=== PATIENT | male | born 1970 | race Hispanic/Latino ===

== ENCOUNTER 2017-05-09 20:32 | Inpatient (IN) | payer MEDICAID, SELFPAY ==
--- NOTE | 2017-05-09 21:47 | ULT ---
RIGHT LOWER EXTREMITY VENOUS ULTRASOUND: 05/09/17 HISTORY: Patient had right knee surgery one month ago in [place]. Right knee pain for eight days. Swelling an d pain in the right knee. TECHNIQUE: Multiplanar bautista scale and color doppler images were obtained in a right lower extremity venous ultr asound. Spectral analysis of the doppler waveforms were performed. The right common femoral vein, profunda femoral vein, superficial femoral vein, and popliteal vein a re normal in appearance without visible thrombus. These vessels demonstrate normal compression, flow , and augmentation. The posterior tibial vein and greater saphenous vein are also patent on the righ t. There are incidentally seen normal appearing lymph nodes with fatty mary jane in the right inguinal re gion. IMPRESSION: No evidence of right lower extremity DVT. POS: [facility]
[2017-05-09 21:57] LABS: #Basophils 0.1 thou/uL (0.0-0.2); #Eosinphils 0.2 thou/uL (0.0-0.7); #Lymphocytes 1.8 thou/uL (1.20-3.40); #Monocytes 0.7 thou/uL (0.11-0.59); #Neutrophils 4.9 thou/uL (1.40-6.50); %Basophils 0.8 % (0.0-1.0); %Eosinophils 2.6 % (0.0-10.0); %Lymphocytes 23.4 % (21.0-51.0); %Monocytes 9.5 % (0.0-10.0); Hematocrit 21.4 % (42.0-52.0); Mean Platelet Volume 5.9 fL (7.4-10.4); Red Blood Cell (RBC) Count 2.46 mill/uL (4.70-6.10); White Blood Cell (WBC) Count 7.7 thou/uL (4.8-10.8)
[2017-05-09 22:14] LABS: ALT (SGPT) 28 U/L (8-55); AST (SGOT) 15 U/L (5-34); Alkaline Phosphatase 113 U/L (40-150); Anion Gap 15 mmol/L (10-20); BUN (Urea Nitrogen) 44 mg/dL (8.9-20.6); Bilirubin, Total 0.4 mg/dL (0.2-1.2); Calc. Creatinine Clearance 0 mL/min (70-130); Calcium 8.8 mg/dL (7.8-10.44); Carbon Dioxide 11 mmol/L (22-29); Chloride 116 mmol/L (98-107); Estimated GFR-MDRD 14; Globulin 4.3 g/dL (2.4-3.5); Protein, Total 7.8 g/dL (6.0-8.3)
[2017-05-09] MEDS ORDERED: Lidocaine 1% w/Epinephrine 1:200K 30 ML VIAL ONE (23:37)
[2017-05-10 00:27] LABS: BF Reference Range Comment Note:
[2017-05-10 02:43] LABS: BF Color Pink
[2017-05-10 02:44] LABS: RBC Count-Automated 1480000 /cumm
[2017-05-10 02:46] LABS: Number Cells Counted-Fluids 100
[2017-05-10] MEDS ORDERED: Sodium Chloride 0.9% 1,000 ML IV SCH (03:47)
[2017-05-10] MEDS ORDERED: HumaLOG 300 UNITS/3 ML VIAL SC PRN (03:47)
[2017-05-10] MEDS ORDERED: Ondansetron ODT 4 MG TAB PO PRN (03:47)
[2017-05-10] MEDS ORDERED: Bisacodyl 5 MG TAB PO PRN (03:47)
[2017-05-10] MEDS ORDERED: Dextrose 50% Abboject 50 ML SYRINGE SLOW IVP PRN (03:47)
[2017-05-10] MEDS ORDERED: Ondansetron HCl/PF 4 MG/2 ML Vial IVP PRN (03:47)
[2017-05-10] MEDS ORDERED: Acetaminophen 650 MG Suppository PR PRN (03:47)
[2017-05-10] MEDS ORDERED: Dextrose 5% in Water 1,000 ML IV PRN (03:47)
[2017-05-10 03:53] LABS: Hemoglobin A1c 7.7 % (4.0-6.0)
--- NOTE | 2017-05-10 05:58 | HP-2 ---
ADMITTING RESIDENT: Dequan Ann D.O. ATTENDING PHYSICIAN: Matt Parker M.D. CONSULTS: Dr. Layton Jansen, Orthopedics. HISTORIAN: Patient and daughter. CHIEF COMPLAINT: Right knee pain and swelling. HISTORY OF PRESENT ILLNESS: This is a 47-year-old male who presents with right knee pain a nd swelling x7-8 days. He had knee surgery at the end of February and has been on prophylactic Keflex s vero. He denies fever, headache, chest pain, shortness breath, abdominal pain, nausea, vomiting, di arrhea. He has been taking the Keflex as prescribed and has had no injury to the knee since surgery . He states he has no hardware in his knee such as a knee replacement. The knee surgery was perfor med at [facility]. He has no history of tuberculosis or recent travel. He is from [place], but has no t been back in over 27 years. He has had a similar problem 4 times and states that is why he keeps having knee surgery. He states the pain is worse with extension and ambulation. [facility] he was seen by Dr. Vaz who performed a joint aspiration that had turbid fluid and conta cted Dr. Jansen who stated he would see the patient in the morning. PAST MEDICAL HISTORY: Patient is a poor historian, but reports diabetes mellitus type 1, and chroni c kidney disease. PAST SURGICAL HISTORY: 1. Right knee x4, most recently 02/2017. 2. Appendectomy. 3. Kidney stone removal. ALLERGIES: No known drug allergies. HOME MEDICATIONS: 1. Insulin, the patient is sure of type or dose. 2. Keflex for knee infection prophylaxis. FAMILY HISTORY: Mother had diabetes mellitus. SOCIAL HISTORY: The patient denies tobacco, alcohol, or drug use. He is disabled, and has 5 children. REVIEW OF SYSTEMS: GENERAL: Positive for chills. Negative for fevers or weight change, appetite change, sleep change, night sweats, fatigue. EYES: Negative for vision change or eye pain. ENT: Negative for nasal congestion, rhinorrhea, sore throat. RESPIRATORY: Negative for cough, congestion, shortness of breath, exercise intolerance. CARDIOVASCULAR: Negative for chest pain, palpitations, PND, orthopnea, and edema. GI: Negative for nausea, vomiting, diarrhea, constipation, abdominal pain, GI bleeding. : Negative for dysuria, polyuria. SKIN: Negative for rashes, lesions, jaundice. MUSCULOSKELETAL: Positive for right knee pain. Positive for right knee tenderness. Positive for r ight knee swelling. Negative for arthritis and arthralgias. NEUROLOGIC: Positive for headache. Negative for weakness, numbness, syncope, seizure. PSYCHIATRIC: Negative for anxiety, depression and suicidal ideation. PHYSICAL EXAMINATION: VITAL SIGNS: Blood pressure 120/77, pulse 84, respiration rate 16, pulse ox 97% on room air, weigh t 63 kilograms. GENERAL: The patient is alert and oriented x4, in no apparent distress. Well-developed and appropr iately interactive. EYES: PERRLA, EOMI. Conjunctivae within normal limits. ENT: Tympanic membranes pearly bautista without bulging or erythema. Nasal mucosa within normal limits . Oropharynx within normal limits. NECK: Supple, with no lymphadenopathy, thyromegaly or bruit. CARDIOVASCULAR: Regular rate and rhythm, no murmurs, rubs, gallops. Radial and pedal pulses are pa lpable and equal bilaterally. RESPIRATORY: Normal effort, no retractions. Clear to auscultation bilaterally. SKIN: Warm, dry with no cyanosis, no lesions. Skin is erythematous on knee. ABDOMEN: Soft, nontender to palpation. Bowel sounds positive x4, no mass or distention. EXTREMITIES: No clubbing, cyanosis. Right knee with significant swelling, tenderness, rubor and pa llor, right knee flexion and extension limited by pain. MUSCULOSKELETAL: Structure within normal limits. Tone within normal limits. Muscle strength 5/5 NEURO: No focal deficits. Cranial nerves II-XII intact. GCS is 15. PSYCHIATRIC: Mood and affect are appropriate. LABORATORY DATA: 1. CBC: White blood cells 7.7, hemoglobin 6.9, hematocrit 21.5, platelet count 530, MCV 87 63% matthieu trophils. 2. CMP: Sodium 137, potassium 4.8, chloride 116, bicarbonate 11, BUN 44, creatinine 4.56, glucose 154, calcium 8.8, total protein 7.8, albumin 3.5, AST 15, ALT is 28, alkaline phosphatase 113. CRP 8.09. IMAGING: Right lower extremity Doppler was negative for DVT. ASSESSMENT AND PLAN: This is a 47-year-old male with a past medical history of diabetes me llitus type 1 and chronic kidney disease who presents with: 1. Septic arthritis. Admit to Medical, start IV vancomycin. We will give 15 mg/kg dose and adjust dosing based on kidney function if it improves. Blood cultures ordered. Joint aspiration studies pending. Dr. Jansen was consulted by the emergency department and will see the patient in the mo rning. 2. Acute kidney injury on chronic kidney disease. We will check urine creatinine and sodium. We w ill give IV bolus and then maintenance fluids. Baseline creatinine appears to be about 1.8 to 1.9. We will evaluate for prerenal injury, consider Nephrology consult in the morning. Strict I's and O 's will be taken. 3. Diabetes mellitus type 1. Check hemoglobin A1c. We will get Accu-Cheks and sliding scale insul in. 4. Normocytic anemia, hemoglobin 6.9 compared to 8.7 on visit in February and 11.5 in August. It may be related to kidney disease. No known source of bleeding at this time. Patient denies GI bleeding . We will transfuse if symptomatic. Consult Nephrology to see if he is appropriate for Epogen if k idney function is worsened. The patient may need endoscopy, could be an option for outpatient. 5. CODE STATUS: Full. 6. Activity: Bed rest. 7. Diet n.p.o. 8. Deep venous thrombosis prophylaxis; heparin. DISPOSITION/LENGTH OF STAY: Anticipate discharge home. Length of stay will be at least 2 nights. Symptomatic medications will be provided. History and physical exam as well as management was discussed with Dr. Parker.
[2017-05-10 06:01] VITALS: BMI 21.9
[2017-05-10 07:10] LABS: Anion Gap 16 mmol/L (10-20); BUN (Urea Nitrogen) 46 mg/dL (8.9-20.6); Calc. Creatinine Clearance 19 mL/min (70-130); Calcium 9.2 mg/dL (7.8-10.44); Carbon Dioxide 10 mmol/L (22-29); Chloride 115 mmol/L (98-107); Estimated GFR-MDRD 14; Magnesium 1.6 mg/dL (1.6-2.6); Phosphorus 4.3 mg/dL (2.3-4.7)
[2017-05-10 07:31] LABS: #Basophils 0.1 thou/uL (0.0-0.2); #Eosinphils 0.3 thou/uL (0.0-0.7); #Lymphocytes 2.1 thou/uL (1.20-3.40); #Monocytes 0.6 thou/uL (0.11-0.59); #Neutrophils 4.2 thou/uL (1.40-6.50); %Basophils 0.8 % (0.0-1.0); %Eosinophils 3.6 % (0.0-10.0); %Lymphocytes 28.8 % (21.0-51.0); %Monocytes 8.5 % (0.0-10.0); Hematocrit 20.6 % (42.0-52.0); Mean Platelet Volume 6.6 fL (7.4-10.4); Red Blood Cell (RBC) Count 2.33 mill/uL (4.70-6.10); White Blood Cell (WBC) Count 7.1 thou/uL (4.8-10.8)
[2017-05-10 07:37] LABS: Anion Gap 17 mmol/L (10-20); BUN (Urea Nitrogen) 45 mg/dL (8.9-20.6); Calc. Creatinine Clearance 19 mL/min (70-130); Calcium 9.3 mg/dL (7.8-10.44); Carbon Dioxide 10 mmol/L (22-29); Chloride 115 mmol/L (98-107); Estimated GFR-MDRD 14; Magnesium 1.7 mg/dL (1.6-2.6); Phosphorus 4.4 mg/dL (2.3-4.7)
--- NOTE | 2017-05-10 08:27 | RAD ---
RIGHT KNEE TWO VIEWS: History: 47-year-old male with septic knee arthritis and swelling. Comparison: 03-18-17 FINDINGS: There is very marked distention of the suprapatellar recess and very extensive joint fluid density. There are some destructive changes and some fragmentation of the medial tibial plateau. There is courtney e developing calcification, probably ossification, along the pre-femoral region of the distal femur adjacent to the distended suprapatellar recess. There are some small bony fragments noted medially a nd posteriorly. IMPRESSION: Marked distention of the joint space, particularly suprapatellar recess which certainly could be com patible with septic knee arthritis. In addition there is extensive irregular bony erosive and destru ctive changes of the medial tibial plateau and medial proximal tibia raising concern for associated osteomyelitis. Developing ossification along the pre-femoral region posterior to the distended supra patellar recess. No acute fracture. POS: [facility]
--- NOTE | 2017-05-10 08:36 | ULT ---
COMPLETE BILATERAL RENAL ULTRASOUND: HISTORY: A 47-year-old male with renal failure. FINDINGS: The right kidney measures 12.6 x 5 x 4.4 cm. The left kidney measures 12.8 x 5.1 x 5.6 cm. There a re noted to be fairly marked hyperechoic changes throughout both kidneys, evidence for nonspecific c hronic renal disease. No evidence for renal hydronephrosis. The bladder appears unremarkable. IMPRESSION: 1. Hyperechoic kidneys bilaterally, consistent with nonspecific chronic renal disease. 2. No hydronephrosis. POS: [facility]
[2017-05-10] MEDS ORDERED: VANCOMYCIN IVPB PRN (09:26)
[2017-05-10] MEDS ORDERED: Vancomycin HCl 1 GM in Premix Bag 1 BAG IVPB SCH (10:00)
[2017-05-10 11:08] LABS: Amphetamine Not Detected (NotDetected); Methadone Not Detected (NotDetected); Methamphetamine Not Detected (NotDetected)
[2017-05-10 11:18] LABS: Bilirubin Negative (Negative); Blood, Urine Trace (Negative); Glucose, Urine (Dipstick) Negative (Negative); Ketone, Urine Negative (Negative); Nitrite Negative (Negative); Protein, Urine (Dipstick) 30 mg/dL (Neg-Trace); Urobilinogen 0.2 mg/dL (0.2-1.0)
[2017-05-10 11:22] LABS: Bacteria/HPF None Seen HPF (None Seen); Hyaline Casts/LPF 0-3 HYALINE CAST LPF (0-3 Hyaline); Squamous Epithelial None Seen HPF (0-3); WBC/HPF 0-3 HPF (0-3)
[2017-05-10] MEDS: Heparin 5,000 UNITS/ML VIAL SC SCH ×3 (11:35→21:31)
[2017-05-10] MEDS: Vancomycin HCl 1 GM in Premix Bag 1 BAG IVPB SCH (14:04)
[2017-05-10] MEDS: Sodium Chloride 0.9% 1,000 ML IV SCH ×3 (14:05→22:19)
[2017-05-10 16:16] LABS: Hematocrit 24.2 % (42.0-52.0)
--- NOTE | 2017-05-10 18:59 | CON ---
DATE OF CONSULTATION: 05/10/2017 REQUESTING PHYSICIAN: Matt Parker M.D. HISTORY OF PRESENT ILLNESS: Patient is a pleasant 47-year-old gentleman, who today was int erviewed while in his hospital bed via interpretation from one of our nurses on tower 4. He reports a history of increased knee pain and swelling over the last 7-8 days. Patient has been on prophyla ctic Keflex since his surgery in 02/2017 at [facility] in [place]. He reports that his knee problems started in 06/2017 when he developed the insidious onset of a painful swollen knee. He was seen and evaluated at [facility] in [place], where an arthrotomy was performe d for infection. The patient reports that he had 2 subsequent arthrotomies for the same problem at [facility]. In February, he was having increasing knee pain and did not feel as though he was seen any results with his care from [facility] and as such, he presented to [facility] in [place], ere again he underwent a surgical procedure on the knee. Unfortunately, we do not have any records from [facility] or [facility] to reflect a pathogen from within the knee or surgical findings. T he patient states that all foreign surgeries were for infection. The patient now admitted to the [facility] due to this knee pain and swelling as well as his multiple medical comorbiditi es. The patient reports the pain level is 6/10 when attempting to ambulate. He did have x-rays per formed in 02/2017, which showed some erosions of the medial tibial plateau; and today I had repeat x -rays performed that showed extensive erosive changes over the medial plateau as well as some \\\\"mot h eaten\\\\" changes of the distal femur as well as some periosteal new bone formation at the anterior cortex of the distal femur. I do not appreciate an obvious pathologic pattern from these radiograp hic findings, but clearly the erosions seen in February has accelerated significantly in the last 3 venessa hs. PAST MEDICAL HISTORY: Remarkable for diabetes and chronic renal disease. PAST SURGICAL HISTORY: 1. Right knee surgery x4 as outlined in the history of present illness. 2. Appendectomy. 3. Renal stone removal. MEDICATIONS AT HOME: Include insulin as well as Keflex since his last surgery in February. ALLERGIES: None known. REVIEW OF SYSTEMS: He does not report significant fevers or sweats. He does have a history of chil ls last week. He denies shortness of breath or chest pain. He denies numbness or tingling in the l ower extremity. FAMILY HISTORY: Noncontributory. SOCIAL HISTORY: Denies tobacco, alcohol, or drug use. PHYSICAL EXAMINATION: VITAL SIGNS: The patient has a temperature of 97.8 degrees Fahrenheit, heart rate is 71, respirator y rate 16 and blood pressure 113/75. HEENT: Atraumatic, normocephalic. HEART: Shows a regular rate and rhythm without murmur. LUNGS: Clear to auscultation bilaterally. ABDOMEN: Soft. Pelvis is stable. EXTREMITIES: Remarkable for right lower extremity with a well-healed midline anterior knee incision that measures in axis of 8 inches. He is found to have a 2+ effusion within the knee and some incr eased warmth. He has some mild pitting edema distal to this knee. He is moving his toes. His comp artments in the lower extremity are soft. He has no pain with passive stretch and has intact subjec tive sensation in the foot. His knee range of motion is from full extension to about 50 degrees of flexion and this is met with pain. LABORATORY AND X-RAY FINDINGS: He has a white count of 7, hematocrit 21.5, and 530,000 platelets. He is found to have a BUN of 44, creatinine 4.56. An aspirate was performed [facility] and this aspirate showed turbid cloudy fluid with 102,000 white cells and 1,480,00 0 red cells. The white cells were predominantly neutrophils and there was no evidence of crystal an d no organisms were seen on Gram stain. He was also found to have a sed rate of 117 and a C-reactiv e protein of 8.09. X-RAYS: As previously described, x-ray of his knee was obtained today and shows severe erosive encarnacion ges of the medial tibial plateau as well as periosteal bone formation at the anterior femur. ASSESSMENT: A 47-year-old gentleman with effusion within the knee and elevated white blood cell cou nt suggestive of infection, although Gram-stain negative at this time. The patient also with bony c hanges on x-ray including severe erosive changes of the medial tibial plateau. At this time, differ ential would include infection with osteomyelitis, although one would need to rule out inflammatory arthropathies or even neoplastic processes. PLAN: At this time, I do believe patient will need an irrigation and debridement procedure of the luis enrique roche. However, I would first like to obtain an MRI of this knee to more fully quantified and categor ized the bone changes present. I think this would be important to do prior to surgery just with any changes visualized are not confounded with some post-surgical changes. I also have concerns regard ing the fragmentation of this gentleman's care. He has had 3 prior procedures done at [facility] and [facility]. We do not have any of these medical records for our review. I do believe that his historical c are is of vast importance. I do not believe that we are going to be able to culture anything from t he knee. He has been on chronic suppressive antibiotics and a question at this time has any bacteri a grown from prior aspirates; and if so, we would want to target these with any current antibiotic r egimen. I do think that a consultation with Dr. Sahu is indicated. Pending the findings of the MR I. We will discuss preoperative planning for irrigation and debridement of this knee joint. I have requested that we try and obtain records from [facility] from his prior hospitalizations. I t fiordaliza one could also consider perhaps transfer patient back to his operating surgeon at [facility] and [facility] in consideration of continuity of care, but I will defer to the medicine service for this.
[2017-05-10 20:29] LABS: Hematocrit 23.9 % (42.0-52.0)
[2017-05-11 00:24] LABS: Hematocrit 21.1 % (42.0-52.0)
--- NOTE | 2017-05-11 00:30 | CON ---
DATE OF CONSULTATION: 05/10/2017 CONSULTING PHYSICIAN: Dr. Parker. REASON FOR CONSULTATION: Acute kidney injury on chronic kidney disease. REASON FOR ADMISSION: Right knee pain and swelling. HISTORY OF PRESENT ILLNESS: A 47-year-old male with history of type 1 diabetes, chronic ki dney disease, came to the hospital with above symptoms and Nephrology is consulted. The patient is from [place] and has not been back in over 25 years and has several kidney stones removal and is curr ently admitted for the above symptoms. No nausea, vomiting, no chest pain, palpitation. No fevers, chills are reported. PAST MEDICAL HISTORY: Positive for type 1 diabetes, chronic kidney disease. PAST SURGICAL HISTORY: Right knee surgery, appendectomy, kidney stone removal. HOME MEDICATIONS: Insulin and Keflex. ALLERGIES: No known drug allergies. FAMILY HISTORY: Positive for diabetes. SOCIAL HISTORY: No smoking, alcohol or illicit drug abuse. REVIEW OF SYSTEMS: The following complete review of systems was negative, unless otherwise mentione d in the HPI or below: Constitutional: Weight loss or gain, ability to conduct usual activities. Skin: Rash, itching. Eyes: Double vision, pain. ENT/Mouth: Nose bleeding, neck stiffness, pain, tenderness. Cardiovascular: Palpitations, dyspnea on exertion, orthopnea. Respiratory: Shortness of breath, wheezing, cough, hemoptysis, fever or night sweats. Gastrointestinal: Poor appetite, abdominal pain, heartburn, nausea, vomiting, constipation, or diar delfina. Genitourinary: Urgency, frequency, dysuria, nocturia. Musculoskeletal: Pain, swelling. Neurologic/Psychiatric: Anxiety, depression. Allergy/Immunologic: Skin rash, bleeding tendency. PHYSICAL EXAMINATION: GENERAL: This is a well-built male in no apparent distress. VITAL SIGNS: Temperature 97.8, pulse 71, respiratory rate 16, blood pressure 113/75. HEENT: Atraumatic, normocephalic. Oral mucosa is moist. NECK: Supple, no masses. CARDIOVASCULAR: S1, S2 heard. Rate and rhythm regular. RESPIRATORY: Clear. MUSCULOSKELETAL: No tenderness. No edema. DERMATOLOGIC: No skin rash. NEUROLOGIC: Alert, awake. PSYCHIATRIC: Mood and affect normal. LABORATORY DATA: Potassium is 4.5, BUN is 45, creatinine is 4.4. Hemoglobin is 7.7. ASSESSMENT AND PLAN: 1. Acute kidney injury on chronic kidney disease versus chronic kidney disease stage 4 to 5. The p atient had a GFR of 37 two months back less likely chronic kidney disease, most likely have acute co mponent on chronic kidney disease. We will follow. Renal ultrasound with hyperechoic kidneys bilat erally suggesting chronic kidney disease given the kidney size remains fairly unremarkable. 2. Anemia. We will check iron studies. 3. Proteinuria. We will check urine protein to creatinine ratio. 4. Chronic kidney disease. We will check chronic kidney disease labs. Plan is to monitor renal function closely, avoid nephrotoxins. Continue hydration as tolerated. Mo nitor vancomycin level and renally dose all the medicines. We will follow. Thank you for the consult.
[2017-05-11 05:24] LABS: Iron 24 ug/dL (65-175)
[2017-05-11 06:51] LABS: #Basophils 0.1 thou/uL (0.0-0.2); #Eosinphils 0.3 thou/uL (0.0-0.7); #Lymphocytes 1.4 thou/uL (1.20-3.40); #Monocytes 0.5 thou/uL (0.11-0.59); #Neutrophils 3.4 thou/uL (1.40-6.50); %Basophils 0.9 % (0.0-1.0); %Eosinophils 5.7 % (0.0-10.0); %Lymphocytes 24.8 % (21.0-51.0); %Monocytes 8.9 % (0.0-10.0); Hematocrit 25.8 % (42.0-52.0); Mean Platelet Volume 5.9 fL (7.4-10.4); White Blood Cell (WBC) Count 5.7 thou/uL (4.8-10.8)
[2017-05-11] MEDS: Sodium Chloride 0.9% 1,000 ML IV SCH ×3 (08:01→18:32)
[2017-05-11] MEDS: Ascorbic Acid 500 mg Chewable Tablet PO SCH ×2 (08:01→21:17)
[2017-05-11] MEDS: Ferrous Sulfate 325 MG TAB PO SCH ×2 (08:01→15:32)
[2017-05-11] MEDS: Docusate 100 MG CAP PO SCH ×2 (08:01→21:17)
[2017-05-11] MEDS: Heparin 5,000 UNITS/ML VIAL SC SCH ×3 (08:01→21:18)
--- NOTE | 2017-05-11 08:46 | PDOC.FM ---
- Subjective Subjective: Pt reports persistent pain in the rt knee, unchanged from yesterday. Seen by Ortho and will be going for MRI of Rt knee today and possible washout. He denies CP, SOB, NVDC. No acute events overnight and no other complaints at this time. - Objective Vital Signs & Weight: Vital Signs (12 hours) Temp Pulse Pulse Resp BP BP Pulse Ox 05/11/17 07:15 98.1 F 75 14 146/87 H 98 05/11/17 04:40 98.1 F 73 18 137/86 97 05/11/17 03:30 97.5 F L 76 16 133/81 05/11/17 01:03 98.2 F 76 16 128/83 98 Weight Weight 63.503 kg I&O: 05/10/17 05/11/17 05/12/17 06:59 06:59 06:59 Intake Total 1206 Output Total 750 Balance 456 Result Diagrams: 05/11/17 06:30 05/10/17 07:17 <Javi Lopez - Last Filed: 05/11/17 08:57> - Objective Vital Signs & Weight: Vital Signs (12 hours) Temp Pulse Pulse Resp BP BP Pulse Ox 05/11/17 07:15 98.1 F 75 14 146/87 H 98 05/11/17 04:40 98.1 F 73 18 137/86 97 05/11/17 03:30 97.5 F L 76 16 133/81 05/11/17 01:03 98.2 F 76 16 128/83 98 Weight Weight 63.503 kg I&O: 05/10/17 05/11/17 05/12/17 06:59 06:59 06:59 Intake Total 1206 Output Total 750 Balance 456 Result Diagrams: 05/11/17 06:30 05/10/17 07:17 <Matt Parker - Last Filed: 05/11/17 10:05> Phys Exam - Physical Examination Constitutional: NAD HEENT: PERRLA, sclera anicteric Respiratory: no wheezing, no rales, no rhonchi, clear to auscultation bilateral Cardiovascular: RRR, no rub 1-2/6 murmur Gastrointestinal: soft, non-tender, no distention, positive bowel sounds Musculoskeletal: pulses present no pitting edema rt knee Neurological: non-focal, moves all 4 limbs <Javi Lopez - Last Filed: 05/11/17 08:57> Dx/Plan (1) Septic arthritis Status: Acute (2) Murmur Code(s): R01.1 - CARDIAC MURMUR, UNSPECIFIED Status: Acute (3) Osteomyelitis Code(s): M86.9 - OSTEOMYELITIS, UNSPECIFIED Status: Acute (4) Diabetes Code(s): E11.9 - TYPE 2 DIABETES MELLITUS WITHOUT COMPLICATIONS Status: Acute - Plan Plan: -ortho consulted, appreciate recommendations -pt to have MRI rt knee today and possible irrigation -consider transfer to pts previous surgeon -102,000 WBCs and 95% Neut per joint aspirate; however, no organisms grown to date -Pt remains afebrile, no leukocytosis -will continue vancomycin per pharmacy dosing -consult ID, appreciate recs -Pt has history of staph UTI in 2014 and recurrent infection/effusions of rt knee. Was previously on maintenence keflex prior to arrival -CKD stage 4-5 -nephro consulted appreciate recommendations -continue IVF -transfuse if hgb <7 w/ symptoms -iron deficiency anemia, start on iron, vit c and colace -trend H&[facility] <Javi Lopez - Last Filed: 05/11/17 08:57> Attending Addendum - Attending Addendum I personally evaluated the patient and discussed the management with Dr. Lopez. I agree with the History, Examination, Assessment and Plan documented above with any addition or exceptions noted below. Awaiting MRI. Patient has had care at an outside facility. We will await records vs consider transfer. Will need to discuss with outlying facility. Has Infectious disease physician at [facility]. 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 <Matt Parker - Last Filed: 05/11/17 10:05>
[2017-05-11 10:14] LABS: Anion Gap 11 mmol/L (10-20); BUN (Urea Nitrogen) 36 mg/dL (8.9-20.6); Calc. Creatinine Clearance 20 mL/min (70-130); Calcium 8.6 mg/dL (7.8-10.44); Carbon Dioxide 13 mmol/L (22-29); Chloride 119 mmol/L (98-107); Estimated GFR-MDRD 15
--- NOTE | 2017-05-11 11:49 | MRI ---
MRI RIGHT KNEE WITHOUT CONTRAST: Date: 05/11/17 HISTORY: Concern for septic arthritis. COMPARISON: Radiograph of 03/18/17. FINDINGS: Bones: There is loss of normal T1 signal to the medial tibial plateau and medial femoral condyle, as well a s edema throughout the lateral femoral condyle and lateral tibial plateau. There are erosive changes at the location of the anterior cruciate ligament at the femur. There is marrow edema within the patella. There is a large joint effusion with severe synovitis. Abn ormal thickening of the joint capsule. Abnormal soft tissue edema throughout the knee within the mitch p fascia. Muscles: Abnormal edema within the anterior compartment of the tibia and fibula with concern for pyomyositis of the popliteus. There is abnormal edema within the medial and lateral head of the gastrocnemius as well as soleus muscle, as well as the knee extensors. There is also abnormal edema within the short head biceps muscle. Abnormal undersurface remodeling of the lateral margin of the distal patellar tendon. IMPRESSION: 1. Findings suggestive of septic arthritis of the knee with osteomyelitis. Large joint effusion wit h severe synovitis suggests a relatively longstanding process, greater than 1 week. 2. Likely chronic injury of the ACL which is insufficient. 3. Abnormal edema of the medial tibial plateau with loss of anterior surface height, a sequelae of healing fracture. 4. Erosion of the cartilage of the medial compartment. 5. Concern for pyomyositis of the popliteus, although limited without intravascular contrast. 6. Abnormal edema within the anterior compartment of the tibia and fibula, the medial and lateral h ead of gastrocnemius and soleus muscle, as well as of the medial extensors, all likely myositis. 7. Loss of normal T1 signal within the medial femoral condyle and medial tibial plateau, as well as extensive edema throughout the proximal tibia. POS: [facility]
[2017-05-11] MEDS: Vancomycin HCl 1 GM in Premix Bag 1 BAG IVPB SCH (12:24)
[2017-05-11] MEDS ORDERED: Neomycin-Polymyxin 1 ML AMP ONE (15:27)
[2017-05-11] MEDS ORDERED: Fentanyl 100 MCG/2 ML VIAL ONE (15:36)
[2017-05-11] MEDS ORDERED: Midazolam HCl 2 mg/2 ml Vial ONE (15:36)
[2017-05-11] MEDS ORDERED: Ondansetron HCl/PF 4 MG/2 ML Vial ONE (16:01)
[2017-05-11] MEDS ORDERED: Lidocaine 1% PF 5 ML VIAL ONE (16:01)
[2017-05-11] MEDS ORDERED: PHENYLEPHRINE-NS 100 MCG/ML 10 ML SYRINGE ONE (16:01)
[2017-05-11] MEDS ORDERED: Propofol 200 MG/20 ML VIAL ONE (16:01)
[2017-05-11] MEDS ORDERED: Meperidine HCl/PF 25 MG/ML VIAL SLOW IVP PRN (16:52)
[2017-05-11] MEDS ORDERED: Promethazine HCl 25 MG/ML VIAL SLOW IVP PRN (16:52)
[2017-05-11] MEDS ORDERED: Promethazine HCl 25 MG/ML VIAL IM PRN (16:52)
[2017-05-11] MEDS ORDERED: Ondansetron HCl/PF 4 MG/2 ML Vial IVP PRN (16:52)
[2017-05-11 18:21] LABS: Hematocrit 27.5 % (42.0-52.0)
--- NOTE | 2017-05-11 22:28 | PRG ---
DATE OF SERVICE: 05/11/2017 NEPHROLOGY PROGRESS NOTE SUBJECTIVE: Patient was seen and examined at bedside and overnight events noted. Patient denies a ny shortness of breath or chest pain or palpitation. No history of nausea or vomiting or diarrhea o r fever or chills or cramps. OBJECTIVE: GENERAL: This is a well built male, in no apparent distress. VITAL SIGNS: Temperature 97.4, pulse 75, respiratory rate 16, blood pressure 139/87. HEENT: Atraumatic, normocephalic, Oral mucosa is moist Neck: Supple CARDIOVASCULAR: S1, S2 heard, Rate and rhythm regular RESPIRATORY: Clear to auscultation GASTROINTESTINAL: Abdomen is soft MUSCULOSKELETAL : No tenderness, No edema DERMATOLOGIC : No skin rash NEUROLOGIC: Alert and awake and oriented x3, No focal neurologic deficits. Moving all the extremitie s. PSYCHIATRIC: Mood and affect normal LABORATORY DATA: Potassium is 4.2, BUN is 36, creatinine 4.1, GFR is 15. PTH is 86.6, vitamin D 14.7, carbon dioxide is 13. ASSESSMENT AND PLAN: 1. Acute kidney injury on chronic kidney disease. PTH level is low, chronic kidney disease. We will continue supportive care and avoid nephrotoxins. 2. Acidosis, stable. 3. Vitamin D deficiency. Start on vitamin D. 4. Anemia with iron deficiency, start on iron pills rule out any bleed. 5. Proteinuria not much significant. 6. Plan is to monitor renal function with close followup. Avoid nephrotoxins and will follow.
[2017-05-12] MEDS: Sodium Chloride 0.9% 1,000 ML IV SCH ×3 (02:00→20:30)
[2017-05-12 05:04] LABS: Hematocrit 23.7 % (42.0-52.0); Mean Platelet Volume 6.1 fL (7.4-10.4); Red Blood Cell (RBC) Count 2.69 mill/uL (4.70-6.10); White Blood Cell (WBC) Count 5.2 thou/uL (4.8-10.8)
[2017-05-12 05:22] LABS: ALT (SGPT) 33 U/L (8-55); AST (SGOT) 35 U/L (5-34); Alkaline Phosphatase 100 U/L (40-150); Anion Gap 14 mmol/L (10-20); BUN (Urea Nitrogen) 34 mg/dL (8.9-20.6); Bilirubin, Total 0.4 mg/dL (0.2-1.2); Calc. Creatinine Clearance 20 mL/min (70-130); Calcium 8.3 mg/dL (7.8-10.44); Carbon Dioxide 12 mmol/L (22-29); Chloride 114 mmol/L (98-107); Estimated GFR-MDRD 16; Globulin 3.7 g/dL (2.4-3.5); Protein, Total 6.6 g/dL (6.0-8.3)
--- NOTE | 2017-05-12 06:18 | OP ---
DATE OF SURGERY: 05/11/2017 PREOPERATIVE DIAGNOSIS: Right septic knee with probable proximal tibial osteomyelitis. POSTOPERATIVE DIAGNOSIS: Right septic knee with probable proximal tibial osteomyelitis. SURGICAL PROCEDURE: Right knee arthrotomy with irrigation and debridement. ANESTHESIA: General. SURGEON: Sam Ríos M.D. RAILROAD WORKER: Ry Ponce PA-C TOURNIQUET TIME: Zero. BLOOD LOSS: 50 mL. SPECIMEN: Tissue and swabs sent for Gram stain culture and sensitivity. DRAINS: Hemovac x1. COMPLICATIONS: None. OUTCOME: Satisfactory. INDICATIONS: The patient is a 47-year-old gentleman with a nearly 1 year history of recurrent right knee effusions. The patient has now had 4 separate irrigation and debridement procedures for this septic knee. His first episode occurred in 06/2016 with irrigation and debridement performed at [facility] in [place], 2 subsequent surgeries were also performed at [facility]. Mos t recently the patient was an inpatient at [facility] in [place] in February for irrigation and debridemen t of the joint as well as decompression of a calf abscess. Unfortunately, I do not have the details of these hospitalizations and I do not know what organism was found. The patient now has recurrent pain and swelling within the knee with a large effusion. The patient also found to have erosive ch anges of the medial tibial plateau that appeared to be present on prior x-ray in February, although cert ainly worse on the most recent films. After discussion with patient including risks and benefits, kevin raymond decided to proceed with arthrotomy and irrigation of the knee. PROCEDURE IN DETAIL: The patient was brought to the operating room and timeout performed and then g eneral anesthesia induced. A sterile prep and drape was then performed of the right lower extremity . Using the main midline anterior scar from previous arthrotomies skin was incised, dissection was carried down bluntly to the underlying patellar tendon. Next a full thickness flap was developed he ading medially to the edge of the patellar tendon and the joint was entered. At this point, some se ropurulent material did come from the knee. This was swabbed and sent for Gram stain culture and se nsitivity. Some of the tissue also came from the knee, there was a whitish tissue and not normal ap pearing synovial lining or intra-articular finding, as such, this was also sent for Gram stain cultu re and sensitivity. Next, 5 liters of normal saline with antibiotic irrigant was irrigated throu gh this knee. Following this, the joint was closed with 0 Vicryl for the capsule, this was done ove r a Hemovac drain and then 2-0 Vicryl and nylon for the skin. A Xeroform gauze, Webril, and Tho wra p dressing was applied to the knee and then patient was transferred to recovery room in stable condi tion. There were no complications. The patient tolerated the procedure well.
--- NOTE | 2017-05-12 08:42 | PDOC.FM ---
- Subjective Subjective: Pt had no acute events overnight but Hgb did drop 1 pt and pt was transfused 1 UPRBCs. This is likely 2/2 irrigation procedure. Pt reports persistnet pain in right knee. States he was no longer being treated at [facility] because they said his infection had cleared. - Objective Vital Signs & Weight: Vital Signs (12 hours) Temp Pulse Pulse Resp BP BP BP 05/12/17 07:27 97.9 F 81 16 151/89 H 05/12/17 06:10 98.1 F 77 18 150/86 H 05/12/17 04:00 98.1 F 77 18 150/86 H 05/12/17 00:00 98.2 F 80 18 142/92 H Pulse Ox 05/12/17 07:27 98 05/12/17 06:10 05/12/17 04:00 97 05/12/17 00:00 98 Weight Weight 63.503 kg I&O: 05/11/17 05/12/17 05/13/17 06:59 06:59 06:59 Intake Total 1206 0 400 Output Total 750 100 900 Balance 456 -100 -500 Result Diagrams: 05/12/17 04:14 05/12/17 04:14 <Javi Lopez - Last Filed: 05/12/17 08:39> - Objective Vital Signs & Weight: Vital Signs (12 hours) Temp Pulse Pulse Resp BP BP BP 05/12/17 08:00 97.9 F 81 16 05/12/17 07:27 97.9 F 81 16 151/89 H 05/12/17 06:10 98.1 F 77 18 150/86 H 05/12/17 04:00 98.1 F 77 18 150/86 H 05/12/17 00:00 98.2 F 80 18 142/92 H Pulse Ox 05/12/17 08:00 98 05/12/17 07:27 98 05/12/17 06:10 05/12/17 04:00 97 05/12/17 00:00 98 Weight Weight 63.503 kg I&O: 05/11/17 05/12/17 05/13/17 06:59 06:59 06:59 Intake Total 1206 0 640 Output Total 750 100 900 Balance 456 -100 -260 Result Diagrams: 05/12/17 04:14 05/12/17 04:14 <Matt Parker - Last Filed: 05/12/17 10:53> Phys Exam - Physical Examination Constitutional: NAD HEENT: sclera anicteric Respiratory: no wheezing, no rales, no rhonchi, clear to auscultation bilateral Cardiovascular: RRR, no significant murmur, no rub Gastrointestinal: soft, non-tender, no distention, positive bowel sounds Musculoskeletal: pulses present, edema present non-pitting edema, RLE. Drain in place draining sanguinous material. Neurological: non-focal, moves all 4 limbs <Javi Lopez - Last Filed: 05/12/17 08:39> Dx/Plan (1) Septic arthritis Status: Acute (2) Murmur Code(s): R01.1 - CARDIAC MURMUR, UNSPECIFIED Status: Acute (3) Osteomyelitis Code(s): M86.9 - OSTEOMYELITIS, UNSPECIFIED Status: Acute (4) Diabetes Code(s): E11.9 - TYPE 2 DIABETES MELLITUS WITHOUT COMPLICATIONS Status: Acute (5) Acute on chronic kidney failure Code(s): N17.9 - ACUTE KIDNEY FAILURE, UNSPECIFIED; N18.9 - CHRONIC KIDNEY DISEASE, UNSPECIFIED Status: Acute - Plan Plan: -pt had irrigation performed yesterday in [place] -ortho following, appreciate recs -will contact pts ID doctor at [facility] regarding records and treatment history, consult ID pending -acute on chronic kidney injury, nephro consulted appreciate recs -iron, vit C and colace for VERA -pt transfused 2 UPRBC total -trend H&H -FOBT pending -murmur on PE, TTE ordered <Javi Lopez - Last Filed: 05/12/17 08:39> Attending Addendum - Attending Addendum I personally evaluated the patient and discussed the management with Dr. Lopez. I agree with the History, Examination, Assessment and Plan documented above with any addition or exceptions noted below. Patient s/p R knee arthrotomy with irrigation and debridement yesterday. Will await surgery's recommendations. New systolic murmur heard on exam, so ECHO was ordered. Will f/u with results. Nephrology continues to follow for his MIKE vs CKD and will await their recommendations. H&H still decrease so will transfused another 1U PRBC as he may need more surgery. Reviewed records from [facility]. <Matt Parker - Last Filed: 05/12/17 10:53>
[2017-05-12] MEDS: Ferrous Sulfate 325 MG TAB PO SCH ×4 (09:39→15:45)
[2017-05-12] MEDS: Ascorbic Acid 500 mg Chewable Tablet PO SCH ×2 (09:43→21:20)
[2017-05-12] MEDS: Docusate 100 MG CAP PO SCH ×2 (09:44→21:20)
[2017-05-12] MEDS: Heparin 5,000 UNITS/ML VIAL SC SCH ×3 (09:45→21:20)
[2017-05-12 12:09] LABS: Hematocrit 29.3 % (42.0-52.0)
--- NOTE | 2017-05-12 12:13 | PRG ---
Patient Name: AKBAR PARRISH Date of service: 05/12/2017 Subjective: Patient was seen and examined at bedside and overnight events noted. Patient denies any shortness of breath or chest pain or palpitation. No history of nausea or vomiting or diarrhea or fever or chills or cramps. Objective: General: This is a well-built male in no apparent distress Vital signs: Temperature 98.0, pulse 77, respirations 16, blood pressure 156/96. HEENT: Atraumatic, normocephalic. Oral mucosa is moist. Neck: Supple. Cardiovascular: S1 S2 heard. Rate and rhythm regular. Respiratory: Clear to auscultation. Gastrointestinal: Abdomen is soft/ Musculoskeletal: No tenderness. No edema. Dermatologic: No skin rash. Neurologic: Alert and awake and oriented X3. No focal neurologic deficits. Moving all the extremi ties. Psychiatric: Mood and affect normal. LABORATORY DATA: Potassium 4.2, BUN 34, creatinine is 4.08. ASSESSMENT AND PLAN: 1. Acute kidney injury on chronic kidney disease stage 3. Baseline creatinine was 1.95 two months back, would take as baseline. Continue hydration as tolerated. 2. Acidosis, seems to be chronic. Continue hydration. 3. Vitamin D deficiency. Start on vitamin D. 4. Anemia, on iron pills. 5. Proteinuria, not significant. We will continue to monitor. The patient is getting blood today and will follow.
[2017-05-12] MEDS: Vancomycin HCl 1 GM in Premix Bag 1 BAG IVPB SCH ×2 (12:44→13:42)
[2017-05-12] MEDS: HumaLOG 300 UNITS/3 ML VIAL SC PRN ×2 (12:57→17:34)
[2017-05-12] MEDS: Vancomycin HCl 750 MG in Sodium Chloride 0.9% 250 ML 250 ML IVPB SCH (15:43)
--- NOTE | 2017-05-12 16:11 | CON ---
DATE OF CONSULTATION: 05/12/2017 REASON FOR CONSULTATION: Right knee infection. HISTORY OF PRESENT ILLNESS: A 47-year-old patient who has a history of type 2 diabetes mellitus and prior episodes of pancreatitis, who has been admitted twice to this hospital for complications rela mason to diabetes mellitus. Then in 2016, he noticed inflammatory changes in the right knee. At that time, he was evaluated at [facility] and reportedly had 2 surgical procedures there and receiv ed protracted IV and oral antimicrobial therapy. He does not recall the details of those admissions , but nonetheless at the end of all of those procedures, he was told that he had chronic arthritis, but that the infection had resolved. He felt that he must have still persistence of infection or in flammatory process and went to [facility] and there, he had another surgical procedu re and was given antimicrobials again and could not follow up after this initial intervention leonidas raymond of the [place] and therefore, he ended up in the emergency room and was admitted. Dr. Ezekiel aiken completed a surgical procedure. The operative note has been reviewed and he had a right knee arthrotomy with irrigation. There was evidence of seropurulent material from the knee and sent for cultures. It is not clear if AFB cultures and fungal cultures are submitted. Currently, he appear s to be in no distress. He has mild pain in the right knee. No headaches, visual symptoms, sore th roat, odynophagia or dysphagia. No cough or sputum production or chest pain. No abdominal pain or diarrhea. No genitourinary symptoms. No other joint symptoms. No other skin disorder. PAST MEDICAL AND SURGICAL HISTORY: Type 2 diabetes, nephrolithiasis with bladder surgery and pancre atitis. ALLERGIES: None. Never smoker. 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 He is mar ried. CURRENT MEDICATIONS: Include Tylenol, vitamin C, Dulcolax, Feosol, glucagon, insulin and vancomycin . FAMILY HISTORY: Noncontributory. PHYSICAL EXAMINATION: VITAL SIGNS: Essentially normal except for slight elevation in systolic blood pressure. SKIN: Shows the post-surgical findings. He has a drain in the right knee. Peripheral IV access. No Nazario catheter. No lymphadenopathy. HEENT: Noncontributory. BACK: No back tenderness. LUNGS: Clear to auscultation and percussion. HEART: S1 and S2, regular rate. ABDOMEN: Soft and not distended. EXTREMITIES: Pulses are 2+ in dorsalis pedis. He moves extremities equally except for the limitati ons imposed by the right knee inflammatory process. NEUROLOGIC: Cognitive function appears to be intact. LABORATORY DATA: White cell count 5.2, hemoglobin 7.9. He has been transfused now. Platelets 503 with a normal differential. Chemistry with a creatinine of 4.56 and AST 35, ALT 33 and albumin 2.9. Urinalysis was not remarkable except for 30 protein, synovial fluid with 102,000 wbc's with 95% ne utrophils, serology with positive, hepatitis B antibody sharp positive for hepatitis A antibody the negative for the remainder serologies including negative HIV serology. ASSESSMENT: Chronic knee infection with evidence of osteomyelitis of the tibial plateau, lateral as pect. DISCUSSION: Patient has had numerous surgical procedures. We will have to review all the microbiol ogy from the other hospitals including [facility] and [facility] and the current [facility]. We will call the lab and see if AFB and fungal cultures have been submitted because in a deshawn e like this, there will be suspicious for an atypical infection. Malignancy or vasculitis appears t o be unlikely.
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
[2017-05-12 21:48] LABS: Amphetamine Not Detected (NotDetected); Methadone Not Detected (NotDetected); Methamphetamine Not Detected (NotDetected)
[2017-05-13 04:21] LABS: #Basophils 0.1 thou/uL (0.0-0.2); #Eosinphils 0.3 thou/uL (0.0-0.7); #Lymphocytes 1.7 thou/uL (1.20-3.40); #Monocytes 0.4 thou/uL (0.11-0.59); #Neutrophils 3.2 thou/uL (1.40-6.50); %Basophils 1.1 % (0.0-1.0); %Eosinophils 5.3 % (0.0-10.0); %Lymphocytes 30.8 % (21.0-51.0); Hematocrit 27.1 % (42.0-52.0); Mean Platelet Volume 5.8 fL (7.4-10.4); Red Blood Cell (RBC) Count 3.03 mill/uL (4.70-6.10); White Blood Cell (WBC) Count 5.6 thou/uL (4.8-10.8)
[2017-05-13 04:41] LABS: Anion Gap 14 mmol/L (10-20); BUN (Urea Nitrogen) 30 mg/dL (8.9-20.6); Calc. Creatinine Clearance 21 mL/min (70-130); Calcium 8.5 mg/dL (7.8-10.44); Carbon Dioxide 15 mmol/L (22-29); Chloride 115 mmol/L (98-107); Estimated GFR-MDRD 17
--- NOTE | 2017-05-13 06:52 | PDOC.FM ---
- Subjective Subjective: Patient reports that his knee pain is well controlled. He has not required any morphine since yesterday morning. He has no other complaints. - Objective MAR Reviewed: Yes Vital Signs & Weight: Vital Signs (12 hours) Temp Pulse Resp BP Pulse Ox 05/13/17 04:00 98.1 F 75 16 129/82 97 05/13/17 00:00 97.9 F 80 16 154/93 H 97 05/12/17 20:00 98.5 F 81 16 142/85 H 100 Weight Weight 63.503 kg I&O: 05/11/17 05/12/17 05/13/17 06:59 06:59 06:59 Intake Total 1206 0 3630 Output Total 750 100 979 Balance 456 -100 2651 Result Diagrams: 05/13/17 04:04 05/13/17 04:04 Phys Exam - Physical Examination Constitutional: NAD HEENT: moist MMs Respiratory: no wheezing, no rales, no rhonchi, clear to auscultation bilateral Cardiovascular: RRR, no rub, gallop systolic murmur Musculoskeletal: no edema, pulses present drain in R knee with serosanguinous fluid, knee dressing in place R knee tender to palpation Dx/Plan (1) Septic arthritis Status: Acute Qualifiers: Septic arthritis location: knee Septic arthritis organism: due to unspecified organism Laterality: right Qualified Code(s): M00.9 - Pyogenic arthritis, unspecified Plan: 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 MRI showed septic arthritis with osteomyelitis, severe synovitis suggestive of process lasting greater than one week, tibial fracture, chronic ACL injury, myositis of calf muscle POD#2 s/p R knee arthrotomy with irrigation and debridement Knee aspirate NG @ 48 hrs, knee wound cx NG @ 12 hrs, blood culture NG @ 48 hrs -Ortho on board, appreciate recs -ID on board, appreciate recs -Vanc day 4 -f/u on wound culture -AFB and fungal cultures (2) Osteomyelitis Code(s): M86.9 - OSTEOMYELITIS, UNSPECIFIED Status: Acute Qualifiers: Osteomyelitis type: other chronic Osteomyelitis location: tibia Laterality: right Qualified Code(s): M86.661 - Other chronic osteomyelitis, right tibia and fibula Plan: Patient has had chronic septic arthritis and osteomyelitis of the R knee s/p several surgeries to drain as well as a synovectomy at outside hospitals. MRI showed septic arthritis with osteomyelitis, severe synovitis suggestive of process lasting greater than one week, tibial fracture, chronic ACL injury, myositis of calf muscle POD#2 s/p R knee arthrotomy with irrigation and debridement Knee aspirate NG @ 48 hrs, knee wound cx NG @ 12 hrs, blood culture NG @ 48 hrs -Ortho on board, appreciate recs -ID on board, appreciate recs -Vanc day 4 -f/u on wound culture -AFB and fungal cultures (3) Acute on chronic kidney failure Code(s): N17.9 - ACUTE KIDNEY FAILURE, UNSPECIFIED; N18.9 - CHRONIC KIDNEY DISEASE, UNSPECIFIED Status: Acute Qualifiers: Acute renal failure type: unspecified Chronic kidney disease stage: stage 3 (moderate) Qualified Code(s): N17.9 - Acute kidney failure, unspecified; N18.3 - Chronic kidney disease, stage 3 (moderate) Plan: Patient has MIKE on CKD. His GFR 3 months ago represented CKD stage 3. His GFR is currently 17. Has been trending up since admission. -Nephrology on board, appreciate recs -Continue NS @ 100mL/hr -Continue to monitor (4) Diabetes Code(s): E11.9 - TYPE 2 DIABETES MELLITUS WITHOUT COMPLICATIONS Status: Acute Qualifiers: Diabetes mellitus type: type 2 Diabetes mellitus complication status: without complication Diabetes mellitus lobsterman insulin use: with lobsterman use Qualified Code(s): E11.9 - Type 2 diabetes mellitus without complications ; Z79.4 - detention (current) use of insulin Plan: Patient on insulin at home A1c - 7.7% Glucose 116-214 -Continue SSI -Accuchecks ACHS -CC diet (5) Murmur Code(s): R01.1 - CARDIAC MURMUR, UNSPECIFIED Status: Acute Plan: Systolic murmur heard on exam -TTE -Will monitor (6) Normocytic anemia Code(s): D64.9 - ANEMIA, UNSPECIFIED Status: Acute Plan: Patient has normocytic anemia, likely anemia of chronic disease s/p 3 U PRBC's, Hb was 8.9 this AM -continue to monitor -FOBT pending
[2017-05-13] MEDS: Ascorbic Acid 500 mg Chewable Tablet PO SCH ×2 (07:35→20:21)
[2017-05-13] MEDS: Ferrous Sulfate 325 MG TAB PO SCH ×4 (07:36→15:57)
[2017-05-13] MEDS: Sodium Chloride 0.9% 1,000 ML IV SCH ×2 (07:37→20:21)
[2017-05-13] MEDS: Docusate 100 MG CAP PO SCH ×2 (07:37→20:21)
[2017-05-13] MEDS: Heparin 5,000 UNITS/ML VIAL SC SCH ×3 (07:37→20:22)
[2017-05-13] MEDS ORDERED: Sodium Chloride 0.9% 10 ML ONE (08:45)
[2017-05-13] MEDS: traMADol HCl 50 MG TAB PO PRN ×2 (12:09→17:26)
[2017-05-13] MEDS: Vancomycin HCl 750 MG in Sodium Chloride 0.9% 250 ML 250 ML IVPB SCH (13:32)
--- NOTE | 2017-05-13 15:29 | PRG ---
DATE OF SERVICE: 05/13/2017 SUBJECTIVE: Mr. Rojas is having an echocardiogram done at this time. No headaches, visual sympto ms, sore throat, odynophagia, dysphagia, no cough or sputum production or chest pain, some diarrhea. Moderate pain in the right knee. OBJECTIVE: VITAL SIGNS: Show normal temperature, blood pressure is 160/102, respirations 18, pulse 78. GENERAL: Awake, alert, oriented. LUNGS: Clear. HEART: S1, S2, regular rate. ABDOMEN: Soft, not distended. EXTREMITIES: Right knee site dressed. LABORATORY DATA: White cell count 5.6, hemoglobin 8.9, creatinine 3.93. GFR at 17. Cultures from the samples yet pending, preliminary with no organisms seen. ASSESSMENT: Chronic knee infection with evidence of osteomyelitis of the tibial plateau. I have be en able to review the data from [facility] here in town and he was admitted in 2014 fo r a foot ulcer and at that time had surgical debridement and then in 2016, he was admitted for manag ement of the knee synovial process, no obvious osteomyelitis was noted in the MRI, but cultures yiel ded Staphylococcus aureus which was methicillin-sensitive. The patient was initially started on cef azolin and for some reason, he was transitioned to daptomycin which he received for 4 weeks and then was given oral cephalosporin. At this point, we will put him on cefazolin again and PICC line plac ement, treat for 8 weeks at least, and then chronic suppression with Keflex. Evidently, we will hav e to monitor results of cultures again, although it is likely that those will turntable man negative.
[2017-05-13] MEDS: cefTRIAXone\\ROCEPHIN 2 GM in Sodium Chloride 0.9% 100 ML IVPB SCH (15:39)
--- NOTE | 2017-05-13 20:02 | PRG ---
DATE OF SERVICE: 05/13/2017 SUBJECTIVE: Patient was seen and examined at bedside and overnight events noted. Patient denies any shortness of breath or chest pain or palpitation. No history of nausea or vomiting or diarrhea or fever or chills or cramps. OBJECTIVE: GENERAL: This is a well-built male in no apparent distress. VITAL SIGNS: Temperature 97.7, pulse 72, respirations 18, and blood pressure 160/82. HEENT: Atraumatic, normocephalic. Oral mucosa is moist. NECK: Supple. CARDIOVASCULAR: S1, S2 heard. Rate and rhythm regular. RESPIRATORY: Clear to auscultation. GASTROINTESTINAL: Abdomen is soft. MUSCULOSKELETAL: No tenderness, no edema. DERMATOLOGIC: No skin rash. NEUROLOGIC: Alert and awake and oriented x3. No focal neurologic deficits. Moving all the extremities. PSYCHIATRIC: Mood and affect normal. LABORATORY DATA: Potassium 4.5, BUN 30, creatinine 3.9. ASSESSMENT AND PLAN: 1. Acute kidney injury on chronic kidney disease stage 3. Renal function with slow improvement. We will follow. 2. Acidosis, seems to be chronic but getting better. 3. Vitamin D deficiency. Continue on vitamin D. 4. Anemia, start on iron pills. 5. Proteinuria, not significant. Renal function, slowly and gradual improvement. We will follow. MTDD
--- NOTE | 2017-05-13 20:56 | ADD-PRG ---
ADDENDUM DATE OF SERVICE: 05/13/2017 Please see the note from Dr. Ladan Valdes for which I concur. The patient is here for right septic knee. He also has chronic renal issues and is being treated with vancomycin and it sounds like he h as had numerous procedures on the knee and did have a drainage of the knee and washout here. We are continuing vancomycin coverage and getting Infectious Disease involved as well.
[2017-05-14] MEDS: traMADol HCl 50 MG TAB PO PRN ×3 (00:40→15:09)
[2017-05-14 04:37] LABS: Anion Gap 13 mmol/L (10-20); BUN (Urea Nitrogen) 27 mg/dL (8.9-20.6); Calc. Creatinine Clearance 23 mL/min (70-130); Calcium 8.7 mg/dL (7.8-10.44); Carbon Dioxide 15 mmol/L (22-29); Chloride 116 mmol/L (98-107); Estimated GFR-MDRD 18
[2017-05-14 04:44] LABS: #Eosinphils 0.3 thou/uL (0.0-0.7); #Lymphocytes 1.5 thou/uL (1.20-3.40); #Monocytes 0.4 thou/uL (0.11-0.59); #Neutrophils 3.3 thou/uL (1.40-6.50); %Basophils 0.8 % (0.0-1.0); %Eosinophils 4.9 % (0.0-10.0); %Monocytes 6.5 % (0.0-10.0); Hematocrit 27.8 % (42.0-52.0); Mean Platelet Volume 6.1 fL (7.4-10.4); Red Blood Cell (RBC) Count 3.16 mill/uL (4.70-6.10); White Blood Cell (WBC) Count 5.4 thou/uL (4.8-10.8)
[2017-05-14] MEDS: Sodium Chloride 0.9% 1,000 ML IV SCH (05:48)
--- NOTE | 2017-05-14 07:10 | PDOC.FM ---
- Subjective Subjective: Reports that he has minimal right knee pain. He has not ambulated at all 2/2 his knee. He is now complaining of a headache with neck pain on the right side of his neck that started yesterday. He denies any chest pain, nausea, vomiting. - Objective MAR Reviewed: Yes Vital Signs & Weight: Vital Signs (12 hours) Temp Pulse Resp BP BP Pulse Ox 05/14/17 04:29 79 20 144/89 H 96 05/14/17 00:31 97.7 F 87 20 92/59 L 97 05/13/17 22:00 161/90 H 05/13/17 21:04 79 181/110 H 05/13/17 20:00 97.6 F 79 20 97 05/13/17 19:40 97.6 F 79 20 181/91 H 97 Weight Weight 63.503 kg I&O: 05/13/17 05/14/17 05/15/17 06:59 06:59 06:59 Intake Total 3630 3700 Output Total 979 90 Balance 2651 3610 Result Diagrams: 05/14/17 03:52 05/14/17 03:52 Phys Exam - Physical Examination Constitutional: NAD HEENT: PERRLA, moist MMs Respiratory: no wheezing, no rales, no rhonchi, clear to auscultation bilateral Cardiovascular: RRR, no rub systolic murmur Gastrointestinal: soft, non-tender, no distention, positive bowel sounds Musculoskeletal: no edema, pulses present Neurological: non-focal, moves all 4 limbs Psychiatric: normal affect, A&O x 3 Deviation from normal: drain in place on R knee with serosanguinous fluid Dx/Plan (1) Septic arthritis Status: Acute Qualifiers: Septic arthritis location: knee Septic arthritis organism: due to unspecified organism Laterality: right Qualified Code(s): M00.9 - Pyogenic arthritis, unspecified Plan: 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 MRI showed septic arthritis with osteomyelitis, severe synovitis suggestive of process lasting greater than one week, tibial fracture, chronic ACL injury, myositis of calf muscle POD#3 s/p R knee arthrotomy with irrigation and debridement Knee aspirate NG @ 48 hrs, knee wound cx NG @ 12 hrs, blood culture NG @ 48 hrs -Ortho on board, appreciate recs -ID on board, appreciate recs -Vanc discontinued -Rocephin day 2. Patient will require 8 weeks total, Needs PICC line placement. -f/u on wound culture -AFB and fungal cultures (2) Osteomyelitis Code(s): M86.9 - OSTEOMYELITIS, UNSPECIFIED Status: Acute Qualifiers: Osteomyelitis type: other chronic Osteomyelitis location: tibia Laterality: right Qualified Code(s): M86.661 - Other chronic osteomyelitis, right tibia and fibula Plan: Patient has had chronic septic arthritis and osteomyelitis of the R knee s/p several surgeries to drain as well as a synovectomy at outside hospitals. MRI showed septic arthritis with osteomyelitis, severe synovitis suggestive of process lasting greater than one week, tibial fracture, chronic ACL injury, myositis of calf muscle POD#2 s/p R knee arthrotomy with irrigation and debridement Knee aspirate NG @ 48 hrs, knee wound cx NG @ 12 hrs, blood culture NG @ 48 hrs -Ortho on board, appreciate recs -ID on board, appreciate recs -Rocephin day 2 (will continue for 8 weeks) -f/u on wound culture -AFB and fungal cultures (3) Acute on chronic kidney failure Code(s): N17.9 - ACUTE KIDNEY FAILURE, UNSPECIFIED; N18.9 - CHRONIC KIDNEY DISEASE, UNSPECIFIED Status: Acute Qualifiers: Acute renal failure type: unspecified Chronic kidney disease stage: stage 3 (moderate) Qualified Code(s): N17.9 - Acute kidney failure, unspecified; N18.3 - Chronic kidney disease, stage 3 (moderate) Plan: Patient has MIKE on CKD. His GFR 3 months ago represented CKD stage 3. His GFR is currently 18. Has been slowly trending up since admission. -Nephrology on board, appreciate recs -Continue NS @ 100mL/hr -Continue to monitor (4) Diabetes Code(s): E11.9 - TYPE 2 DIABETES MELLITUS WITHOUT COMPLICATIONS Status: Acute Qualifiers: Diabetes mellitus type: type 2 Diabetes mellitus complication status: without complication Diabetes mellitus intermediate teacher insulin use: with intermediate teacher use Qualified Code(s): E11.9 - Type 2 diabetes mellitus without complications ; Z79.4 - intermediate teacher (current) use of insulin Plan: Patient on insulin at home A1c - 7.7% Glucose 116-214 -Continue SSI -Accuchecks ACHS -CC diet (5) Murmur Code(s): R01.1 - CARDIAC MURMUR, UNSPECIFIED Status: Acute Plan: Systolic murmur heard on exam Echo showed LVEF 55-60%, mild mitral and aortic regurgitation, moderate tricuspid regurgitation -Will monitor (6) Normocytic anemia Code(s): D64.9 - ANEMIA, UNSPECIFIED Status: Acute Plan: Patient has normocytic anemia, likely anemia of chronic disease s/p 3 U PRBC's, Hb was 9.4 this AM -continue to monitor -FOBT pending (7) Hypertension Code(s): I10 - ESSENTIAL (PRIMARY) HYPERTENSION Status: Acute Qualifiers: Hypertension type: essential hypertension Qualified Code(s): I10 - Essential (primary) hypertension Plan: Patient has hypertension and has been in the 150s/90s during his hospitalization , but overnight it got up to the 180s/110s. He received one dose of hydralazine and he dropped to the 90s/50s. -Will start him on 10mg of lisinopril and monitor his BP and kidney function
[2017-05-14] MEDS ORDERED: Cyclobenzaprine 10 MG TAB PO PRN (07:30)
[2017-05-14] MEDS: Ferrous Sulfate 325 MG TAB PO SCH ×2 (08:03→15:10)
[2017-05-14] MEDS: Ascorbic Acid 500 mg Chewable Tablet PO SCH ×2 (08:04→19:55)
[2017-05-14] MEDS: Docusate 100 MG CAP PO SCH ×2 (08:04→19:55)
[2017-05-14] MEDS: Heparin 5,000 UNITS/ML VIAL SC SCH ×3 (08:05→19:55)
[2017-05-14] MEDS ORDERED: Lisinopril 10 MG TAB PO SCH (09:00)
[2017-05-14] MEDS ORDERED: Sodium Bicarbonate 150 MEQ in Dextrose 5% in Water 1,000 ML IV SCH ×2 (11:30)
[2017-05-14 13:22] LABS: Vancomycin, Trough 25.4 ug/mL
[2017-05-14] MEDS: cefTRIAXone\\ROCEPHIN 2 GM in Sodium Chloride 0.9% 100 ML IVPB SCH (15:08)
--- NOTE | 2017-05-14 15:33 | PRG ---
DATE OF SERVICE: 05/14/2017 SUBJECTIVE: Patient was seen and examined at bedside and overnight events noted. Patient denies an y shortness of breath or chest pain or palpitation. No history of nausea or vomiting or diarrhea or fever or chills or cramps. OBJECTIVE: GENERAL: This is a well-built male in no apparent distress. VITAL SIGNS: Temperature 97.9, pulse 70, respiratory rate 18, blood pressure 147/94. HEENT: Atraumatic, normocephalic. Oral mucosa is moist. NECK: Supple. CARDIOVASCULAR: S1 and S2 heard, rate and rhythm regular. RESPIRATORY: Clear to auscultation. GASTROINTESTINAL: Abdomen is soft. MUSCULOSKELETAL: No tenderness, no edema. DERMATOLOGIC: No skin rash. NEUROLOGIC: Alert and awake and oriented X3. No focal neurologic deficits. Moving all the extremi ties. PSYCHIATRIC: Mood and affect normal. LABORATORY DATA: Potassium is 4.2, BUN 27, creatinine 3.6. ASSESSMENT AND PLAN: 1. Acute kidney injury on chronic kidney disease. Renal function continues to get better. 2. Hypertension, stable. 3. Anemia. 4. Vitamin D deficiency. Continue on vitamin D. 5. Renal function is slowly getting better. We will change IV fluids to bicarbonate drip given the acidosis and will follow. Stop bicarbonate drip in the morning if bicarbonate level more than 20.
--- NOTE | 2017-05-14 17:04 | ADD-PRG ---
ADDENDUM: DATE OF SERVICE: 05/14/2017 Please see the note from Dr. Valdes for which I concur. Patient was seen and evaluated, examined and discussed with the residents by bedside. Really no change on him. We just start him on vancomycin that was actually I think switched by Dr. Sahu, Infectious Disease doctor to Rocephin for which th ey are expecting 8 weeks of therapy. We need to put a PICC line in and figure out how this can be s et up as an outpatient for his septic arthritis of the knee, which has been a chronic recurring issu e. Really no change in the exam, no edema, not having much pain, and so plan is to see how we can m bunny all this happen without payer status for IV antibiotics.
[2017-05-14] MEDS: HumaLOG 300 UNITS/3 ML VIAL SC PRN (18:30)
--- NOTE | 2017-05-14 19:54 | PDOC.FM ---
- Subjective Subjective: Patient doing well this AM. No significant overnight events. Minimal pain in right knee. Patient stable. Seen by ortho this morning. Drain removed. Dressing changes as needed. Continue to promote ambulation with the help of PT. Patient to be continued on IV abx for total of [address] Sahu. PICC line needed, however, working with CM in regards to financial status/insurance. After 8 weeks of abx, pt. will continue indefinitely on keflex. - Objective MAR Reviewed: Yes Vital Signs & Weight: Vital Signs (12 hours) Temp Pulse Resp BP BP Pulse Ox 05/14/17 18:00 134/82 05/14/17 16:43 82 163/104 H 05/14/17 16:00 98 F 82 18 163/104 H 97 05/14/17 10:37 147/94 H 05/14/17 08:03 147/94 H 05/14/17 08:00 97.8 F 78 18 147/94 H 94 L Weight Weight 63.503 kg I&O: 05/13/17 05/14/17 05/15/17 06:59 06:59 06:59 Intake Total 3630 3700 1999 Output Total 979 90 30 Balance 2651 3610 1969 Result Diagrams: 05/15/17 03:57 05/15/17 03:57 <Alessia Rubio - Last Filed: 05/15/17 08:03> - Objective Vital Signs & Weight: Vital Signs (12 hours) Temp Pulse Resp BP BP Pulse Ox 05/15/17 08:37 82 151/86 H 05/15/17 08:00 98.1 F 82 16 05/15/17 07:55 98.1 F 82 16 151/86 H 95 05/15/17 04:00 97.6 F 88 20 139/86 96 05/15/17 00:00 98.1 F 99 20 171/90 H 96 Weight Weight 63.503 kg I&O: 05/14/17 05/15/17 05/16/17 06:59 06:59 06:59 Intake Total 3700 1999 Output Total 90 55 Balance 3610 1945 Result Diagrams: 05/15/17 03:57 05/15/17 03:57 <Gorge Fierro - Last Filed: 05/15/17 11:53> Phys Exam - Physical Examination Constitutional: NAD HEENT: moist MMs, sclera anicteric Neck: supple, full ROM Respiratory: no wheezing, no rales, no rhonchi, clear to auscultation bilateral Cardiovascular: no rub Systolic murmur most prominent at mitral valve Gastrointestinal: soft, non-tender, no distention, positive bowel sounds Musculoskeletal: no edema, pulses present Neurological: non-focal, moves all 4 limbs (Moves right knee with difficulty 2/ 2 recent surgery/pain from septic knee joint) Psychiatric: normal affect, A&O x 3 Skin: no rash, cap refill <2 seconds Deviation from normal: CHEO bandage on right knee. No drain in place. <Alessia Rubio - Last Filed: 05/15/17 08:03> Dx/Plan (1) Septic arthritis Status: Acute Qualifiers: Septic arthritis location: knee Septic arthritis organism: due to unspecified organism Laterality: right Qualified Code(s): M00.9 - Pyogenic arthritis, unspecified Plan: -MRI: septic arthritis with osteomyelitis; severe synovitis suggestive of process lasting > 1 week -POD #4 s/p R. knee arthrotomy with irrigation and debridement -Knee aspirate negative, knee wound culture negative, blood cultures negative -Ortho recommendations appreciated -ID recommendations appreciated; recommend rocephin x8 weeks outpatient with PICC line, followed by keflex indefinitely -Currently on rocephin day #3 -AFB and fungal cultures pending -Speak with case management regarding options for PICC line and abx without insurance -Knee drain has been removed by ortho -Mobilize with help of PT -Dressing changes as needed (2) Osteomyelitis Code(s): M86.9 - OSTEOMYELITIS, UNSPECIFIED Status: Acute Qualifiers: Osteomyelitis type: other chronic Osteomyelitis location: tibia Laterality: right Qualified Code(s): M86.661 - Other chronic osteomyelitis, right tibia and fibula Plan: -See plan as above for septic arthritis -8 weeks total of rocephin via PICC line as outpatient, followed by keflex indefinitely (3) Acute on chronic kidney failure Code(s): N17.9 - ACUTE KIDNEY FAILURE, UNSPECIFIED; N18.9 - CHRONIC KIDNEY DISEASE, UNSPECIFIED Status: Acute Qualifiers: Acute renal failure type: unspecified Chronic kidney disease stage: stage 3 (moderate) Qualified Code(s): N17.9 - Acute kidney failure, unspecified; N18.3 - Chronic kidney disease, stage 3 (moderate) Plan: -GFR 18 currently; trending up since admission -NS @ 100 ml/hr -Appreciate nephrology recommendations -Monitor with BMPs -Cr 3.58 this AM; improved from admission (4) Hypertension Code(s): I10 - ESSENTIAL (PRIMARY) HYPERTENSION Status: Acute Qualifiers: Hypertension type: essential hypertension Qualified Code(s): I10 - Essential (primary) hypertension Plan: -Started on amlodipine -Not previously on BP medication -Has remained elevated since admission -Continue to monitor BP and adjust medications accordingly; note: amlodipine will take time to be effective -BP this AM 139/86; BP's labile (5) Murmur Code(s): R01.1 - CARDIAC MURMUR, UNSPECIFIED Status: Acute Plan: -Systolic murmur heard best at 5th MCL -Echo: LVEF 55-60%, mild MR and AR -No indication of edocarditis (6) Normocytic anemia Code(s): D64.9 - ANEMIA, UNSPECIFIED Status: Chronic Plan: -s/p 3U pRBCs -H&H stable -FOBT pending -Likely anemia of chronic disease 2/2 chronic inflammation and CKD (7) Diabetes Code(s): E11.9 - TYPE 2 DIABETES MELLITUS WITHOUT COMPLICATIONS Status: Chronic Qualifiers: Diabetes mellitus complication status: without complication Diabetes mellitus long term care social worker insulin use: with long term care social worker use Plan: -Type I DM -Glucose 152 this AM -HgA1c 7.7% -Continue SSI -Accuchecks ACHS -CC diet (8) Vitamin D deficiency Code(s): E55.9 - VITAMIN D DEFICIENCY, UNSPECIFIED Status: Acute Plan: -Provide supplementation <Alessia Rubio - Last Filed: 05/15/17 08:03> Attending Addendum - Attending Addendum I personally evaluated the patient and discussed the management with Dr. Rubio. I agree with the History, Examination, Assessment and Plan documented above with any addition or exceptions noted below. Patient doing well s/p I&D knee joint. Continues on abx per ID recommendations, and will continue those as outpatient for 8 weeks. Afebrile and WBC stable, drain has been discontinued. If nephrology clears patient to be d/c'd from a renal standpoint, will send home today with close outpatient follow up. Bicarb improved with bicarb drip and assume that will become steady as renal function continues to improve to his baseline. <Gorge Fierro R - Last Filed: 05/15/17 11:53>
[2017-05-15 04:40] LABS: #Basophils 0.1 thou/uL (0.0-0.2); #Eosinphils 0.3 thou/uL (0.0-0.7); #Lymphocytes 1.3 thou/uL (1.20-3.40); #Monocytes 0.4 thou/uL (0.11-0.59); #Neutrophils 3.7 thou/uL (1.40-6.50); %Eosinophils 5.3 % (0.0-10.0); %Lymphocytes 22.3 % (21.0-51.0); %Monocytes 6.1 % (0.0-10.0); Mean Platelet Volume 5.8 fL (7.4-10.4); White Blood Cell (WBC) Count 5.7 thou/uL (4.8-10.8)
[2017-05-15 05:16] LABS: Anion Gap 16 mmol/L (10-20); BUN (Urea Nitrogen) 23 mg/dL (8.9-20.6); Calc. Creatinine Clearance 23 mL/min (70-130); Calcium 8.6 mg/dL (7.8-10.44); Carbon Dioxide 19 mmol/L (22-29); Chloride 108 mmol/L (98-107); Estimated GFR-MDRD 18
[2017-05-15] MEDS: traMADol HCl 50 MG TAB PO PRN (07:18)
[2017-05-15] MEDS: Ascorbic Acid 500 mg Chewable Tablet PO SCH ×2 (08:37→23:00)
[2017-05-15] MEDS: Docusate 100 MG CAP PO SCH ×2 (08:37→23:00)
[2017-05-15] MEDS: Ferrous Sulfate 325 MG TAB PO SCH ×2 (08:37→18:30)
[2017-05-15] MEDS: Heparin 5,000 UNITS/ML VIAL SC SCH ×3 (08:38→23:01)
[2017-05-15] MEDS: HumaLOG 300 UNITS/3 ML VIAL SC PRN (11:46)
--- NOTE | 2017-05-15 12:00 | PRG ---
DATE OF SERVICE: 05/15/2017 SUBJECTIVE: This 47-year-old gentleman being seen for acute kidney injury. The patient denies any nausea, vomiting or chest pain. PHYSICAL EXAMINATION: GENERAL: Patient is awake, alert. VITAL SIGNS: Afebrile, pulse 82, breathing at 16, blood pressure 139/86. OBJECTIVE: See above. Awake, alert, in no acute distress. GENERAL APPEARANCE AND MENTAL STATUS: Fair. HEAD/NECK: Normocephalic. Atraumatic. EYES: EOMI. No deformity. EARS: Clear. No ulcers. NOSE: Intact. No lesions. MOUTH: Clear. No discharge. THROAT: Clear. No exudate. LUNGS: Clear. No crackles. CARDIAC: S1, S2. No rub. ABDOMEN: Benign. BS+. GENITALIA/RECTUM: Nazario absent. BACK/EXTREMITIES: Edema 0+ Ulcer- NEUROLOGICAL: Alert and motor intact. SKIN: Rash- Bruise- LYMPHATICS: Edema- Ulcer- LABORATORY: Creatinine 3.5. ASSESSMENT AND RECOMMENDATIONS: 1. Chronic kidney disease stage 4, stable. 2. Hypertension, stable. 3. Metabolic acidosis, stable. 4. Anemia, stable. No urgent indication for dialysis at this time.
[2017-05-15] MEDS: cefTRIAXone\\ROCEPHIN 2 GM in Sodium Chloride 0.9% 100 ML IVPB SCH (15:03)
--- NOTE | 2017-05-15 15:20 | SPC ---
SONOGRAPHIC GUIDED LEFT UPPER EXTREMITY PICC PLACEMENT: History: Infection. Need for long-term antibiotics. FINDINGS: After explaining the procedure and answering all questions, the left upper extremity was prepped and draped in the usual sterile fashion. Sterile technique, buffered local anesthesia, sonographic guid ance, and a 22 gauge needle were used to carefully access the left brachial vein. Standard technique was then used to place the tip of 5 Spanish single lumen PICC so that the tip lies at the level of t he right atrium. The catheter was flushed and secured externally. Patient tolerated the procedure we ll and is returned in unchanged condition. Fluoro time equals 0 seconds. IMPRESSION: 1. Technically successful left upper extremity PICC placement. Catheter is now ready for use. POS: MURRAY
[2017-05-16 05:12] LABS: #Eosinphils 0.3 thou/uL (0.0-0.7); #Lymphocytes 1.5 thou/uL (1.20-3.40); #Monocytes 0.4 thou/uL (0.11-0.59); %Basophils 0.7 % (0.0-1.0); %Eosinophils 4.2 % (0.0-10.0); %Lymphocytes 24.3 % (21.0-51.0); %Monocytes 6.7 % (0.0-10.0); Hematocrit 30.1 % (42.0-52.0); Mean Platelet Volume 6.3 fL (7.4-10.4); Red Blood Cell (RBC) Count 3.43 mill/uL (4.70-6.10); White Blood Cell (WBC) Count 6.3 thou/uL (4.8-10.8)
[2017-05-16 05:27] LABS: Anion Gap 16 mmol/L (10-20); BUN (Urea Nitrogen) 22 mg/dL (8.9-20.6); Calc. Creatinine Clearance 22 mL/min (70-130); Calcium 9.1 mg/dL (7.8-10.44); Carbon Dioxide 20 mmol/L (22-29); Chloride 106 mmol/L (98-107); Estimated GFR-MDRD 18
--- NOTE | 2017-05-16 05:31 | PDOC.FM ---
- Subjective Subjective: Patient doing well this AM. No significant overnight events. Outpatient antibiotics via PICC line have been ordered. Waiting on financial approval. CM on case. Will call pager when patient has been approved. - Objective MAR Reviewed: Yes Vital Signs & Weight: Vital Signs (12 hours) Temp Pulse Resp BP Pulse Ox 05/15/17 20:00 98.0 F 84 18 147/85 H 96 Weight Weight 63.503 kg I&O: 05/14/17 05/15/17 05/16/17 06:59 06:59 06:59 Intake Total 3700 1999 Output Total 90 55 Balance 3610 1944 Result Diagrams: 05/16/17 03:40 05/16/17 03:40 <Alessia Rubio - Last Filed: 05/16/17 07:59> - Objective Vital Signs & Weight: Vital Signs (12 hours) Temp Pulse Resp BP BP Pulse Ox 05/16/17 08:33 84 127/78 05/16/17 08:00 98.1 F 84 16 127/78 96 Weight Weight 63.503 kg I&O: 05/15/17 05/16/17 05/17/17 06:59 06:59 06:59 Intake Total 1999 Output Total 55 Balance 1944 Result Diagrams: 05/16/17 03:40 05/16/17 03:40 <Gorge Fierro - Last Filed: 05/16/17 11:17> Phys Exam - Physical Examination Constitutional: NAD HEENT: moist MMs, sclera anicteric Neck: supple, full ROM Respiratory: no wheezing, no rales, no rhonchi, clear to auscultation bilateral Cardiovascular: RRR Gastrointestinal: soft, non-tender, no distention, positive bowel sounds Musculoskeletal: no edema, pulses present Neurological: moves all 4 limbs Psychiatric: normal affect, A&O x 3 Skin: cap refill <2 seconds Deviation from normal: Right knee wrapped in CHEO bandage. Mildy tender to palpation. <Alessia Rubio - Last Filed: 05/16/17 07:59> Dx/Plan (1) Septic arthritis Status: Acute Qualifiers: Septic arthritis location: knee Septic arthritis organism: due to unspecified organism Laterality: right Qualified Code(s): M00.9 - Pyogenic arthritis, unspecified Plan: -MRI: septic arthritis with osteomyelitis; severe synovitis suggestive of process lasting > 1 week -POD #5 s/p R. knee arthrotomy with irrigation and debridement -Knee aspirate negative, knee wound culture negative, blood cultures negative -Ortho recommendations appreciated -ID recommendations appreciated; recommend rocephin x8 weeks outpatient with PICC line, followed by keflex indefinitely -Currently on rocephin day #4 -AFB and fungal cultures pending -Knee drain has been removed by ortho -Mobilize with help of PT -Dressing changes as needed -PICC line has been placed; patient will receive 8 weeks of outpatient antibiotics with daily rocephin per ID -Plans to discharge today once financial assistance approved per CM (2) Osteomyelitis Code(s): M86.9 - OSTEOMYELITIS, UNSPECIFIED Status: Chronic Qualifiers: Osteomyelitis type: other chronic Osteomyelitis location: tibia Laterality: right Qualified Code(s): M86.661 - Other chronic osteomyelitis, right tibia and fibula Plan: -See plan as above for septic arthritis -8 weeks total of rocephin via PICC line as outpatient, followed by keflex indefinitely (3) Acute on chronic kidney failure Code(s): N17.9 - ACUTE KIDNEY FAILURE, UNSPECIFIED; N18.9 - CHRONIC KIDNEY DISEASE, UNSPECIFIED Status: Acute Qualifiers: Acute renal failure type: unspecified Chronic kidney disease stage: stage 3 (moderate) Qualified Code(s): N17.9 - Acute kidney failure, unspecified; N18.3 - Chronic kidney disease, stage 3 (moderate) Plan: -GFR 18 currently; trending up since admission -NS @ 100 ml/hr -Appreciate nephrology recommendations -Cr 3.70 this AM; improved from admission -HCO3 stable -Nephro recommends follow up within 1-2 weeks as outpatient; otherwise no further treatment -Patient off bicarb drip yesterday; HCO3 has improved (4) Hypertension Code(s): I10 - ESSENTIAL (PRIMARY) HYPERTENSION Status: Acute Qualifiers: Hypertension type: essential hypertension Qualified Code(s): I10 - Essential (primary) hypertension Plan: -Started on amlodipine 2 days ago -Not previously on BP medication -Has remained elevated since admission -BP this AM 147/85; Better controlled -Will likely need management as outpatient (5) Murmur Code(s): R01.1 - CARDIAC MURMUR, UNSPECIFIED Status: Acute Plan: -Echo: LVEF 55-60%, mild MR and AR (6) Normocytic anemia Code(s): D64.9 - ANEMIA, UNSPECIFIED Status: Chronic Plan: -s/p 3U pRBCs -H&H stable -FOBT pending; has yet to be collected. May need to do as outpatient -Likely anemia of chronic disease 2/2 chronic inflammation and CKD (7) Diabetes Code(s): E11.9 - TYPE 2 DIABETES MELLITUS WITHOUT COMPLICATIONS Status: Chronic Qualifiers: Diabetes mellitus complication status: without complication Diabetes mellitus jail insulin use: with tank terminal gauger use Plan: -Type I DM -Glucose 126 this AM -HgA1c 7.7% -Continue SSI -Accuchecks ACHS -CC diet (8) Vitamin D deficiency Code(s): E55.9 - VITAMIN D DEFICIENCY, UNSPECIFIED Status: Acute Plan: -Provide supplementation -Continue supplementation upon discharge <Alessia Rubio - Last Filed: 05/16/17 07:59> Attending Addendum - Attending Addendum I personally evaluated the patient and discussed the management with Dr. Rubio. I agree with the History, Examination, Assessment and Plan documented above with any addition or exceptions noted below. Patient stable. Plans for outpatient abx and infusion are in the works and patient should be stable for discharge at that time, hopefully later today. WBC stable, afebrile. His renal function is poor but stable and neprology will be following in outpatient setting. <Gorge Fierro - Last Filed: 05/16/17 11:17>
[2017-05-16] MEDS: Ferrous Sulfate 325 MG TAB PO SCH ×2 (08:32→16:58)
[2017-05-16] MEDS: Docusate 100 MG CAP PO SCH ×2 (08:33→22:18)
[2017-05-16] MEDS: Ascorbic Acid 500 mg Chewable Tablet PO SCH ×2 (08:34→22:18)
[2017-05-16] MEDS: Heparin 5,000 UNITS/ML VIAL SC SCH ×3 (08:34→22:18)
[2017-05-16] MEDS ORDERED: Potassium Chloride 20 MEQ TAB PO SCH (11:00)
--- NOTE | 2017-05-16 11:30 | PRG ---
DATE OF SERVICE: 05/16/2017 SUBJECTIVE: This is a 47-year-old male being seen for acute kidney injury. The patient denies any nausea, vomiting or chest pain. PHYSICAL EXAMINATION: GENERAL: Patient is awake, alert. VITAL SIGNS: Afebrile, pulse 85, breathing at 16, blood pressure was 127/70. HEAD/NECK: Normocephalic, atraumatic. EYES: EOMI. No deformity. EARS: Clear. No ulcers. NOSE: Intact. No lesions. MOUTH: Clear. No discharge. THROAT: Clear. No exudate. LUNGS: Clear. No crackles. CARDIAC: S1, S2. No rub. ABDOMEN: Benign. BS+. GENITALIA/RECTUM: Nazario absent. BACK/EXTREMITIES: Edema 0+ Ulcer-. NEUROLOGICAL: Alert and motor intact. SKIN: Rash- Bruise- LYMPHATICS: Edema- Ulcer-. LABORATORY DATA: Show hemoglobin 10.3, potassium 3.3. ASSESSMENT AND RECOMMENDATIONS: 1. Stage 4 chronic kidney disease. No indication for dialysis. 2. Hypertension, stable. 3. Anemia, stable. 4. Medications based on glomerular filtration rate are appropriate. 5. Hypokalemia. Recommend high potassium diet.
[2017-05-16] MEDS: HumaLOG 300 UNITS/3 ML VIAL SC PRN ×2 (12:49→16:56)
[2017-05-16] MEDS: cefTRIAXone\\ROCEPHIN 2 GM in Sodium Chloride 0.9% 100 ML IVPB SCH (15:25)
[2017-05-17 05:56] LABS: #Basophils 0.1 thou/uL (0.0-0.2); #Eosinphils 0.3 thou/uL (0.0-0.7); #Lymphocytes 1.7 thou/uL (1.20-3.40); #Monocytes 0.6 thou/uL (0.11-0.59); #Neutrophils 4.3 thou/uL (1.40-6.50); %Basophils 1.1 % (0.0-1.0); %Eosinophils 3.8 % (0.0-10.0); %Lymphocytes 24.4 % (21.0-51.0); %Monocytes 8.8 % (0.0-10.0); Hematocrit 29.6 % (42.0-52.0); Red Blood Cell (RBC) Count 3.39 mill/uL (4.70-6.10)
[2017-05-17 06:19] LABS: Anion Gap 15 mmol/L (10-20); BUN (Urea Nitrogen) 24 mg/dL (8.9-20.6); Calc. Creatinine Clearance 22 mL/min (70-130); Calcium 9.2 mg/dL (7.8-10.44); Carbon Dioxide 21 mmol/L (22-29); Chloride 108 mmol/L (98-107); Estimated GFR-MDRD 17
[2017-05-17] MEDS: Ascorbic Acid 500 mg Chewable Tablet PO SCH ×2 (07:54→22:37)
[2017-05-17] MEDS: Heparin 5,000 UNITS/ML VIAL SC SCH ×3 (07:55→22:37)
[2017-05-17] MEDS: traMADol HCl 50 MG TAB PO PRN ×2 (07:55→14:09)
[2017-05-17] MEDS: Ferrous Sulfate 325 MG TAB PO SCH ×2 (07:56→18:10)
[2017-05-17] MEDS: Docusate 100 MG CAP PO SCH ×2 (07:56→22:37)
--- NOTE | 2017-05-17 08:07 | PDOC.FM ---
- Subjective Subjective: No significant overnight events. Patient doing well this AM, however, he is complaining of suprapubic pain and pain with urination. The symptoms started yesterday evening. He was up sitting by the side of his bed eating breakfast this morning when I went in to evaluate him. CM working on getting financial situation worked out in order to get outpatient antibiotics. - Objective MAR Reviewed: Yes Vital Signs & Weight: Vital Signs (12 hours) Temp Pulse Resp BP Pulse Ox 05/16/17 20:00 98.0 F 85 16 131/85 97 Weight Weight 63.503 kg Result Diagrams: 05/17/17 05:10 05/17/17 05:10 <Alessia Rubio - Last Filed: 05/17/17 08:19> - Objective Vital Signs & Weight: Vital Signs (12 hours) Temp Pulse Resp BP BP Pulse Ox 05/17/17 08:21 98.2 F 84 18 99/61 93 L 05/17/17 08:00 98.2 F 84 18 05/17/17 07:55 85 99/61 Weight Weight 63.503 kg Result Diagrams: 05/17/17 05:10 05/17/17 05:10 <Gorge Fierro - Last Filed: 05/17/17 12:07> Phys Exam - Physical Examination Constitutional: NAD HEENT: moist MMs, sclera anicteric Neck: full ROM Respiratory: no wheezing, no rales, no rhonchi, clear to auscultation bilateral Cardiovascular: RRR Gastrointestinal: soft, no distention, positive bowel sounds Suprapubic pain Musculoskeletal: no edema, pulses present Neurological: moves all 4 limbs Psychiatric: A&O x 3 Skin: no rash, cap refill <2 seconds <Alessia Rubio - Last Filed: 05/17/17 08:19> Dx/Plan (1) Septic arthritis Status: Acute Qualifiers: Septic arthritis location: knee Septic arthritis organism: due to unspecified organism Laterality: right Qualified Code(s): M00.9 - Pyogenic arthritis, unspecified Plan: -MRI: septic arthritis with osteomyelitis; severe synovitis suggestive of process lasting > 1 week -POD #6 s/p R. knee arthrotomy with irrigation and debridement -Knee aspirate negative, knee wound culture negative, blood cultures negative -Ortho recommendations appreciated -ID recommendations appreciated; recommend rocephin x8 weeks outpatient with PICC line, followed by keflex indefinitely -Currently on rocephin day #5 -AFB and fungal cultures pending -Mobilize with help of PT -Dressing changes as needed -PICC line has been placed (05/15); patient will receive 8 weeks of outpatient antibiotics with daily rocephin per ID -Awaiting financial approval per ; will check back with family preservation caseworker today regarding status of paperwork (2) Osteomyelitis Code(s): M86.9 - OSTEOMYELITIS, UNSPECIFIED Status: Chronic Qualifiers: Osteomyelitis type: other chronic Osteomyelitis location: tibia Laterality: right Qualified Code(s): M86.661 - Other chronic osteomyelitis, right tibia and fibula Plan: -See plan as above for septic arthritis -8 weeks total of rocephin via PICC line as outpatient, followed by keflex indefinitely (3) Acute on chronic kidney failure Code(s): N17.9 - ACUTE KIDNEY FAILURE, UNSPECIFIED; N18.9 - CHRONIC KIDNEY DISEASE, UNSPECIFIED Status: Acute Qualifiers: Acute renal failure type: unspecified Chronic kidney disease stage: stage 3 (moderate) Qualified Code(s): N17.9 - Acute kidney failure, unspecified; N18.3 - Chronic kidney disease, stage 3 (moderate) Plan: -GFR 18 currently; trending up since admission -NS @ 100 ml/hr -Appreciate nephrology recommendations -Cr 3.79 this AM; improved from admission, but slowly increasing again -HCO3 stable; steadily increasing -Nephro recommends follow up within 1-2 weeks as outpatient; otherwise no further treatment (4) Hypertension Code(s): I10 - ESSENTIAL (PRIMARY) HYPERTENSION Status: Acute Qualifiers: Hypertension type: essential hypertension Qualified Code(s): I10 - Essential (primary) hypertension Plan: -Started on amlodipine 3 days ago -Not previously on BP medication -BP this AM 99/61 -Recommend follow up as outpatient for further management (5) Murmur Code(s): R01.1 - CARDIAC MURMUR, UNSPECIFIED Status: Acute Plan: -Echo: LVEF 55-60%, mild MR and AR (6) Normocytic anemia Code(s): D64.9 - ANEMIA, UNSPECIFIED Status: Chronic Plan: -s/p 3U pRBCs -H&H stable -FOBT pending; has yet to be collected. 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 Plan: -Type I DM -Glucose 125 this AM -HgA1c 7.7% -Continue SSI -Accuchecks ACHS -CC diet (8) Vitamin D deficiency Code(s): E55.9 - VITAMIN D DEFICIENCY, UNSPECIFIED Status: Acute Plan: -Provide supplementation -Continue supplementation upon discharge (9) Suprapubic pain, acute Code(s): R10.2 - PELVIC AND PERINEAL PAIN Status: Acute Plan: -Associated with dysuria -Currently on ceftriaxone for septic arthritis -Consider checking UA/Urine cx to obtain sensitivities for possible UTI <Alessia Rubio - Last Filed: 05/17/17 08:19> Attending Addendum - Attending Addendum I personally evaluated the patient and discussed the management with Dr. Rubio. I agree with the History, Examination, Assessment and Plan documented above with any addition or exceptions noted below. Patient doing well from infection standpoint and we are awaiting financial approval for outpatient antibiotics. However, this morning, patient became exquisitely tender to palpation suprapubic and reports sensation of needing to urinate. Bladder scan does not show much urine, but patient unable to void and reports it has been several hours since being able to go. Rectal exam attempted and patient extremely uncomfortable. Urology has been consulted urgently for catheter insertion as nursing staff not able to pass one. If patient pain does not improve with urologic intervention, will need CT to determine the cause of his pain. He is afebrile and denies other complaints. <Gorge Fierro - Last Filed: 05/17/17 12:07>
[2017-05-17 11:51] LABS: Bilirubin Negative (Negative); Blood, Urine Moderate (Negative); Glucose, Urine (Dipstick) Negative (Negative); Ketone, Urine Negative (Negative); Nitrite Negative (Negative); Protein, Urine (Dipstick) 300 mg/dL (Neg-Trace); Urobilinogen 0.2 mg/dL (0.2-1.0)
[2017-05-17 11:54] LABS: Bacteria/HPF None Seen HPF (None Seen); Hyaline Casts/LPF 4-6 HYALINE CAST LPF (0-3 Hyaline); RBC/HPF GREATER THAN 50-TNTC HPF (0-3); Squamous Epithelial 0-3 HPF (0-3)
--- NOTE | 2017-05-17 12:19 | PRG ---
DATE OF SERVICE: 05/17/2017 SUBJECTIVE: This 47-year-old gentleman being seen for acute kidney injury. The patient denies any nausea, vomiting or chest pain. PHYSICAL EXAMINATION: GENERAL: Patient is awake, alert. VITAL SIGNS: Afebrile, pulse 84, breathing at 16, blood pressure 99/61. GENERAL APPEARANCE AND MENTAL STATUS: Fair. HEAD/NECK: Normocephalic. Atraumatic. EYES: EOMI. No deformity. EARS: Clear. No ulcers. NOSE: Intact. No lesions. MOUTH: Clear. No discharge. THROAT: Clear. No exudate. LUNGS: Clear. No crackles. CARDIAC: S1, S2. No rub. ABDOMEN: Benign. BS+. GENITALIA/RECTUM: Nazario absent. BACK/EXTREMITIES: Edema 0+ Ulcer- NEUROLOGICAL: Alert and motor intact. SKIN: Rash- Bruise- LYMPHATICS: Edema- Ulcer- LABORATORY DATA: Show hemoglobin 10, creatinine 3.7. ASSESSMENT AND PLAN: 1. Chronic kidney disease stage 4, stable. 2. Hypertension, stable. 3. Anemia, stable. 4. Medications based on glomerular filtration rate are appropriate. No indication for dialysis.
[2017-05-17] MEDS: HumaLOG 300 UNITS/3 ML VIAL SC PRN (12:20)
--- NOTE | 2017-05-17 13:06 | PRG ---
DATE OF SERVICE: 05/17/2017 Having problems with suprapubic pain and dysuria. His right knee is improving in terms of pain and range of motion. No respiratory symptoms or diarrhea. His vital signs have been normal. He is afebrile. Lungs clear. A little bit of tenderness in supr apubic area. No bladder distension. No abdominal distention. Right knee range of motion improving . LABORATORY: White cell count 7.0, hemoglobin 10, platelets 578, creatinine 3.79. Urinalysis with g reater than 50 RBCs, 4-6 WBCs. HIV nonreactive. Renal ultrasound from 05/10/2017 with no hydronephrosis. Nonspecific chronic kidney disease. ASSESSMENT AND DISCUSSION: Chronic knee infection with evidence of osteomyelitis tibial plateau sec ondary to methicillin-susceptible Staphylococcus aureus as documented by culture from [place], synovial fluid sample. The patient to continue Rocephin for a total of 8 weeks. The end date of therapy will be sometime at the end of June, probably 07/15/2017. These suprapubic symptoms ar e not yet clarified what is the nature of it. No urine sample was submitted for culture. [facility] and arrangements for outpatient treatment proceeding.
[2017-05-17] MEDS: cefTRIAXone\\ROCEPHIN 2 GM in Sodium Chloride 0.9% 100 ML IVPB SCH (14:10)
--- NOTE | 2017-05-17 17:20 | CON ---
DATE OF CONSULTATION: 05/17/2017 CONSULTING PHYSICIAN: Family medicine. CONSULTED PHYSICIAN: Jose Scott M.D. with Urology. REASON FOR CONSULTATION: Difficulty placing Nazario catheter. HISTORY OF PRESENT ILLNESS: Mr. Lake is a 47-year-old male who has been admitted for septic arthritis. He has a history of diabetes as well as prior bladder surgery. He was complaining of significant amounts of pain in his bladder, as well as burning with urination and pain in the groin area. He was ordered to have a Nazario catheter, which the nurse attempted to pass. Unfortunately, the catheter was coiling in the proximal urethra. Therefore, Urology was consulted for further assistance in placement of a catheter. On my discussion with the patient, he states that he does not have any difficulty with urination. Currently he states he is still able to urinate easily, although there is significant pain and burning with urination. He has no history of prior urinary difficulties or problems. He has no history of urinary retention, gross hematuria, or recurrent urinary tract infections. He has had a history of nephrolithiasis but does not state he has had any recent stone disease. He does state that he has had some type of bladder surgery in the past, but the nature of this could not be made clear through my discussion with him. He has undergone a bladder scan which demonstrated that he had 36 mL as postvoid residual. Pre-void, he had approximately 147 mL per bladder scanner as well. When asked if the patient would like the catheter, he states that he would rather not have a catheter unless it was absolutely necessary. ALLERGIES: None. CURRENT MEDICATIONS: 1. Tylenol. 2. Vitamin C. 3. Dulcolax. 4. Feosol. 5. Glucagon. 6. Insulin 7. Rocephin. PAST MEDICAL HISTORY: 1. Type 2 diabetes. 2. Nephrolithiasis. 3. Bladder surgery of unspecified type. 4. Pancreatitis. PAST SURGICAL HISTORY: 1. Knee operation x2. 2. Bladder surgery, unspecified. FAMILY HISTORY: Noncontributory. 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 He denies smoking, illicit drug use or alcohol abuse. REVIEW OF SYSTEMS: A 12 point review of systems is significant for right knee pain with complaints of fevers, chills, malaise and above specified urinary symptoms. He denies chest pain or shortness of breath. Remainder of his 12- point review of systems was reviewed and otherwise unremarkable. PHYSICAL EXAMINATION: VITAL SIGNS: Temperature 98.2, pulse 84, respirations 18, blood pressure 99/61 , and saturation 93% on room air. GENERAL: No apparent distress, communicative, alert, appropriate. HEENT: Normocephalic, atraumatic. Pupils are symmetric and round. Sclerae are nonicteric. Trachea midline. Moist mucous membranes. CARDIOVASCULAR: Regular rate and rhythm. Normal S1 and S2. Symmetric pulses. CHEST: Symmetric expansion of the lungs. Nonlabored breathing, clear anteriorly. ABDOMEN: Soft, nontender, nondistended, positive bowel sounds. Positive suprapubic tenderness. No CVA tenderness. No hepatosplenomegaly or hernias noted. EXTREMITIES: No clubbing or cyanosis. There is significant inflammation in the right knee with swelling and erythema. Again, noted right knee swelling with erythema and tenderness. There is significant restriction in range of motion. Patient does not wish to move that knee at that time. The left leg appears normal and upper extremities otherwise are unremarkable. There are no joint deformities or swelling noted in the hands. NEUROLOGIC: Cranial nerves II-XII appear to be grossly intact. No focal or sensory motor deficits identified. SKIN: Warm, dry, good turgor, other than the overlying erythema noted on the right knee. GENITOURINARY: Patient's penis has no blood at the meatus, otherwise appears normal. Scrotum is symmetric and nonedematous. Testicles are bilaterally descended. Rectal exam was deferred as the patient had an attempted rectal exam by Family Medicine with reported significant amounts of pain. LYMPHATICS: No obvious lymphadenopathy in the inguinal or supraclavicular or axillary regions. LABORATORY DATA AND X-RAY FINDINGS: On laboratory evaluation, a full set of labs are in the [facility] system, which I have reviewed. Of note, the patient's current white count is 7 with hemoglobin of 10, platelet count of 578, creatinine is elevated at 3.79. Urinalysis from today demonstrates 300 protein , moderate blood, greater than 50 red blood cells, 4-6 white cells, 2+ calcium oxalate, no bacteria seen, 4-6 hyaline casts. Blood cultures are negative currently. Right knee aspirate demonstrates many white blood cells, but no organisms seen. ASSESSMENT AND PLAN: A 47-year-old male with possible urinary tract infection. The patient is already on Rocephin, which I think is appropriate. He does not have any evidence of urinary retention and as such, a Nazario catheter is not appropriate in this individual. I would recommend that the patient monitor his ins and outs through a bedside urinal which I have explained for the patient how to use. He will notify the nurse every time he voids and keep the urine for the nurse for in's and out measurements. I did ask the nurse to check one additional postvoid residual to ensure that he is emptying completely the next time that he urinates. From my standpoint, I do not see any urgent need for intervention at this time. I can give the patient some Pyridium to help with burning with urination; however, his renal function would actually make the medication less desirable. As such, if the patient is having urgency and frequency which he denies at the moment, he could also have oxybutynin. For now, I would not recommend any further intervention on this individual from a urologic standpoint. I will wait to see his urine culture results to ensure that he is being appropriately treated. Otherwise, from my standpoint, no other urologic intervention is necessary at this time. YOANA
[2017-05-17] MEDS: Phenazopyridine HCl 97.5 MG TABLET PO SCH (18:11)
[2017-05-18 05:33] LABS: #Basophils 0.1 thou/uL (0.0-0.2); #Eosinphils 0.3 thou/uL (0.0-0.7); #Lymphocytes 2.1 thou/uL (1.20-3.40); #Monocytes 0.6 thou/uL (0.11-0.59); #Neutrophils 5.7 thou/uL (1.40-6.50); %Basophils 1.1 % (0.0-1.0); %Eosinophils 3.9 % (0.0-10.0); %Lymphocytes 23.3 % (21.0-51.0); Hematocrit 31.4 % (42.0-52.0); Mean Platelet Volume 5.6 fL (7.4-10.4); Red Blood Cell (RBC) Count 3.58 mill/uL (4.70-6.10); White Blood Cell (WBC) Count 8.9 thou/uL (4.8-10.8)
[2017-05-18 05:52] LABS: Anion Gap 15 mmol/L (10-20); BUN (Urea Nitrogen) 25 mg/dL (8.9-20.6); Calc. Creatinine Clearance 22 mL/min (70-130); Calcium 9.3 mg/dL (7.8-10.44); Carbon Dioxide 22 mmol/L (22-29); Chloride 106 mmol/L (98-107); Estimated GFR-MDRD 17
--- NOTE | 2017-05-18 06:23 | PDOC.FM ---
- Subjective Subjective: Patient doing well this AM. No significant overnight events. Upon reevaluation yesterday, patient's suprapubic pain had improved and he was no longer retaining urine. Patient in good spirits this morning. He endorses mild suprapubic pain with no associated dysuria this morning. - Objective MAR Reviewed: Yes Vital Signs & Weight: Vital Signs (12 hours) Temp Pulse Resp BP Pulse Ox 05/17/17 20:00 98.1 F 77 16 158/96 H 96 Weight Weight 63.503 kg Result Diagrams: 05/18/17 05:04 05/18/17 05:04 <Alessia Rubio - Last Filed: 05/18/17 08:35> - Objective Vital Signs & Weight: Vital Signs (12 hours) Temp Pulse Resp BP BP Pulse Ox 05/18/17 08:13 77 158/96 H 05/18/17 08:00 97.5 F L 79 18 106/66 97 Weight Weight 63.503 kg Result Diagrams: 05/18/17 05:04 05/18/17 05:04 <Gorge Fierro - Last Filed: 05/18/17 11:04> Phys Exam - Physical Examination Constitutional: NAD HEENT: moist MMs, sclera anicteric Neck: full ROM Respiratory: no wheezing, no rales, no rhonchi, clear to auscultation bilateral Cardiovascular: RRR Gastrointestinal: soft, no distention, positive bowel sounds mildly tender in suprapubic region Musculoskeletal: no edema, pulses present Neurological: moves all 4 limbs Psychiatric: normal affect, A&O x 3 Skin: cap refill <2 seconds Deviation from normal: Right knee with CHEO bandage; clean, dry and intact <Alessia Rubio - Last Filed: 05/18/17 08:35> Dx/Plan (1) Suprapubic pain, acute Code(s): R10.2 - PELVIC AND PERINEAL PAIN Status: Acute Plan: -Associated with dysuria -Currently on ceftriaxone for septic arthritis -UA resulted; shows calcium oxalate 2+; may have had stone in urethra preventing flow of urine which has since passed -Urine culture pending; patient on ceftriaxone which should cover for common UTI bugs; but will verify once culture results -Urology consulted; appreciate recommendations - no interventions at this time. Recommend strict I&O's to monitor urine output -Consider checking GC/C to rule out urethritis -Rectal exam performed to evaluate size of prostate; patient unable to tolerate exam 2/2 extreme pain -Prostatitis vs. Urethral stone vs. Urethritis vs. UTI (2) Septic arthritis Status: Acute Qualifiers: Septic arthritis location: knee Septic arthritis organism: due to unspecified organism Laterality: right Qualified Code(s): M00.9 - Pyogenic arthritis, unspecified Plan: -MRI: septic arthritis with osteomyelitis; severe synovitis suggestive of process lasting > 1 week -POD #7 s/p R. knee arthrotomy with irrigation and debridement -Knee aspirate negative, knee wound culture negative, blood cultures negative -Ortho recommendations appreciated -ID recommendations appreciated; recommend rocephin x8 weeks outpatient with PICC line, followed by keflex indefinitely -Currently on rocephin day #6 -AFB and fungal cultures pending -Mobilize with help of PT -PICC line has been placed (05/15); patient will receive 8 weeks of outpatient antibiotics with daily rocephin per ID -Patient has been approved for outpatient antibiotic therapy per CM. He is ready to be discharged from that standpoint. (3) Osteomyelitis Code(s): M86.9 - OSTEOMYELITIS, UNSPECIFIED Status: Chronic Qualifiers: Osteomyelitis type: other chronic Osteomyelitis location: tibia Laterality: right Qualified Code(s): M86.661 - Other chronic osteomyelitis, right tibia and fibula Plan: -See plan as above for septic arthritis -8 weeks total of rocephin via PICC line as outpatient, followed by keflex indefinitely (4) Acute on chronic kidney failure Code(s): N17.9 - ACUTE KIDNEY FAILURE, UNSPECIFIED; N18.9 - CHRONIC KIDNEY DISEASE, UNSPECIFIED Status: Acute Qualifiers: Acute renal failure type: unspecified Chronic kidney disease stage: stage 3 (moderate) Qualified Code(s): N17.9 - Acute kidney failure, unspecified; N18.3 - Chronic kidney disease, stage 3 (moderate) Plan: -GFR 18 currently; trending up since admission -Appreciate nephrology recommendations -Cr 3.79 this AM; improved from admission; stable -HCO3 stable; wnl -Nephro recommends follow up within 1-2 weeks as outpatient; otherwise no further treatment (5) Hypertension Code(s): I10 - ESSENTIAL (PRIMARY) HYPERTENSION Status: Acute Qualifiers: Hypertension type: essential hypertension Qualified Code(s): I10 - Essential (primary) hypertension Plan: -Not previously on BP medication -BP this AM 158/68 -Recommend follow up as outpatient for further management (6) Murmur Code(s): R01.1 - CARDIAC MURMUR, UNSPECIFIED Status: Acute Plan: -Echo: LVEF 55-60%, mild MR and AR -Do not hear this AM (7) Normocytic anemia Code(s): D64.9 - ANEMIA, UNSPECIFIED Status: Chronic Plan: -s/p 3U pRBCs -H&H stable -FOBT pending; has yet to be collected. 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 Rubio. I agree with the History, Examination, Assessment and Plan documented above with any addition or exceptions noted below. Patient feeling improved today. Continues on abx and that has been arranged for outpatient. Afebrile and WBC normal. Patient continues to have bladder pain, though it is improved from yesterday. Due to UA results and transient pain complaint, it is possible patient had a urolith that may have caused a temporary obstruction and passed yesterday with resolution in symptoms. Will await further recs from Urology. Once stable from their point of view, should be able to discharge home. Renal function stable. <Gorge Fierro - Last Filed: 05/18/17 11:04>
[2017-05-18] MEDS: Ascorbic Acid 500 mg Chewable Tablet PO SCH ×2 (08:13→22:29)
[2017-05-18] MEDS: Ferrous Sulfate 325 MG TAB PO SCH ×2 (08:13→17:07)
[2017-05-18] MEDS: traMADol HCl 50 MG TAB PO PRN ×2 (08:13→12:33)
[2017-05-18] MEDS: Docusate 100 MG CAP PO SCH ×2 (08:14→22:29)
[2017-05-18] MEDS: Heparin 5,000 UNITS/ML VIAL SC SCH ×3 (08:14→22:29)
[2017-05-18] MEDS: Phenazopyridine HCl 97.5 MG TABLET PO SCH (08:14)
--- NOTE | 2017-05-18 10:22 | PRG ---
DATE OF SERVICE: 05/18/2017 SUBJECTIVE: This is a very pleasant 47-year-old gentleman being seen for acute kidney injury. The patient denies any nausea, vomiting or chest pain. PHYSICAL EXAMINATION: GENERAL: Patient is awake, alert. VITAL SIGNS: Afebrile, pulse 79, breathing at 16, blood pressure was 106/66. OBJECTIVE: See above. Awake, alert, in no acute distress. GENERAL APPEARANCE AND MENTAL STATUS: Fair. HEAD/NECK: Normocephalic. Atraumatic. EYES: EOMI. No deformity. EARS: Clear. No ulcers. NOSE: Intact. No lesions. MOUTH: Clear. No discharge. THROAT: Clear. No exudate. LUNGS: Clear. No crackles. CARDIAC: S1, S2. No rub. ABDOMEN: Benign. BS+. GENITALIA/RECTUM: Nazario absent. BACK/EXTREMITIES: Edema 0+ Ulcer- NEUROLOGICAL: Alert and motor intact. SKIN: Rash- Bruise- LYMPHATICS: Edema- Ulcer- LABORATORY: Hemoglobin 10.4, creatinine 3.7. ASSESSMENT AND RECOMMENDATIONS: 1. Stage 4 chronic kidney disease, stable. 2. Hypertension, stable. 3. Anemia, stable. No indication for dialysis. The patient will follow up with Dr. Singh.
[2017-05-18] MEDS: HumaLOG 300 UNITS/3 ML VIAL SC PRN (12:33)
--- NOTE | 2017-05-18 13:01 | ULT ---
BILATERAL RENAL ULTRASOUND: Date: 05/18/17 HISTORY: Possible stone. FINDINGS: Comparison made with exam of 05/10/17. The right kidney measures 12.4 cm in length and the left kidney measures 12.0 cm in length. There is increased cortical echogenicity on either side. No focal mass or hydronephrosis is noted. No shadow ing calculi are seen. The urinary bladder has a pre-void volume of 86 mL and a post-void residual of 42 mL. IMPRESSION: Medical renal disease. POS: [facility]
[2017-05-18] MEDS: cefTRIAXone\\ROCEPHIN 2 GM in Sodium Chloride 0.9% 100 ML IVPB SCH (14:50)
[2017-05-19 04:35] LABS: #Eosinphils 0.2 thou/uL (0.0-0.7); #Lymphocytes 1.8 thou/uL (1.20-3.40); #Monocytes 0.8 thou/uL (0.11-0.59); #Neutrophils 9.2 thou/uL (1.40-6.50); %Basophils 0.2 % (0.0-1.0); %Eosinophils 1.9 % (0.0-10.0); %Monocytes 6.3 % (0.0-10.0); Hematocrit 31.4 % (42.0-52.0); Mean Platelet Volume 5.7 fL (7.4-10.4); Red Blood Cell (RBC) Count 3.59 mill/uL (4.70-6.10)
[2017-05-19 04:58] LABS: Anion Gap 16 mmol/L (10-20); BUN (Urea Nitrogen) 34 mg/dL (8.9-20.6); Calc. Creatinine Clearance 19 mL/min (70-130); Calcium 9.1 mg/dL (7.8-10.44); Carbon Dioxide 21 mmol/L (22-29); Chloride 105 mmol/L (98-107); Estimated GFR-MDRD 15
--- NOTE | 2017-05-19 06:31 | PDOC.FM ---
- Subjective Subjective: No significant overnight events. Patient still complaining of suprapubic and left lower quadrant pain. It is improved from a few days ago, but still lingering. Patient is urinating with no difficulty. Pain seems to extend into growing. Renal ultrasound performed yesterday showed medical kidney disease without kidney stones. There were no mention of bladder stones, but a CT was recommended for further evaluation after discussion with technical support representative. - Objective MAR Reviewed: Yes Vital Signs & Weight: Vital Signs (12 hours) Temp Pulse Resp BP Pulse Ox 05/18/17 20:00 98.2 F 91 18 107/70 94 L Weight Weight 63.503 kg Result Diagrams: 05/19/17 04:18 05/19/17 04:18 <Alessia Rubio - Last Filed: 05/19/17 08:36> - Objective Vital Signs & Weight: Vital Signs (12 hours) Temp Pulse Resp BP Pulse Ox 05/19/17 12:00 97.7 F 78 16 120/77 97 05/19/17 08:03 81 05/19/17 08:00 98.2 F 81 16 96 05/19/17 07:38 98.2 F 81 16 110/66 96 Weight Weight 63.503 kg I&O: 05/18/17 05/19/17 05/20/17 06:59 06:59 06:59 Intake Total 420 Balance 420 Result Diagrams: 05/19/17 04:18 05/19/17 04:18 <Gorge Fierro - Last Filed: 05/19/17 14:23> Phys Exam - Physical Examination Constitutional: NAD HEENT: moist MMs, sclera anicteric Neck: full ROM Respiratory: no wheezing, no rales, no rhonchi, clear to auscultation bilateral Cardiovascular: RRR, no significant murmur Gastrointestinal: soft, no distention, positive bowel sounds Tender in suprapubic region and left lower quadrant Musculoskeletal: no edema, pulses present Neurological: moves all 4 limbs Psychiatric: normal affect, A&O x 3 Skin: no rash, cap refill <2 seconds <Alessia Rubio - Last Filed: 05/19/17 08:36> Dx/Plan (1) Suprapubic pain, acute Code(s): R10.2 - PELVIC AND PERINEAL PAIN Status: Acute Plan: -Currently on ceftriaxone for septic arthritis -UA resulted; shows calcium oxalate 2+; may have had stone in urethra preventing flow of urine which has since passed -Urine culture pending; patient on ceftriaxone which should cover for common UTI bugs; but will verify once culture results -Urine culture may come back negative as patient has been on antibiotics -Urology consulted; appreciate recommendations -Rectal exam performed to evaluate size of prostate; patient unable to tolerate exam 2/2 extreme pain -Prostatitis vs. Urethral stone vs. Urethritis vs. UTI -Renal ultrasound performed: shows medical renal disease. No stones in kidneys. No mention of stone in bladder; bladder ultrasound was also ordered, but cancelled twice by the tech as it is presumed to be a duplicate when ordering renal ultrasound. Spoke to [employer] who told me they evaluated the bladder and could not see a stone, although there was no mention of this in report. Recommended CT for further evaluation. Patient still complaining of pain this AM. (2) Septic arthritis Status: Acute Qualifiers: Septic arthritis location: knee Septic arthritis organism: due to unspecified organism Laterality: right Qualified Code(s): M00.9 - Pyogenic arthritis, unspecified Plan: -MRI: septic arthritis with osteomyelitis; severe synovitis suggestive of process lasting > 1 week -POD #8 s/p R. knee arthrotomy with irrigation and debridement -Knee aspirate negative, knee wound culture negative, blood cultures negative -Ortho recommendations appreciated -ID recommendations appreciated; recommend rocephin x8 weeks outpatient with PICC line, followed by keflex indefinitely -Currently on rocephin day #7 -AFB and fungal cultures pending -Mobilize with help of PT -PICC line has been placed (05/15); patient will receive 8 weeks of outpatient antibiotics with daily rocephin per ID -Patient has been approved for outpatient antibiotic therapy per CM. He is ready to be discharged from that standpoint. Will touch base with when ready for discharge. (3) Osteomyelitis Code(s): M86.9 - OSTEOMYELITIS, UNSPECIFIED Status: Chronic Qualifiers: Osteomyelitis type: other chronic Osteomyelitis location: tibia Laterality: right Qualified Code(s): M86.661 - Other chronic osteomyelitis, right tibia and fibula Plan: -See plan as above for septic arthritis -8 weeks total of rocephin via PICC line as outpatient, followed by keflex indefinitely (4) Acute on chronic kidney failure Code(s): N17.9 - ACUTE KIDNEY FAILURE, UNSPECIFIED; N18.9 - CHRONIC KIDNEY DISEASE, UNSPECIFIED Status: Acute Qualifiers: Acute renal failure type: unspecified Chronic kidney disease stage: stage 3 (moderate) Qualified Code(s): N17.9 - Acute kidney failure, unspecified; N18.3 - Chronic kidney disease, stage 3 (moderate) Plan: -GFR 18 currently; trending up since admission -Appreciate nephrology recommendations -Cr rising; 4.28 this AM -Renal ultrasound shows medical renal disease -HCO3 stable -Nephro recommends follow up within 1-2 weeks as outpatient; otherwise no further treatment (5) Hypertension Code(s): I10 - ESSENTIAL (PRIMARY) HYPERTENSION Status: Acute Qualifiers: Hypertension type: essential hypertension Qualified Code(s): I10 - Essential (primary) hypertension Plan: -BP this AM 107/70 -Recommend follow up as outpatient for further management (6) Murmur Code(s): R01.1 - CARDIAC MURMUR, UNSPECIFIED Status: Acute Plan: -Echo: LVEF 55-60%, mild MR and AR (7) Normocytic anemia Code(s): D64.9 - ANEMIA, UNSPECIFIED Status: Chronic Plan: -s/p 3U pRBCs -H&H stable -FOBT pending; has yet to be collected. May need to do as outpatient -Likely anemia of chronic disease 2/2 chronic inflammation and CKD (8) Diabetes Code(s): E11.9 - TYPE 2 DIABETES MELLITUS WITHOUT COMPLICATIONS Status: Chronic Qualifiers: Diabetes mellitus complication status: without complication Diabetes mellitus superintendent terminal insulin use: with fpc use Plan: -Type I DM -Glucose 154 this AM -HgA1c 7.7% -Continue SSI -Accuchecks ACHS -CC diet (9) Vitamin D deficiency Code(s): E55.9 - VITAMIN D DEFICIENCY, UNSPECIFIED Status: Acute Plan: -Provide supplementation -Continue supplementation upon discharge <Alessia Rubio - Last Filed: 05/19/17 08:36> Attending Addendum - Attending Addendum I personally evaluated the patient and discussed the management with Dr. Rubio. I agree with the History, Examination, Assessment and Plan documented above with any addition or exceptions noted below. Patient stable from infection standpoint. Outpatient therapy has been arranged. Renal function mildly worse but other labs wnl and renal has no further recommendations at this time. He continues to have suprapubic pain, though worse just to the left of midline with point tenderness. DDx includes cystitis, prostatitis, proctitis, diverticular inflammation, appendicitis, nephrolithiasis , hernia. Will obtain CT today to further characterize. Once this pain complaint is elucidated, patient should be stable for discharge unless it requires more intensive therapeutics. <Gorge Fierro - Last Filed: 05/19/17 14:23>
--- NOTE | 2017-05-19 07:46 | PRG ---
DATE OF SERVICE: 05/19/2017 SUBJECTIVE: This is a 47-year-old gentleman being seen for acute kidney injury. The patient denies any nausea, vomiting or chest pain. PHYSICAL EXAMINATION: GENERAL: Patient is awake, alert. VITAL SIGNS: Afebrile, pulse 91, breathing at 16, blood pressure 107/70. OBJECTIVE: See above. HEAD/NECK: Normocephalic. Atraumatic. EYES: EOMI. No deformity. EARS: Clear. No ulcers. NOSE: Intact. No lesions. MOUTH: Clear. No discharge. THROAT: Clear. No exudate. LUNGS: Clear. No crackles. CARDIAC: S1, S2. No rub. ABDOMEN: Benign. BS+. GENITALIA/RECTUM: Nazario absent. BACK/EXTREMITIES: Edema 0+ Ulcer- NEUROLOGICAL: Alert and motor intact. SKIN: Rash- Bruise- LYMPHATICS: Edema- Ulcer- LABORATORY DATA: Show hemoglobin 10.2, creatinine 4.28. ASSESSMENT AND RECOMMENDATIONS: 1. Chronic kidney disease stage 4 with progressive acute kidney injury, multifactorial. Renal func tion has worsened. No urgent indication for dialysis. 2. Hypertension, stable. 3. Anemia, stable. 4. Medications based on glomerular filtration rate are appropriate.
[2017-05-19] MEDS: Heparin 5,000 UNITS/ML VIAL SC SCH ×3 (08:01→20:30)
[2017-05-19] MEDS: Ferrous Sulfate 325 MG TAB PO SCH ×2 (08:01→16:28)
[2017-05-19] MEDS: Ascorbic Acid 500 mg Chewable Tablet PO SCH ×2 (08:01→20:29)
[2017-05-19] MEDS: traMADol HCl 50 MG TAB PO PRN ×2 (08:01→14:06)
[2017-05-19] MEDS: Docusate 100 MG CAP PO SCH ×2 (08:01→20:29)
[2017-05-19] MEDS ORDERED: Phenazopyridine HCl 97.5 MG TABLET PO SCH (11:00)
[2017-05-19] MEDS: HumaLOG 300 UNITS/3 ML VIAL SC PRN ×2 (12:33→16:29)
[2017-05-19] MEDS: cefTRIAXone\\ROCEPHIN 2 GM in Sodium Chloride 0.9% 100 ML IVPB SCH (14:46)
--- NOTE | 2017-05-19 14:49 | CT ---
CT ABDOMEN NONCONTRAST CT PELVIS NONCONTRAST: (urolithiasis protocol) DATE: 05/19/17 TIME: 1245 hours HISTORY: 47-year-old male with right-sided abdominal pain. COMPARISON: Contrast enhanced CT of 09/05/16. TECHNIQUE: IV injection of iodinated contrast media: none Oral contrast media: none FINDINGS: Other than for urolithiasis, the lack of IV and oral contrast limits the evaluation. Again demonstrated is the mural thickening of the distal colon, from the lower descending colon thro ugh the proximal to mid sigmoid colon, but now with a new finding of surrounding fat stranding repre senting pericolonic edema. The urinary bladder taylor have become diffusely more thickened than befor e, currently 4 - 5 mm in thickness, despite well- distended bladder. Within the limitations of a non contrast scan, no gross abnormality is identified involving the appendix, abdominal aorta, adrenals, liver, spleen, or pancreas. Again noted are the cholecystectomy clips. There is a new finding of sm all calculi at the lower poles of each kidney, one on each side. Each one is approximately 2 x 3 x 4 mm. There is no hydronephrosis. No calculus is identified within the ureters or urinary bladder. No small bowel dilation. There is diffuse fat stranding consistent with edema throughout the pelvic ca vity, but most prominently around the sigmoid colon. There are multiple diverticula at the proximal sigmoid colon. No small bowel dilation. Lung bases are grossly clear. No pneumoperitoneum. IMPRESSION: 1. Evidence for acute sigmoid colonic diverticulitis. 2. No evidence of obstructive uropathy. 3. Mild bilateral nephrolithiasis consisting of a single small calculus in each kidney. 4. Diffuse mural thickening of the urinary bladder, raising the possibility of cystitis. 5. Status post cholecystectomy. GRACE Garza POS: MURRAY
[2017-05-19] MEDS: metroNIDAZOLE 500 MG in Premix Bag 1 BAG IVPB SCH (16:28)
[2017-05-19] MEDS: Sodium Chloride 0.9% 1,000 ML IV SCH (17:28)
[2017-05-20] MEDS: metroNIDAZOLE 500 MG in Premix Bag 1 BAG IVPB SCH (00:11)
[2017-05-20] MEDS: Sodium Chloride 0.9% 1,000 ML IV SCH (04:21)
[2017-05-20] MEDS: HumaLOG 300 UNITS/3 ML VIAL SC PRN (04:23)
[2017-05-20 05:07] LABS: #Basophils 0.1 thou/uL (0.0-0.2); #Eosinphils 0.3 thou/uL (0.0-0.7); #Lymphocytes 1.7 thou/uL (1.20-3.40); #Monocytes 0.7 thou/uL (0.11-0.59); #Neutrophils 6.7 thou/uL (1.40-6.50); %Basophils 0.9 % (0.0-1.0); %Eosinophils 2.7 % (0.0-10.0); %Lymphocytes 17.8 % (21.0-51.0); %Monocytes 7.1 % (0.0-10.0); Hematocrit 29.3 % (42.0-52.0); Mean Platelet Volume 5.8 fL (7.4-10.4); Red Blood Cell (RBC) Count 3.28 mill/uL (4.70-6.10); White Blood Cell (WBC) Count 9.4 thou/uL (4.8-10.8)
[2017-05-20 05:38] LABS: Anion Gap 14 mmol/L (10-20); BUN (Urea Nitrogen) 34 mg/dL (8.9-20.6); Calc. Creatinine Clearance 21 mL/min (70-130); Calcium 8.8 mg/dL (7.8-10.44); Carbon Dioxide 18 mmol/L (22-29); Chloride 110 mmol/L (98-107); Estimated GFR-MDRD 17
--- NOTE | 2017-05-20 06:23 | PDOC.FM ---
- Subjective Subjective: Patient is doing well today. Reports pain in lower abdomen is much less as well as pain in his L knee. Reports diarrhea that has been going on for years and recent chills. Denies hematochezia/melena, and N/v. Denies SOB and hematuria. - Objective MAR Reviewed: Yes Vital Signs & Weight: Vital Signs (12 hours) Temp Pulse Resp BP BP Pulse Ox 05/20/17 04:00 98.2 F 77 20 100/67 93 L 05/19/17 20:00 98.2 F 82 20 116/72 95 05/19/17 19:46 97.5 F L 78 18 127/75 97 Weight Weight 63.503 kg I&O: 05/18/17 05/19/17 05/20/17 06:59 06:59 06:59 Intake Total 2981 Output Total 1 Balance 2980 Result Diagrams: 05/20/17 04:48 05/20/17 04:48 <Yeimi Roa - Last Filed: 05/20/17 07:18> - Objective Vital Signs & Weight: Vital Signs (12 hours) Temp Pulse Resp BP BP Pulse Ox 05/20/17 07:57 97.7 F 76 18 97 05/20/17 07:53 98.2 F 76 18 123/77 97 05/20/17 07:52 77 125/78 05/20/17 04:00 98.2 F 77 20 100/67 93 L Weight Weight 63.503 kg I&O: 05/19/17 05/20/17 05/21/17 06:59 06:59 06:59 Intake Total 2981 Output Total 1 Balance 2980 Result Diagrams: 05/20/17 04:48 05/20/17 04:48 <Shalonda Denney - Last Filed: 05/20/17 10:04> Phys Exam - Physical Examination Constitutional: NAD HEENT: moist MMs Respiratory: no wheezing, no rales, no rhonchi, clear to auscultation bilateral Cardiovascular: RRR Systolic Murmur Gastrointestinal: soft, no distention, positive bowel sounds LLQ tenderness with mild palpation Musculoskeletal: no edema, pulses present knee is wrapped, but no erythema or swelling outside of bandage Neurological: normal sensation, moves all 4 limbs Psychiatric: normal affect, A&O x 3 Skin: no rash <Yeimi Roa - Last Filed: 05/20/17 07:18> Dx/Plan (1) Acute on chronic kidney failure Code(s): N17.9 - ACUTE KIDNEY FAILURE, UNSPECIFIED; N18.9 - CHRONIC KIDNEY DISEASE, UNSPECIFIED Status: Acute Qualifiers: Acute renal failure type: unspecified Chronic kidney disease stage: stage 3 (moderate) Qualified Code(s): N17.9 - Acute kidney failure, unspecified; N18.3 - Chronic kidney disease, stage 3 (moderate) (2) Hypertension Code(s): I10 - ESSENTIAL (PRIMARY) HYPERTENSION Status: Acute Qualifiers: Hypertension type: essential hypertension Qualified Code(s): I10 - Essential (primary) hypertension (3) Murmur Code(s): R01.1 - CARDIAC MURMUR, UNSPECIFIED Status: Acute (4) Septic arthritis Status: Acute Qualifiers: Septic arthritis location: knee Septic arthritis organism: due to unspecified organism Laterality: right Qualified Code(s): M00.9 - Pyogenic arthritis, unspecified (5) Suprapubic pain, acute Code(s): R10.2 - PELVIC AND PERINEAL PAIN Status: Acute (6) Diabetes Code(s): E11.9 - TYPE 2 DIABETES MELLITUS WITHOUT COMPLICATIONS Status: Chronic Qualifiers: Diabetes mellitus complication status: without complication Diabetes mellitus detention 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 use: 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 Urethral stone vs. Urethritis vs. UTI Septic Arthritis -MRI: septic arthritis with osteomyelitis; severe synovitis suggestive of process lasting > 1 week -POD #8 s/p R. knee arthrotomy with irrigation and debridement -Knee aspirate negative, knee wound culture negative, blood cultures negative -Ortho recommendations appreciated -ID recommendations appreciated; recommend rocephin x8 weeks outpatient with PICC line, followed by keflex indefinitely -Currently on rocephin day #7 -AFB and fungal cultures pending -Mobilize with help of PT -PICC line has been placed (05/15); patient will receive 8 weeks of outpatient antibiotics with daily rocephin per ID -Patient has been approved for outpatient antibiotic therapy per CM. He is ready to be discharged from that standpoint. Will touch base with CM when ready for discharge. Osteomyelitis -See plan as above for septic arthritis -8 weeks total of rocephin via PICC line as outpatient, followed by keflex indefinitely Acute on Chronic Kidney Failure -GFR 17 -Appreciate nephrology recommendations -Cr 3.8 this am -Renal ultrasound shows medical renal disease -Nephro recommends follow up within 1-2 weeks as outpatient; otherwise no further treatment Hypertension -BP this AM 100/67 -Recommend follow up as outpatient for further management Murmur -Echo: LVEF 55-60%, mild MR and AR Normocytic Anemia -s/p 3U pRBCs -H&H stable -FOBT pending; has yet to be collected. May need to do as outpatient -Likely anemia of chronic disease 2/2 chronic inflammation and CKD Diabetes -Type I DM -Glucose 188 this AM -HgA1c 7.7% -Continue SSI -Accuchecks ACHS -CC diet Vit D deficiency -Provide supplementation -Continue supplementation upon discharge <Yeimi Roa - Last Filed: 05/20/17 07:18> Attending Addendum - Attending Addendum I personally evaluated the patient and discussed the management with Dr. Roa. I agree with the History, Examination, Assessment and Plan documented above with any addition or exceptions noted below. The patient was seen up walking in his room with the help of a crutch. The patient notes that his pain is much better. He is tolerated po. LLQ is mildly tender to palpation for me. He expressed desire to go home. Pt has IV antibiotics arranged as an outpt. He will also be on PO flagyl. Starting flomax for stones. No evidence of hydronephrosis. No urinary symptoms. Pt will f/u with multiple specialists on discharge. <Shalonda Denney - Last Filed: 05/20/17 10:04>
[2017-05-20] MEDS: Ferrous Sulfate 325 MG TAB PO SCH (07:51)
[2017-05-20] MEDS: Docusate 100 MG CAP PO SCH (07:53)
[2017-05-20] MEDS: Ascorbic Acid 500 mg Chewable Tablet PO SCH (07:53)
[2017-05-20] MEDS: Heparin 5,000 UNITS/ML VIAL SC SCH (07:54)
[2017-05-20 07:55] VITALS: BP 125/78
[2017-05-20 08:06] VITALS: TEMP 97.7
[2017-05-20] MEDS ORDERED: metroNIDAZOLE 500 MG TAB PO SCH (09:00)
--- NOTE | 2017-05-20 10:04 | PRG ---
DATE OF SERVICE: 05/20/2017 SUBJECTIVE: This is a 47-year-old gentleman being seen for acute kidney injury. The patient denies any nausea, vomiting or chest pain. PHYSICAL EXAMINATION: GENERAL: Patient is awake, alert. VITAL SIGNS: Afebrile, pulse 76, breathing at 16, blood pressure 123/72. GENERAL APPEARANCE AND MENTAL STATUS: Fair. HEAD/NECK: Normocephalic. Atraumatic. EYES: EOMI. No deformity. EARS: Clear. No ulcers. NOSE: Intact. No lesions. MOUTH: Clear. No discharge. THROAT: Clear. No exudate. LUNGS: Clear. No crackles. CARDIAC: S1, S2. No rub. ABDOMEN: Benign. BS+. GENITALIA/RECTUM: Nazario absent. BACK/EXTREMITIES: Edema 0+ Ulcer- NEUROLOGICAL: Alert and motor intact. SKIN: Rash- Bruise- LYMPHATICS: Edema- Ulcer- LABORATORY DATA: Show hemoglobin 9.5, creatinine is 3.8. ASSESSMENT AND RECOMMENDATIONS: 1. Acute kidney injury with chronic kidney disease, stage IV, stable. 2. Hypertension, stable. 3. Anemia, stable. 4. Medications based on glomerular filtration rate are appropriate. No indication for dialysis.
[2017-05-20] MEDS: cefTRIAXone\\ROCEPHIN 2 GM in Sodium Chloride 0.9% 100 ML IVPB SCH (13:09)
[2017-05-20] MEDS ORDERED: Tamsulosin HCl 0.4 MG CAP PO SCH (21:00)
--- NOTE | 2017-05-22 01:28 | DIS-2 ---
DATE OF ADMISSION: 05/10/2017 DATE OF DISCHARGE: 05/20/2017 RESIDENT: Alessia Rubio D.O. ADMITTING ATTENDING: Matt Parker M.D. DISCHARGE ATTENDING: Shalonda Denney M.D. CONSULTATIONS: 1. Orthopedic Surgery, Dr. Layton Jansen. 2. Urology, Dr. Jose Scott. 3. Nephrology, Dr. Lance Echols. 4. PT. 5. OT. 6. Case management. PROCEDURES: 1. Vascular ultrasound, no evidence of right lower extremity deep venous thrombosis. 2. Left arm PICC line. 3. Renal ultrasound: Hyperechoic kidneys bilaterally consistent with nonspecific chronic renal disease. No evidence of hydronephrosis. 4. Knee x-ray: Marked distention of joint space particularly suprapatellar recess which certainly could be compatible with septic knee arthritis. In addition, there are extensive irregular bony erosive and destructive changes of the medial tibial plateau and medial proximal tibia raising concern for associated osteomyelitis developing ossification along the prefemoral region posterior to distended suprapatellar recess. No acute fracture. 5. Lower extremity MRI: Findings suggestive of septic arthritis of knee with osteomyelitis. Large joint effusion with severe synovitis suggestive of relatively longstanding process greater than 1 week, likely chronic injury of ACL which is insufficient. Abnormal edema of medial tibial plateau with loss of anterior surface height, sequelae of healing fracture. Erosion of cartilage of medial compartment. Concern for pyomyositis of popliteus, although limited without intravascular contrast. Abnormal edema within the anterior compartment of tibia and fibula, the medial and lateral head of gastrocnemius and soleus muscle, as well as medial extensors, all likely myositis. Loss of normal T1 signal within the medial femoral condyle and medial tibial plateau, as well as extensive edema throughout proximal tibia. 6. Right knee arthrotomy with irrigation and debridement. 7. Echocardiogram, ejection fraction visually estimated at 55%-60% with normal diastolic function, mildly dilated left atrium, mild mitral regurgitation, mild aortic regurgitation, and moderate tricuspid regurgitation. 8. Renal ultrasound #2. Medical renal disease, no evidence of stones. 9. Abdomen and pelvis CT without contrast. There is evidence of acute sigmoid colonic diverticulitis. No evidence of obstructive uropathy. Mild bilateral nephrolithiasis consisting of single small calculus in each kidney. Diffuse mural thickening of urinary bladder, raising possibility of cystitis. Status post cholecystectomy. PRIMARY DIAGNOSES: 1. Septic arthritis of the right knee. 2. Chronic osteoarthritis of the right knee. 3. Acute diverticulitis. 4. Bilateral nephrolithiasis. SECONDARY DIAGNOSES: 1. Acute on chronic kidney failure. 2. Hypertension. 3. Diabetes mellitus type 1. 4. Normocytic anemia. 5. Vitamin D deficiency. DISCHARGE MEDICATIONS: 1. Insulin NPH 25 units subcutaneously daily before food. 2. Insulin NPH 15 units subcutaneous at bedtime. 3. The patient should also have been sent home on vitamin C 500 mg p.o. b.i.d. 4. Cholecalciferol 2000 units p.o. daily. 5. Ferrous sulfate 325 mg p.o. b.i.d. with meals. 6. Tamsulosin 0.4 mg p.o. at bedtime. 7. Amlodipine 5 mg p.o. daily. 8. Metronidazole 500 mg p.o. t.i.d. 9. Tramadol 50 mg p.o. q. 6 h. p.r.n. 10. Ceftriaxone 2 grams IV via PICC line; the patient to [facility] daily ceftriaxone for a total of [address] Sahu. HISTORY OF PRESENT ILLNESS/HOSPITAL COURSE: This is a 47-year-old male who presented with right knee pain and swelling for 7-8 days. He had a knee surgery at the end of February and had been on prophylactic Keflex. He denied fever, headache, chest pain, shortness of breath, abdominal pain, nausea, vomiting, or diarrhea. He has been taking the Keflex as prescribed and has no injury to the knee since surgery. He states that he had no hardware in his knee such as knee replacement. The knee surgery was performed at [facility]. He has no history of tuberculosis or recent travel. He is from [place] but has not been back in over 27 years. He has had a similar problem four times and states that that is why he keeps having knee surgery. He states that the pain is worse with extension and ambulation. In the emergency department, he was seen by Dr. Vaz who performed a joint aspiration that had turbid fluid. He contacted Dr. Jansen who stated he would see the patient in the morning. The patient was admitted to our service for medical management. A right knee arthrotomy with irrigation and debridement was performed. The patient was treated with antibiotics. Dr. Sahu, the Infectious Disease physician, was consulted. Dr. Sahu recommended a total of 8 weeks of ceftriaxone treatment. Thus, a PICC line was placed. Case management was able to get the patient set up for infusion therapy daily for 8 weeks. The patient is unfunded. The patient was doing well, however, when preparing for discharge the patient complained of severe suprapubic pain and difficulty urinating. A straight in and out catheterization was attempted; however, nurse was unable to pass the catheter. A rectal exam was then performed; however, on exam, the patient was exquisitely tender and was not able to tolerate the pain. Urology was consulted. Dr. Scott was on the case. As the patient was still urinating, no intervention was done at that time; however, a UA was performed with a little bit of urine the patient was able to provide. Calcium oxalate was seen on urinalysis and urine was sent for culture. The patient had been on antibiotics for several days, so urine culture was not anticipated to be positive. With the degree of pain and possible obstruction in the urethra, it was hypothesized that a stone might have been present. Thus, a renal ultrasound and bladder ultrasound were performed. No stones or hydronephrosis were seen on the ultrasound. However, the patient continued to have symptoms and he then started to complain of left lower quadrant pain. Thus, a CT was performed. He was not a candidate for IV contrast due to his chronic kidney disease. After speaking to the radiologist, it was recommended that kidney stone protocol CT be performed as oral contrast would not help further in the evaluation of several differentials to include diverticulitis, prostatitis, proctitis, appendicitis, bladder stone, or kidney stones. On CT, diverticulitis was noted. Additionally, there were bilateral kidney stones, both of which were small. There was also some evidence of cystitis. Thus, the patient was started on Flomax to assist with the kidney stones and Flagyl for anaerobic coverage of diverticulitis. The patient improved the following day. He was up ambulating and able to urinate without any difficulty. The patient was discharged home with oral Flagyl to continue as well as Flomax in addition to the rest of his medications. The patient voiced his desire to go home with close followup. He will return daily for IV ceftriaxone for treatment of his septic arthritis, status post debridement. Additionally, he will continue with treatment for his diverticulitis and kidney stones. Oral hydration was strongly advised. The patient was in agreement with the above plan. He stated that he understood the necessity for close followup particularly with Surgery, Infectious Disease, and Nephrology. DISPOSITION: Stable. DISCHARGE INSTRUCTIONS: 1. Location: Home. 2. Diet: Consistent carb. 3. Activity: Orthopedic limitations. 4. Followup: The patient is to follow up with Infectious Disease for ceftriaxone IV daily for 8 weeks. Additionally, he is to follow up with Dr. Singh, [employer]books bookkeeper, 1-2 weeks post discharge to further evaluate and manage kidney dysfunction. The patient is also to follow up with primary care physician; however, he is unfunded and does not currently have a primary care physician. Thus, he can follow up with [facility] to establish care. It is important that the patient follow up as indicated. The patient is in agreement with the plan and understanding the necessity for followup. YOANA
== END 2017-05-20 14:48 | disposition home or self-care (01) | DRG 501 ==
LOC: ERS 20:32 → ERHOLD 05-10 02:36 → T4-B 05-10 03:25
PROVIDERS: ADMIT Family Medicine; ATTEND Family Medicine
PROC: 0S9C3ZX Drainage of Right Knee Joint, Percutaneous Approach, Diagnostic (ICD-10-PCS; 2017-05-10)
PROC: 0JDN0ZZ Extraction of Right Lower Leg Subcutaneous Tissue and Fascia, Open Approach (ICD-10-PCS; principal; 2017-05-11)
PROC: 30233N1 Transfusion of Nonautologous Red Blood Cells into Peripheral Vein, Percutaneous Approach (ICD-10-PCS; 2017-05-11)
PROC: 02H633Z Insertion of Infusion Device into Right Atrium, Percutaneous Approach (ICD-10-PCS; 2017-05-15)
PROC: B244ZZZ Ultrasonography of Right Heart (ICD-10-PCS; 2017-05-15)
DX: M00.9 Pyogenic arthritis, unspecified (principal); N17.9 Acute kidney failure, unspecified; E87.2 Acidosis; E10.22 Type 1 diabetes mellitus with diabetic chronic kidney disease; N18.4 Chronic kidney disease, stage 4 (severe); E10.69 Type 1 diabetes mellitus with other specified complication; K57.32 Diverticulitis of large intestine without perforation or abscess without bleeding; N30.00 Acute cystitis without hematuria; M86.68 Other chronic osteomyelitis, other site; Z79.4 Long term (current) use of insulin; D63.1 Anemia in chronic kidney disease; I12.9 Hypertensive chronic kidney disease with stage 1 through stage 4 chronic kidney disease, or unspecified chronic kidney disease; B95.61 Methicillin susceptible Staphylococcus aureus infection as the cause of diseases classified elsewhere; E87.6 Hypokalemia; E55.9 Vitamin D deficiency, unspecified; D50.9 Iron deficiency anemia, unspecified; I08.3 Combined rheumatic disorders of mitral, aortic and tricuspid valves; N20.0 Calculus of kidney; R01.1 Cardiac murmur, unspecified
CPT/HCPCS: 20610; 36415; 36416; 36430; 36569; 74176; 76770; 80048; 80053; 80202; 80306; 81001; 81003; 81015; 82306; 82570; 82728; 82945; 83036; 83540; 83550; 83735; 83970; 84100; 84156; 84300; 85014; 85018; 85025; 85027; 85049; 85060; 85652; 86140; 86704; 86706; 86708; 86780; 86803; 86850; 86900; 86901; 87040; 87070; 87086; 87102; 87205; 87206; 87340; 87389; 89051; 89060; 93306; 96361; 96374; A4216; C1751; G8978-GP-CM; G8979-GP-CK; G8987-GO-CJ; G8988-GO-CI; J0360; J0696; J1170; J1644; J2001; J2250; J2270; J2405; J2704; J3010; J3370; J7050; J7070; P9016

== ENCOUNTER 2017-06-01 13:52 | Inpatient (IN) | payer SELFPAY ==
[2017-06-01 14:37] LABS: #Eosinphils 0.4 thou/uL (0.0-0.7); #Lymphocytes 1.3 thou/uL (1.20-3.40); #Monocytes 0.6 thou/uL (0.11-0.59); #Neutrophils 6.7 thou/uL (1.40-6.50); %Basophils 0.5 % (0.0-1.0); %Eosinophils 4.3 % (0.0-10.0); %Lymphocytes 14.1 % (21.0-51.0); %Monocytes 6.6 % (0.0-10.0); Hematocrit 28.8 % (42.0-52.0); Mean Platelet Volume 6.6 fL (7.4-10.4); Red Blood Cell (RBC) Count 3.25 mill/uL (4.70-6.10)
[2017-06-01 15:01] LABS: ALT (SGPT) 26 U/L (8-55); AST (SGOT) 17 U/L (5-34); Anion Gap 16 mmol/L (10-20); BUN (Urea Nitrogen) 82 mg/dL (8.9-20.6); Bilirubin, Total 0.4 mg/dL (0.2-1.2); Calc. Creatinine Clearance 0 mL/min (70-130); Calcium 8.6 mg/dL (7.8-10.44); Chloride 115 mmol/L (98-107); Estimated GFR-MDRD 9; Globulin 3.8 g/dL (2.4-3.5); Protein, Total 7.3 g/dL (6.0-8.3)
[2017-06-01 15:04] LABS: Carbon Dioxide 8 mmol/L (22-29)
[2017-06-01 15:08] LABS: Alkaline Phosphatase 119 U/L (40-150)
[2017-06-01] MEDS ORDERED: cefTRIAXone\\ROCEPHIN 2 GM VIAL ONE (17:13)
[2017-06-01] MEDS ORDERED: Ondansetron HCl/PF 4 MG/2 ML Vial IVP PRN (19:06)
[2017-06-01] MEDS ORDERED: Acetaminophen 325 MG TAB PO PRN ×2 (19:06→20:11)
[2017-06-01] MEDS ORDERED: Ondansetron ODT 4 MG TAB SL PRN (19:06)
[2017-06-01] MEDS ORDERED: Sodium Chloride 0.9% 1,000 ML IV SCH (19:15)
[2017-06-01] MEDS ORDERED: Dextrose 50% Abboject 50 ML SYRINGE SLOW IVP PRN (20:11)
[2017-06-01] MEDS ORDERED: Dextrose 5% in Water 1,000 ML IV PRN (20:11)
[2017-06-01] MEDS ORDERED: Ondansetron ODT 4 MG TAB PO PRN (20:11)
[2017-06-01] MEDS ORDERED: Sodium Chloride 0.45% 1,000 ML IV SCH (20:30)
[2017-06-01 20:51] LABS: Magnesium 2.5 mg/dL (1.6-2.6); Phosphorus 7.2 mg/dL (2.3-4.7)
[2017-06-01 21:17] LABS: Base Excess -19.8 mEq/L (0 (+/- 2.5)); O2 Content (venous) 11.9 VOL% (12.5-17.5)
[2017-06-01 21:20] LABS: pH (venous) 7.125 (7.35-7.45)
[2017-06-01] MEDS: Sodium Bicarbonate 150 MEQ in Dextrose 5% in Water 1,000 ML IV SCH ×2 (21:57)
[2017-06-01] MEDS: Famotidine 20 MG TAB PO SCH (21:57)
--- NOTE | 2017-06-01 22:42 | CON ---
DATE OF CONSULTATION: 06/01/2017 REASON FOR CONSULTATION: Hyperkalemia. HISTORY OF PRESENT ILLNESS: This is a very pleasant 47-year-old gentleman being seen for acute kidney injury and CKD and a history of noncompliance, presented to the hospital. The patient was sent here for abdominal and renal tests. The patient denies any headache, nausea, vomiting or chest pain. PAST MEDICAL HISTORY: Significant for hypertension, knee surgery, appendectomy , renal stone removal. ALLERGIES: Reviewed. HOME MEDICATIONS: Reviewed. REVIEW OF SYSTEMS: Fifteen point review of systems was performed and negative except positives noted above. GENERAL: Weakness- HEAD: Headache- NECK: No swelling or lumps. NOSE: No epistaxis or discharge. EYES: No diplopia or pain. RESPIRATORY: Dyspnea- CARDIOVASCULAR: Chest pain. GASTROINTESTINAL: Nausea. /MANAGER PUBLISHING: Hematuria. MUSCULOSKELETAL: No joint pain. NEUROPSYCHIATIC SYSTEMS: No suicidal ideation. No ideation. SKIN: Denies any rash or ulcer. CONSTITUTIONAL: No fever or chills. PHYSICAL EXAMINATION: GENERAL: Patient is awake, alert. VITAL SIGNS: Afebrile, pulse 75, breathing 16, blood pressure was 130/70. HEAD/NECK: Normocephalic. Atraumatic. EYES: EOMI. No deformity. EARS: Clear. No ulcers. NOSE: Intact. No lesions. MOUTH: Clear. No discharge. THROAT: Clear. No exudate. LUNGS: Clear. No crackles. CARDIAC: S1, S2. No rub. ABDOMEN: Benign. BS+. GENITALIA/RECTUM: Nazario absent. BACK/EXTREMITIES: Edema 0+ Ulcer. NEUROLOGICAL: Alert and motor intact. SKIN: Rash-Bruise. LYMPHATICS: Edema-Ulcer- LABORATORY DATA: Labs show hemoglobin is 9.4, bicarbonate 8, potassium 5.7. ASSESSMENT AND RECOMMENDATIONS: 1. Stage 5 chronic kidney disease. We will consider hemodialysis, start hydration. 2. Hyperkalemia with metabolic acidosis. Treat metabolic acidosis with bicarbonate drip. Recheck potassium after 5 hours. Overall, prognosis is extremely poor. The patient had declined dialysis in the past. [facility]
--- NOTE | 2017-06-01 22:56 | PDOC.EVN ---
Event Note - Event Note Event Note: Attending H&P I personally evaluated the patient and discussed the management with Dr. Johnson. I have reviewed the written H&P and it is repeated by me. I agree with the History, Examination, Assessment and Plan documented above with any addition or exceptions noted below. Acute on Chronic Renal Failure. Appreciate Dr Echols's expertise and care. Radha hobson started. HD being considered. Renal dose his usual meds for chronic conditions. DVT prophyalxis. Diarrhea workup in progress. C.diff precautions.
[2017-06-02 00:15] VITALS: BMI 19.7
--- NOTE | 2017-06-02 00:57 | HP-2 ---
CODE STATUS: FULL. PRIMARY CARE PHYSICIAN: Carlee Hahn. ATTENDING: Theo Cloud M.D. PGY1: Fransisco Johnson MD SPECIALIST: Dr. Echols. CHIEF COMPLAINT: Abnormal lab values. HISTORY OF PRESENT ILLNESS: This is a 47-year-old female, who presents to the ED after going to his infusion center for outpatient antibiotics and was told that he needed to go to the ER. He denies any acute events today or changes in his health. He states he is making his normal amount of urine and denies any pain today. He was recently discharged from [facility] on 05/21/2017, where he had a n acute on chronic renal failure. He is currently being treated with outpatient antibiotics for rig ht knee septic arthritis. He also has been complaining for about a 1 year of watery diarrhea. Hist ory that is unchanged currently. In the ER, he got Rocephin 2 grams, Kayexalate, and a 1-liter norm al saline bolus. PAST MEDICAL HISTORY: Significant for diverticulitis, nephrolithiasis, acute on chronic renal failu re, hypertension, diabetes mellitus type 1, normocytic anemia, vitamin D deficiency, septic arthriti s of his right knee. PAST SURGICAL HISTORY: Right knee surgeries x4 with the last one happening in 02/2017, appendectomy and kidney stone removal. ALLERGIES: No known drug allergies. MEDICATIONS: 1. Insulin NPH 25 units before meals, insulin NPH 15 units at bedtime. 2. Vitamin C 500 mg b.i.d. 3. Cholecalciferol 2000 units daily. 4. Ferrous sulfate 325 mg b.i.d. 5. Tamsulosin 0.4 mg. 6. Amlodipine 5 mg. 7. Ceftriaxone 2 grams daily for 8 weeks. FAMILY HISTORY: Significant for maternal diabetes mellitus. SOCIAL HISTORY: Denied tobacco, alcohol, or drug use. He is and he has five children. REVIEW OF SYSTEMS: General: He denies any fevers, weight changes, or night sweats. He does admit to have chills and fatigue. Eyes: He denies any vision changes or eye pain. ENT: Denies any nasa l congestion, rhinorrhea, or sore throat. Respiratory: Denies any cough, congestion, shortness of breath, exercise intolerance. Cardiovascular: Denies any chest pain, palpitation, edema, orthopnea . Gastrointestinal: Denies any nausea, vomiting, constipation, GI bleed. He does admit to watery diarrhea and abdominal pain. Genitourinary: Denies incontinence, dysuria, polyuria, discharge. Sk in: Denies any rashes, lesions, jaundice, or itching. Musculoskeletal: He does admit to pain, ten derness, stiffness, swelling to his right knee. Neuro: Denies any weakness, numbness, syncope, or seizures. Psychiatric: He denies any anxiety or depression. PHYSICAL EXAMINATION: VITAL SIGNS: Blood pressure was 120/70, pulse was 90, respiration 17, temperature max 98.3, pulse o x 99% on room air. Current weight is 59 kilos. GENERAL: He is alert and oriented x4. He is appropriately interactive. He only speaks Finnish, so an rn family practice phone was used during the interview. EYES: PERRLA. Conjunctivae within normal limits. ENT: Nasal mucosa and oropharynx within normal limits. NECK: Supple, without lymphadenopathy, without thyromegaly, without bruit. CARDIOVASCULAR: Regular rate and rhythm. No murmur, no gallops. Radial and pedal pulses were equa l bilaterally. RESPIRATORY: Normal effort, no retractions. Clear lungs auscultation bilaterally. SKIN: Warm and dry. ABDOMEN: Soft. He did have tenderness to palpation to his left lower quadrant. Bowel sounds are p resent x4. No masses or distention. EXTREMITIES: No clubbing, cyanosis, or edema. He did have a swollen right knee that was evident of previous surgery. MUSCULOSKELETAL: Structure and tone, muscle strength and range of motion were within normal limits. NEUROLOGIC: No focal neurologic deficits. Cranial nerves II through XII grossly intact. GCS was 1 5. PSYCHIATRIC: He was appropriate. LABORATORY DATA: He had a white blood cell count of 9.0, platelet count 427, hemoglobin 9.4, hemato crit 28.8. Sodium 133, potassium 5.7, chloride 115, bicarbonate 8, BUN 82, creatinine 6.83, glucose 252, calcium 8.6, total protein 7.3, albumin 3.5, total bilirubin 0.4, AST 17, ALT 26, alkaline robbin sphatase 119. His EKG showed a normal sinus rhythm. ASSESSMENT AND PLAN: We have a 47-year-old male with history of acute on chronic renal failure, hyp ertension, diabetes mellitus type 1, normocytic anemia, and a right septic arthritis of the knee. 1. Acute renal failure. He was given Kayexalate and a liter bolus. We are going to continue his i ntravenous fluids. Get urine studies, magnesium, phosphorus, VBG and consult to Dr. Echols and flipo r CBC and BMP. 2. Uremia. His BUN was 82. 3. He had a non-anion gap hyperkalemic metabolic acidosis. He was not requiring a bicarbonate drip right away unless his pH was 7.1. 4. Diarrhea. Stool studies and intravenous fluid resuscitation. 5. Right septic knee arthritis. We will continue his current regimen. 6. Hypertension. Continue his home medications. 7. Diabetes mellitus. Continue his home medications. 8. Normocytic anemia. He had a recent workup that was stable. We will continue to monitor. Disposition and length of hospital stay will be as an inpatient and greater than 2 midnights. Symptomatic medications will be provided. History and physical exam as well as management has been discussed with Dr. Cloud.
[2017-06-02] MEDS: FLU VACC QS2017-18 36 mo. & older 0.5 ML SYRINGE IM ONE (01:45)
[2017-06-02 02:12] LABS: Bilirubin Negative (Negative); Blood, Urine Trace (Negative); Glucose, Urine (Dipstick) 250 mg/dL (Negative); Ketone, Urine Negative (Negative); Nitrite Negative (Negative); Protein, Urine (Dipstick) Trace mg/dL (Neg-Trace); Urobilinogen 0.2 mg/dL (0.2-1.0)
[2017-06-02 02:16] LABS: Bacteria/HPF None Seen HPF (None Seen); Hyaline Casts/LPF 0-3 HYALINE CAST LPF (0-3 Hyaline); Squamous Epithelial None Seen HPF (0-3)
[2017-06-02 02:38] LABS: Renal Epithelial None Seen HPF (0-3); Transitional Epithelial NONE SEEN HPF (0-3); Yeast-All Forms None Seen HPF (None Seen)
[2017-06-02 05:32] LABS: #Basophils 0.1 thou/uL (0.0-0.2); #Eosinphils 0.5 thou/uL (0.0-0.7); #Lymphocytes 1.6 thou/uL (1.20-3.40); #Monocytes 0.7 thou/uL (0.11-0.59); #Neutrophils 5.3 thou/uL (1.40-6.50); %Basophils 0.9 % (0.0-1.0); %Eosinophils 5.6 % (0.0-10.0); %Monocytes 8.1 % (0.0-10.0); Hematocrit 27.6 % (42.0-52.0); Mean Platelet Volume 7.1 fL (7.4-10.4); Red Blood Cell (RBC) Count 3.15 mill/uL (4.70-6.10)
[2017-06-02 05:44] LABS: Anion Gap 15 mmol/L (10-20); BUN (Urea Nitrogen) 76 mg/dL (8.9-20.6); Calc. Creatinine Clearance 12 mL/min (70-130); Calcium 8.5 mg/dL (7.8-10.44); Carbon Dioxide 11 mmol/L (22-29); Chloride 115 mmol/L (98-107); Estimated GFR-MDRD 9
[2017-06-02] MEDS: Sodium Bicarbonate 150 MEQ in Dextrose 5% in Water 1,000 ML IV SCH ×6 (06:05→21:16)
[2017-06-02] MEDS: Insulin NPH/Reg Insulin Hm 300 UNITS/3 ML VIAL SC SCH ×2 (08:29→20:24)
[2017-06-02] MEDS: Ferrous Sulfate 325 MG TAB PO SCH ×2 (08:30→17:05)
[2017-06-02] MEDS: Ascorbic Acid 500 mg Chewable Tablet PO SCH ×2 (08:30→20:17)
--- NOTE | 2017-06-02 08:53 | PRG ---
DATE OF SERVICE: 06/02/2017 SUBJECTIVE: This 47-year-old gentleman being seen for end-stage renal disease. The patient denies any nausea, vomiting or chest pain. PHYSICAL EXAMINATION: GENERAL: Patient is awake, alert. VITAL SIGNS: Afebrile, pulse 70, breathing at 16, blood pressure 140/86. OBJECTIVE: See above. Awake, alert, in no acute distress. GENERAL APPEARANCE AND MENTAL STATUS: Fair. HEAD/NECK: Normocephalic. Atraumatic. EYES: EOMI. No deformity. EARS: Clear. No ulcers. NOSE: Intact. No lesions. MOUTH: Clear. No discharge. THROAT: Clear. No exudate. LUNGS: Clear. No crackles. CARDIAC: S1, S2. No rub. ABDOMEN: Benign. BS+. GENITALIA/RECTUM: Nazario absent. BACK/EXTREMITIES: Edema 0+ Ulcer- NEUROLOGICAL: Alert and motor intact. SKIN: Rash- Bruise- LYMPHATICS: Edema- Ulcer- LABORATORY: Show potassium is 3.5, bicarbonate 11, creatinine 6.5. ASSESSMENT AND PLAN: 1. Stage 5 chronic kidney disease. The patient has refused dialysis. 2. Hyperkalemia, improved. 3. Metabolic acidosis. Continue sodium bicarbonate. 4. Anemia, stable.
--- NOTE | 2017-06-02 09:00 | CT ---
CT OF THE ABDOMEN AND PELVIS WITHOUT IV CONTRAST: Date: 06/02/17 INDICATION: History of left lower quadrant abdominal pain, diverticulitis, and bilateral nephrolithiasis. COMPARISON: Prior exam dated 05/19/17. FINDINGS: There is a prominent amount of retained stool within the colon. The extent of the bowel wall thicken ing involving the sigmoid colon has diminished since the prior exam; however, there are now areas of diffuse wall thickening involving the rectum, sigmoid colon, descending colon, transverse colon, an d ascending colon. Findings may be related to a prominent proctocolitis. Recommend correlation. This can be inflammatory or infectious in etiology. There is prominent wall thickening involving the debbie dder. No ureteral stone is evident. Bilateral nephrolithiasis is similar. The adrenal glands and andrew pacified pancreas are unremarkable. Unopacified liver is unremarkable. There are cholecystectomy cli ps within the right upper quadrant of the abdomen. Lung bases are clear. No acute osseous abnormalit y is evident. IMPRESSION: 1. Worsening wall thickening involving the rectum and colon can be related to diffuse proctocolitis of infectious or inflammatory etiology. There is a moderate amount of retained stool within the col on. 2. Stable bilateral nephrolithiasis without evidence of hydronephrosis. 3. Wall thickening involving the bladder may reflect a component of cystitis. Patient's prostate is mildly enlarged measuring 5.1 cm. A component of chronic bladder outlet obstruction cannot be exclu ded. 4. No drainable fluid collection is evident. 5. Cholecystectomy. POS: [facility]
--- NOTE | 2017-06-02 09:55 | PDOC.FM ---
- Subjective Subjective: PT states he has had chronic waterdy diarrhea for one year. Denies blood. Pt endorses mild sharp pain with urinating. - Objective MAR Reviewed: Yes Vital Signs & Weight: Vital Signs (12 hours) Temp Pulse Resp BP BP Pulse Ox 06/02/17 08:00 98.2 F 79 18 140/86 99 06/02/17 04:00 97.4 F L 76 16 118/74 98 06/02/17 00:00 97.4 F L 78 16 124/75 99 Weight Weight 58.9 kg Result Diagrams: 06/02/17 04:52 06/02/17 04:52 Phys Exam - Physical Examination Constitutional: NAD HEENT: PERRLA, moist MMs, sclera anicteric Neck: no JVD Respiratory: no wheezing, no rales, clear to auscultation bilateral Cardiovascular: RRR, no significant murmur Gastrointestinal: soft, non-tender, no distention Musculoskeletal: no edema, pulses present Neurological: non-focal, normal sensation Psychiatric: normal affect, A&O x 3 Skin: no rash Dx/Plan (1) non anion gap metabolic acidosis Status: Acute (2) Chronic diarrhea Code(s): K52.9 - NONINFECTIVE GASTROENTERITIS AND COLITIS, UNSPECIFIED Status : Acute (3) Acute on chronic kidney failure Code(s): N17.9 - ACUTE KIDNEY FAILURE, UNSPECIFIED; N18.9 - CHRONIC KIDNEY DISEASE, UNSPECIFIED Status: Acute Qualifiers: Acute renal failure type: unspecified Chronic kidney disease stage: stage 3 (moderate) Qualified Code(s): N17.9 - Acute kidney failure, unspecified; N18.3 - Chronic kidney disease, stage 3 (moderate); N18.3 - Chronic kidney disease, stage 3 (moderate) (4) Hypertension Code(s): I10 - ESSENTIAL (PRIMARY) HYPERTENSION Status: Acute Qualifiers: Hypertension type: essential hypertension Qualified Code(s): I10 - Essential (primary) hypertension (5) Diabetes Code(s): E11.9 - TYPE 2 DIABETES MELLITUS WITHOUT COMPLICATIONS Status: Chronic Qualifiers: Diabetes mellitus complication status: without complication 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 1.)MIKE on CKD (prior stage 4)-likely intrinsic 2/2 nsaid use at home, no evidence of muddy brown casts on urinalysis,cannot r/o postrenal etiology of patient's MIKE - pt reports taking nsaids for knee and belly pain - last hospital admission pt was worked up for postrenal etiologies and was found to have small calcium oxalate stones on CT in his kidneys; urology was consulted who did not think these were causing an obstruction. Pt is on flomax and amlodipine, which is the proper treatment for small stones -Plan: -Discussed importance of not taking nsaids at home as this can acutely worsen kidney function -A 2nd CT, kidney stone protocol was ordered to evaluate for possible worsening nephrolithiasis. -pt on d5 sodium bicarb @125 CKD-pt will likely need dialysis as his initial K was 5.7 however he does not have insurance and declined dialysis initially due to cost. 2.)Non anion gap metabolic acidosis- -pH7.1, bicarb 8 -Plan: -Dr. Echols consulted and pt started on bicarb drip. Will follow recs. 3.) Diarrhea, chronic, watery- Plan: -Ovum and parasites, stool -FOBT -C. dif -Stool studies -Fecal lactoferrin 4.)DM- SSI, 5.)HTN- amlodipine
--- NOTE | 2017-06-02 11:35 | ADD-PRG ---
DATE OF SERVICE: 06/02/2017 ADDENDUM Please add as an addendum to the note of Dr. Sierra Miranda. Mr. Edwin Lake is a pleasant 47-year-o ld male who does not speak [place]. He was admitted to the hospital with acute kidney inju ry on top of CKD. He has CKD likely on the basis of hypertension and type 2 diabetes. He will like ly eventually need dialysis. He is also being followed by Dr. Echols of the [facility]. He is on long-term intravenous antibiotics for septic arthritis of his knee. His most recent acute kidney in [facility] is likely due to the fact that he was using ibuprofen for pain control as an outpatient and he has been counseled not to do this.
[2017-06-02] MEDS ORDERED: metroNIDAZOLE 500 MG in Premix Bag 1 BAG IVPB SCH (14:00)
[2017-06-02] MEDS ORDERED: cefTRIAXone\\ROCEPHIN 2 GM VIAL IVPB SCH (15:00)
[2017-06-02] MEDS: cefTRIAXone\\ROCEPHIN 2 GM in Sodium Chloride 0.9% 100 ML IVPB SCH (15:30)
[2017-06-02 16:21] LABS: Anion Gap 14 mmol/L (10-20); BUN (Urea Nitrogen) 72 mg/dL (8.9-20.6); Calc. Creatinine Clearance 12 mL/min (70-130); Calcium 8.1 mg/dL (7.8-10.44); Carbon Dioxide 16 mmol/L (22-29); Chloride 113 mmol/L (98-107); Estimated GFR-MDRD 9
[2017-06-02] MEDS: Famotidine 20 MG TAB PO SCH (20:18)
[2017-06-02] MEDS: Tamsulosin HCl 0.4 MG CAP PO SCH (20:18)
[2017-06-03 05:18] LABS: #Basophils 0.1 thou/uL (0.0-0.2); #Eosinphils 0.3 thou/uL (0.0-0.7); #Lymphocytes 1.3 thou/uL (1.20-3.40); #Monocytes 0.7 thou/uL (0.11-0.59); #Neutrophils 5.5 thou/uL (1.40-6.50); %Basophils 0.9 % (0.0-1.0); %Eosinophils 4.4 % (0.0-10.0); %Lymphocytes 16.8 % (21.0-51.0); %Monocytes 9.3 % (0.0-10.0); Mean Platelet Volume 6.8 fL (7.4-10.4); Red Blood Cell (RBC) Count 2.92 mill/uL (4.70-6.10)
[2017-06-03 05:37] LABS: Anion Gap 14 mmol/L (10-20); BUN (Urea Nitrogen) 67 mg/dL (8.9-20.6); Calc. Creatinine Clearance 13 mL/min (70-130); Carbon Dioxide 19 mmol/L (22-29); Chloride 109 mmol/L (98-107); Estimated GFR-MDRD 10
[2017-06-03] MEDS ORDERED: Potassium Chloride 20 MEQ TAB PO SCH ×2 (06:15→14:00)
[2017-06-03] MEDS: Sodium Bicarbonate 150 MEQ in Dextrose 5% in Water 1,000 ML IV SCH ×4 (07:10→17:00)
--- NOTE | 2017-06-03 07:19 | PDOC.FM ---
- Subjective Subjective: No complaints this morning. No acute events overnight. - Objective MAR Reviewed: Yes Vital Signs & Weight: Vital Signs (12 hours) Temp Pulse Resp BP Pulse Ox 06/03/17 05:31 98.3 F 78 16 147/84 H 98 06/03/17 01:00 98.2 F 80 14 132/78 98 06/02/17 20:00 98.3 F 77 16 150/87 H 99 Weight Weight 58.9 kg I&O: 06/02/17 06/03/17 06/04/17 06:59 06:59 06:59 Intake Total 1979 Balance 1979 Result Diagrams: 06/03/17 04:57 06/03/17 10:31 Phys Exam - Physical Examination Constitutional: NAD HEENT: PERRLA, moist MMs Respiratory: no wheezing, no rales Cardiovascular: RRR, no significant murmur Gastrointestinal: soft, non-tender Musculoskeletal: no edema Neurological: non-focal Psychiatric: normal affect, A&O x 3 Skin: no rash Dx/Plan (1) non anion gap metabolic acidosis Status: Acute (2) Chronic diarrhea Code(s): K52.9 - NONINFECTIVE GASTROENTERITIS AND COLITIS, UNSPECIFIED Status : Acute (3) Acute on chronic kidney failure Code(s): N17.9 - ACUTE KIDNEY FAILURE, UNSPECIFIED; N18.9 - CHRONIC KIDNEY DISEASE, UNSPECIFIED Status: Acute Qualifiers: Acute renal failure type: unspecified Chronic kidney disease stage: stage 3 (moderate) Qualified Code(s): N17.9 - Acute kidney failure, unspecified; N18.3 - Chronic kidney disease, stage 3 (moderate); N18.3 - Chronic kidney disease, stage 3 (moderate) (4) Hypertension Code(s): I10 - ESSENTIAL (PRIMARY) HYPERTENSION Status: Acute Qualifiers: Hypertension type: essential hypertension Qualified Code(s): I10 - Essential (primary) hypertension (5) Diabetes Code(s): E11.9 - TYPE 2 DIABETES MELLITUS WITHOUT COMPLICATIONS Status: Chronic Qualifiers: Diabetes mellitus complication status: without complication Diabetes mellitus nursing home insulin use: with emt intermediate use (6) Diarrhea Code(s): R19.7 - DIARRHEA, UNSPECIFIED Status: Acute - Plan Plan: 47 yo male with pmhx of ckd stage 4 and recent hospitalization for septic knee joint currently getting daily infusion treatments of rocephin presents to the hospital for acute worsening of cr when checked at his appointments for the rocephin infusions. 1.)MIKE on CKD (prior stage 4)-likely intrinsic 2/2 nsaid use at home, no evidence of muddy brown casts on urinalysis,cannot r/o postrenal etiology of patient's MIKE - pt reports taking nsaids for knee and belly pain - -Plan: -pending urology recommendations -CT showed bladder wall inflammation-urology consulted, considering interstitial cystitis -pt on d5 sodium bicarb @125; will dc pending nephrology recs CKD-pt will likely need dialysis as his initial K was 5.7 however he does not have insurance and declined dialysis initially due to cost. 2.)Non anion gap metabolic acidosis-2/2 C. dif proctocolitis and campylobacter -Plan: -Dr. Echols consulted and pt started on bicarb drip. Will follow recs. Consider weaning bicard drip today. 3.) C.diff and campylobacter proctocolitis- Started oral vanc started azithro for campylobacter monitor I/O's 4.)DM- SSI, 5.)HTN- amlodipine
[2017-06-03] MEDS: Ferrous Sulfate 325 MG TAB PO SCH ×2 (09:48→15:56)
[2017-06-03] MEDS: Ascorbic Acid 500 mg Chewable Tablet PO SCH ×2 (09:50→20:07)
[2017-06-03] MEDS: Azithromycin 250 MG TAB PO SCH (09:51)
[2017-06-03] MEDS: Vancomycin HCl 25 MG/ML Oral PO SCH ×4 (09:53→20:07)
[2017-06-03] MEDS: Insulin NPH/Reg Insulin Hm 300 UNITS/3 ML VIAL SC SCH ×2 (09:55→20:08)
--- NOTE | 2017-06-03 10:50 | PRG ---
DATE OF SERVICE: 06/03/2017 SUBJECTIVE: This 47-year-old gentleman being seen for acute kidney injury. The patient denies any nausea, vomiting or chest pain. PHYSICAL EXAMINATION: GENERAL: Patient is awake, alert. VITAL SIGNS: Afebrile, pulse 80, breathing at 16, blood pressure 132/78. HEAD/NECK: Normocephalic. Atraumatic. EYES: EOMI. No deformity. EARS: Clear. No ulcers. NOSE: Intact. No lesions. MOUTH: Clear. No discharge. THROAT: Clear. No exudate. LUNGS: Clear. No crackles. CARDIAC: S1, S2. No rub. ABDOMEN: Benign. BS+. GENITALIA/RECTUM: Nazario absent. BACK/EXTREMITIES: Edema 0+ Ulcer- NEUROLOGICAL: Examination could not be obtained. SKIN: Rash- Bruise- LYMPHATICS: Edema- Ulcer- LABORATORY DATA: Show hemoglobin 8.6, potassium 2.8, creatinine 6.07. IMPRESSION AND PLAN: 1. Chronic kidney disease stage 5, stable. 2. Hypokalemia. Recommend potassium replacement. 3. Metabolic acidosis, improved. 4. Anemia, stable. 5. Medications based on glomerular filtration rate are appropriate. MTDD
[2017-06-03 11:16] LABS: Anion Gap 15 mmol/L (10-20); BUN (Urea Nitrogen) 64 mg/dL (8.9-20.6); Calc. Creatinine Clearance 13 mL/min (70-130); Carbon Dioxide 20 mmol/L (22-29); Chloride 108 mmol/L (98-107); Estimated GFR-MDRD 10
[2017-06-03] MEDS: HumaLOG 300 UNITS/3 ML VIAL SC PRN (12:24)
[2017-06-03] MEDS: cefTRIAXone\\ROCEPHIN 2 GM in Sodium Chloride 0.9% 100 ML IVPB SCH (15:56)
--- NOTE | 2017-06-03 16:02 | PRG ---
DATE OF SERVICE: 06/03/2017 SUBJECTIVE: Mr. Pineda feels much better this morning. We made some interesting discoveries with hi s stool studies and that they are C. diff positive and positive for Campylobacter. We have begun th erapy with oral vancomycin and oral azithromycin. He will likely be ready for discharge in 1-2 days .
--- NOTE | 2017-06-03 18:18 | CON ---
DATE OF CONSULTATION: 06/02/2017 CONSULTING: Family Medicine. CONSULTED PHYSICIAN: Dr. Jose Scott with Urology. REASON FOR CONSULTATION: Bladder wall thickening. HISTORY OF PRESENT ILLNESS: Mr. Lake is a 47-year-old male who I have previously seen jay german on hospitalization for concerns regarding possible urinary retention and lower urinary tract sym ptoms on a previous admission for septic arthritis. The patient still has septic arthritis and was readmitted to the hospital secondary to being told to do so when he was at his infusion center. He received 2 grams of Rocephin in the ER and 1 liter saline bolus and was admitted to the hospital to the Family Medicine Service. He did undergo a CT scan, which demonstrated worsening wall thickening involving the rectum and colon related diffuse proctocolitis. There was stable bilateral nephrolit hiasis without evidence of hydronephrosis and wall thickening involving the bladder, which may have reflected a component cystitis. I was consulted for his bladder wall thickening and history of neph rolithiasis. On my discussion with the patient, he states that he has no prior history of kidney st ones. As per previous, he was urinating well at that time and states he continues to urinate well. He denies any dysuria, urgency, frequency, slow stream, hesitancy or significant problems with urin ation. He continues to urinate fairly normal amounts despite having near end-stage renal disease, b ut he is not yet on dialysis. There is no reported history of gross hematuria and he states that he has never had a urinary tract infection and does not recall any history of kidney stones in the pas t. ALLERGIES: None. CURRENT MEDICATIONS: 1. Insulin. 2. Vitamin C. 3. Vitamin D. 4. Ferrous sulfate. 5. Flomax. 6. Amlodipine. 7. Currently Rocephin. PAST MEDICAL HISTORY: 1. Diverticulitis. 2. Nephrolithiasis. 3. Chronic renal failure. 4. Hypertension. 5. Diabetes mellitus type 1. 6. Normocytic anemia. 7. Vitamin D deficiency. 8. Septic arthritis of his right knee. PAST SURGICAL HISTORY: 1. Right knee surgeries x4. 2. Appendectomy. 3. Kidney stone removal. Patient does have a history of nephrolithiasis and apparently has had sto madhu removed in the past. He currently denies any flank pain or any symptoms related to kidney stone s. FAMILY HISTORY: Positive for diabetes mellitus. SOCIAL HISTORY: Denies tobacco, alcohol or illicit drug use. He is and has five children. REVIEW OF SYSTEMS: A 12-point review of systems was reviewed and otherwise unremarkable other than a history of watery diarrhea, which has been going on for a long period of time, as well as a histor y of GI bleeds. He apparently is supposed to be having a colonoscopy in the near future, but has no t kept his appointment. He denies any abdominal pain, any lower urinary tract symptoms as per his H PI, chest pain, shortness of breath, dizziness, fevers or chills. Remainder of 12-point review of s ystems was reviewed and otherwise negative other than his noted right knee pain which has been stabl e. PHYSICAL EXAMINATION: VITAL SIGNS: Temperature 98.2, pulse 79, respirations 18, blood pressure 140/86 and saturations 99% on room air. GENERAL: No apparent distress, communicative and alert, well-nourished, well-developed, appears sta mason age. HEENT: Normocephalic and atraumatic. Pupils are symmetric and round. Sclerae are nonicteric. Tra mary midline. CARDIOVASCULAR: Regular rate and rhythm. Normal S1 and S2. Symmetric pulses. CHEST: No increased work of breathing, clear anteriorly. No wheezes, nonlabored breathing. ABDOMEN: Soft, nontender and nondistended. Positive bowel sounds. No organomegaly. No rebound or guarding tenderness. GENITOURINARY: Penis is unremarkable. Scrotum is without swelling. Testes bilaterally descended. RECTAL: Rectal exam is deferred at this time. EXTREMITIES: No clubbing, cyanosis or edema. MUSCULOSKELETAL: There is significant swelling around the right knee with a well-healed incision. Patient has limited movement of his right knee, but can move his left leg and upper arms without pro blems. NEUROLOGIC: Cranial nerves II-XII are grossly intact. No focal or sensory deficits identified. SKIN: Warm, dry, good turgor, no rashes or lesions, other than the previous swelling, erythema note d at the right knee. LABORATORY EVALUATION: The full set of labs are in the [facility] system, which I have reviewed. Of note, the patient's white count is 8 with hemoglobin 9.3. Creatinine is currently 6.7. Urinalysis demonstrates 250 glucose, trace blood, 4-6 white blood cells, C. diff toxin was negative, but antige n was positive indicating possible prior exposure. Stool for ova and parasites was negative. Urine culture is negative at [address] from 06/02 demonstrates worsening wall thickening involving the rectum and colon, which could be related to diffuse proctocolitis and/or infectious or inflammat ory etiology. There is a moderate amount of retained stool within the colon. There are stable bila teral nephrolithiasis without evidence of hydronephrosis or ureteral calculi. Wall thickening invol ving the bladder may reflect component of cystitis. The patient's prostate is mildly enlarged at 5. 1 cm. Chronic bladder outlet obstruction cannot be excluded. No drainable fluid collection is evid ent. Status post cholecystectomy. ASSESSMENT AND PLAN: A 47-year-old male with bilateral nephrolithiasis, which is currently asymptomatic as well as bladder wall thickening. The bladder wall thickening may partially be rela mason to longstanding bladder outlet obstruction, although the patient has no significant symptoms of outlet obstruction as he states he is urinating well without difficulty or any real problems. As jensen ch, I suspect that the majority of the bladder wall thickening is probably more related to the patie nt's adjacent proctocolitis since the bladder rests on the sigmoid colon and rectum. As these organ s get more inflamed, the bladder will subsequently have inflammation and thickening just by proximit y. The culture is negative; therefore, no antibiotics are necessary and the patient does not need a ny urinary medications as he is not complaining of any significant lower urinary tract symptoms. Gi calin that he is urinating without difficulty and with a negative urine culture and he has no flank pa in or evidence of current active stone disease other than his stable nonobstructing stones, I do not think any further intervention is necessary at this time. I will go ahead and sign off on this deshawn e and I have given my card to the patient so he may follow up later as an outpatient. I have told h im we can try to work on stone prevention if he desires, but that will be up to him and I would alice mmend that he heals up from the 1st as this is the more pressing issue I also recommended that he ke ep his appointment with the music typographer so that he may have a colonoscopy to try to further h elp identify the source of his longstanding diarrhea and history of GI bleeding.
[2017-06-03] MEDS: Tamsulosin HCl 0.4 MG CAP PO SCH (20:07)
[2017-06-03] MEDS: Famotidine 20 MG TAB PO SCH (20:07)
[2017-06-04] MEDS: Sodium Bicarbonate 150 MEQ in Dextrose 5% in Water 1,000 ML IV SCH ×2 (01:29)
[2017-06-04 06:02] LABS: #Basophils 0.1 thou/uL (0.0-0.2); #Eosinphils 0.4 thou/uL (0.0-0.7); #Lymphocytes 1.9 thou/uL (1.20-3.40); #Monocytes 0.8 thou/uL (0.11-0.59); #Neutrophils 5.3 thou/uL (1.40-6.50); %Basophils 0.8 % (0.0-1.0); %Eosinophils 4.8 % (0.0-10.0); %Lymphocytes 22.3 % (21.0-51.0); %Monocytes 9.1 % (0.0-10.0); Hematocrit 25.6 % (42.0-52.0); Mean Platelet Volume 6.8 fL (7.4-10.4); Red Blood Cell (RBC) Count 2.98 mill/uL (4.70-6.10); White Blood Cell (WBC) Count 8.4 thou/uL (4.8-10.8)
[2017-06-04 06:19] LABS: Anion Gap 14 mmol/L (10-20); BUN (Urea Nitrogen) 55 mg/dL (8.9-20.6); Calc. Creatinine Clearance 14 mL/min (70-130); Carbon Dioxide 26 mmol/L (22-29); Chloride 103 mmol/L (98-107); Estimated GFR-MDRD 11
[2017-06-04] MEDS ORDERED: Potassium Chloride 20 MEQ TAB PO SCH (07:45)
[2017-06-04] MEDS: Ascorbic Acid 500 mg Chewable Tablet PO SCH (08:59)
[2017-06-04] MEDS: Azithromycin 250 MG TAB PO SCH (08:59)
[2017-06-04] MEDS: Vancomycin HCl 25 MG/ML Oral PO SCH ×4 (08:59→21:11)
[2017-06-04] MEDS: Ferrous Sulfate 325 MG TAB PO SCH ×2 (08:59→16:23)
[2017-06-04] MEDS: Insulin NPH/Reg Insulin Hm 300 UNITS/3 ML VIAL SC SCH ×2 (09:00→21:11)
--- NOTE | 2017-06-04 11:57 | PRG ---
DATE OF SERVICE: 06/04/2017 SUBJECTIVE: This is a 47-year-old gentleman being seen for acute kidney injury. The patient denies any nausea, vomiting, or chest pain. PHYSICAL EXAMINATION: GENERAL: Patient is awake, alert. VITAL SIGNS: Afebrile, pulse 72, breathing at 16, blood pressure 122/79. GENERAL APPEARANCE AND MENTAL STATUS: Fair. HEAD/NECK: Normocephalic. Atraumatic. EYES: EOMI. No deformity. EARS: Clear. No ulcers. NOSE: Intact. No lesions. MOUTH: Clear. No discharge. THROAT: Clear. No exudate. LUNGS: Clear. No crackles. CARDIAC: S1, S2. No rub. ABDOMEN: Benign. BS+. GENITALIA/RECTUM: Nazario absent. BACK/EXTREMITIES: Edema 0+ Ulcer- NEUROLOGICAL: Alert and motor intact. SKIN: Rash- Bruise- LYMPHATICS: Edema- Ulcer- LABORATORY DATA: Show hemoglobin 8.6, potassium 2.9, and creatinine 5.4. ASSESSMENT AND PLAN: 1. Chronic kidney disease stage 5, stable. 2. Hypertension, stable. 3. Anemia, stable. 4. Medications based on glomerular filtration rate are appropriate. Renal function is improving. 5. Hypokalemia. Recommend high potassium diet. Continue hydration.
[2017-06-04] MEDS: HumaLOG 300 UNITS/3 ML VIAL SC PRN ×2 (12:17→17:14)
--- NOTE | 2017-06-04 14:07 | PDOC.FM ---
- Objective Vital Signs & Weight: Vital Signs (12 hours) Temp Pulse Resp BP BP Pulse Ox 06/04/17 08:59 76 122/79 06/04/17 08:00 98.7 F 76 16 98 06/04/17 07:25 98.7 F 76 16 122/79 98 Weight Weight 58.9 kg I&O: 06/03/17 06/04/17 06/05/17 06:59 06:59 06:59 Intake Total 2700 1480 Balance 2700 1480 Result Diagrams: 06/04/17 04:31 06/04/17 04:31 Phys Exam - Physical Examination HEENT: PERRLA, moist MMs Neck: no nodes, no JVD Respiratory: no wheezing, no rales Cardiovascular: RRR, no significant murmur Gastrointestinal: soft, non-tender, no distention Musculoskeletal: no edema, pulses present Neurological: non-focal, normal sensation Psychiatric: normal affect, A&O x 3 Skin: no rash Dx/Plan (1) non anion gap metabolic acidosis Status: Acute (2) Chronic diarrhea Code(s): K52.9 - NONINFECTIVE GASTROENTERITIS AND COLITIS, UNSPECIFIED Status : Acute (3) Acute on chronic kidney failure Code(s): N17.9 - ACUTE KIDNEY FAILURE, UNSPECIFIED; N18.9 - CHRONIC KIDNEY DISEASE, UNSPECIFIED Status: Acute Qualifiers: Acute renal failure type: unspecified Chronic kidney disease stage: stage 3 (moderate) Qualified Code(s): N17.9 - Acute kidney failure, unspecified; N18.3 - Chronic kidney disease, stage 3 (moderate); N18.3 - Chronic kidney disease, stage 3 (moderate) (4) Hypertension Code(s): I10 - ESSENTIAL (PRIMARY) HYPERTENSION Status: Acute Qualifiers: Hypertension type: essential hypertension Qualified Code(s): I10 - Essential (primary) hypertension (5) Diabetes Code(s): E11.9 - TYPE 2 DIABETES MELLITUS WITHOUT COMPLICATIONS Status: Chronic Qualifiers: Diabetes mellitus complication status: without complication 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 1.)MIKE on CKD (prior stage 4)-likely intrinsic 2/2 nsaid use at home, no evidence of muddy brown casts on urinalysis - pt reports taking nsaids for knee and belly pain -improved Cr and BUN, increased bicarb to 26 with hypokalemia, treated. - -Plan: -Dc'd bicarb drip today -Will continue to monitor the pt. -pt will likely need dialysis as his initial K was 5.7 however he does not have insurance and declined dialysis initially due to cost. 2.)Non anion gap metabolic acidosis-2/2diarrhea with infectious etiology: C. dif proctocolitis and campylobacter -Plan: -resolving 3.) C.diff and campylobacter proctocolitis- Started oral vanc started azithro for campylobacter monitor I/O's 4.)DM- SSI, 5.)HTN- amlodipine Dispo: possible dc tomorrow.
[2017-06-04] MEDS: cefTRIAXone\\ROCEPHIN 2 GM in Sodium Chloride 0.9% 100 ML IVPB SCH (16:24)
[2017-06-04 16:38] LABS: Anion Gap 14 mmol/L (10-20); BUN (Urea Nitrogen) 52 mg/dL (8.9-20.6); Calc. Creatinine Clearance 14 mL/min (70-130); Calcium 8.2 mg/dL (7.8-10.44); Carbon Dioxide 29 mmol/L (22-29); Chloride 102 mmol/L (98-107); Estimated GFR-MDRD 11
--- NOTE | 2017-06-04 16:43 | PRG ---
DATE OF SERVICE: 06/04/2017 Mr. Edwin Lake continues to feel well. His diarrhea has greatly slowed down and he feels much bett er. His potassium is little low this morning at 2.9, I would recommend we get it up to 4.0 before d ischarge using p.o. KCl. He will need at least 7 days of treatment for his Campylobacter and probab ly longer for his C. diff.
[2017-06-04] MEDS: Tamsulosin HCl 0.4 MG CAP PO SCH (21:11)
[2017-06-04] MEDS: Famotidine 20 MG TAB PO SCH (21:11)
[2017-06-05 05:55] LABS: #Basophils 0.1 thou/uL (0.0-0.2); #Eosinphils 0.4 thou/uL (0.0-0.7); #Lymphocytes 1.5 thou/uL (1.20-3.40); #Monocytes 0.6 thou/uL (0.11-0.59); #Neutrophils 4.6 thou/uL (1.40-6.50); %Basophils 0.8 % (0.0-1.0); %Eosinophils 5.2 % (0.0-10.0); %Lymphocytes 21.1 % (21.0-51.0); %Monocytes 8.6 % (0.0-10.0); Mean Platelet Volume 6.9 fL (7.4-10.4); White Blood Cell (WBC) Count 7.1 thou/uL (4.8-10.8)
[2017-06-05 06:21] LABS: Anion Gap 15 mmol/L (10-20); BUN (Urea Nitrogen) 47 mg/dL (8.9-20.6); Calc. Creatinine Clearance 14 mL/min (70-130); Calcium 8.4 mg/dL (7.8-10.44); Carbon Dioxide 26 mmol/L (22-29); Chloride 103 mmol/L (98-107); Estimated GFR-MDRD 11
--- NOTE | 2017-06-05 06:38 | PDOC.FM ---
- Subjective Subjective: Complaining of two episodes of diarrhea yesterday. Pt was asking if he can take out the hari in his knee that were placed d/t his septic joint he had during last admission. - Objective MAR Reviewed: Yes Vital Signs & Weight: Vital Signs (12 hours) Temp Pulse Resp BP Pulse Ox 06/04/17 20:00 97.9 F 81 18 156/86 H 96 Weight Weight 58.9 kg I&O: 06/03/17 06/04/17 06/05/17 06:59 06:59 06:59 Intake Total 2700 1959 Balance [id number] Result Diagrams: 06/05/17 04:47 06/05/17 04:47 <Sierra Patterson - Last Filed: 06/05/17 08:44> - Objective Vital Signs & Weight: Vital Signs (12 hours) Temp Pulse Resp BP BP Pulse Ox 06/05/17 08:10 98.7 F 80 16 96 06/05/17 07:53 80 139/86 06/05/17 07:05 98.7 F 80 16 139/86 96 Weight Weight 129 lb 13.636 oz I&O: 06/04/17 06/05/17 06/06/17 06:59 06:59 06:59 Intake Total 2699 1959 240 Balance 2699 1959 240 Result Diagrams: 06/05/17 04:47 06/05/17 04:47 <Ashkan Buckner - Last Filed: 06/05/17 10:53> Phys Exam - Physical Examination Constitutional: NAD HEENT: PERRLA, moist MMs Respiratory: no wheezing, no rales, clear to auscultation bilateral Cardiovascular: RRR, no significant murmur Gastrointestinal: soft, non-tender Musculoskeletal: no edema, pulses present, edema present edema present in righ knee which has been there since admission prior septic joint Neurological: non-focal, normal sensation Psychiatric: normal affect, A&O x 3 <Sierra Patterson - Last Filed: 06/05/17 08:44> Dx/Plan (1) non anion gap metabolic acidosis Status: Acute (2) Chronic diarrhea Code(s): K52.9 - NONINFECTIVE GASTROENTERITIS AND COLITIS, UNSPECIFIED Status : Acute (3) Acute on chronic kidney failure Code(s): N17.9 - ACUTE KIDNEY FAILURE, UNSPECIFIED; N18.9 - CHRONIC KIDNEY DISEASE, UNSPECIFIED Status: Acute Qualifiers: Acute renal failure type: unspecified Chronic kidney disease stage: stage 3 (moderate) Qualified Code(s): N17.9 - Acute kidney failure, unspecified; N18.3 - Chronic kidney disease, stage 3 (moderate); N18.3 - Chronic kidney disease, stage 3 (moderate) (4) Hypertension Code(s): I10 - ESSENTIAL (PRIMARY) HYPERTENSION Status: Acute Qualifiers: Hypertension type: essential hypertension Qualified Code(s): I10 - Essential (primary) hypertension (5) Diabetes Code(s): E11.9 - TYPE 2 DIABETES MELLITUS WITHOUT COMPLICATIONS Status: Chronic Qualifiers: Diabetes mellitus complication status: without complication Diabetes mellitus manager long term care insulin use: with detention use (6) Diarrhea Code(s): R19.7 - DIARRHEA, UNSPECIFIED Status: Acute - Plan Plan: 47 yo male with pmhx of ckd stage 4 and recent hospitalization for septic knee joint currently getting daily infusion treatments of rocephin, presented with worsening cr, admitted for MIKE on CKD. 1.)MIKE on CKD (prior stage 4/5), improved.-likely intrinsic 2/2 nsaid use at home, no evidence of muddy brown casts on urinalysis, FeNa suggested postrenal vs intrinsic renal etiology - pt reports taking nsaids for knee and belly pain -improved Cr and BUN, bicard drips stopped. hypokalemia of 3.3. will monitor - Urology evaluated pt and did not find an etiology for postrenal obstruction causing the MIKE -Plan: -pt will likely need dialysis as his initial K was 5.7 however he does not have insurance and declined dialysis initially due to cost. -DC today, low normal potassium and improved BUN/Cr 2.)Non anion gap metabolic acidosis, resoloved-2/2diarrhea with infectious etiology: C. dif proctocolitis and campylobacter -Plan: -Continue to monitor and continue abx -dc today 3.) C.diff and campylobacter proctocolitis, diarrheal illness:improved. without diarrhea episode >24 hours Started oral vanc started azithro for campylobacter monitor I/O's 4.)DM- SSI, 5.)HTN- amlodipine Dispo: possible dc tomorrow. <Sierra Patterson - Last Filed: 06/05/17 08:44> Attending Addendum - Attending Addendum I personally evaluated the patient and discussed the management with Dr. Patterson I agree with the History, Examination, Assessment and Plan documented above with any addition or exceptions noted below. Complicated story of acute on chronic renal failure. Type I DM. We do not know his baseline Creatinine. He now is getting Rocephin 2 grams every day for a septic joint related to recent surgery. He grew MSSA. He was also on NSAIDS at home. He has seen nephrology. He is off NSAIDS now. I think his Rocephin dose is too high for his renal failure and suggest that we start giving it to him every other day. He also has C Diff. He may be able to go home in a day or two, but will need close outpatient followup. <Ashkan Buckner - Last Filed: 06/05/17 10:53>
[2017-06-05] MEDS: Insulin NPH/Reg Insulin Hm 300 UNITS/3 ML VIAL SC SCH (07:50)
[2017-06-05] MEDS: Azithromycin 250 MG TAB PO SCH (07:53)
[2017-06-05] MEDS: Ferrous Sulfate 325 MG TAB PO SCH ×2 (07:53→17:26)
[2017-06-05] MEDS: Vancomycin HCl 25 MG/ML Oral PO SCH ×3 (07:55→17:26)
[2017-06-05] MEDS: HumaLOG 300 UNITS/3 ML VIAL SC PRN ×2 (11:53→17:26)
--- NOTE | 2017-06-05 14:27 | PRG ---
DATE OF SERVICE: 06/05/2017 SUBJECTIVE: Patient was seen and examined at bedside and overnight events noted. Patient denies an y shortness of breath or chest pain or palpitation. No history of nausea or vomiting or diarrhea or fever or chills or cramps. OBJECTIVE: GENERAL: This is a well-built male in no acute distress. VITAL SIGNS: Temperature 97, heart rate 80, respiratory rate 16, blood pressure 139/86. HEENT: Atraumatic, normocephalic, oral mucosa is moist. NECK: Supple. CARDIOVASCULAR: S1, S2 heard, rate and rhythm regular. RESPIRATORY: Clear to auscultation. GASTROINTESTINAL: Abdomen is soft. MUSCULOSKELETAL: No tenderness, no edema DERMATOLOGIC: No skin rash. NEUROLOGIC: Alert and awake and oriented x3, no focal neurologic deficits. Moving all the extremit ies. PSYCHIATRIC: Mood and affect normal. LABORATORY DATA: Potassium is 3.3, BUN is 47, creatinine is 5.5. ASSESSMENT AND PLAN: 1. Chronic kidney disease stage 5, renal function is stable. No acute indication for dialysis. Th e patient might need dialysis in the near future, advised to look into the insurance option. 2. Hypertension, stable. 3. Anemia. 4. Hypokalemia, replace cautiously. No acute indication for dialysis. We will follow.
[2017-06-05] MEDS: cefTRIAXone\\ROCEPHIN 2 GM in Sodium Chloride 0.9% 100 ML IVPB SCH (15:16)
[2017-06-05] MEDS: FLU VACC QS2017-18 36 mo. & older 0.5 ML SYRINGE IM ONE (17:27)
[2017-06-05 17:54] VITALS: BP 163/98; TEMP 97.9
[2017-06-06 06:15] LABS: Endomysial IgA Autoabs Negative (Negative); Gliadin IgA ABS 3 units (0-19); Gliadin IgG ABS 2 units (0-19); Immunoglobulin A 242 mg/dL (90-386); t-Transglutaminase (TTG) IgG <2 U/mL (0-5)
--- NOTE | 2017-06-06 10:56 | DIS-2 ---
DATE OF ADMISSION: 06/01/2017 DATE OF DISCHARGE: 06/05/2017 DATE OF SERVICE: 06/09/2017 ADMITTING ATTENDING: Dr. Theo Cloud. ADMITTING RESIDENT: Dr. Fransisco Johnson. DISCHARGE ATTENDING: Dr. Ashkan Buckner. DISCHARGE RESIDENT: Dr. Sierra Patterson. CONSULTATIONS: Dr. Echols, Nephrology. PROCEDURES: Abdomen and pelvic CT, worsening wall thickening involving the rectum and colon, which can be related to diffuse proctocolitis of infectious or inflammatory etiology. Moderate and a moderate amount of retained stool within the colon, stable bilateral nephrolithiasis without evidence of hydronephrosis. DISCHARGE MEDICATIONS: 1. Azithromycin 500 mg orally daily. 2. Vitamin D 2000 units orally daily. 3. 70/30 insulin 15 units subcutaneous at bedtime. 4. Flomax 0.4 mg oral at bedtime. 5. Vancomycin 125 mg oral 4 times a day. 6. Norvasc 5 mg oral daily. 7. 70/30, 25 units subcutaneous daily before food. 8. Vitamin C 500 mg orally twice daily. 9. Zofran 4 mg oral every 6 hours as needed. 10. Rocephin 2 grams IV every 48 hours. DISCONTINUED MEDICATIONS: 1. 70/30, 15 units subcutaneous at bedtime. 2. Iron 325 mg oral twice daily with meals. 3. Metronidazole 500 mg orally 3 times a day. 4. Amlodipine 5 mg orally daily. PRIMARY DIAGNOSIS: 1.)ARF on CKD, stage 4 3.)Campylobacter and C. Difficile Infectious Proctocolitis Diarrheal illness 3.)Septic knee joint, on rocephin infusions daily 4.)Diabetes, type 1 HISTORY OF PRESENT ILLNESS AND HOSPITAL COURSE: This is a pleasant 47-year-old male, who presented to the emergency department after going to the infusion center for outpatient IV Rocephin for a prior right septic knee. Patient was told at the infusion center that he had elevated BUN and creatinine and that he should go to the emergency room. He was recently discharged from [facility] on 05/21/2017 with acute on chronic renal failure as well was receiving IV outpatient antibiotic therapy for his right septic arthritis. Patient has also been complaining of watery diarrhea for a total of 1 year. The patient was admitted for acute renal failure on chronic kidney disease stage 5 and/or infectious watery diarrhea. 1. Acute renal failure on chronic kidney disease stage 5. Patient was given Kayexalate due to his hyperkalemia at 5.7. Patient was also given 2 grams Rocephin and 1 liter normal saline in the ER. Urine studies were ordered to evaluate the patient's acute renal failure. Dr. Echols was initially consulted. The patient was found to have stage 5 chronic kidney disease. His potassium corrected to 3.5. It was discussed with the patient the importance of receiving dialysis; however, the patient refused because the patient does have insurance since that he could not afford it. As mentioned above, patient's hyperkalemia improved. The patient was placed on a bicarbonate drip to improve his metabolic acidosis associated with his acute renal failure on chronic kidney disease stage 5. The patient's urine studies reflective of a mixed intrinsic and postrenal obstruction picture. Urology was consulted due to prior showing on CT of nephrolithiasis from prior hospitalization. Neurology consult stated that the bilateral nephrolithiasis was asymptomatic and nonobstructive. The patient was also found to have bladder wall thickening on CT, which is related to longstanding bladder outlet obstruction; however, the patient did not have any significant symptoms of outlet obstruction as he stated he was able to urinate well without difficulty or any real problems. It was concluded that the majority of the bladder wall thickening was most likely related to the adjacent proctocolitis sigmoid colon and rectum. The patient's renal function slowly improved throughout his hospital stay with a down trending of his BUN and creatinine; however, the patient was still discharged with a GFR of 11, reflective of CKD stage 5. 2. Infectious, watery diarrhea. The patient complained of watery diarrhea for over a year. Stool studies were ordered, which were positive for a Clostridium difficile proctocolitis infection and a Campylobacter infection. The patient was placed on oral vancomycin as he was recently on metronidazole during his last hospitalization, which do not clear up his watery diarrhea and the patient was placed on azithromycin 500 mg b.i.d. for his Campylobacter infection. The patient thinks that his diarrhea did improve during his hospital stay. 3. Right septic knee joint, improved, currently on Rocephin treatment daily. Upon discharge, these treatments were continued. 4. Diabetes type 1. Patient was managed on 70/30 and was discharged the regimen listed above and his medications. DISPOSITION: Stable. Discharged to home. DISCHARGE INSTRUCTIONS: 1. Diet: Diabetic and renally protective. 2. Activity without restriction. 3. Followup. It is recommended that the patient follow up at [facility] as he has no insurance. I also recommended that the patient to see if he can qualify for insurance as he will be needing dialysis with his end-stage renal disease. The patient currently declined dialysis in the hospital. He said he cannot afford it due to not having insurance. YOANA
[2017-06-06 22:12] LABS: Norovirus GI Negative (Negative); Norovirus GII Negative (Negative)
== END 2017-06-05 18:36 | disposition home or self-care (01) | DRG 683 ==
LOC: ERS 13:52 → T4-A 19:04
PROVIDERS: ADMIT Family Medicine; ATTEND Family Medicine
DX: N17.9 Acute kidney failure, unspecified (principal); A04.72 Enterocolitis due to Clostridium difficile, not specified as recurrent; E87.2 Acidosis; I12.0 Hypertensive chronic kidney disease with stage 5 chronic kidney disease or end stage renal disease; M00.861 Arthritis due to other bacteria, right knee; E10.9 Type 1 diabetes mellitus without complications; D64.9 Anemia, unspecified; E10.22 Type 1 diabetes mellitus with diabetic chronic kidney disease; N18.5 Chronic kidney disease, stage 5; E87.5 Hyperkalemia; E87.6 Hypokalemia; N20.0 Calculus of kidney; Z53.20 Procedure and treatment not carried out because of patient's decision for unspecified reasons; Z83.3 Family history of diabetes mellitus
CPT/HCPCS: 36415; 36416; 74176; 80048; 80053; 81001; 82274; 82570; 82668; 82784; 82805; 83516; 83630; 83735; 84100; 84300; 85025; 86255; 87015; 87045; 87046; 87086; 87177; 87206; 87324; 87328; 87329; 87449; 87798; 87899; 90471; 90682; 93005; 93010; 96361; 96365; A4216; G0008; J0696; J7050; J7070; Q2036

== ENCOUNTER 2017-07-23 20:13 | Inpatient (IN) | payer MEDICAID, SELFPAY ==
[2017-07-23] MEDS ORDERED: Ondansetron HCl/PF 4 MG/2 ML Vial ONE (20:49)
[2017-07-23] MEDS ORDERED: Morphine 4 MG/ML Carpuject ONE (20:49)
[2017-07-23 21:18] LABS: #Basophils 0.2 thou/uL (0.0-0.2); #Eosinphils 0.6 thou/uL (0.0-0.7); #Lymphocytes 1.5 thou/uL (1.20-3.40); #Monocytes 0.7 thou/uL (0.11-0.59); #Neutrophils 5.2 thou/uL (1.40-6.50); %Basophils 2.2 % (0.0-1.0); %Eosinophils 7.4 % (0.0-10.0); %Lymphocytes 17.9 % (21.0-51.0); %Monocytes 8.9 % (0.0-10.0); Hematocrit 25.1 % (42.0-52.0); Mean Platelet Volume 6.2 fL (7.4-10.4); Red Blood Cell (RBC) Count 2.76 mill/uL (4.70-6.10); White Blood Cell (WBC) Count 8.2 thou/uL (4.8-10.8)
[2017-07-23 21:21] LABS: Prothrombin Time 13.1 SEC (12.0-14.7)
[2017-07-23 21:31] LABS: ALT (SGPT) 23 U/L (8-55); AST (SGOT) 19 U/L (5-34); Alkaline Phosphatase 140 U/L (40-150); Anion Gap 23 mmol/L (10-20); BUN (Urea Nitrogen) 75 mg/dL (8.9-20.6); Bilirubin, Total 0.5 mg/dL (0.2-1.2); CK (CPK) 222 U/L (30-200); Calc. Creatinine Clearance 0 mL/min (70-130); Calcium 8.4 mg/dL (7.8-10.44); Carbon Dioxide 15 mmol/L (22-29); Chloride 106 mmol/L (98-107); Estimated GFR-MDRD 4; Globulin 3.9 g/dL (2.4-3.5); Protein, Total 7.5 g/dL (6.0-8.3)
--- NOTE | 2017-07-23 22:24 | RAD ---
FOUR VIEWS RIGHT KNEE: Indication: Right knee pain and swelling. Comparison: 05-10-17 FINDINGS: Changes of chronic osteomyelitis of the right knee joint is again noted. There is some calcification seen involving the suprapatellar pouch. Calcifications are seen posterior to the knee joint within th e region of the capsule. There is marked joint capsular distention and surrounding soft tissue swelli ng. There is worsening fragmentation and collapse of the medial tibial plateau. There is widening of the intracondylar notch and periarticular erosive change seen along the lateral aspect of the lateral tibial plateau and both femoral condyles. IMPRESSION: 1. Chronic septic arthritis with worsening fragmentation and collapse of the medial tibial plateau. 2. Prominent joint capsular distention with surrounding soft tissue swelling. POS: ALEJANDRO
[2017-07-23] MEDS ORDERED: cefTRIAXone\\ROCEPHIN 1 GM VIAL ONE (23:09)
[2017-07-23] MEDS ORDERED: Sodium Bicarbonate 2.4 MEQ/5 ML ONE (23:21)
[2017-07-23] MEDS ORDERED: Sodium Bicarb 50 MEQ/50 ML Abboject 8.4% SYRINGE ONE (23:22)
[2017-07-23] MEDS ORDERED: Dextrose 50% Abboject 50 ML SYRINGE ONE (23:24)
[2017-07-23] MEDS ORDERED: Sodium Chloride 0.9% 100 ML ONE (23:24)
--- NOTE | 2017-07-23 23:45 | ULT ---
DOPPLER VENOUS ULTRASOUND OF THE RIGHT LOWER EXTREMITY: Indication: Knee pain. TECHNIQUE: Bae scale, color Doppler, and vascular duplex with spectral analysis was performed of the deep venou s structures of the right lower extremities. The common femoral vein, superficial femoral vein, popli teal vein, posterior tibial vein, proximal greater saphenous, and proximal profunda veins were assess ed bilaterally. FINDINGS: There is normal compression, flow, and augmentation seen within the deep venous structures of the rig ht lower extremity. There is some tapered narrowing of the distal right superficial femoral vein as i t dives through the level of the ductal hiatus which may be related to prominent surrounding inflamma tion near the knee joint. No definite intraluminal thrombus is noted. IMPRESSION: 1. No definite evidence of DVT in the right lower extremity. 2. Mild distal tapering of the distal right superficial femoral vein may be related to extrinsic comp ression from prominent swelling adjacent to the right knee. Wall thickening of the distal superficial vein from prior DVT cannot be entirely excluded. POS: MURRAY
[2017-07-24] MEDS ORDERED: Insulin Regular 300 UNITS/3 ML VIAL ONE (00:15)
[2017-07-24] MEDS ORDERED: Ondansetron ODT 4 MG TAB SL PRN (03:30)
[2017-07-24] MEDS ORDERED: HYDROcodone/Acetaminophen 5/325 mg Tablet PO PRN ×3 (03:30→10:09)
[2017-07-24] MEDS ORDERED: Ondansetron HCl/PF 4 MG/2 ML Vial IVP PRN (03:30)
[2017-07-24 04:12] VITALS: BMI 24.9
[2017-07-24] MEDS ORDERED: Lidocaine 1% (PF) 30 ML VIAL SC SCH (08:45)
[2017-07-24] MEDS ORDERED: Heparin 10,000 UNITS/ 10 ML VIAL ONE (09:00)
[2017-07-24] MEDS ORDERED: Ondansetron ODT 4 MG TAB PO PRN (10:09)
[2017-07-24] MEDS ORDERED: Dextrose 50% Abboject 50 ML SYRINGE SLOW IVP PRN (10:09)
[2017-07-24] MEDS ORDERED: Dextrose 5% in Water 1,000 ML IV PRN (10:09)
--- NOTE | 2017-07-24 12:12 | CON ---
DATE OF CONSULTATION: 07/24/2017 REASON FOR CONSULTATION: Stage 6 chronic kidney disease, on maintenance hemodialysis. HISTORY OF PRESENT ILLNESS: This is a very pleasant 47-year-old gentleman who presented to the [facility] for pain and swelling of the right hand. The patient was noted to have a potassium of 6. The pa tient denies headache, numbness, tingling or weakness. The patient is on dialysis Monday, Monday, Monday. PAST MEDICAL HISTORY: Diverticulitis, nephrolithiasis, hypertension, diabetes mellitus, anemia, hist ory of knee surgery, history of tunneled dialysis catheter, appendectomy and stone removal. ALLERGIES: Reviewed. HOME MEDICATIONS: Reviewed. SOCIAL HISTORY: No alcohol or drug use. FAMILY HISTORY: Negative for ESRD. REVIEW OF SYSTEMS: A 15-point review of systems was performed and negative except positives noted ab ove. GENERAL: Weakness- HEAD: Headache- NECK: No swelling or lumps. NOSE: No epistaxis or discharge. EYES: No diplopia or pain. RESPIRATORY: Dyspnea- CARDIOVASCULAR: Chest pain- GASTROINTESTINAL: Nausea- /DEHYDRATOR TENDER: Hematuria- MUSCULOSKELETAL: No joint pain. NEUROPSYCHIATIC SYSTEMS: No suicidal ideation. No ideation. SKIN: Denies any rash or ulcer. CONSTITUTIONAL: No fever or chills. . PHYSICAL EXAMINATION: GENERAL: Patient is awake, alert. VITAL SIGNS: Afebrile, pulse 75, breathing at 16, blood pressure 145/84. OBJECTIVE: See above. Awake, alert, in no acute distress. GENERAL APPEARANCE AND MENTAL STATUS: Fair. HEAD/NECK: Normocephalic. Atraumatic. EYES: EOMI. No deformity. EARS: Clear. No ulcers. NOSE: Intact. No lesions. MOUTH: Clear. No discharge. THROAT: Clear. No exudate. LUNGS: Clear. No crackles. CARDIAC: S1, S2. No rub. ABDOMEN: Benign. BS+. GENITALIA/RECTUM: Nazario absent. BACK/EXTREMITIES: Edema 0+ Ulcer- NEUROLOGICAL: Alert and motor intact. SKIN: Rash- Bruise- LYMPHATICS: Edema- Ulcer- LABORATORY: Potassium 6. ASSESSMENT AND RECOMMENDATIONS: 1. Stage 6 chronic kidney disease. We will plan hemodialysis. 2. Hyperkalemia, plan dialysis. 3. Anemia, stable. 4. Metabolic acidosis. Plan dialysis. Risks versus benefits of dialysis were discussed and initiated.
[2017-07-24] MEDS: HumaLOG 300 UNITS/3 ML VIAL SC PRN (17:24)
[2017-07-24] MEDS: HYDROcodone/Acetaminophen 10/325 mg Tablet PO PRN (18:03)
--- NOTE | 2017-07-24 19:18 | MRI ---
MRI OF THE RIGHT KNEE: Date: 07-24-17 Provided Clinical History: Right knee infection. FINDINGS: Comparison is made with the examination performed 05-11-17. Large knee joint effusion is redemonstrated with associated changes of synovitis. There is conspicuou s periarticular marrow edema within the distal femur and proximal tibia, similar to the prior examina tion. Fragmentation and collapse of the medial tibial plateau also appears similar to slightly worsen ed as compared to the prior study. There is extensive periarticular signal alteration involving the regional musculature most notably in volving the short head of the biceps and vastus musculature. A normal appearing popliteus muscle is n ot identified. There is complex signal present in the expected location of the popliteus muscle. Ther e is a focal area of circumscribed T2 hyperintensity just lateral to the popliteal neurovascular bund le approximately 7.5 cm cranial to the joint line which may reflect abscess formation. Evaluation is limited without IV contrast. No definite additional focal T2 hyperintensity to suggest a focal fluid collection. ACL insufficiency and articular chondral loss is redemonstrated. IMPRESSION: Findings again suggesting a long standing infectious arthritis with associated osteomyelitis involvin g the distal femur and proximal tibia. There is periarticular myositis, with possible abscess formati on adjacent to the popliteal neurovascular bundle as described above. POS: OFF
[2017-07-24] MEDS: Tamsulosin HCl 0.4 MG CAP PO SCH (20:42)
[2017-07-25] MEDS: HYDROcodone/Acetaminophen 10/325 mg Tablet PO PRN ×3 (02:58→19:57)
[2017-07-25 04:57] LABS: #Basophils 0.1 thou/uL (0.0-0.2); #Eosinphils 0.5 thou/uL (0.0-0.7); #Lymphocytes 1.4 thou/uL (1.20-3.40); #Monocytes 0.7 thou/uL (0.11-0.59); #Neutrophils 5.3 thou/uL (1.40-6.50); %Eosinophils 6.1 % (0.0-10.0); %Monocytes 8.6 % (0.0-10.0); Hematocrit 27.5 % (42.0-52.0); Mean Platelet Volume 6.4 fL (7.4-10.4); Red Blood Cell (RBC) Count 2.97 mill/uL (4.70-6.10); White Blood Cell (WBC) Count 7.9 thou/uL (4.8-10.8)
[2017-07-25 05:31] LABS: Anion Gap 14 mmol/L (10-20); BUN (Urea Nitrogen) 34 mg/dL (8.9-20.6); Calc. Creatinine Clearance 12 mL/min (70-130); Calcium 8.4 mg/dL (7.8-10.44); Carbon Dioxide 27 mmol/L (22-29); Chloride 97 mmol/L (98-107); Estimated GFR-MDRD 8
--- NOTE | 2017-07-25 08:25 | CON ---
DATE OF CONSULTATION: 07/25/2017 REQUESTING PHYSICIAN: Dr. Dean Quintero HISTORY OF PRESENT ILLNESS: The patient is a pleasant 47-year-old gentleman who is admitted on 07/24 for recurrent right knee pain and swelling. The patient has an extensive past history regardin g this right knee. This pain started initially towards the end of 2015 where he was subsequently bennie ated at [facility] in [place] with 2 arthrotomies for infection. Apparently at some point, he was told that he may require an amputation if the infection could not be controlled. The p dmitriy was subsequently seen and treated at [facility] in [place] where he underwent an extens natty debridement including a calf abscess decompression. I do not believe that we have any obvious pa thogens from these procedures. The patient subsequently presented to our emergency room on 7 with continued knee pain and swelling. I performed an arthrotomy with irrigation and debridement. The patient was subsequently sent home on every other day Rocephin and did well for approximately a month and a half until such time that the knee became swollen once again and now he is readmitted for this same ongoing problem. Workup has included x-rays that shows extensive erosion involving essent ially the entire medial tibial plateau and a subsequent workup has included an MRI that shows evidenc e of a possible abscess at the posterior distal thigh as well as recurrent knee effusion. With these findings, orthopedic consultation requested. PAST MEDICAL HISTORY: Remarkable for diabetes and chronic renal disease. PAST SURGICAL HISTORY: 1. Right knee surgery x5 for infection. 2. Appendectomy. 3. As well as renal stone removal. MEDICATIONS: The patient was on Rocephin every other day since his discharge in April. ALLERGIES: None known. REVIEW OF SYSTEMS: He has had some low grade fevers. He denies shortness of breath or chest pain, d enies numbness or tingling in the lower extremity. FAMILY HISTORY: Noncontributory. SOCIAL HISTORY: Still denies tobacco, alcohol, or drug use. PHYSICAL EXAMINATION: VITAL SIGNS: He was found to have a temperature of 98.5, heart rate of 81, respiratory rate of 16, a nd blood pressure 114/64. HEENT: Atraumatic, normocephalic. HEART: Shows a regular rate and rhythm without murmur. LUNGS: Clear to auscultation bilaterally. ABDOMEN: Soft and nontender. EXTREMITIES: Remarkable for right lower extremity with a well healed midline anterior knee incision measuring approximately 8 inches. He is also found to have a medial incision from his calf decompres tor that is also well healed. He is found to have a 1+ effusion with some increased warmth to the k nee. He has tenderness to palpation of the knee, but no ligamentous instability. He is also tender to palpation deep at the posterior thigh distally just above the level of the femoral condyle althoug h I do not palpate an obvious mass. Distally he is moving his toes normally. He does have a partial thickness skin loss over the botello. Knee range of motion is from approximately 20 degrees to 60 degr ees. LABORATORY: The patient has a white count of 7.8, hematocrit 27.5 and 448,000 platelets. On admissi on, he had a sed rate of 76 and a C-reactive protein of 4.48. Of note, on his last admission, he had a sed rate of 117 and a C-reactive protein of 8.09. X-RAYS: Plain films of the knee are as dictated in the history of present illness. ASSESSMENT: A 47-year-old gentleman with recurrent right knee infection with now evidence consistent with recurrent septic arthritis as well as possible abscess of the distal posterior thigh and erosiv e changes noted at the medial tibial plateau. PLAN: At this time, the patient will be taken back to the operating room for repeat irrigation and d ebridement of the knee. This will be done through a lateral approach this time so that I can also ac cess this mass at the posterior distal thigh. We will also proceed with a mini open biopsy of the me dial tibial plateau to get bone to be sent to Pathology for both path as well as culture and sensitiv ity. Today, I had a long discussion with patient regarding this procedure. We have discussed risks and benefits which include, but are not limited to bleeding, continued infection, worsening infection , wound problems, need for eventual amputation or fusion. The patient appears to understand and does wish to proceed. Consent will be obtained prior to surgery.
[2017-07-25] MEDS: Amlodipine 5 MG TAB PO SCH (08:26)
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
--- NOTE | 2017-07-25 11:34 | PRG ---
DATE OF SERVICE: 07/25/2017 SUBJECTIVE: This is a 47-year-old gentleman being seen for end-stage renal disease. The patient den ies any nausea, vomiting or chest pain. PHYSICAL EXAMINATION: GENERAL: Patient is awake, alert. VITAL SIGNS: Afebrile, pulse 70, breathing at 16, blood pressure 110/71. OBJECTIVE: See above. Awake, alert, in no acute distress. GENERAL APPEARANCE AND MENTAL STATUS: Fair. HEAD/NECK: Normocephalic. Atraumatic. EYES: EOMI. No deformity. EARS: Clear. No ulcers. NOSE: Intact. No lesions. MOUTH: Clear. No discharge. THROAT: Clear. No exudate. LUNGS: Clear. No crackles. CARDIAC: S1, S2. No rub. ABDOMEN: Benign. BS+. GENITALIA/RECTUM: Nazario absent. BACK/EXTREMITIES: Edema 0+ Ulcer- NEUROLOGICAL: Alert and motor intact. SKIN: Rash- Bruise- LYMPHATICS: Edema- Ulcer- LABORATORY: Hemoglobin 8.9, creatinine 7.6. ASSESSMENT AND RECOMMENDATIONS: 1. Stage 6 chronic kidney disease, continue hemodialysis. 2. Hypertension, stable. 3. Anemia, stable. 4. Medications based on glomerular filtration rate are appropriate.
--- NOTE | 2017-07-25 11:56 | PDOC.PN ---
- Subjective Encounter Start Date: 07/25/17 Encounter Start Time: 09:50 Pt seen and exmained, case discussed iwth patient and with Dr Ríos face to face. MRI knee yesterday done, revealed fluid in popliteal fossa of the right knee. Dr Barnett planning to take to OR for I&D and bone biopsy for culture and path. Abx since ER have been on hold, pt has been stable. no F/c, no N/V/D/C, no CP or SOb. 10 point ROS performed and neg for all systems except as above - Objective Resuscitation Status: Resuscitation Status FULL:Full Resuscitation MAR Reviewed: Yes Vital Signs & Weight: Vital Signs (12 hours) Temp Pulse Resp BP Pulse Ox 07/25/17 08:00 97.8 F 78 16 07/25/17 07:50 97.8 F 78 16 110/71 93 L 07/25/17 03:00 98.5 F 81 16 114/64 94 L Weight Weight 143 lb 4.8 oz I&O: 07/24/17 07/25/17 07/26/17 06:59 06:59 06:59 Intake Total 600 Balance 600 Result Diagrams: 07/25/17 04:48 07/25/17 04:48 Additional Labs: Accuchecks 07/25/17 07/25/17 07/24/17 10:58 05:46 20:36 POC Glucose 111 H 109 167 H 07/24/17 07/24/17 17:11 11:55 POC Glucose 199 H 112 H Radiology Reviewed by me: Yes EKG Reviewed by me: Yes Phys Exam - Physical Examination Constitutional: NAD HEENT: PERRLA, moist MMs, sclera anicteric, oral pharynx no lesions Neck: no nodes, no JVD, supple, full ROM Respiratory: no wheezing, no rales, no rhonchi, clear to auscultation bilateral Cardiovascular: RRR, no significant murmur, no rub Gastrointestinal: soft, non-tender, no distention, positive bowel sounds Musculoskeletal: pulses present right knee inflamed and tender medially today more than lat Neurological: non-focal, normal sensation, moves all 4 limbs Lymphatic: no nodes Psychiatric: normal affect, A&O x 3 Skin: no rash, normal turgor, cap refill <2 seconds Dx/Plan (1) Chronic osteomyelitis of right femur Code(s): M86.651 - OTHER CHRONIC OSTEOMYELITIS, RIGHT THIGH Status: Acute Comment: distal right femur. biopsy and culture today (2) Chronic osteomyelitis of right tibia Code(s): M86.661 - OTHER CHRONIC OSTEOMYELITIS, RIGHT TIBIA AND FIBULA Status : Chronic (3) ESRD (end stage renal disease) on dialysis Code(s): N18.6 - END STAGE RENAL DISEASE; Z99.2 - DEPENDENCE ON RENAL DIALYSIS Status: Chronic (4) Hypertension Code(s): I10 - ESSENTIAL (PRIMARY) HYPERTENSION Status: Chronic Qualifiers: Hypertension type: essential hypertension Qualified Code(s): I10 - Essential (primary) hypertension (5) Diabetes Code(s): E11.9 - TYPE 2 DIABETES MELLITUS WITHOUT COMPLICATIONS Status: Chronic Qualifiers: Diabetes mellitus complication status: without complication Diabetes mellitus assisted insulin use: with parts counterman use - Plan cont current plan of care, continue antibiotics * .
[2017-07-25] MEDS ORDERED: Fentanyl 100 MCG/2 ML VIAL ONE (14:26)
[2017-07-25] MEDS ORDERED: CEFAZOLIN/Water 2 GM/20 ML SYRINGE ONE (14:34)
[2017-07-25] MEDS ORDERED: Ondansetron HCl/PF 4 MG/2 ML Vial IVP PRN (16:05)
[2017-07-25] MEDS ORDERED: Promethazine HCl 25 MG/ML VIAL SLOW IVP PRN (16:05)
[2017-07-25] MEDS ORDERED: Promethazine HCl 25 MG/ML VIAL IM PRN (16:05)
[2017-07-25] MEDS ORDERED: ePHEDrine/0.9% NaCl/PF SYRINGE 50 mg/10 ml ONE (16:35)
[2017-07-25] MEDS ORDERED: Ondansetron HCl/PF 4 MG/2 ML Vial ONE (16:35)
[2017-07-25] MEDS ORDERED: Propofol 200 MG/20 ML VIAL ONE (16:35)
[2017-07-25] MEDS ORDERED: Lidocaine 1% PF 5 ML VIAL ONE (16:35)
[2017-07-25] MEDS ORDERED: PHENYLEPHRINE-NS 100 MCG/ML 10 ML SYRINGE ONE (16:35)
[2017-07-25] MEDS: Tamsulosin HCl 0.4 MG CAP PO SCH (19:57)
--- NOTE | 2017-07-25 21:51 | RAD ---
INTRAPROCEDURE FLUOROSCOPY: HISTORY: Right bone biopsy. COMPARISON: None. FINDINGS: A single fluoroscopic view demonstrates surgical hardware projecting over the proximal medial tibia. IMPRESSION: Fluoroscopy as above. POS: MURRAY
[2017-07-25] MEDS: Piperacillin/Tazobactam 2.25 GM in Sodium Chloride 0.9% 100 ML IVPB SCH (21:52)
[2017-07-26] MEDS: HYDROcodone/Acetaminophen 10/325 mg Tablet PO PRN ×4 (03:16→20:26)
[2017-07-26] MEDS: Piperacillin/Tazobactam 2.25 GM in Sodium Chloride 0.9% 100 ML IVPB SCH ×4 (05:35→21:58)
[2017-07-26 06:39] LABS: #Eosinphils 0.3 thou/uL (0.0-0.7); #Lymphocytes 1.3 thou/uL (1.20-3.40); #Monocytes 0.7 thou/uL (0.11-0.59); #Neutrophils 4.8 thou/uL (1.40-6.50); %Basophils 0.3 % (0.0-1.0); %Eosinophils 4.1 % (0.0-10.0); %Lymphocytes 18.2 % (21.0-51.0); %Monocytes 9.5 % (0.0-10.0); Hematocrit 25.2 % (42.0-52.0); Mean Platelet Volume 6.1 fL (7.4-10.4); Red Blood Cell (RBC) Count 2.71 mill/uL (4.70-6.10)
[2017-07-26 06:43] LABS: Anion Gap 13 mmol/L (10-20); BUN (Urea Nitrogen) 44 mg/dL (8.9-20.6); Calc. Creatinine Clearance 9 mL/min (70-130); Calcium 8.3 mg/dL (7.8-10.44); Carbon Dioxide 27 mmol/L (22-29); Chloride 99 mmol/L (98-107); Estimated GFR-MDRD 6; Magnesium 2.2 mg/dL (1.6-2.6)
[2017-07-26] MEDS ORDERED: Heparin 10,000 UNITS/ 10 ML VIAL ONE (07:21)
[2017-07-26] MEDS: Amlodipine 5 MG TAB PO SCH (09:34)
--- NOTE | 2017-07-26 12:11 | PRG ---
DATE OF SERVICE: 07/24/2017 SUBJECTIVE: A 47-year-old gentleman being seen for end-stage renal disease. The patient denies any nausea, vomiting or chest pain. PHYSICAL EXAMINATION: GENERAL: Patient is awake, alert. VITAL SIGNS: Afebrile, pulse 71, breathing at 16, blood pressure 134/71. HEAD/NECK: Normocephalic. Atraumatic. EYES: EOMI. No deformity. EARS: Clear. No ulcers. NOSE: Intact. No lesions. MOUTH: Clear. No discharge. THROAT: Clear. No exudate. LUNGS: Clear. No crackles. CARDIAC: S1, S2. No rub. ABDOMEN: Benign. BS+. GENITALIA/RECTUM: Nazario absent. BACK/EXTREMITIES: Edema 0+ Ulcer- NEUROLOGICAL: Alert and motor intact. SKIN: Rash- Bruise- LYMPHATICS: Edema- Ulcer- LABORATORY DATA: Show hemoglobin 8.2. ASSESSMENT AND RECOMMENDATIONS: 1. Stage 6 chronic kidney disease, continue hemodialysis. 2. Hypertension, stable. 3. Anemia, stable. 4. Medications based on glomerular filtration rate are appropriate.
--- NOTE | 2017-07-26 14:37 | PDOC.PN ---
- Subjective Encounter Start Date: 07/26/17 Encounter Start Time: 08:55 -: old records requested/rev Pt lying in bed comfortably. Case discussed with Dr frost face to face. No F/c, no n/V/D/C. HD planned for later today.\ 10 point ROS performed and neg for all systems except as above fluid from joint clotted, but synovium and bone biopsies and stains pending. Zosyn started. - Objective Resuscitation Status: Resuscitation Status FULL:Full Resuscitation MAR Reviewed: Yes Vital Signs & Weight: Vital Signs (12 hours) Temp Pulse Resp BP Pulse Ox 07/26/17 11:40 98.1 F 90 16 146/79 H 95 07/26/17 09:34 91 07/26/17 08:00 97.4 F L 91 16 07/26/17 07:52 97.4 F L 91 16 134/79 94 L 07/26/17 03:18 98.4 F 90 18 124/73 92 L Weight Weight 143 lb 4.8 oz I&O: 07/25/17 07/26/17 07/27/17 06:59 06:59 06:59 Intake Total 600 440 500 Output Total 30 Balance 600 410 500 Result Diagrams: 07/26/17 05:59 07/26/17 05:59 Additional Labs: Accuchecks 07/26/17 07/26/17 07/25/17 11:44 05:35 20:45 POC Glucose 240 H 147 H 204 H Radiology Reviewed by me: Yes EKG Reviewed by me: Yes Phys Exam - Physical Examination Constitutional: NAD HEENT: PERRLA, moist MMs, sclera anicteric, oral pharynx no lesions Neck: no nodes, no JVD, supple, full ROM Respiratory: no wheezing, no rales, no rhonchi, clear to auscultation bilateral Cardiovascular: RRR, no significant murmur, no rub Gastrointestinal: soft, non-tender, no distention, positive bowel sounds Musculoskeletal: no edema, pulses present right knee dressing intact, no strikethrough Neurological: non-focal, normal sensation, moves all 4 limbs Lymphatic: no nodes Psychiatric: normal affect, A&O x 3 Skin: no rash, normal turgor, cap refill <2 seconds Dx/Plan (1) Chronic osteomyelitis of right femur Code(s): M86.651 - OTHER CHRONIC OSTEOMYELITIS, RIGHT THIGH Status: Acute Comment: distal right femur. biopsy and culture 07/25. cultures and pathpending. On zosyn, had been on subtherapeutic rocephin previoisly (2) Chronic osteomyelitis of right tibia Code(s): M86.661 - OTHER CHRONIC OSTEOMYELITIS, RIGHT TIBIA AND FIBULA Status : Chronic (3) ESRD (end stage renal disease) on dialysis Code(s): N18.6 - END STAGE RENAL DISEASE; Z99.2 - DEPENDENCE ON RENAL DIALYSIS Status: Chronic (4) Hypertension Code(s): I10 - ESSENTIAL (PRIMARY) HYPERTENSION Status: Chronic Qualifiers: Hypertension type: essential hypertension Qualified Code(s): I10 - Essential (primary) hypertension (5) Diabetes Code(s): E11.9 - TYPE 2 DIABETES MELLITUS WITHOUT COMPLICATIONS Status: Chronic Qualifiers: Diabetes mellitus complication status: without complication Diabetes mellitus chcf insulin use: with exterminator helper termite use - Plan cont current plan of care, continue antibiotics, PT/OT, out of bed/ambulate * . CCm, follow up on result.s May need to call Luis Alberto, i am off for the next the next 4 days
[2017-07-26] MEDS: Tamsulosin HCl 0.4 MG CAP PO SCH (20:28)
[2017-07-26] MEDS: HumaLOG 300 UNITS/3 ML VIAL SC PRN (20:31)
--- NOTE | 2017-07-26 20:48 | OP ---
DATE OF SURGERY: 07/25/2017 PREOPERATIVE DIAGNOSES: 1. Septic right knee with osteomyelitis of medial tibial plateau and medial femoral condyle. 2. Posterior knee abscess. POSTOPERATIVE DIAGNOSES: 1. Septic right knee with osteomyelitis of medial tibial plateau and medial femoral condyle. 2. Posterior knee abscess. SURGICAL PROCEDURES: 1. Incision and drainage of right knee septic joint. 2. Incision and drainage of right posterior knee abscess. 3. Bone biopsy, right medial tibial plateau. ANESTHESIA: General. SURGEON: Sam Ríos M.D. GROUNDS/MAINTENANCE SPECIALIST: Ry Ponce PA-C. TOURNIQUET TIME: 29 minutes at 300 mmHg. ESTIMATED BLOOD LOSS: 100 mL. COMPLICATIONS: None. DRAINS: Hemovac x1. SPECIMEN: Aspirate and tissue sent for Gram stain culture, sensitivity, micro and pathology. OUTCOME: Satisfactory. INDICATIONS: The patient is a pleasant 47-year-old gentleman with a long history of right knee infec tion with now 5 surgical procedures. The patient was doing relatively well until a few weeks ago and began to develop some increasing knee pain and swelling. Upon arrival at [facility], he wa s found to have recurrent swelling of the knee with increasing pain. Workup has included CT scan and plain x-rays. He was found to have a fluid collection at the posterior aspect of the distal thigh a s well as within the joint and further erosion of the medial tibial plateau. Given these findings, t he patient is now taken back to the operating room in hopes of obtaining fluid that will be able to g row a positive culture. The patient did not receive antibiotics upon arrival at the hospital. PROCEDURE IN DETAIL: After the induction of general anesthesia, the patient was positioned supine th en the right leg was elevated and then tourniquet inflated to 300 mmHg. An initial incision was made at the medial side of the knee, this following a scar from previous surgery. After skin was sharply incised, dissection was carried down bluntly to the underlying medial tibial plateau. Next, using C -arm guidance a localization was performed such that a curet tip was found to be lying centrally with in the area of erosion of the medial tibial plateau. The fibrous tissue from this area was debrided using a combination of curet and rongeur. Additionally, fluid came from the knee once this fibrous t issue was debrided and this was aspirated and sent to the lab for Gram stain culture and sensitivity. Once acceptable amounts of tissue were obtained as well as some fluid, this wound was irrigated and then closed in layers with 0 Vicryl deep, followed by 2-0 Vicryl and hari. Next, attention was p laced at the lateral side of the knee, a lateral incision was made overlying the IT band after skin w as sharply incised, dissection was carried down through the IT band. This was reflected anteriorly a nd posteriorly and then approach to the lateral retinaculum performed. The retinaculum was opened an d the knee further drained. Next, dissection was carried further posteriorly coming along the backsi de of the femur and then down towards the muscle belly of the popliteus. At this point, blunt dissec tion was used to open this area and a fluid filled cavity was encountered with almost synovial type f luid coming from this cavity with thick viscous changes and mild blood tinged. This was also aspirat ed and sent to lab for Gram stain culture and sensitivity. Next, a total of 5 liters of normal salin e using Pulsavac was irrigated through the knee as well as through this posterior site. A Hemovac wo und was then placed in the posterior abscess cavity and then the fascia was closed with 0 Vicryl foll owed by 2-0 Vicryl and hari for the skin. A Xeroform gauze, Webril, and Tho wrap dressing was carmelina lied to the leg. Tourniquet was let down and then patient was transferred to recovery room in stable condition. There were no complications. He tolerated the procedure well.
[2017-07-27] MEDS: Piperacillin/Tazobactam 2.25 GM in Sodium Chloride 0.9% 100 ML IVPB SCH ×3 (05:09→21:13)
[2017-07-27] MEDS: HYDROcodone/Acetaminophen 10/325 mg Tablet PO PRN ×3 (05:18→21:12)
[2017-07-27] MEDS ORDERED: Loperamide HCl 2 MG CAP PO PRN (08:03)
[2017-07-27] MEDS ORDERED: Artificial Tears 18 DROP/0.9 ML EA EYE PRN (08:03)
[2017-07-27] MEDS ORDERED: Chloraseptic Spray 180 ml Bottle PO PRN (08:03)
[2017-07-27] MEDS ORDERED: hydrALAZINE 20 MG/ML VIAL SLOW IVP PRN (08:03)
[2017-07-27] MEDS ORDERED: Ondansetron ODT 4 MG TAB PO PRN (08:03)
[2017-07-27] MEDS ORDERED: Acetaminophen 325 MG TAB PO PRN (08:03)
[2017-07-27] MEDS ORDERED: Loratadine 10 MG TAB PO PRN (08:03)
[2017-07-27] MEDS ORDERED: Benzonatate 100 MG CAP PO PRN (08:03)
[2017-07-27] MEDS ORDERED: Zolpidem Tartrate 5 MG TAB PO PRN (08:03)
[2017-07-27] MEDS ORDERED: Sodium Chloride 0.65% Nasal 44 ML BOT EA NARE PRN (08:03)
[2017-07-27] MEDS ORDERED: Senokot 8.6 MG TAB PO PRN (08:03)
[2017-07-27] MEDS ORDERED: Eucerin (Mineral Oil/Petrolatum,White) 30 gm Jar TOP PRN (08:03)
[2017-07-27] MEDS ORDERED: Milk Of Magnesia 30 ML UDCUP PO PRN (08:03)
[2017-07-27] MEDS ORDERED: Diabetic Tussin 200 MG/10 ML UDCUP PO PRN (08:03)
[2017-07-27] MEDS ORDERED: Mag-Al 1200 mg/1200 mg/30 ML UDCUP PO PRN (08:03)
[2017-07-27] MEDS ORDERED: Morphine 4 MG/ML VIAL IV PRN (08:14)
[2017-07-27] MEDS: Folic Acid/Vit B Comp W-C PO SCH (08:20)
--- NOTE | 2017-07-27 11:17 | PDOC.PN ---
- Subjective Encounter Start Date: 07/27/17 Encounter Start Time: 08:15 -: old records requested/rev pt seen in HD room, has pain controlled, no fever Patient seen and examined. No overnight events - Objective Resuscitation Status: Resuscitation Status FULL:Full Resuscitation MAR Reviewed: Yes Vital Signs & Weight: Vital Signs (12 hours) Temp Pulse Resp BP BP Pulse Ox 07/27/17 10:57 97.8 F 91 16 126/77 98 07/27/17 08:00 98.0 F 91 16 131/80 95 07/27/17 04:00 97.8 F 77 14 137/84 97 Weight Weight 143 lb 4.8 oz I&O: 07/26/17 07/27/17 07/28/17 06:59 06:59 06:59 Intake Total 440 1430 480 Output Total 30 1515 Balance 410 -85 480 Result Diagrams: 07/26/17 05:59 07/26/17 05:59 Additional Labs: Accuchecks 07/27/17 07/26/17 07/26/17 04:29 19:23 16:36 POC Glucose 110 272 H 170 H 07/26/17 11:44 POC Glucose 240 H Phys Exam - Physical Examination Constitutional: NAD HEENT: PERRLA, moist MMs, sclera anicteric Neck: no JVD, supple Respiratory: no wheezing, no rales, no rhonchi Cardiovascular: RRR, no significant murmur, no rub Gastrointestinal: soft, non-tender, no distention, positive bowel sounds Musculoskeletal: no edema, pulses present right leg with dressing and drain in place Neurological: non-focal, normal sensation Lymphatic: no nodes Psychiatric: normal affect, A&O x 3 Skin: no rash, normal turgor Dx/Plan (1) Abscess of knee, right Code(s): L02.415 - CUTANEOUS ABSCESS OF RIGHT LOWER LIMB Status: Acute (2) Chronic osteomyelitis of right femur Code(s): M86.651 - OTHER CHRONIC OSTEOMYELITIS, RIGHT THIGH Status: Acute Comment: (3) Septic arthritis Status: Acute Qualifiers: Septic arthritis location: knee Septic arthritis organism: due to unspecified organism Laterality: right Qualified Code(s): M00.9 - Pyogenic arthritis, unspecified (4) Anemia of renal disease Code(s): D63.1 - ANEMIA IN CHRONIC KIDNEY DISEASE Status: Chronic (5) Chronic osteomyelitis of right tibia Code(s): M86.661 - OTHER CHRONIC OSTEOMYELITIS, RIGHT TIBIA AND FIBULA Status : Chronic (6) Diabetes type 2, controlled Code(s): E11.9 - TYPE 2 DIABETES MELLITUS WITHOUT COMPLICATIONS Status: Chronic (7) ESRD (end stage renal disease) on dialysis Code(s): N18.6 - END STAGE RENAL DISEASE; Z99.2 - DEPENDENCE ON RENAL DIALYSIS Status: Chronic (8) Hypertension Code(s): I10 - ESSENTIAL (PRIMARY) HYPERTENSION Status: Chronic Qualifiers: Hypertension type: essential hypertension Qualified Code(s): I10 - Essential (primary) hypertension (9) Vitamin D deficiency Code(s): E55.9 - VITAMIN D DEFICIENCY, UNSPECIFIED Status: Chronic - Plan cont current plan of care, continue antibiotics, social sciences chair * continue IV antibiotics , Zosyn * follow culture * consult ID * pt will need prolonged IV antibiotics * selection and duration of IV antibiotics will defer to ID team * medication reviewed as below * symptomatic treatment * wound care * ortho following * pain controlled. * will add morphin for pain control * add heparin for DVT prophylaxis Review of Systems - Review of Systems Constitutional: negative: Fever, Chills, Sweats, Weakness, Malaise, Other ENT: negative: Ear Pain, Ear Discharge, Nose Pain, Nose Discharge, Nose Congestion, Mouth Pain, Mouth Swelling, Throat Pain, Throat Swelling, Other Respiratory: negative: Cough, Dry, Shortness of Breath, Hemoptysis, SOB with Excertion, Pleuritic Pain, Sputum, Wheezing Cardiovascular: negative: Chest Pain, Palpitations, Orthopnea, Paroxysmal Noc. Dyspnea, Edema, Light Headedness, Other Gastrointestinal: negative: Nausea, Vomiting, Abdominal Pain, Diarrhea, Constipation, Melena, Hematochezia, Other Genitourinary: negative: Dysuria, Frequency, Incontinence, Hematuria, Retention , Other Musculoskeletal: Leg Pain. negative: Neck Pain, Shoulder Pain, Arm Pain, Back Pain, Hand Pain, Foot Pain, Other - Medications/Allergies Allergies/Adverse Reactions: Allergies Allergy/AdvReac Type Severity Reaction Status Date / Time No Known Drug Allergies Allergy Verified 03/11/13 14:47 Medications: Current Medications Acetaminophen (Tylenol) 650 mg PO Q4H PRN PRN Reason: Headache/Fever or Mild Pain Hydrocodone Bitart/Acetaminophen ([place] 10/325) 1 tab PO Q4H PRN PRN Reason: Severe Pain (7-10) Last Admin: 07/27/17 05:18 Dose: 1 tab Hydrocodone Bitart/Acetaminophen ([place] 5/325) 1 tab PO Q4H PRN PRN Reason: Moderate Pain (4-6) Al Hydroxide/Mg Hydroxide (Maalox) 15 ml PO Q4H PRN PRN Reason: Heartburn or Indigestion Amlodipine Besylate (Norvasc) 5 mg PO DAILY [facility] Last Admin: 07/26/17 09:34 Dose: 5 mg Artificial Tears (Tears Naturale) 0 drop EA EYE PRN PRN PRN Reason: Dry Eyes Benzonatate (Tessalon) 100 mg PO Q4H PRN PRN Reason: Cough Cholecalciferol (Vitamin D3) 2,000 units PO DAILY [facility] Last Admin: 07/27/17 08:20 Dose: 2,000 units Dextrose/Water (Dextrose 50%) 25 gm SLOW IVP PRN PRN PRN Reason: Hypoglycemia Ferrous Sulfate (Feosol) 325 mg PO QA-[facility] Glucagon (Glucagon) 1 mg IM PRN PRN PRN Reason: Hypoglycemia Guaifenesin (Robitussin Sf) 200 mg PO Q4H PRN PRN Reason: Cough Hydralazine HCl (Apresoline) 10 mg SLOW IVP Q4H PRN PRN Reason: Systolic BP > 180 Dextrose/Water (D5w) 1,000 mls @ 0 mls/hr IV .Q0M PRN; As Directed PRN Reason: Hypoglycemia Piperacillin Sod/Tazobactam (Sod 2.25 gm/ Sodium Chloride) 100 mls @ 200 mls/ hr IVPB Q8HR [facility] Last Admin: 07/27/17 05:09 Dose: 100 mls Insulin Human Lispro (Humalog) 0 units SC .MODERATE SLIDING SC PRN PRN Reason: Moderate Correctional Scale Last Admin: 07/26/17 20:31 Dose: 6 unit Loperamide HCl (Imodium) 2 mg PO PRN PRN PRN Reason: Diarrhea/Loose Stools Loratadine (Claritin) 10 mg PO DAILYPRN PRN PRN Reason: Sinus Symptoms Magnesium Hydroxide (Milk Of Magnesium) 30 ml PO DAILYPRN PRN PRN Reason: Constipation Mineral Oil/White Petrolatum (Eucerin Cream) 0 gm TOP BIDPRN PRN PRN Reason: Dry Skin Morphine Sulfate (Morphine) 2 mg IV Q4H PRN PRN Reason: Pain Ondansetron HCl (Zofran Odt) 4 mg PO Q6H PRN PRN Reason: Nausea/Vomiting Ondansetron HCl (Zofran Odt) 4 mg PO Q6H PRN PRN Reason: Nausea/Vomiting Phenol (Chloraseptic [place] 180 Ml Bot) 0 ml PO PRN PRN PRN Reason: Sore Throat Senna (Senokot) 2 tab PO HSPRN PRN PRN Reason: Constipation Sodium Chloride ([place] Nasal [place] 0.65%) 0 ml EA NARE QIDPRN PRN PRN Reason: Nasal Congestion Sodium Chloride (Flush - Normal Saline) 10 ml IVF Q12HR [facility] Last Admin: 07/27/17 08:20 Dose: 10 ml Sodium Chloride (Flush - Normal Saline) 10 ml IVF PRN PRN PRN Reason: Saline Flush Tamsulosin HCl (Flomax) 0.4 mg PO HS [facility] Last Admin: 07/26/17 20:28 Dose: 0.4 mg Vitamin B Complex/Vit C/Folic Acid (Nephro-Gallo Tablet) 1 tab PO DAILY [facility] Last Admin: 07/27/17 08:20 Dose: 1 tab Zolpidem Tartrate (Ambien) 5 mg PO HSPRN PRN PRN Reason: Insomnia
--- NOTE | 2017-07-27 12:14 | PRG ---
DATE OF SERVICE: 07/27/2017 NEPHROLOGY PROGRESS NOTE SUBJECTIVE: This is a 47-year-old gentleman being seen for end-stage renal disease. Patient denies any nausea, vomiting or chest pain. PHYSICAL EXAMINATION: GENERAL: Patient is awake, alert. VITAL SIGNS: Afebrile, pulse 91, breathing 16, blood pressure 126/77. HEAD/NECK: Normocephalic. Atraumatic. EYES: EOMI. No deformity. EARS: Clear. No ulcers. NOSE: Intact. No lesions. MOUTH: Clear. No discharge. THROAT: Clear. No exudate. LUNGS: Clear. No crackles. CARDIAC: S1, S2. No rub. ABDOMEN: Benign. BS+. GENITALIA/RECTUM: Nazario absent. BACK/EXTREMITIES: Edema 0+ Ulcer- NEUROLOGICAL: Alert and motor intact. SKIN: Rash- Bruise- LYMPHATICS: Edema- Ulcer- LABORATORY DATA: Show hemoglobin 8.2. ASSESSMENT AND RECOMMENDATIONS: 1. Stage 6 chronic kidney disease. Continue hemodialysis as scheduled. 2. Anemia, stable. 3. Medications based on glomerular filtration rate are appropriate. 4. Osteomyelitis of the right tibia and right femur, management per primary team. 4. Hypertension, stable.
[2017-07-27] MEDS: Heparin 5,000 UNITS/ML VIAL SC SCH ×2 (14:54→21:14)
[2017-07-27] MEDS: Amlodipine 5 MG TAB PO SCH (14:57)
[2017-07-27] MEDS: HumaLOG 300 UNITS/3 ML VIAL SC PRN (16:51)
[2017-07-27] MEDS: Tamsulosin HCl 0.4 MG CAP PO SCH (21:13)
[2017-07-28] MEDS: Piperacillin/Tazobactam 2.25 GM in Sodium Chloride 0.9% 100 ML IVPB SCH ×2 (05:21→18:34)
[2017-07-28] MEDS: Folic Acid/Vit B Comp W-C PO SCH (08:52)
[2017-07-28] MEDS: Heparin 5,000 UNITS/ML VIAL SC SCH ×3 (08:53→21:11)
[2017-07-28] MEDS: Ferrous Sulfate 325 MG TAB PO SCH (08:53)
--- NOTE | 2017-07-28 09:23 | PDOC.PN ---
- Subjective Encounter Start Date: 07/28/17 Encounter Start Time: 08:15 Patient seen and examined. No new complaints. No overnight events - Objective Resuscitation Status: Resuscitation Status FULL:Full Resuscitation MAR Reviewed: Yes Vital Signs & Weight: Vital Signs (12 hours) Temp Pulse Resp BP BP Pulse Ox 07/28/17 08:01 98.3 F 85 16 147/85 H 97 07/28/17 05:04 97.8 F 93 18 111/64 97 07/28/17 01:08 97.7 F 86 18 133/83 98 Weight Weight 143 lb 4.8 oz I&O: 07/27/17 07/28/17 07/29/17 06:59 06:59 06:59 Intake Total 1430 2140 Output Total 1515 1500 Balance -85 640 Result Diagrams: 07/26/17 05:59 07/26/17 05:59 Additional Labs: Accuchecks 07/28/17 07/27/17 07/27/17 05:06 20:01 16:38 POC Glucose 158 H 120 H 213 H 07/27/17 11:13 POC Glucose 160 H Phys Exam - Physical Examination Constitutional: NAD HEENT: PERRLA, moist MMs, sclera anicteric Neck: no JVD, supple Respiratory: no wheezing, no rales, no rhonchi Cardiovascular: RRR, no significant murmur, no rub Gastrointestinal: soft, non-tender, no distention, positive bowel sounds Musculoskeletal: no edema, pulses present right knee with dresing and drain in place Neurological: non-focal, normal sensation, moves all 4 limbs Psychiatric: normal affect, A&O x 3 Skin: no rash, normal turgor Dx/Plan (1) Abscess of knee, right Code(s): L02.415 - CUTANEOUS ABSCESS OF RIGHT LOWER LIMB Status: Acute (2) Chronic osteomyelitis of right femur Code(s): M86.651 - OTHER CHRONIC OSTEOMYELITIS, RIGHT THIGH Status: Acute Comment: (3) Septic arthritis Status: Acute Qualifiers: Septic arthritis location: knee Septic arthritis organism: due to unspecified organism Laterality: right Qualified Code(s): M00.9 - Pyogenic arthritis, unspecified (4) Anemia of renal disease Code(s): D63.1 - ANEMIA IN CHRONIC KIDNEY DISEASE Status: Chronic (5) Chronic osteomyelitis of right tibia Code(s): M86.661 - OTHER CHRONIC OSTEOMYELITIS, RIGHT TIBIA AND FIBULA Status : Chronic (6) Diabetes type 2, controlled Code(s): E11.9 - TYPE 2 DIABETES MELLITUS WITHOUT COMPLICATIONS Status: Chronic (7) ESRD (end stage renal disease) on dialysis Code(s): N18.6 - END STAGE RENAL DISEASE; Z99.2 - DEPENDENCE ON RENAL DIALYSIS Status: Chronic (8) Hypertension Code(s): I10 - ESSENTIAL (PRIMARY) HYPERTENSION Status: Chronic Qualifiers: Hypertension type: essential hypertension Qualified Code(s): I10 - Essential (primary) hypertension (9) Vitamin D deficiency Code(s): E55.9 - VITAMIN D DEFICIENCY, UNSPECIFIED Status: Chronic - Plan cont current plan of care, 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 Review of Systems - Review of Systems Constitutional: negative: Fever, Chills, Sweats, Weakness, Malaise, Other ENT: negative: Ear Pain, Ear Discharge, Nose Pain, Nose Discharge, Nose Congestion, Mouth Pain, Mouth Swelling, Throat Pain, Throat Swelling, Other Respiratory: negative: Cough, Dry, Shortness of Breath, Hemoptysis, SOB with Excertion, Pleuritic Pain, Sputum, Wheezing Cardiovascular: negative: Chest Pain, Palpitations, Orthopnea, Paroxysmal Noc. Dyspnea, Edema, Light Headedness, Other Gastrointestinal: negative: Nausea, Vomiting, Abdominal Pain, Diarrhea, Constipation, Melena, Hematochezia, Other Genitourinary: negative: Dysuria, Frequency, Incontinence, Hematuria, Retention , Other Musculoskeletal: negative: Neck Pain, Shoulder Pain, Arm Pain, Back Pain, Hand Pain, Leg Pain, Foot Pain, Other Skin: negative: Rash, Lesions, Rickey, Bruising, Other - Medications/Allergies Allergies/Adverse Reactions: Allergies Allergy/AdvReac Type Severity Reaction Status Date / Time No Known Drug Allergies Allergy Verified 03/11/13 14:47 Medications: Current Medications Acetaminophen (Tylenol) 650 mg PO Q4H PRN PRN Reason: Headache/Fever or Mild Pain Hydrocodone Bitart/Acetaminophen ([place] 10/325) 1 tab PO Q4H PRN PRN Reason: Severe Pain (7-10) Last Admin: 07/27/17 21:12 Dose: 1 tab Hydrocodone Bitart/Acetaminophen ([place] 5/325) 1 tab PO Q4H PRN PRN Reason: Moderate Pain (4-6) Al Hydroxide/Mg Hydroxide (Maalox) 15 ml PO Q4H PRN PRN Reason: Heartburn or Indigestion Amlodipine Besylate (Norvasc) 5 mg PO DAILY [facility] Last Admin: 07/27/17 14:57 Dose: 5 mg Artificial Tears (Tears Naturale) 0 drop EA EYE PRN PRN PRN Reason: Dry Eyes Benzonatate (Tessalon) 100 mg PO Q4H PRN PRN Reason: Cough Cholecalciferol (Vitamin D3) 2,000 units PO DAILY [facility] Last Admin: 07/28/17 08:52 Dose: 2,000 units Dextrose/Water (Dextrose 50%) 25 gm SLOW IVP PRN PRN PRN Reason: Hypoglycemia Ferrous Sulfate (Feosol) 325 mg PO QAM-[facility] Last Admin: 07/28/17 08:53 Dose: 325 mg Glucagon (Glucagon) 1 mg IM PRN PRN PRN Reason: Hypoglycemia Guaifenesin (Robitussin Sf) 200 mg PO Q4H PRN PRN Reason: Cough Heparin Sodium (Porcine) (Heparin) 5,000 units SC TID [facility] Last Admin: 07/28/17 08:53 Dose: 5,000 units Hydralazine HCl (Apresoline) 10 mg SLOW IVP Q4H PRN PRN Reason: Systolic BP > 180 Dextrose/Water (D5w) 1,000 mls @ 0 mls/hr IV .Q0M PRN; As Directed PRN Reason: Hypoglycemia Piperacillin Sod/Tazobactam (Sod 2.25 gm/ Sodium Chloride) 100 mls @ 200 mls/ hr IVPB Q8HR [facility] Last Admin: 07/28/17 05:21 Dose: 100 mls Insulin Human Lispro (Humalog) 0 units SC .MODERATE SLIDING SC PRN PRN Reason: Moderate Correctional Scale Last Admin: 07/27/17 16:51 Dose: 4 unit Loperamide HCl (Imodium) 2 mg PO PRN PRN PRN Reason: Diarrhea/Loose Stools Loratadine (Claritin) 10 mg PO DAILYPRN PRN PRN Reason: Sinus Symptoms Magnesium Hydroxide (Milk Of Magnesium) 30 ml PO DAILYPRN PRN PRN Reason: Constipation Mineral Oil/White Petrolatum (Eucerin Cream) 0 gm TOP BIDPRN PRN PRN Reason: Dry Skin Morphine Sulfate (Morphine) 2 mg IV Q4H PRN PRN Reason: Pain Ondansetron HCl (Zofran Odt) 4 mg PO Q6H PRN PRN Reason: Nausea/Vomiting Ondansetron HCl (Zofran Odt) 4 mg PO Q6H PRN PRN Reason: Nausea/Vomiting Phenol (Chloraseptic [place] 180 Ml Bot) 0 ml PO PRN PRN PRN Reason: Sore Throat Senna (Senokot) 2 tab PO HSPRN PRN PRN Reason: Constipation Sodium Chloride ([place] Nasal [place] 0.65%) 0 ml EA NARE QIDPRN PRN PRN Reason: Nasal Congestion Sodium Chloride (Flush - Normal Saline) 10 ml IVF Q12HR [facility] Last Admin: 07/28/17 08:53 Dose: 10 ml Sodium Chloride (Flush - Normal Saline) 10 ml IVF PRN PRN PRN Reason: Saline Flush Last Admin: 07/28/17 05:21 Dose: 10 ml Tamsulosin HCl (Flomax) 0.4 mg PO HS [facility] Last Admin: 07/27/17 21:13 Dose: 0.4 mg Vitamin B Complex/Vit C/Folic Acid (Nephro-Gallo Tablet) 1 tab PO DAILY [facility] Last Admin: 07/28/17 08:52 Dose: 1 tab Zolpidem Tartrate (Ambien) 5 mg PO HSPRN PRN PRN Reason: Insomnia
[2017-07-28] MEDS ORDERED: Heparin 1,000 UNITS/ML VIAL ONE (11:11)
[2017-07-28] MEDS: Amlodipine 5 MG TAB PO SCH (11:34)
[2017-07-28] MEDS: HumaLOG 300 UNITS/3 ML VIAL SC PRN (11:38)
--- NOTE | 2017-07-28 16:01 | CON ---
DATE OF CONSULTATION: 07/28/2017 REASON FOR CONSULTATION: Chronic osteomyelitis, right tibia. HISTORY OF PRESENT ILLNESS: A 47-year-old with history of type 2 diabetes mellitus, prior episodes o f pancreatitis, who was diagnosed with osteomyelitis of the right tibia with septic arthritis in 2015 at [facility], treated with protracted antimicrobial therapy and was treated in [place] with further surgical debridement and antimicrobial therapy and after Arin Walters ended up movi ng to this area, was admitted on 05/12 where he had another surgical procedure which included a right knee arthrotomy with irrigation with evidence of seropurulent material from knee. The patient had a n aspirate from the area in 2016 at [facility] and cultures yielded Staphylococcus aureus. At horacio t time, osteomyelitis was not obvious and the MRI scan completed. This time, he was transitioned shabana k to IV antimicrobial therapy with Rocephin and the treatment was planned for completion on 7 with then continuation of chronic suppression with an oral cephalosporin. At the time, patient als o had a noticeable marked decrease in renal function secondary to type 2 diabetes mellitus with stage 4 at least. At the end of May, he apparently did not provide the documentation that was necessa ry for continuation of treatment through the oncology infusion area and the treatment was discontinue d. The patient had experience it noticeable improvement in the clinical findings as well as improvem ent in the C-reactive protein down to less than 0.5. Unfortunately this treatment was discontinued a nd now is admitted with recrudescence of the inflammatory process. The patient underwent surgical in tervention again by Dr. Ríos. The operative report was reviewed and the incision was made follow ing the scar from the previous surgery, dissection carried out towards the medial tibial plateau and then there was an area of erosion in the medial tibial plateau. Fibrous tissue was debrided using a curette and rongeur and the fluid was noticed and aspirated for Gram stain and culture sensitivities. This area was closed and then attention was placed into the lateral side of the knee. A lateral in cision made and dissection carried down through the IT band. The retinaculum was opened and knee fur ther drained with then dissection carried out further posteriorly along the back side of the femur to wards the popliteus. There was a fluid filled cavity encountered mostly synovial type fluid coming f rom this cavity with some thickened discus changes, mildly blood tinged to it. This area was irrigat ed and surgical wound was closed. Currently, Mr. Lake is undergoing dialysis. He is awake and aler t. No headaches, visual symptoms, sore throat, odynophagia, or dysphagia, no cough or sputum product ion or chest pain, no dyspnea, no back pain, no abdominal pain or diarrhea. No genitourinary symptom s. He still has some urinary output, moderate pain in the right knee area. PAST MEDICAL HISTORY: Type 2 diabetes, nephrolithiasis, chronic renal insufficiency stage 6, cystosc opy, pancreatitis, chronic osteomyelitis of right tibial plateau secondary to methicillin-susceptible Staphylococcus aureus with three different treatments, the last one was interrupted about half way t hrough the treatment because of some issues with documentation. CURRENT MEDICATIONS: Tylenol, [place], Maalox, Norvasc, Tessalon, loperamide, heparin, Zosyn. PHYSICAL EXAMINATION: VITAL SIGNS: Temperature has been normal, blood pressure 120/76, pulse 83, respirations 16, and O2 s at 97%. GENERAL: No distress. SKIN: Has a tunneled hemodialysis catheter in the right IJ location. No Nazario catheter and has righ t knee splint with dressing, which was not removed. LYMPH NODES: No lymphadenopathy. HEENT: Ocular movements are conjugate. Oral cavity still quite a few teeth in place with some decay and gum disease. NECK: Supple, no jugular venous distention. LUNGS: Symmetric clear breath sounds. HEART: S1, S2, regular rate without murmur. No S3 or S4. [place] and pulse normal. ABDOMEN: Soft, nondistended or tender. No ascites. No bladder distention. EXTREMITIES: No other joint inflammatory process noted outside the right knee area. Pulses are 1+ i n dorsalis pedis. NEUROLOGIC: Nonfocal neuro examination including cognitive function. LABORATORY DATA: White cell count 8.2 and 7.0, hemoglobin 8.2, platelets 434. INR 1.0. Creatinine 9.84, sodium 135. Liver profile normal. CK is 222 and albumin 3.6. All the samples from cultures f rom the area of involvement have been negative thus far. Pathology from the surgical specimen from [place] [facility] with fibrosis bone changes consistent with chronic osteomyelitis, but no evidence of acute in flammatory process. Pathology of synovial specimen with degenerative inflammatory cells present. ASSESSMENT: 1. Diabetes type 2. 2. End-stage renal disease on hemodialysis with tunneled catheter, right internal jugular position. 3. Chronic osteomyelitis of tibial plateau with septic arthritis secondary to methicillin-susceptibl e Staphylococcus aureus. DISCUSSION: The patient had improved from the most recent treatment, but unfortunately the Rocephin infusions were discontinued because patient did not provide the requested documentation to continue t he treatment through 07/11/2017. After that was discontinued then inflammatory process demonstrated recrudescence. At this point, we will recommend continuation of treatment hopefully at dialysis with either vancomycin sliding scale or cefazolin 3 grams given after each treatment at dialysis and an a dditional oral ciprofloxacin 250 mg twice daily. The duration of therapy would again be extended unt il the end of August and after that then conversion to oral Keflex chronic suppressive therapy 500 m g daily. Suppressive therapy would be given indefinitely.
[2017-07-28] MEDS: Tamsulosin HCl 0.4 MG CAP PO SCH (21:11)
--- NOTE | 2017-07-28 22:20 | PRG ---
SUBJECTIVE: This is a 47-year-old gentleman being seen for end-stage renal disease. The patient denies any nausea, vomiting or chest pain. PHYSICAL EXAMINATION: GENERAL: The patient is awake, alert. VITAL SIGNS: Afebrile, pulse 83, breathing at 16, blood pressure 122/76. GENERAL APPEARANCE AND MENTAL STATUS: Fair. HEAD/NECK: Normocephalic. Atraumatic. EYES: EOMI. No deformity. EARS: Clear. No ulcers. NOSE: Intact. No lesions. MOUTH: Clear. No discharge. THROAT: Clear. No exudate. LUNGS: Clear. No crackles. CARDIAC: S1, S2. No rub. ABDOMEN: Benign. BS+. GENITALIA/RECTUM: Nazario absent. BACK/EXTREMITIES: Edema 0+ Ulcer- NEUROLOGICAL: Alert and motor intact. SKIN: Rash- Bruise- LYMPHATICS: Edema- Ulcer- LABORATORY DATA: Hemoglobin 8.2. ASSESSMENT AND RECOMMENDATIONS: 1. Stage 6 chronic kidney disease . Continue hemodialysis. 2. Hypertension, stable. 3. Anemia, stable. 4. Medications based on glomerular filtration rate appropriate. MTDD
[2017-07-29] MEDS: Piperacillin/Tazobactam 2.25 GM in Sodium Chloride 0.9% 100 ML IVPB SCH ×3 (02:06→17:57)
[2017-07-29] MEDS: HYDROcodone/Acetaminophen 10/325 mg Tablet PO PRN ×2 (04:31→08:33)
[2017-07-29] MEDS: HumaLOG 300 UNITS/3 ML VIAL SC PRN ×3 (04:33→17:24)
[2017-07-29] MEDS: Heparin 5,000 UNITS/ML VIAL SC SCH ×3 (08:13→20:04)
[2017-07-29] MEDS: Folic Acid/Vit B Comp W-C PO SCH (08:13)
[2017-07-29] MEDS: Ferrous Sulfate 325 MG TAB PO SCH (08:13)
[2017-07-29] MEDS: Amlodipine 5 MG TAB PO SCH (08:13)
--- NOTE | 2017-07-29 09:22 | PDOC.PN ---
- Subjective Encounter Start Date: 07/29/17 Encounter Start Time: 08:20 Patient seen and examined. No new complaints. No overnight events - Objective Resuscitation Status: Resuscitation Status FULL:Full Resuscitation MAR Reviewed: Yes Vital Signs & Weight: Vital Signs (12 hours) Temp Pulse Resp BP Pulse Ox 07/29/17 08:00 98 F 77 16 07/29/17 07:22 98 F 77 16 121/79 99 Weight Weight 143 lb 4.8 oz I&O: 07/28/17 07/29/17 07/30/17 06:59 06:59 06:59 Intake Total 2140 1520 Output Total 1500 Balance 640 1520 Result Diagrams: 07/26/17 05:59 07/26/17 05:59 Additional Labs: Accuchecks 07/29/17 07/28/17 07/28/17 04:33 19:50 18:35 POC Glucose 208 H 221 H 133 H 07/28/17 11:33 POC Glucose 216 H Phys Exam - Physical Examination Constitutional: NAD HEENT: PERRLA, moist MMs, sclera anicteric Neck: no JVD, supple Respiratory: no wheezing, no rales, no rhonchi Cardiovascular: RRR, no significant murmur, no rub Gastrointestinal: soft, non-tender, no distention, positive bowel sounds Musculoskeletal: no edema, pulses present right knee with dressing Neurological: non-focal, normal sensation Psychiatric: normal affect, A&O x 3 Skin: no rash, normal turgor Dx/Plan (1) Abscess of knee, right Code(s): L02.415 - CUTANEOUS ABSCESS OF RIGHT LOWER LIMB Status: Acute (2) Chronic osteomyelitis of right femur Code(s): M86.651 - OTHER CHRONIC OSTEOMYELITIS, RIGHT THIGH Status: Acute Comment: (3) Septic arthritis Status: Acute Qualifiers: Septic arthritis location: knee Septic arthritis organism: due to unspecified organism Laterality: right Qualified Code(s): M00.9 - Pyogenic arthritis, unspecified (4) Anemia of renal disease Code(s): D63.1 - ANEMIA IN CHRONIC KIDNEY DISEASE Status: Chronic (5) Chronic osteomyelitis of right tibia Code(s): M86.661 - OTHER CHRONIC OSTEOMYELITIS, RIGHT TIBIA AND FIBULA Status : Chronic (6) Diabetes type 2, controlled Code(s): E11.9 - TYPE 2 DIABETES MELLITUS WITHOUT COMPLICATIONS Status: Chronic (7) ESRD (end stage renal disease) on dialysis Code(s): N18.6 - END STAGE RENAL DISEASE; Z99.2 - DEPENDENCE ON RENAL DIALYSIS Status: Chronic (8) Hypertension Code(s): I10 - ESSENTIAL (PRIMARY) HYPERTENSION Status: Chronic Qualifiers: Hypertension type: essential hypertension Qualified Code(s): I10 - Essential (primary) hypertension (9) Vitamin D deficiency Code(s): E55.9 - VITAMIN D DEFICIENCY, UNSPECIFIED Status: Chronic - Plan cont current plan of care, 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 Review of Systems - Review of Systems Constitutional: negative: Fever, Chills, Sweats, Weakness, Malaise, Other ENT: negative: Ear Pain, Ear Discharge, Nose Pain, Nose Discharge, Nose Congestion, Mouth Pain, Mouth Swelling, Throat Pain, Throat Swelling, Other Respiratory: negative: Cough, Dry, Shortness of Breath, Hemoptysis, SOB with Excertion, Pleuritic Pain, Sputum, Wheezing Cardiovascular: negative: Chest Pain, Palpitations, Orthopnea, Paroxysmal Noc. Dyspnea, Edema, Light Headedness, Other Gastrointestinal: negative: Nausea, Vomiting, Abdominal Pain, Diarrhea, Constipation, Melena, Hematochezia, Other Genitourinary: negative: Dysuria, Frequency, Incontinence, Hematuria, Retention , Other Musculoskeletal: negative: Neck Pain, Shoulder Pain, Arm Pain, Back Pain, Hand Pain, Leg Pain, Foot Pain, Other Skin: negative: Rash, Lesions, Rickey, Bruising, Other - Medications/Allergies Allergies/Adverse Reactions: Allergies Allergy/AdvReac Type Severity Reaction Status Date / Time No Known Drug Allergies Allergy Verified 03/11/13 14:47 Medications: Current Medications Acetaminophen (Tylenol) 650 mg PO Q4H PRN PRN Reason: Headache/Fever or Mild Pain Hydrocodone Bitart/Acetaminophen ([place] 10/325) 1 tab PO Q4H PRN PRN Reason: Severe Pain (7-10) Last Admin: 07/29/17 08:33 Dose: 1 tab Hydrocodone Bitart/Acetaminophen ([place] 5/325) 1 tab PO Q4H PRN PRN Reason: Moderate Pain (4-6) Al Hydroxide/Mg Hydroxide (Maalox) 15 ml PO Q4H PRN PRN Reason: Heartburn or Indigestion Amlodipine Besylate (Norvasc) 5 mg PO DAILY [facility] Last Admin: 07/29/17 08:13 Dose: 5 mg Artificial Tears (Tears Naturale) 0 drop EA EYE PRN PRN PRN Reason: Dry Eyes Benzonatate (Tessalon) 100 mg PO Q4H PRN PRN Reason: Cough Cholecalciferol (Vitamin D3) 2,000 units PO DAILY [facility] Last Admin: 07/29/17 08:13 Dose: 2,000 units Dextrose/Water (Dextrose 50%) 25 gm SLOW IVP PRN PRN PRN Reason: Hypoglycemia Ferrous Sulfate (Feosol) 325 mg PO QA-[facility] Last Admin: 07/29/17 08:13 Dose: 325 mg Glucagon (Glucagon) 1 mg IM PRN PRN PRN Reason: Hypoglycemia Guaifenesin (Robitussin Sf) 200 mg PO Q4H PRN PRN Reason: Cough Heparin Sodium (Porcine) (Heparin) 5,000 units SC TID [facility] Last Admin: 07/29/17 08:13 Dose: 5,000 units Hydralazine HCl (Apresoline) 10 mg SLOW IVP Q4H PRN PRN Reason: Systolic BP > 180 Dextrose/Water (D5w) 1,000 mls @ 0 mls/hr IV .Q0M PRN; As Directed PRN Reason: Hypoglycemia Piperacillin Sod/Tazobactam (Sod 2.25 gm/ Sodium Chloride) 100 mls @ 200 mls/ hr IVPB 0200,1000,1800 [facility] Last Admin: 07/29/17 02:06 Dose: 100 mls Insulin Human Lispro (Humalog) 0 units SC .MODERATE SLIDING SC PRN PRN Reason: Moderate Correctional Scale Last Admin: 07/29/17 04:33 Dose: 4 unit Loperamide HCl (Imodium) 2 mg PO PRN PRN PRN Reason: Diarrhea/Loose Stools Loratadine (Claritin) 10 mg PO DAILYPRN PRN PRN Reason: Sinus Symptoms Magnesium Hydroxide (Milk Of Magnesium) 30 ml PO DAILYPRN PRN PRN Reason: Constipation Mineral Oil/White Petrolatum (Eucerin Cream) 0 gm TOP BIDPRN PRN PRN Reason: Dry Skin Morphine Sulfate (Morphine) 2 mg IV Q4H PRN PRN Reason: Pain Ondansetron HCl (Zofran Odt) 4 mg PO Q6H PRN PRN Reason: Nausea/Vomiting Ondansetron HCl (Zofran Odt) 4 mg PO Q6H PRN PRN Reason: Nausea/Vomiting Phenol (Chloraseptic [place] 180 Ml Bot) 0 ml PO PRN PRN PRN Reason: Sore Throat Senna (Senokot) 2 tab PO HSPRN PRN PRN Reason: Constipation Sodium Chloride ([place] Nasal [place] 0.65%) 0 ml EA NARE QIDPRN PRN PRN Reason: Nasal Congestion Sodium Chloride (Flush - Normal Saline) 10 ml IVF Q12HR [facility] Last Admin: 07/29/17 08:14 Dose: 10 ml Sodium Chloride (Flush - Normal Saline) 10 ml IVF PRN PRN PRN Reason: Saline Flush Last Admin: 07/29/17 02:06 Dose: 10 ml Tamsulosin HCl (Flomax) 0.4 mg PO [facility] Last Admin: 07/28/17 21:11 Dose: 0.4 mg Vitamin B Complex/Vit C/Folic Acid (Nephro-Gallo Tablet) 1 tab PO DAILY [facility] Last Admin: 07/29/17 08:13 Dose: 1 tab Zolpidem Tartrate (Ambien) 5 mg PO HSPRN PRN PRN Reason: Insomnia
--- NOTE | 2017-07-29 10:56 | PRG ---
DATE OF SERVICE: 07/29/2017 SUBJECTIVE: This 47-year-old gentleman being seen for end-stage renal disease. Patient denies any n ausea, vomiting or chest pain. PHYSICAL EXAMINATION: GENERAL: Patient is awake, alert. VITAL SIGNS: Afebrile, pulse 77, breathing 16, blood pressure 120/79. HEAD/NECK: Normocephalic. Atraumatic. EYES: EOMI. No deformity. EARS: Clear. No ulcers. NOSE: Intact. No lesions. MOUTH: Clear. No discharge. THROAT: Clear. No exudate. LUNGS: Clear. No crackles. CARDIAC: S1, S2. No rub. ABDOMEN: Benign. BS+. GENITALIA/RECTUM: Nazario absent. BACK/EXTREMITIES: Edema 0+ Ulcer- NEUROLOGICAL: Alert and motor intact. SKIN: Rash- Bruise- LYMPHATICS: Edema- Ulcer- LABORATORY DATA: Show hemoglobin is pending. ASSESSMENT AND PLAN: 1. Stage 6 chronic kidney disease, continue hemodialysis. 2. Hypertension, stable. 3. Anemia, stable. 4. Medications based on glomerular filtration rate are appropriate.
[2017-07-29] MEDS: Tamsulosin HCl 0.4 MG CAP PO SCH (20:04)
[2017-07-30] MEDS: Piperacillin/Tazobactam 2.25 GM in Sodium Chloride 0.9% 100 ML IVPB SCH ×3 (02:10→17:16)
[2017-07-30] MEDS: HumaLOG 300 UNITS/3 ML VIAL SC PRN ×4 (05:43→20:34)
[2017-07-30] MEDS: Amlodipine 5 MG TAB PO SCH (07:46)
[2017-07-30] MEDS: Ferrous Sulfate 325 MG TAB PO SCH (07:46)
[2017-07-30] MEDS: Folic Acid/Vit B Comp W-C PO SCH (07:46)
[2017-07-30] MEDS: Heparin 5,000 UNITS/ML VIAL SC SCH ×3 (07:51→20:33)
--- NOTE | 2017-07-30 07:53 | PDOC.PN ---
- Subjective Encounter Start Date: 07/30/17 Encounter Start Time: 07:35 Patient seen and examined. No new complaints. No overnight events - Objective Resuscitation Status: Resuscitation Status FULL:Full Resuscitation MAR Reviewed: Yes Vital Signs & Weight: Vital Signs (12 hours) Temp Pulse Resp BP Pulse Ox 07/29/17 20:00 98.0 F 74 16 122/82 97 Weight Weight 143 lb 4.8 oz I&O: 07/29/17 07/30/17 07/31/17 06:59 06:59 06:59 Intake Total 1520 1920 Output Total 600 Balance 1520 1320 Result Diagrams: 07/30/17 04:38 07/26/17 05:59 Additional Labs: Accuchecks 07/30/17 07/29/17 07/29/17 05:31 19:37 16:27 POC Glucose 175 H 180 H 151 H 07/29/17 11:23 POC Glucose 197 H Phys Exam - Physical Examination Constitutional: NAD HEENT: PERRLA, moist MMs, sclera anicteric Neck: no JVD, supple Respiratory: no wheezing, no rales, no rhonchi Cardiovascular: RRR, no significant murmur, no rub Gastrointestinal: soft, non-tender, no distention, positive bowel sounds Musculoskeletal: no edema, pulses present Right LE with dressing Neurological: non-focal, normal sensation, moves all 4 limbs Psychiatric: normal affect, A&O x 3 Skin: no rash, normal turgor Dx/Plan (1) Abscess of knee, right Code(s): L02.415 - CUTANEOUS ABSCESS OF RIGHT LOWER LIMB Status: Acute (2) Chronic osteomyelitis of right femur Code(s): M86.651 - OTHER CHRONIC OSTEOMYELITIS, RIGHT THIGH Status: Acute Comment: (3) Septic arthritis Status: Acute Qualifiers: Septic arthritis location: knee Septic arthritis organism: due to unspecified organism Laterality: right Qualified Code(s): M00.9 - Pyogenic arthritis, unspecified (4) Anemia of renal disease Code(s): D63.1 - ANEMIA IN CHRONIC KIDNEY DISEASE Status: Chronic (5) Chronic osteomyelitis of right tibia Code(s): M86.661 - OTHER CHRONIC OSTEOMYELITIS, RIGHT TIBIA AND FIBULA Status : Chronic (6) Diabetes type 2, controlled Code(s): E11.9 - TYPE 2 DIABETES MELLITUS WITHOUT COMPLICATIONS Status: Chronic (7) ESRD (end stage renal disease) on dialysis Code(s): N18.6 - END STAGE RENAL DISEASE; Z99.2 - DEPENDENCE ON RENAL DIALYSIS Status: Chronic (8) Hypertension Code(s): I10 - ESSENTIAL (PRIMARY) HYPERTENSION Status: Chronic Qualifiers: Hypertension type: essential hypertension Qualified Code(s): I10 - Essential (primary) hypertension (9) Vitamin D deficiency Code(s): E55.9 - VITAMIN D DEFICIENCY, UNSPECIFIED Status: Chronic - Plan cont current plan of care, continue antibiotics, social work msw * continue cefazolin with HD as per ID after discharge * continue zosyn for now * tomorrow HD and then will work with bilingual patient support caseworker to arrange antibiotics * plan for discharge tomorrow * medication reviewed as below * symptomatic treatment * pain controlled * wound care. Review of Systems - Review of Systems ENT: negative: Ear Pain, Ear Discharge, Nose Pain, Nose Discharge, Nose Congestion, Mouth Pain, Mouth Swelling, Throat Pain, Throat Swelling, Other Respiratory: negative: Cough, Dry, Shortness of Breath, Hemoptysis, SOB with Excertion, Pleuritic Pain, Sputum, Wheezing Cardiovascular: negative: Chest Pain, Palpitations, Orthopnea, Paroxysmal Noc. Dyspnea, Edema, Light Headedness, Other Gastrointestinal: negative: Nausea, Vomiting, Abdominal Pain, Diarrhea, Constipation, Melena, Hematochezia, Other Genitourinary: negative: Dysuria, Frequency, Incontinence, Hematuria, Retention , Other Musculoskeletal: negative: Neck Pain, Shoulder Pain, Arm Pain, Back Pain, Hand Pain, Leg Pain, Foot Pain, Other Skin: negative: Rash, Lesions, Rickey, Bruising, Other - Medications/Allergies Allergies/Adverse Reactions: Allergies Allergy/AdvReac Type Severity Reaction Status Date / Time No Known Drug Allergies Allergy Verified 03/11/13 14:47 Medications: Current Medications Acetaminophen (Tylenol) 650 mg PO Q4H PRN PRN Reason: Headache/Fever or Mild Pain Hydrocodone Bitart/Acetaminophen ([place] 10/325) 1 tab PO Q4H PRN PRN Reason: Severe Pain (7-10) Last Admin: 07/29/17 08:33 Dose: 1 tab Hydrocodone Bitart/Acetaminophen ([place] 5/325) 1 tab PO Q4H PRN PRN Reason: Moderate Pain (4-6) Al Hydroxide/Mg Hydroxide (Maalox) 15 ml PO Q4H PRN PRN Reason: Heartburn or Indigestion Amlodipine Besylate (Norvasc) 5 mg PO DAILY [facility] Last Admin: 07/30/17 07:46 Dose: 5 mg Artificial Tears (Tears Naturale) 0 drop EA EYE PRN PRN PRN Reason: Dry Eyes Benzonatate (Tessalon) 100 mg PO Q4H PRN PRN Reason: Cough Cholecalciferol (Vitamin D3) 2,000 units PO DAILY [facility] Last Admin: 07/29/17 08:13 Dose: 2,000 units Dextrose/Water (Dextrose 50%) 25 gm SLOW IVP PRN PRN PRN Reason: Hypoglycemia Ferrous Sulfate (Feosol) 325 mg PO QA-[facility] Last Admin: 07/30/17 07:46 Dose: 325 mg Glucagon (Glucagon) 1 mg IM PRN PRN PRN Reason: Hypoglycemia Guaifenesin (Robitussin Sf) 200 mg PO Q4H PRN PRN Reason: Cough Heparin Sodium (Porcine) (Heparin) 5,000 units SC TID [facility] Last Admin: 07/30/17 07:51 Dose: 5,000 units Hydralazine HCl (Apresoline) 10 mg SLOW IVP Q4H PRN PRN Reason: Systolic BP > 180 Dextrose/Water (D5w) 1,000 mls @ 0 mls/hr IV .Q0M PRN; As Directed PRN Reason: Hypoglycemia Piperacillin Sod/Tazobactam (Sod 2.25 gm/ Sodium Chloride) 100 mls @ 200 mls/ hr IVPB 0200,1000,1800 [facility] Last Admin: 07/30/17 02:10 Dose: 100 mls Insulin Human Lispro (Humalog) 0 units SC .MODERATE SLIDING SC PRN PRN Reason: Moderate Correctional Scale Last Admin: 07/30/17 05:43 Dose: 2 unit Loperamide HCl (Imodium) 2 mg PO PRN PRN PRN Reason: Diarrhea/Loose Stools Loratadine (Claritin) 10 mg PO DAILYPRN PRN PRN Reason: Sinus Symptoms Magnesium Hydroxide (Milk Of Magnesium) 30 ml PO DAILYPRN PRN PRN Reason: Constipation Mineral Oil/White Petrolatum (Eucerin Cream) 0 gm TOP BIDPRN PRN PRN Reason: Dry Skin Morphine Sulfate (Morphine) 2 mg IV Q4H PRN PRN Reason: Pain Ondansetron HCl (Zofran Odt) 4 mg PO Q6H PRN PRN Reason: Nausea/Vomiting Ondansetron HCl (Zofran Odt) 4 mg PO Q6H PRN PRN Reason: Nausea/Vomiting Phenol (Chloraseptic [place] 180 Ml Bot) 0 ml PO PRN PRN PRN Reason: Sore Throat Senna (Senokot) 2 tab PO HSPRN PRN PRN Reason: Constipation Sodium Chloride ([place] Nasal [place] 0.65%) 0 ml EA NARE QIDPRN PRN PRN Reason: Nasal Congestion Sodium Chloride (Flush - Normal Saline) 10 ml IVF Q12HR [facility] Last Admin: 07/30/17 07:52 Dose: 10 ml Sodium Chloride (Flush - Normal Saline) 10 ml IVF PRN PRN PRN Reason: Saline Flush Last Admin: 07/30/17 02:11 Dose: 10 ml Tamsulosin HCl (Flomax) 0.4 mg PO HS [facility] Last Admin: 07/29/17 20:04 Dose: 0.4 mg Vitamin B Complex/Vit C/Folic Acid (Nephro-Gallo Tablet) 1 tab PO DAILY [facility] Last Admin: 07/30/17 07:46 Dose: 1 tab Zolpidem Tartrate (Ambien) 5 mg PO HSPRN PRN PRN Reason: Insomnia
--- NOTE | 2017-07-30 12:17 | PRG ---
DATE OF SERVICE: 07/30/2017 SUBJECTIVE: This is a 47-year-old gentleman being seen for end-stage renal disease. Patient denies any nausea, vomiting or chest pain. PHYSICAL EXAMINATION: GENERAL: Patient is awake, alert. VITAL SIGNS: Afebrile, pulse 74, breathing 16, blood pressure 131/80. HEAD/NECK: Normocephalic. Atraumatic. EYES: EOMI. No deformity. EARS: Clear. No ulcers. NOSE: Intact. No lesions. MOUTH: Clear. No discharge. THROAT: Clear. No exudate. LUNGS: Clear. No crackles. CARDIAC: S1, S2. No rub. ABDOMEN: Benign. BS+. GENITALIA/RECTUM: Nazario absent. BACK/EXTREMITIES: Edema 0+ Ulcer- NEUROLOGICAL: Alert and motor intact. SKIN: Rash- Bruise- LYMPHATICS: Edema- Ulcer- LABORATORY DATA: Show hemoglobin 7.9. ASSESSMENT AND RECOMMENDATIONS: 1. Stage 6 chronic kidney disease, continue hemodialysis. 2. Hypertension, stable. 3. Anemia, stable. 4. Medications based on glomerular filtration rate are appropriate.
--- NOTE | 2017-07-30 15:34 | PRG ---
DATE OF SERVICE: 07/30/2017 SUBJECTIVE: Feeling better, eating. No nausea, vomiting or respiratory symptoms. No abdominal pain . Moderate pain in the right leg. PHYSICAL EXAMINATION: VITAL SIGNS: Afebrile. Other vital signs are normal. LUNGS: Clear. HEART: S1, S2, regular rate. ABDOMEN: Soft. EXTREMITIES: Trace edema of lower extremities. LABORATORY DATA: White cell count 7.0, hemoglobin 8.2, platelets 434. Today, his hemoglobin is 7.9. Microbiology thus far negative. ASSESSMENT AND DISCUSSION: Type 2 diabetes, end-stage renal disease on hemodialysis through a tunnel ed catheter, chronic osteomyelitis, right tibial plateau with septic arthritis secondary to susceptib le Staphylococcus aureus. The patient had interrupted treatment because of some administrative issue s. We have to resume treatment and at this time given dialysis. Hopefully, either with vancomycin s liding scale or cefazolin 2 grams daily given after each treatment with oral ciprofloxacin 250 twice daily until the end of August and then conversion to oral Keflex, chronic suppressive therapy 500 mg daily.
[2017-07-30] MEDS: Tamsulosin HCl 0.4 MG CAP PO SCH (20:32)
[2017-07-31] MEDS: Piperacillin/Tazobactam 2.25 GM in Sodium Chloride 0.9% 100 ML IVPB SCH (02:09)
[2017-07-31] MEDS: HumaLOG 300 UNITS/3 ML VIAL SC PRN ×2 (06:14→17:06)
--- NOTE | 2017-07-31 11:58 | PDOC.PN ---
- Subjective Encounter Start Date: 07/31/17 Encounter Start Time: 11:57 Patient seen and examined. No new complaints. No overnight events - Objective Resuscitation Status: Resuscitation Status FULL:Full Resuscitation MAR Reviewed: Yes Vital Signs & Weight: Weight Weight 143 lb 4.8 oz I&O: 07/30/17 07/31/17 08/01/17 06:59 06:59 06:59 Intake Total 1920 1570 Output Total 600 Balance 1320 1570 Result Diagrams: 07/30/17 04:38 07/26/17 05:59 Additional Labs: Accuchecks 07/31/17 07/30/17 07/30/17 05:30 20:23 16:28 POC Glucose 302 H 302 H 159 H Phys Exam - Physical Examination Constitutional: NAD HEENT: moist MMs, sclera anicteric Neck: no JVD, supple Respiratory: no wheezing, no rales, no rhonchi Cardiovascular: RRR, no significant murmur, no rub Gastrointestinal: soft, non-tender, no distention, positive bowel sounds Musculoskeletal: no edema, pulses present Neurological: non-focal, normal sensation Psychiatric: normal affect, A&O x 3 Skin: no rash, normal turgor Dx/Plan (1) Abscess of knee, right Code(s): L02.415 - CUTANEOUS ABSCESS OF RIGHT LOWER LIMB Status: Acute (2) Chronic osteomyelitis of right femur Code(s): M86.651 - OTHER CHRONIC OSTEOMYELITIS, RIGHT THIGH Status: Acute Comment: (3) Septic arthritis Status: Acute Qualifiers: Septic arthritis location: knee Septic arthritis organism: due to unspecified organism Laterality: right Qualified Code(s): M00.9 - Pyogenic arthritis, unspecified (4) Anemia of renal disease Code(s): D63.1 - ANEMIA IN CHRONIC KIDNEY DISEASE Status: Chronic (5) Chronic osteomyelitis of right tibia Code(s): M86.661 - OTHER CHRONIC OSTEOMYELITIS, RIGHT TIBIA AND FIBULA Status : Chronic (6) Diabetes type 2, controlled Code(s): E11.9 - TYPE 2 DIABETES MELLITUS WITHOUT COMPLICATIONS Status: Chronic (7) ESRD (end stage renal disease) on dialysis Code(s): N18.6 - END STAGE RENAL DISEASE; Z99.2 - DEPENDENCE ON RENAL DIALYSIS Status: Chronic (8) Hypertension Code(s): I10 - ESSENTIAL (PRIMARY) HYPERTENSION Status: Chronic Qualifiers: Hypertension type: essential hypertension Qualified Code(s): I10 - Essential (primary) hypertension (9) Vitamin D deficiency Code(s): E55.9 - VITAMIN D DEFICIENCY, UNSPECIFIED Status: Chronic - Plan cont current plan of care, continue antibiotics, social work therapist * medication reviewed as below * symptomatic treatment * see discharge glory. Review of Systems - Review of Systems ENT: negative: Ear Pain, Ear Discharge, Nose Pain, Nose Discharge, Nose Congestion, Mouth Pain, Mouth Swelling, Throat Pain, Throat Swelling, Other Respiratory: negative: Cough, Dry, Shortness of Breath, Hemoptysis, SOB with Excertion, Pleuritic Pain, Sputum, Wheezing Cardiovascular: negative: Chest Pain, Palpitations, Orthopnea, Paroxysmal Noc. Dyspnea, Edema, Light Headedness, Other Gastrointestinal: negative: Nausea, Vomiting, Abdominal Pain, Diarrhea, Constipation, Melena, Hematochezia, Other Genitourinary: negative: Dysuria, Frequency, Incontinence, Hematuria, Retention , Other Musculoskeletal: negative: Neck Pain, Shoulder Pain, Arm Pain, Back Pain, Hand Pain, Leg Pain, Foot Pain, Other - Medications/Allergies Allergies/Adverse Reactions: Allergies Allergy/AdvReac Type Severity Reaction Status Date / Time No Known Drug Allergies Allergy Verified 03/11/13 14:47 Medications: Current Medications Acetaminophen (Tylenol) 650 mg PO Q4H PRN PRN Reason: Headache/Fever or Mild Pain Hydrocodone Bitart/Acetaminophen ([place] 10/325) 1 tab PO Q4H PRN PRN Reason: Severe Pain (7-10) Last Admin: 07/29/17 08:33 Dose: 1 tab Hydrocodone Bitart/Acetaminophen ([place] 5/325) 1 tab PO Q4H PRN PRN Reason: Moderate Pain (4-6) Last Admin: 07/30/17 20:33 Dose: 1 tab Al Hydroxide/Mg Hydroxide (Maalox) 15 ml PO Q4H PRN PRN Reason: Heartburn or Indigestion Amlodipine Besylate (Norvasc) 5 mg PO DAILY [facility] Last Admin: 07/30/17 07:46 Dose: 5 mg Artificial Tears (Tears Naturale) 0 drop EA EYE PRN PRN PRN Reason: Dry Eyes Benzonatate (Tessalon) 100 mg PO Q4H PRN PRN Reason: Cough Cholecalciferol (Vitamin D3) 2,000 units PO DAILY [facility] Last Admin: 07/30/17 08:16 Dose: 2,000 units Dextrose/Water (Dextrose 50%) 25 gm SLOW IVP PRN PRN PRN Reason: Hypoglycemia Ferrous Sulfate (Feosol) 325 mg PO QAM-WM [facility] Last Admin: 07/30/17 07:46 Dose: 325 mg Glucagon (Glucagon) 1 mg IM PRN PRN PRN Reason: Hypoglycemia Guaifenesin (Robitussin Sf) 200 mg PO Q4H PRN PRN Reason: Cough Heparin Sodium (Porcine) (Heparin) 5,000 units SC TID [facility] Last Admin: 07/30/17 20:33 Dose: 5,000 units Hydralazine HCl (Apresoline) 10 mg SLOW IVP Q4H PRN PRN Reason: Systolic BP > 180 Dextrose/Water (D5w) 1,000 mls @ 0 mls/hr IV .Q0M PRN; As Directed PRN Reason: Hypoglycemia Piperacillin Sod/Tazobactam (Sod 2.25 gm/ Sodium Chloride) 100 mls @ 200 mls/ hr IVPB 0400,1200,2000 [facility] Insulin Human Lispro (Humalog) 0 units SC .MODERATE SLIDING SC PRN PRN Reason: Moderate Correctional Scale Last Admin: 07/31/17 06:14 Dose: 8 unit Loperamide HCl (Imodium) 2 mg PO PRN PRN PRN Reason: Diarrhea/Loose Stools Loratadine (Claritin) 10 mg PO DAILYPRN PRN PRN Reason: Sinus Symptoms Magnesium Hydroxide (Milk Of Magnesium) 30 ml PO DAILYPRN PRN PRN Reason: Constipation Mineral Oil/White Petrolatum (Eucerin Cream) 0 gm TOP BIDPRN PRN PRN Reason: Dry Skin Morphine Sulfate (Morphine) 2 mg IV Q4H PRN PRN Reason: Pain Ondansetron HCl (Zofran Odt) 4 mg PO Q6H PRN PRN Reason: Nausea/Vomiting Ondansetron HCl (Zofran Odt) 4 mg PO Q6H PRN PRN Reason: Nausea/Vomiting Phenol (Chloraseptic [place] 180 Ml Bot) 0 ml PO PRN PRN PRN Reason: Sore Throat Senna (Senokot) 2 tab PO HSPRN PRN PRN Reason: Constipation Sodium Chloride ([place] Nasal [place] 0.65%) 0 ml EA NARE QIDPRN PRN PRN Reason: Nasal Congestion Sodium Chloride (Flush - Normal Saline) 10 ml IVF Q12HR [facility] Last Admin: 07/30/17 20:38 Dose: 10 ml Sodium Chloride (Flush - Normal Saline) 10 ml IVF PRN PRN PRN Reason: Saline Flush Last Admin: 07/30/17 02:11 Dose: 10 ml Tamsulosin HCl (Flomax) 0.4 mg PO HS [facility] Last Admin: 07/30/17 20:32 Dose: 0.4 mg Vitamin B Complex/Vit C/Folic Acid (Nephro-Gallo Tablet) 1 tab PO DAILY [facility] Last Admin: 07/30/17 07:46 Dose: 1 tab Zolpidem Tartrate (Ambien) 5 mg PO HSPRN PRN PRN Reason: Insomnia
[2017-07-31] MEDS ORDERED: Piperacillin/Tazobactam 2.25 GM in Sodium Chloride 0.9% 100 ML IVPB SCH (12:00)
--- NOTE | 2017-07-31 12:10 | DIS ---
DATE OF ADMISSION: 07/24/2017 DATE OF DISCHARGE: 07/31/2017 PRIMARY CARE PHYSICIAN: Deion Bryan M.D. DISCHARGE DISPOSITION: Home with outpatient IV antibiotic therapy. PRIMARY DISCHARGE DIAGNOSIS: Septic arthritis of right knee, abscess of the knee, status post incisi on and drainage. SECONDARY DISCHARGE DIAGNOSES: Vitamin D deficiency, hypertension, end-stage renal disease on hemodi alysis, diabetes type 2, chronic osteomyelitis of right tibia, anemia of renal disease, chronic osteo myelitis of right femur. PRIMARY PROCEDURE/OPERATION: Maintenance hemodialysis while in hospital. The patient also had a roslyn gical procedure with Dr. Ríos who did incision and drainage of right knee septic joint, incision and drainage of right posterior knee abscess, bone biopsy of right medial tibial plateau was obtained . RADIOLOGICAL INVESTIGATION: Ultrasound of lower extremity was negative for any DVT. Knee x-ray show ed chronic septic arthritis, worsening of fragmentation and collapse of the medial tibial plateau. L ower extremity MRI finding consistent with longstanding infective arthritis with osteomyelitis of the distal femur and proximal tibia, myositis. Pathology report was negative for any malignant cell. O ne biopsy report was consistent with chronic osteomyelitis. SIGNIFICANT LABORATORY DATA: WBC 7.0, hemoglobin 7.9, platelets 434. INR 1.0. Sodium 135, potassiu m 4.4, BUN 44, creatinine 9.84, calcium 8.3, magnesium 2.2. Liver enzymes normal. CRP 4.48. Cultur e so far negative. DISCHARGE MEDICATIONS: Patient will be receiving Ancef 2 gram IV daily with dialysis for end , Cipro 250 mg twice daily till end august and then Keflex 500 mg daily, amlodipine 5 mg p.o. daily, vitamin D3 2000 units p.o. daily, ferrous sulfate 325 mg p.o. daily, Nephro-Gallo 1 tablet p.o. daily, insulin 70/30 15 units subcu at bedtime, Flomax 0.4 mg p.o. at bedtime. CONTRAINDICATIONS: None. CODE STATUS: FULL CODE. INPATIENT CONSULTANTS: The patient was admitted under [facility]. Dr. Echols was managing dialysis . Dr. Ríos was consulted for knee abscess and septic arthritis, who did surgical procedure. Dr. Sahu was consulted for IV antibiotic therapy. TEST RESULTS PENDING ON DISCHARGE: None. ALLERGIES: No known drug allergy. DISCHARGE PLAN: Post hospital, patient will follow up with primary care physician, Dr. Ríos and Dr. Sahu as instructed. TEST RESULTS PENDING ON DISCHARGE: None. ALLERGIES: No known drug allergy. DISCHARGE PLAN: Post hospital, the patient will follow up with primary care physician. HOSPITAL COURSE: A 47-year-old male who was admitted by Leon Moran. This patient was having leather currier ior aspect of right knee abscess and he has chronic septic arthritis and chronic osteomyelitis of the tibial plateau. Initially, ultrasound was negative for any DVT. Knee x-ray showed similar worsenin g of septic arthritis. Lower extremity MRI also showed worsening of septic arthritis with chronic os teomyelitis. Patient required surgical procedure for I&D for posterior knee abscess and I&D for sept ic arthritis. Bone biopsy was negative for any acute process, but it did show chronic osteomyelitis. After the procedure, patient's pain was controlled with pain medication. He had initially drained wh ich was removed later on. His wound was taken care by orthopedic physician while in hospital. At th is point, his wound is improving. His culture was negative and that is why we consulted Dr. Sahu to decide about antibiotic therapy. Given his osteomyelitis and he stopped taking antibiotic therapy, he recommended to continue till end of August along with oral ciprofloxacin and then patient will have Keflex for suppressive therapy. The patient will get Ancef with dialysis. While in hospital, he remained afebrile. His pain was well controlled. We adjusted above-mentioned medication. The patient is seen and examined at bedside today. Necessary arrangements for IV antibi otic therapy done by case reviewer. Patient is overall medically stable for discharge today. Total time spent on discharge day 31 minutes.
[2017-07-31 12:26] VITALS: BP 122/82; TEMP 97.6
[2017-07-31] MEDS: Ferrous Sulfate 325 MG TAB PO SCH (12:33)
[2017-07-31] MEDS: Amlodipine 5 MG TAB PO SCH (12:33)
[2017-07-31] MEDS: Heparin 5,000 UNITS/ML VIAL SC SCH ×2 (12:34→16:46)
[2017-07-31] MEDS: Folic Acid/Vit B Comp W-C PO SCH (12:34)
--- NOTE | 2017-07-31 19:11 | PRG ---
DATE OF SERVICE: 07/31/2017 SUBJECTIVE: Patient was seen and examined at bedside and overnight events noted. Patient denies any shortness of breath or chest pain or palpitation. No history of nausea or vomiting or diarrhea or f ever or chills or cramps. OBJECTIVE: GENERAL: This is a well-built male in no apparent distress. VITAL SIGNS: Temperature 97.6, pulse 78, respiratory rate 16, and blood pressure 122/82. HEENT: Atraumatic, normocephalic. Oral mucosa is moist. NECK: Supple. CARDIOVASCULAR: S1, S2 heard. Rate and rhythm regular. RESPIRATORY: Clear to auscultation. GASTROINTESTINAL: Abdomen is soft. MUSCULOSKELETAL: No tenderness. No edema. DERMATOLOGIC: No skin rash. NEUROLOGIC: Alert and awake and oriented x3. No focal neurologic deficits. Moving all the extremiti es. PSYCHIATRIC: Mood and affect normal. LABORATORY DATA: Not done today. ASSESSMENT AND PLAN: 1. End-stage renal disease on hemodialysis. Patient was seen during dialysis. We will continue to follow. 2. Hypertension. 3. Edema. 4. Anemia. 5. Plan is to continue on dialysis as tolerated on Monday, Monday, and Monday.
--- NOTE | 2017-08-12 11:39 | EKG ---
Test Reason : Blood Pressure : / mmHG Vent. Rate : 082 BPM Atrial Rate : 082 BPM P-R Int : 148 ms QRS Dur : 084 ms QT Int : 352 ms P-R-T Axes : 049 013 043 degrees QTc Int : 411 ms Normal sinus rhythm Normal ECG Confirmed by DUGLAS CRONIN D.O. ([id number]), photographic editor ERICK LEVINE ([id number]) on 08/12/2017 11:39:24 AM Referred By: Confirmed By:DUGLAS CRONIN D.O.
== END 2017-07-31 18:49 | disposition home or self-care (01) | DRG 477 ==
LOC: SCSER 20:13 → ERHOLD 07-24 01:17 → 2SW 07-24 02:48 → T4-B 07-26 16:31
PROVIDERS: ADMIT Internal Medicine; ATTEND Internal Medicine
PROC: 5A1D70Z Performance of Urinary Filtration, Intermittent, Less than 6 Hours Per Day (ICD-10-PCS; 2017-07-24)
PROC: 0S9C0ZX Drainage of Right Knee Joint, Open Approach, Diagnostic (ICD-10-PCS; principal; 2017-07-25)
PROC: 0QBG0ZX Excision of Right Tibia, Open Approach, Diagnostic (ICD-10-PCS; 2017-07-25)
DX: M00.061 Staphylococcal arthritis, right knee (principal); N18.6 End stage renal disease; I12.0 Hypertensive chronic kidney disease with stage 5 chronic kidney disease or end stage renal disease; M86.651 Other chronic osteomyelitis, right thigh; E87.2 Acidosis; M86.661 Other chronic osteomyelitis, right tibia and fibula; E11.22 Type 2 diabetes mellitus with diabetic chronic kidney disease; B95.61 Methicillin susceptible Staphylococcus aureus infection as the cause of diseases classified elsewhere; Z79.4 Long term (current) use of insulin; N40.0 Benign prostatic hyperplasia without lower urinary tract symptoms; D63.1 Anemia in chronic kidney disease; Z99.2 Dependence on renal dialysis; E11.69 Type 2 diabetes mellitus with other specified complication; E55.9 Vitamin D deficiency, unspecified; E87.5 Hyperkalemia
CPT/HCPCS: 20610; 36415; 36416; 76000; 80048; 80053; 82550; 83735; 85014; 85018; 85025; 85610; 85652; 86140; 87070; 87102; 87116; 87205; 87206; 87340; 88112; 88307; 88311; 90935; 93005; 96365; 96375; 96376; A4216; G0257; G8978-GP-CI; G8979-GP-CI; G8980-GP-CI; J0696; J1644; J1815; J2001; J2270; J2405; J2543; J2704; J3010; J3370; J7050

== ENCOUNTER 2017-08-10 17:46 | Emergency (ER) | payer MEDICAID, SELFPAY ==
[2017-08-10 18:43] LABS: #Basophils 0.1 thou/uL (0.0-0.2); #Eosinphils 0.4 thou/uL (0.0-0.7); #Lymphocytes 1.5 thou/uL (1.20-3.40); #Monocytes 0.7 thou/uL (0.11-0.59); #Neutrophils 4.3 thou/uL (1.40-6.50); %Eosinophils 5.3 % (0.0-10.0); %Lymphocytes 21.8 % (21.0-51.0); %Monocytes 10.3 % (0.0-10.0); Mean Platelet Volume 6.3 fL (7.4-10.4); Red Blood Cell (RBC) Count 2.74 mill/uL (4.70-6.10)
[2017-08-10 19:04] LABS: ALT (SGPT) Less than 7 U/L (8-55); AST (SGOT) 15 U/L (5-34); Alkaline Phosphatase 159 U/L (40-150); Anion Gap 21 mmol/L (10-20); BUN (Urea Nitrogen) 46 mg/dL (8.9-20.6); Bilirubin, Total 0.4 mg/dL (0.2-1.2); Calc. Creatinine Clearance 0 mL/min (70-130); Calcium 8.2 mg/dL (7.8-10.44); Carbon Dioxide 17 mmol/L (22-29); Chloride 101 mmol/L (98-107); Estimated GFR-MDRD 6; Globulin 3.9 g/dL (2.4-3.5); Protein, Total 7.9 g/dL (6.0-8.3)
[2017-08-10] MEDS ORDERED: HYDROcodone/Acetaminophen 5/325 mg Tablet ONE (20:05)
== END 2017-08-10 22:10 | disposition home or self-care (01) ==
LOC: ERS 17:46
DX: T81.4XXA Infection following a procedure, initial encounter (principal); E10.9 Type 1 diabetes mellitus without complications; Z87.442 Personal history of urinary calculi
CPT/HCPCS: 36415; 80053; 85025; 85652; 86140; 99283

== ENCOUNTER 2017-08-18 23:12 | Emergency (ER) | payer SELFPAY ==
[2017-08-19] MEDS ORDERED: Bacitracin Zinc 1 Packet ONE (01:02)
--- NOTE | 2017-08-19 08:15 | RAD ---
RIGHT LEG TWO VIEWS: HISTORY: Right leg pain. COMPARISON: Right knee radiograph from 07/23/2017. FINDINGS: Changes of chronic osteomyelitis of the right knee are again seen. Fragmentation of the medial tibia l plateau with collapse is redemonstrated. The fibula is intact. Skin hari are seen at the later al aspect of the distal thigh and at the medial aspect of the proximal leg. POS: [facility]
== END 2017-08-19 01:00 | disposition home or self-care (01) ==
LOC: SCSER 23:12
DX: M86.9 Osteomyelitis, unspecified (principal); E10.22 Type 1 diabetes mellitus with diabetic chronic kidney disease; N18.6 End stage renal disease; Z87.442 Personal history of urinary calculi; Z99.2 Dependence on renal dialysis

== ENCOUNTER 2017-08-25 10:17 | Inpatient (IN) | payer MEDICAID, SELFPAY ==
[~2017-08-25 10:17] MED LIST: ISOVUE-370 76%-LOCM 1 ML ONE
[2017-08-25] MEDS ORDERED: Ondansetron HCl/PF 4 MG/2 ML Vial ONE (12:31)
[2017-08-25] MEDS ORDERED: Morphine 4 MG/ML VIAL ONE (12:31)
[2017-08-25 13:22] LABS: #Eosinphils 0.2 thou/uL (0.0-0.7); #Lymphocytes 1.1 thou/uL (1.20-3.40); #Monocytes 0.3 thou/uL (0.11-0.59); #Neutrophils 4.8 thou/uL (1.40-6.50); %Basophils 0.8 % (0.0-1.0); %Eosinophils 3.3 % (0.0-10.0); %Lymphocytes 17.6 % (21.0-51.0); %Neutrophils 73.4 % (42.0-75.0); Hemoglobin 9.5 g/dL (14.0-18.0); Mean Corpuscular HGB CONC 32.3 g/dL (32.0-36.0); Mean Corpuscular Hemoglobin 31.6 pg (27.0-31.0); Mean Platelet Volume 6.3 fL (7.4-10.4); Platelet Count 329 thou/uL (130-400); RBC Distribution Width 13.2 % (11.5-14.5); White Blood Cell (WBC) Count 6.5 thou/uL (4.8-10.8)
[2017-08-25 13:47] LABS: ALT (SGPT) Less than 7 U/L (8-55); AST (SGOT) 15 U/L (5-34); Albumin 3.9 g/dL (3.5-5.0); Alkaline Phosphatase 154 U/L (40-150); Anion Gap 20 mmol/L (10-20); BUN (Urea Nitrogen) 42 mg/dL (8.9-20.6); Bilirubin, Total 0.4 mg/dL (0.2-1.2); Calc. Creatinine Clearance 0 mL/min (70-130); Calcium 8.8 mg/dL (7.8-10.44); Carbon Dioxide 18 mmol/L (22-29); Chloride 103 mmol/L (98-107); Estimated GFR-MDRD 6; Globulin 3.7 g/dL (2.4-3.5); Glucose 229 mg/dL (70-105); Potassium 5.6 mmol/L (3.5-5.1); Protein, Total 7.6 g/dL (6.0-8.3); Sodium 135 mmol/L (136-145)
--- NOTE | 2017-08-25 15:27 | CT ---
CT ABDOMEN WITH CONTRAST CT PELVIS WITH CONTRAST: DATE: 08-25-17 TIME: 2:28 p.m. HISTORY: 47-year-old male with left lower quadrant abdominal pain for two days. COMPARISON: Noncontrast CT of 06-02-17. TECHNIQUE: IV injection of iodinated contrast media: 100 ml Isovue 370 Oral contrast media: PO Isovue FINDINGS: Lack of visceral fat makes it difficult to evaluate for mild fat stranding. There is questionable mil d fat stranding around the sigmoid colon. Questionable long segment mural thickening of the sigmoid c olon, and also for most of the rest of the colon. No small bowel dilation. Normal appendix, liver, ab dominal aorta, pancreas, adrenals, and spleen. Small calculi at lower pole calices of bilateral kidne ys, as previously demonstrated. The bladder volume is lower on the current CT compared to the previou s. There is diffuse, more severe circumferential mural thickening of the urinary bladder on the curre nt CT compared to previous, up to 10 mm in thickness. This is probably greater than can be accounted for by the non-distention of the bladder. There is also question of perirectal fat stranding. These f indings are similar to previous CT. No hydronephrosis. New finding of prominent interstitial pulmonar y densities in the bilateral lower lobes. No evidence of pneumoperitoneum, ascites, or abscess. IMPRESSION: 1. Evidence for diffuse cystitis. 2. Evidence suggestive of diffuse colitis. 3. Bilateral nephrolithiasis without obstructive uropathy. 4. Status post cholecystectomy. 5. Nonspecific interstitial pulmonary densities in bilateral lower lobes. 6. Because of lack of visceral fat and the presence of what may represent colitis, it is difficult to evaluate for colonic diverticulitis. GRACE Garza POS: [facility]
[2017-08-25] MEDS ORDERED: Guaifenesin DM 100-10/5 ML UDCUP PO PRN (19:36)
[2017-08-25] MEDS ORDERED: Dextrose 5% in Water 1,000 ML IV PRN (19:36)
[2017-08-25] MEDS ORDERED: HumaLOG 300 UNITS/3 ML VIAL SC PRN (19:36)
[2017-08-25] MEDS ORDERED: Dextrose 50% Abboject 50 ML SYRINGE SLOW IVP PRN (19:36)
[2017-08-25] MEDS ORDERED: Acetaminophen 325 MG TAB PO PRN (19:36)
[2017-08-25] MEDS ORDERED: DEXTROSE IV SCH (19:45)
[2017-08-25] MEDS ORDERED: CEFAZOLIN IV SCH (19:45)
[2017-08-25] MEDS: Sodium Chloride 0.9% 1,000 ML IV SCH (20:45)
[2017-08-25] MEDS: metroNIDAZOLE 250 MG TAB PO SCH (22:40)
[2017-08-25] MEDS: Famotidine 20 MG TAB PO SCH (22:40)
[2017-08-25] MEDS: Cipro 250 MG TAB PO SCH (22:40)
[2017-08-25] MEDS: Tamsulosin HCl 0.4 MG CAP PO SCH ×2 (22:40→22:54)
[2017-08-25] MEDS: Vancomycin HCl 25 MG/ML Oral PO SCH (22:41)
[2017-08-25] MEDS ORDERED: Morphine 2 MG/ML SYRINGE SLOW IVP SCH (22:45)
[2017-08-25] MEDS: Heparin 5,000 UNITS/ML VIAL SC SCH (22:57)
--- NOTE | 2017-08-26 00:59 | HP ---
REASON FOR ADMISSION: Gastroenteritis, likely Clostridium difficile. HISTORY OF PRESENT ILLNESS: The patient gives history of having low quadrant abdominal pain 3/10 intenstiy from last 2 days, no radiation. This has been gradually getting worse. He is having watery diarrhea and almost passing up to 15 to 20 loose stools, small amounts. No complaints of nausea or vomiting. He had his dialysis this morning. He has been feeling very weak and hence came to emergency room. PAST MEDICAL AND SURGICAL HISTORY: The patient has had septic arthritis of right knee status post incision and drainage on Ancef with dialysis until the end of August along with ciprofloxacin 250 mg twice daily until the end of August and then Keflex 500 mg daily thereafter; end-stage renal disease, on hemodialysis on Mondays, Wednesdays, and Fridays; hypertension; diabetes mellitus type 2; chronic osteomyelitis of right tibia; chronic anemia due to renal disease; prior incision and drainage done by Dr. Ríos for septic right knee; prior history of chronic pancreatitis; history of nephrolithiasis; appendectomy; renal stone removal. PERSONAL HISTORY: Does not abuse alcohol or drugs. No history of smoking. FAMILY HISTORY: Mom in her 50s from diabetes and its complication. Father in his 80s, he has had history of hypertension. ALLERGIES: No known drug allergies. CURRENT MEDICATIONS: The patient is on Ancef 2 g with dialysis, Cipro 250 mg twice daily until the end of this month and then to start Keflex 500 mg daily; Norvasc 5 mg daily; ferrous sulfate 325 mg daily; 70/30 insulin 15 units subcutaneously at bedtime; Flomax 0.4 mg at bedtime. REVIEW OF SYSTEMS: The following complete review of systems was negative, unless otherwise mentioned in the HPI or below: Constitutional: Weight loss or gain, ability to conduct usual activities. Skin: Rash, itching. Eyes: Double vision, pain. ENT/Mouth: Nose bleeding, neck stiffness, pain, tenderness. Cardiovascular: Palpitations, dyspnea on exertion, orthopnea. Respiratory: Shortness of breath, wheezing, cough, hemoptysis, fever or night sweats. Gastrointestinal: Poor appetite, abdominal pain, heartburn, nausea, vomiting, constipation, or diarrhea. Genitourinary: Urgency, frequency, dysuria, nocturia. Musculoskeletal: Pain, swelling. Neurologic/Psychiatric: Anxiety, depression. Allergy/Immunologic: Skin rash, bleeding tendency. PHYSICAL EXAMINATION: GENERAL: The patient is a 47-year-old male who is currently not in any acute distress. VITAL SIGNS: Blood pressure 142/80, pulse 80 per minute, respiratory rate 14 per minute, temperature 97.7 degrees Fahrenheit, saturating 100% on room air. NECK: Supple. No elevated JVD. HEENT: Eyes, extraocular muscles intact. Pupils reacting to light. Oral cavity, mucous membranes are dry. No exudates or congestion. CARDIOVASCULAR SYSTEM: S1, S2 heard. Regular rhythm. RESPIRATORY SYSTEM: Air entry 2+ bilateral. No rales or rhonchi. ABDOMEN: Soft. Bowel sounds heard. There is mild tenderness in the suprapubic area. No rigidity or guarding. EXTREMITIES: No peripheral edema. The patient has hari over both medial and lateral aspect of the knee. The lateral aspect knee sutures are dry and healing well. The medial aspect knee sutures and knee hari are still healing. There is also edema around the knee joint. VASCULAR SYSTEM: Peripheral pulses 1+ bilateral. No ischemic ulcerations or gangrene. CENTRAL NERVOUS SYSTEM: No gross focal deficit seen. The patient is alert, awake, oriented well. PSYCHIATRIC SYSTEM: The patient's mood is euthymic. No hallucinations or delusions. LABORATORY DATA: White count of 6, H and H 9 and 29, platelet count is 329 with 73% neutrophils, MCV is 98. Potassium 5.6, serum bicarb 18, BUN 42, creatinine 9.9, serum glucose 229, lactic acid is 4.3. AST and ALT within normal limits. Albumin is 3.9. Abdominal and pelvic CAT scan done in the ER shows findings of pancolitis. There is also evidence of diffuse cystitis, bilateral nephrolithiasis without obstructive uropathy. CLINICAL IMPRESSION AND PLAN: The patient will be admitted to medical floor for pancolitis, likely Clostridium difficile with the patient being on Ancef and Cipro for right knee septic arthritis. We will obtain stool for Clostridium difficile and cultures. We will place him on oral vancomycin and Flagyl based on his renal function. We will consult Dr. Sahu and Dr. Bae as well in view of pancolitis. We will continue his Norvasc, ferrous sulfate, and Flomax as before for now. We will also consult Dr. Echols/Dr. Singh for Nephrology. [facility]ITALTanmay
[2017-08-26 02:21] LABS: HBSAg Index 0.18 S/CO (0-0.99); Hep B Surf Ag Non-Reactive S/CO (NonReactive)
--- NOTE | 2017-08-26 04:10 | CON ---
DATE OF CONSULTATION: 08/25/2017 REASON FOR CONSULTATION: Hyperkalemia. HISTORY OF PRESENT ILLNESS: This 47-year-old gentleman being presented to the hospital with abdomina l pain. I was not notified of this admission until I opened up the electronic medical record and the patient was on my list. I was earlier told that the patient would be discharged from the hospital a nd his potassium was normal. The patient has no outpatient dialysis set up. PAST MEDICAL/SURGICAL HISTORY: Significant for hypertension, anemia, end-stage renal disease, osteom yelitis, diabetes mellitus. HOME MEDICATIONS: Reviewed. HOSPITAL MEDICATIONS: Reviewed. REVIEW OF SYSTEMS: A 15-point review of systems was performed and negative except positives noted ab ove. GENERAL: Weakness- HEAD: Headache- NECK: No swelling or lumps. NOSE: No epistaxis or discharge. EYES: No diplopia or pain. RESPIRATORY: Dyspnea- CARDIOVASCULAR: Chest pain- GASTROINTESTINAL: Nausea- /[employer] WORK[employer]: Hematuria- MUSCULOSKELETAL: No joint pain. NEUROPSYCHIATIC SYSTEMS: No suicidal ideation. No ideation. SKIN: Denies any rash or ulcer. CONSTITUTIONAL: No fever or chills. PHYSICAL EXAMINATION: GENERAL: Patient is awake, alert. VITAL SIGNS: Afebrile, pulse 70, breathing 16, blood pressure was 144/84. HEAD/NECK: Normocephalic. Atraumatic. EYES: EOMI. No deformity. EARS: Clear. No ulcers. NOSE: Intact. No lesions. MOUTH: Clear. No discharge. THROAT: Clear. No exudate. LUNGS: Clear. No crackles. CARDIAC: S1, S2. No rub. ABDOMEN: Benign. BS+. GENITALIA/RECTUM: Nazario absent. BACK/EXTREMITIES: Edema 0+ Ulcer- NEUROLOGICAL: Alert and motor intact. SKIN: Rash- Bruise- LYMPHATICS: Edema- Ulcer- LABORATORY DATA: Potassium 5.6. ASSESSMENT AND RECOMMENDATIONS: 1. Stage 6 chronic kidney disease, plan hemodialysis. 2. Hyperkalemia, plan hemodialysis. 3. Anemia, stable. Noncompliance is a major issue.
[2017-08-26 06:34] LABS: #Basophils 0.1 thou/uL (0.0-0.2); #Eosinphils 0.3 thou/uL (0.0-0.7); #Lymphocytes 1.3 thou/uL (1.20-3.40); #Monocytes 0.4 thou/uL (0.11-0.59); #Neutrophils 4.5 thou/uL (1.40-6.50); %Basophils 0.9 % (0.0-1.0); %Eosinophils 4.4 % (0.0-10.0); %Lymphocytes 20.1 % (21.0-51.0); %Monocytes 6.7 % (0.0-10.0); Hemoglobin 10.2 g/dL (14.0-18.0); Mean Corpuscular HGB CONC 32.8 g/dL (32.0-36.0); Mean Corpuscular Hemoglobin 31.9 pg (27.0-31.0); Mean Corpuscular Volume 97.1 fl (80.0-94.0); Platelet Count 333 thou/uL (130-400); Red Blood Cell (RBC) Count 3.21 mill/uL (4.70-6.10); White Blood Cell (WBC) Count 6.7 thou/uL (4.8-10.8)
[2017-08-26 06:48] LABS: Lactic Acid 0.9 mmol/L (0.5-2.2)
[2017-08-26 07:24] LABS: Anion Gap 16 mmol/L (10-20); BUN (Urea Nitrogen) 21 mg/dL (8.9-20.6); Calc. Creatinine Clearance 15 mL/min (70-130); Calcium 9.4 mg/dL (7.8-10.44); Carbon Dioxide 26 mmol/L (22-29); Chloride 98 mmol/L (98-107); Estimated GFR-MDRD 13; Glucose 74 mg/dL (70-105); Potassium 3.3 mmol/L (3.5-5.1); Sodium 137 mmol/L (136-145)
[2017-08-26] MEDS: Famotidine 20 MG TAB PO SCH ×2 (08:34→21:36)
[2017-08-26] MEDS: Ferrous Sulfate 325 MG TAB PO SCH (08:34)
[2017-08-26] MEDS: Cipro 250 MG TAB PO SCH (08:34)
[2017-08-26] MEDS: Amlodipine 5 MG TAB PO SCH (08:34)
[2017-08-26] MEDS: metroNIDAZOLE 250 MG TAB PO SCH (08:34)
[2017-08-26] MEDS: Heparin 5,000 UNITS/ML VIAL SC SCH ×2 (08:35→21:34)
[2017-08-26] MEDS: Vancomycin HCl 25 MG/ML Oral PO SCH ×2 (08:35→13:09)
[2017-08-26 10:36] VITALS: BMI 21.2
[2017-08-26] MEDS ORDERED: Morphine 4 MG/ML VIAL SLOW IVP PRN (11:45)
[2017-08-26] MEDS: Morphine 2 MG/ML SYRINGE SLOW IVP PRN ×2 (11:53→18:09)
[2017-08-26] MEDS ORDERED: CEFAZOLIN/Water 2 GM/20 ML SYRINGE SLOW IVP SCH (12:00)
--- NOTE | 2017-08-26 13:50 | PRG ---
DATE OF SERVICE: 08/26/2017 SUBJECTIVE: A 47-year-old gentleman being seen for end-stage renal disease. Patient denies any naus ea, vomiting or chest pain. PHYSICAL EXAMINATION: GENERAL: Patient is awake, alert. VITAL SIGNS: Afebrile, pulse 75, breathing at 16, blood pressure 119/72. HEAD/NECK: Normocephalic. Atraumatic. EYES: EOMI. No deformity. EARS: Clear. No ulcers. NOSE: Intact. No lesions. MOUTH: Clear. No discharge. THROAT: Clear. No exudate. LUNGS: Clear. No crackles. CARDIAC: S1, S2. No rub. ABDOMEN: Benign. BS+. GENITALIA/RECTUM: Nazario absent. BACK/EXTREMITIES: Edema 0+ Ulcer- NEUROLOGICAL: Alert and motor intact. SKIN: Rash- Bruise- LYMPHATICS: Edema- Ulcer- LABORATORY DATA: Show hemoglobin 10.2. ASSESSMENT AND RECOMMENDATIONS: 1. Stage 6 chronic kidney disease. Continue hemodialysis as scheduled. 2. Hypertension, stable. 3. Hyperkalemia, improved. 4. Metabolic acidosis, stable.
--- NOTE | 2017-08-26 15:06 | PDOC.PN ---
- Subjective Encounter Start Date: 08/26/17 Encounter Start Time: 15:04 Mr. Lake was seen today in follow-up. He continues to have cramping abdominal pain was well as some diarrhea, but it has improved. His nurse noted he still has the hari in from his last visit to the hospital. - Objective Resuscitation Status: Resuscitation Status FULL:Full Resuscitation MAR Reviewed: Yes Vital Signs & Weight: Vital Signs (12 hours) Temp Pulse Resp BP BP BP Pulse Ox 08/26/17 11:49 98.1 F 81 16 119/72 94 L 08/26/17 08:34 75 126/81 08/26/17 08:00 98.3 F 75 18 08/26/17 07:32 98.3 F 76 16 126/81 98 Weight Admit Weight 127 lb 3.2 oz Weight 127 lb 3.2 oz I&O: 08/25/17 08/26/17 08/27/17 06:59 06:59 06:59 Intake Total 360 Balance 360 Result Diagrams: 08/26/17 06:15 08/26/17 06:15 Additional Labs: Accuchecks 08/26/17 08/26/17 08/25/17 11:28 06:24 19:52 POC Glucose 87 98 133 H Phys Exam - Physical Examination HEENT: PERRLA Respiratory: no wheezing, no rales, no rhonchi, clear to auscultation bilateral Cardiovascular: RRR, no significant murmur Gastrointestinal: soft, positive bowel sounds + diffuse, lower abdominal tenderness rebound or guarding Musculoskeletal: no edema Dx/Plan (1) Colitis Code(s): K52.9 - NONINFECTIVE GASTROENTERITIS AND COLITIS, UNSPECIFIED Status : Acute (2) Abscess of knee, right Code(s): L02.415 - CUTANEOUS ABSCESS OF RIGHT LOWER LIMB Status: Acute (3) Diabetes type 2, controlled Code(s): E11.9 - TYPE 2 DIABETES MELLITUS WITHOUT COMPLICATIONS Status: Chronic (4) ESRD (end stage renal disease) on dialysis Code(s): N18.6 - END STAGE RENAL DISEASE; Z99.2 - DEPENDENCE ON RENAL DIALYSIS Status: Chronic (5) Hypertension Code(s): I10 - ESSENTIAL (PRIMARY) HYPERTENSION Status: Chronic Qualifiers: - Plan * Colitis- ? etiology- plan is for colonoscopy tomorrow * Abscess of the knee- The area has closed, and the hari are begging to be overgrown with skin- will have them removed * HTN - blood pressure is controlled * DM- blood glucose is stable * ESRD- continue Dialysis.
[2017-08-26] MEDS ORDERED: GoLYTELY 4,000 ml Bottle PO SCH (18:00)
[2017-08-26] MEDS: Sodium Chloride 0.9% 1,000 ML IV SCH (18:09)
--- NOTE | 2017-08-26 18:30 | CON ---
DATE OF CONSULTATION: 08/26/2017 HISTORY OF PRESENT ILLNESS: The patient is a 47-year-old gentleman with end-stage renal dis ease who reports a 2-3 day history of severe abdominal pain followed by diarrhea. He reports wheneve r he eats, the pain would worsen. The diarrhea is mostly nonbloody. He has not given any stool samp les because he reports the diarrhea has resolved. He denies any weight loss. He denies prior episod es like this of diarrhea. PAST MEDICAL HISTORY: Significant for septic arthritis on antibiotics, end-stage renal disease on he modialysis, hypertension, diabetes mellitus, history of chronic pancreatitis, history of kidney disea se. PAST SURGICAL HISTORY: Includes appendectomy and renal stone removal. ALLERGIES: No known allergies. HOME MEDICATIONS: The patient does not have those, here he is on Norvasc 5 mg p.o. daily, Ancef 2 gr ams IV daily, ciprofloxacin 250 mg p.o. q.12 hours, famotidine, famotidine 20 mg p.o. b.i.d., ferrous sulfate 325 mg p.o. q.a.m., Humalog insulin sliding scale, metronidazole 250 mg p.o. t.i.d., Flomax 0.4 mg p.o. at bedtime, and vancomycin 125 mg p.o. q.i.d. SOCIAL HISTORY: Does not smoke or drink. FAMILY HISTORY: Negative for GI or liver disease. REVIEW OF SYSTEMS: Ten systems were reviewed and were negative except for above. PHYSICAL EXAMINATION: VITAL SIGNS: Shows temperature 98.1, pulse 81, respiratory rate 16, and blood pressure 119/72. HEENT: Unremarkable. NECK: Supple. CHEST: Clear. CARDIOVASCULAR: Regular rate and rhythm. ABDOMEN: Soft and slightly tender without rebound or guarding. Bowel sounds are present and normoac tive. RECTAL: Deferred. EXTREMITIES: Show surgical changes in the right lower extremity. LABORATORY DATA AND IMAGING DATA: Shows white blood cell count 6.5, hemoglobin of 9.5, and hematocri t 29.1. Admission laboratory shows sodium 135, potassium 5.6,CO2 18, BUN 42, creatinine 9.92, glucos e 229, ALT is less than 7, alkaline phosphatase 154. CT abdomen and pelvis shows diffuse cystitis, d iffuse colitis, bilateral nephrolithiasis, and cholecystectomy. ASSESSMENT: 1. Lower abdominal pain, diarrhea and colitis by CT scan - possibilities would include infectious co litis versus Clostridium difficile versus ischemia. 2. End-stage renal disease on hemodialysis. 3. History of chronic pancreatitis. 4. Diabetes mellitus. 5. Septic arthritis. RECOMMENDATIONS: 1. Discontinue empiric treatment for Clostridium difficile. 2. Await stool results. 3. Colonoscopy in a.m.
[2017-08-26] MEDS: Tamsulosin HCl 0.4 MG CAP PO SCH (21:35)
[2017-08-27] MEDS ORDERED: Promethazine HCl 25 MG/ML VIAL IM PRN (13:08)
[2017-08-27] MEDS ORDERED: Promethazine HCl 25 MG/ML VIAL SLOW IVP PRN (13:08)
[2017-08-27] MEDS ORDERED: Ondansetron HCl/PF 4 MG/2 ML Vial IVP PRN (13:08)
--- NOTE | 2017-08-27 14:36 | PRG ---
DATE OF SERVICE: 08/27/2017 SUBJECTIVE: A 47-year-old gentleman being seen for end-stage renal disease. The patient denies any nausea, vomiting or chest pain. OBJECTIVE: GENERAL: The patient is awake and alert. VITAL SIGNS: Afebrile, pulse 75, breathing 16 and blood pressure 126/75. HEAD/NECK: Normocephalic. Atraumatic. EYES: EOMI. No deformity. EARS: Clear. No ulcers. NOSE: Intact. No lesions. MOUTH: Clear. No discharge. THROAT: Clear. No exudate. LUNGS: Clear. No crackles. CARDIAC: S1, S2. No rub. ABDOMEN: Benign. BS+. GENITALIA/RECTUM: Nazario absent. BACK/EXTREMITIES: Edema 0+. Ulcer-. NEUROLOGICAL: Alert and motor intact. SKIN: Rash-. Bruise-. LYMPHATICS: Edema-. Ulcer-. LABORATORY DATA: Showed a hemoglobin of 10.2. ASSESSMENT AND PLAN: 1. Stage 6 chronic kidney disease, continue hemodialysis. 2. Hyperkalemia, stable. 3. Anemia, stable. 4. Medications based on glomerular filtration rate are appropriate.
[2017-08-27] MEDS: Heparin 5,000 UNITS/ML VIAL SC SCH ×2 (14:38→21:17)
[2017-08-27] MEDS: Amlodipine 5 MG TAB PO SCH (14:38)
[2017-08-27] MEDS: Ferrous Sulfate 325 MG TAB PO SCH (14:39)
[2017-08-27] MEDS: Famotidine 20 MG TAB PO SCH ×2 (14:39→21:16)
[2017-08-27] MEDS: Sodium Chloride 0.9% 1,000 ML IV SCH (14:49)
--- NOTE | 2017-08-27 14:50 | PDOC.PN ---
- Subjective Encounter Start Date: 08/27/17 Encounter Start Time: 14:48 Mr. Lake was seen today in follow-up. He complains of continued cramping when he eats, and diarrhea. The abdominal pain has improved some. - Objective Resuscitation Status: Resuscitation Status FULL:Full Resuscitation MAR Reviewed: Yes Vital Signs & Weight: Vital Signs (12 hours) Temp Pulse Resp BP BP Pulse Ox 08/27/17 14:38 73 08/27/17 14:00 98.1 F 73 18 115/72 95 08/27/17 08:00 98.2 F 71 18 126/75 99 08/27/17 04:00 97.7 F 77 18 136/85 98 Weight Admit Weight 127 lb 3.2 oz Weight 127 lb 3.2 oz I&O: 08/26/17 08/27/17 08/28/17 06:59 06:59 06:59 Intake Total 3440 Balance 3440 Result Diagrams: 08/26/17 06:15 08/26/17 06:15 Additional Labs: Accuchecks 08/27/17 08/26/17 08/26/17 04:31 20:28 15:49 POC Glucose 107 127 H 99 Phys Exam - Physical Examination HEENT: PERRLA Respiratory: no wheezing, no rales, no rhonchi, clear to auscultation bilateral Cardiovascular: RRR, no significant murmur, no rub Gastrointestinal: soft, non-tender, positive bowel sounds Musculoskeletal: no edema Dx/Plan (1) Colitis Code(s): K52.9 - NONINFECTIVE GASTROENTERITIS AND COLITIS, UNSPECIFIED Status : Acute (2) Abscess of knee, right Code(s): L02.415 - CUTANEOUS ABSCESS OF RIGHT LOWER LIMB Status: Acute (3) Diabetes type 2, controlled Code(s): E11.9 - TYPE 2 DIABETES MELLITUS WITHOUT COMPLICATIONS Status: Chronic (4) ESRD (end stage renal disease) on dialysis Code(s): N18.6 - END STAGE RENAL DISEASE; Z99.2 - DEPENDENCE ON RENAL DIALYSIS Status: Chronic (5) Hypertension Code(s): I10 - ESSENTIAL (PRIMARY) HYPERTENSION Status: Chronic Qualifiers: - Plan * Gastroenteritis- possibly viral- will treat symptomatically * His diet has been advanced * ESRD- stable * HTN- blood pressure is stable * Hopefully home tomorrow if he is tolerating a solid diet.
[2017-08-27] MEDS ORDERED: Saccharomyces boulardii 250 MG CAP PO SCH (16:00)
[2017-08-27] MEDS: Donnatal Elixir 16.2 MG/5 ML UDCUP PO SCH ×2 (16:32→21:17)
[2017-08-27] MEDS ORDERED: PROPOFOL 200 MG/20 ML VIAL ONE (16:33)
--- NOTE | 2017-08-27 18:04 | OP ---
PREOPERATIVE DIAGNOSES: 1. Abnormal CT scan. 2. Acute diarrhea. 3. Lower abdominal pain. PROCEDURE IN DETAIL: After informed consent was obtained, the patient was placed in the left lateral decubitus position. Anesthesia was administered per the Anesthesia Department. A forward-viewing e ndoscope was inserted in the rectum after perianal inspection and rectal exam were normal and passed to the cecum and into the ileum. The ileum, ileocecal valve, and appendiceal orifice were normal. T he terminal ileum was normal. The ascending, transverse, descending, sigmoid, and rectum were normal . Retroflexion in the rectum was normal. Diffuse diverticula was noted. No colitis was seen. ASSESSMENT: 1. Diffuse diverticulosis coli. 2. Otherwise, normal ileal colonoscopy. RECOMMENDATIONS: 1. Resume diet. 2. Home soon. 3. We will sign off.
[2017-08-27] MEDS: Tamsulosin HCl 0.4 MG CAP PO SCH (21:16)
[2017-08-28] MEDS: Donnatal Elixir 16.2 MG/5 ML UDCUP PO SCH ×4 (01:19→12:13)
[2017-08-28] MEDS ORDERED: Epoetin (ESRD) 20,000 UNITS/ML IVP SCH (10:00)
--- NOTE | 2017-08-28 10:26 | PDOC.PN ---
- Subjective Encounter Start Date: 08/28/17 Encounter Start Time: 10:24 Mr. Lake does not have any complaints today He says his stomach is doing much better. He has been able to eat. - Objective Resuscitation Status: Resuscitation Status FULL:Full Resuscitation MAR Reviewed: Yes Vital Signs & Weight: Vital Signs (12 hours) Temp Pulse Resp BP Pulse Ox 08/28/17 00:48 98.0 F 75 18 134/82 97 Weight Admit Weight 127 lb 3.2 oz Weight 127 lb 3.2 oz I&O: 08/27/17 08/28/17 08/29/17 06:59 06:59 06:59 Intake Total 3440 440 Balance 3440 440 Result Diagrams: 08/26/17 06:15 08/26/17 06:15 Additional Labs: Accuchecks 08/28/17 08/27/17 08/27/17 05:47 20:52 16:17 POC Glucose 125 H 144 H 172 H Phys Exam - Physical Examination HEENT: PERRLA Respiratory: no wheezing, no rales, no rhonchi, clear to auscultation bilateral Cardiovascular: RRR, no significant murmur Gastrointestinal: soft, non-tender, positive bowel sounds Musculoskeletal: no edema Dx/Plan (1) Colitis Code(s): K52.9 - NONINFECTIVE GASTROENTERITIS AND COLITIS, UNSPECIFIED Status : Acute (2) Abscess of knee, right Code(s): L02.415 - CUTANEOUS ABSCESS OF RIGHT LOWER LIMB Status: Acute (3) Diabetes type 2, controlled Code(s): E11.9 - TYPE 2 DIABETES MELLITUS WITHOUT COMPLICATIONS Status: Chronic (4) ESRD (end stage renal disease) on dialysis Code(s): N18.6 - END STAGE RENAL DISEASE; Z99.2 - DEPENDENCE ON RENAL DIALYSIS Status: Chronic (5) Hypertension Code(s): I10 - ESSENTIAL (PRIMARY) HYPERTENSION Status: Chronic Qualifiers: - Plan * Abdominal pain and diarrhea- likely from Viral Gastroenteritis * This has resolved * ESRD- stable * Home after dialysis.
[2017-08-28] MEDS: Famotidine 20 MG TAB PO SCH (11:34)
[2017-08-28] MEDS: Ferrous Sulfate 325 MG TAB PO SCH (11:35)
[2017-08-28] MEDS: Amlodipine 5 MG TAB PO SCH (11:35)
[2017-08-28 11:36] VITALS: BP 114/71
[2017-08-28] MEDS: Heparin 5,000 UNITS/ML VIAL SC SCH (11:36)
[2017-08-28] MEDS: Sodium Chloride 0.9% 1,000 ML IV SCH (11:36)
[2017-08-28] MEDS ORDERED: Epoetin (ESRD) 20,000 UNITS/ML SC SCH (11:42)
--- NOTE | 2017-08-28 12:33 | DIS ---
DATE OF ADMISSION: 08/25/2017 DATE OF DISCHARGE: 08/28/2017 PRIMARY CARE PHYSICIAN: Troy Mix. DISCHARGE DISPOSITION: Home. PRIMARY DISCHARGE DIAGNOSES: 1. Gastroenteritis, presumed infectious. 2. Abdominal pain, nausea, vomiting and diarrhea secondary to #1. 3. End-stage renal disease on hemodialysis. 4. Diabetes mellitus, type 2. 5. Hypertension. 6. Anemia of renal disease. 7. History of chronic pancreatitis. 8. History of septic knee joint infection, currently being treated. HOME MEDICATIONS: He is to continue the medications that he had been on at home. These were not ent ered in the computer, but were reported in the patient's history and physical to be Ancef 2 grams wit h dialysis 250 mg twice a day, Norvasc 5 mg daily, iron sulfate 325 mg daily, insulin 70/30 15 units at bedtime, and Flomax 0.4 at bedtime. PROCEDURES DONE ON ADMISSION: The patient had a CT scan of the abdomen and pelvis. There was some e vidence of diffuse cystitis. There was some evidence suggestive of diffuse colitis. There was bilat eral nephrolithiasis, but without obstructive uropathy. He was post-cholecystectomy. The patient al so had a colonoscopy showing diffuse diverticulosis, but otherwise normal. CODE STATUS: FULL CODE. ALLERGIES: No known drug allergies. HOSPITAL COURSE: Mr. Lake is a pleasant 47-year-old gentleman who presented to the emergency room w ith complaints of abdominal pain as well as diarrhea and vomiting. There was concern for infectious colitis initially and he was placed on broad-spectrum antibiotics. Stool for C. diff was also sent, but this was negative. He was seen by Gastroenterology and it was felt that he could possibly have a n infectious colitis versus ischemic colitis. The following day, his symptoms improved and he was ab le to tolerate solid foods and after having a colonoscopy, which was basically nonrevealing, he was a ble to be discharged home with close outpatient followup.
[2017-08-28 12:57] VITALS: TEMP 98
--- NOTE | 2017-08-28 13:42 | PRG ---
Patient Name: AKBAR PARRISH Date of service: 08/28/2017 Subjective: Patient was seen and examined at bedside and overnight events noted. Patient denies any shortness of breath or chest pain or palpitation. No history of nausea or vomiting or diarrhea or fever or chills or cramps. Objective: General: This is a well-built white male in no apparent distress, seen during dialysis. Vital signs: Temperature 98.7, pulse 74, respiratory rate 18, blood pressure 174/82. HEENT: Atraumatic, normocephalic. Oral mucosa is moist. Neck: Supple. Cardiovascular: S1 S2 heard. Rate and rhythm regular. Respiratory: Clear to auscultation. Gastrointestinal: Abdomen is soft. Musculoskeletal: No tenderness. No edema. Dermatologic: No skin rash. Neurologic: Alert and awake and oriented X3. No focal neurologic deficits. Moving all the extremit ies. Psychiatric: Mood and affect normal. LABORATORY: None done today. ASSESSMENT AND PLAN: 1. End-stage renal disease. Continue on hemodialysis. Will have dialysis Monday, Monday and Mon day. 2. Hyperkalemia, better. 3. Edema, currently stable. 4. Anemia, continue MAKI with dialysis as tolerated. Continue on dialysis as tolerated.
== END 2017-08-28 17:24 | disposition home or self-care (01) | DRG 391 ==
LOC: ERS 10:17 → T4-A 17:41 → OBSVTOIN 17:41
PROVIDERS: ADMIT Internal Medicine; ATTEND Internal Medicine
PROC: 5A1D70Z Performance of Urinary Filtration, Intermittent, Less than 6 Hours Per Day (ICD-10-PCS; 2017-08-26)
PROC: 0DJD8ZZ Inspection of Lower Intestinal Tract, Via Natural or Artificial Opening Endoscopic (ICD-10-PCS; principal; 2017-08-27)
DX: A09 Infectious gastroenteritis and colitis, unspecified (principal); N18.6 End stage renal disease; E11.22 Type 2 diabetes mellitus with diabetic chronic kidney disease; E87.2 Acidosis; M00.9 Pyogenic arthritis, unspecified; I12.0 Hypertensive chronic kidney disease with stage 5 chronic kidney disease or end stage renal disease; E87.5 Hyperkalemia; Z99.2 Dependence on renal dialysis; D63.1 Anemia in chronic kidney disease; Z91.15 Patient's noncompliance with renal dialysis; K57.30 Diverticulosis of large intestine without perforation or abscess without bleeding; Z79.2 Long term (current) use of antibiotics; N20.0 Calculus of kidney
CPT/HCPCS: 36415; 36416; 74177; 80048; 80053; 83605; 85025; 87040; 87340; 90935; 96361; 96374; 96375; G0257; J1644; J2270; J2405; J2704; Q4081

== ENCOUNTER 2017-09-30 20:08 | Inpatient (IN) | payer MEDICAID, SELFPAY ==
[2017-09-30 21:06] LABS: #Basophils 0.1 thou/uL (0.0-0.2); #Eosinphils 0.3 thou/uL (0.0-0.7); #Lymphocytes 1.1 thou/uL (1.20-3.40); #Monocytes 0.8 thou/uL (0.11-0.59); #Neutrophils 6.2 thou/uL (1.40-6.50); %Basophils 0.7 % (0.0-1.0); %Eosinophils 3.6 % (0.0-10.0); %Lymphocytes 12.8 % (21.0-51.0); %Monocytes 9.7 % (0.0-10.0); %Neutrophils 73.2 % (42.0-75.0); Hemoglobin 11.5 g/dL (14.0-18.0); Mean Corpuscular HGB CONC 33.7 g/dL (32.0-36.0); Mean Corpuscular Hemoglobin 32.1 pg (27.0-31.0); Mean Corpuscular Volume 95.5 fl (80.0-94.0); Mean Platelet Volume 6.7 fL (7.4-10.4); Platelet Count 421 thou/uL (130-400); RBC Distribution Width 12.7 % (11.5-14.5); Red Blood Cell (RBC) Count 3.58 mill/uL (4.70-6.10); White Blood Cell (WBC) Count 8.5 thou/uL (4.8-10.8)
--- NOTE | 2017-09-30 21:23 | RAD ---
RIGHT KNEE FOUR VIEWS: 09/30/17 HISTORY: Swelling and pain to right knee. History of knee surgery two months ago. COMPARISON: A 07/23/17 study. There is worsening fragmentation of the medial tibial plateau as compared to the prior examination. P ersistent joint effusion is noted. Some chronic appearing periosteal change along the anterior femur. There is some subchondral cystic change. The size of the apparent joint effusion appears similar to the prior examination. IMPRESSION: Findings are very suspicious for a septic arthritis with worsening fragmentation of the medial tibial plateau. POS: MURRAY
[2017-09-30 22:00] LABS: ALT (SGPT) Less than 7 U/L (8-55); AST (SGOT) 16 U/L (5-34); Albumin 4.1 g/dL (3.5-5.0); Alkaline Phosphatase 154 U/L (40-150); Anion Gap 22 mmol/L (10-20); BUN (Urea Nitrogen) 57 mg/dL (8.9-20.6); Bilirubin, Total 0.6 mg/dL (0.2-1.2); Calc. Creatinine Clearance 0 mL/min (70-130); Calcium 7.8 mg/dL (7.8-10.44); Carbon Dioxide 24 mmol/L (22-29); Chloride 95 mmol/L (98-107); Estimated GFR-MDRD 6; Globulin 4.1 g/dL (2.4-3.5); Glucose 396 mg/dL (70-105); Potassium 5.6 mmol/L (3.5-5.1); Protein, Total 8.2 g/dL (6.0-8.3); Sodium 135 mmol/L (136-145)
--- NOTE | 2017-09-30 22:48 | CT ---
CT OF RIGHT KNEE PERFORMED WITH CONTRAST ENHANCEMENT: 09/30/17 HISTORY: Patient had surgery on the right knee for infection two months ago. Now having pain and swelling in k nee again. There is a fairly large joint effusion present. As previously stated, worsening bony destructive encarnacion ges of the medial tibial plateau. The changes are very suspicious for a chronic septic arthritis. IMPRESSION: Large joint effusion with worsening destructive changes of the medial tibial plateau. Changes are angel y suspicious for a chronic septic arthritis. POS: MURRAY
[2017-09-30] MEDS ORDERED: Cefepime 2 GM/10 ML SYR ONE (23:47)
[2017-10-01] MEDS ORDERED: Loperamide HCl 2 MG CAP PO PRN (01:14)
[2017-10-01] MEDS ORDERED: Zolpidem Tartrate 5 MG TAB PO PRN (01:14)
[2017-10-01] MEDS ORDERED: Milk Of Magnesia 30 ML UDCUP PO PRN (01:14)
[2017-10-01] MEDS ORDERED: Ondansetron HCl/PF 4 MG/2 ML Vial IVP PRN (01:14)
[2017-10-01] MEDS ORDERED: Calcium Carbonate 500 MG ChewTAB PO PRN (01:14)
[2017-10-01] MEDS ORDERED: hydrALAZINE 20 MG/ML VIAL SLOW IVP PRN (01:14)
[2017-10-01] MEDS ORDERED: Acetaminophen 325 MG TAB PO PRN (01:14)
[2017-10-01] MEDS ORDERED: Ondansetron ODT 4 MG TAB PO PRN (01:14)
[2017-10-01] MEDS ORDERED: Dextrose 50% Abboject 50 ML SYRINGE SLOW IVP PRN (01:14)
[2017-10-01] MEDS ORDERED: Mag-Al 1200 mg/1200 mg/30 ML UDCUP PO PRN (01:14)
[2017-10-01] MEDS ORDERED: Senokot 8.6 MG TAB PO PRN (01:14)
[2017-10-01] MEDS ORDERED: Dextrose 5% in Water 1,000 ML IV PRN (01:14)
[2017-10-01 02:11] VITALS: BMI 23.3
--- NOTE | 2017-10-01 02:49 | HP ---
PRIMARY CARE PHYSICIAN: RUST. REASON FOR ADMISSION: Right knee swelling and pain. HISTORY OF PRESENT ILLNESS: A 47-year-old male who has ESRD on hemodialysis who has finishe d recent antibiotic therapy for septic right knee and after stopping antibiotic therapy for about a w los coyotes, Patient has increasing swelling over right knee and significant amount of pain, which is getting worse with walking. Patient was feeling subjective chills and fever at home. He denies any trauma. He denies any nausea, vomiting, or diarrhea. This patient has history of osteomyelitis of the right knee and he had a 5 washed out surgery and he was following Dr. Sahu as an outpatient basis. Patient reports that after stopping antibiotic thera py, all symptoms are coming back. He has more pain in the right medial knee. ALLERGIES: No known drug allergies. CURRENT HOME MEDICATIONS: The patient does not have any medication at home. REVIEW OF SYSTEMS: The following complete review of systems was negative, unless otherwise mentioned in the HPI or below: Constitutional: Weight loss or gain, ability to conduct usual activities. Sk in: Rash, itching. Eyes: Double vision, pain. ENT/Mouth: Nose bleeding, neck stiffness, pain, te nderness. Cardiovascular: Palpitations, dyspnea on exertion, orthopnea. Respiratory: Shortness of breath, wheezing, cough, hemoptysis, fever or night sweats. Gastrointestinal: Poor appetite, abdom inal pain, heartburn, nausea, vomiting, constipation, or diarrhea. Genitourinary: Urgency, frequenc y, dysuria, nocturia. Musculoskeletal: Pain, swelling. Neurologic/Psychiatric: Anxiety, depressio n. Allergy/Immunologic: Skin rash, bleeding tendency. Please see my HPI for pertinent positives an d negatives. PAST MEDICAL HISTORY: ESRD on hemodialysis, diabetes type 2, hypertension, chronic pancreatitis, nep hrolithiasis, chronic right knee septic arthritis. PAST SURGICAL HISTORY: Right knee surgery x5, appendicectomy, renal stone removal, hemodialysis acce ss, and right leg surgery. PAST PSYCHIATRIC HISTORY: Reviewed and negative. SOCIAL HISTORY: The patient lives at home with family. No history of tobacco, alcohol, or illicit d rug abuse. FAMILY HISTORY: No strong family history of premature coronary artery disease, stroke or cancer. CURRENT HOME MEDICATIONS: The patient did not bring his home medication at this point, so unable to review his home medication, but based on our previous hospital records, the patient was on Norvasc 5 mg p.o. daily, vitamin C 500 mg p.o. daily, Flomax 0.4 mg p.o. at bedtime, and insulin 70/30. EMERGENCY ROOM COURSE: Patient is given vancomycin, cefepime, morphine 4 mg. PHYSICAL EXAMINATION: VITAL SIGNS: On arrival, blood pressure 150/91, pulse 91, respiratory rate 16, temperature 98.4, sat uration 97% on room air, weight 67.1 kilograms. GENERAL: The patient is hypertensive, in no acute distress. HEAD: Normocephalic, atraumatic. Eyes: Pupils round, reactive to light. Extraocular muscles intact. ENT: Oropharynx within normal limits. Moist mucous membranes. No oral lesions. No pharyngeal eryt leigh, no exudate. NECK: Supple, no JVD, no thyromegaly, no carotid bruit, no jugular venous distention. LUNGS: Clear to auscultation without any rhonchi or rales. CARDIAC: S1, S2 regular without any murmur. ABDOMEN: Soft, bowel sounds present, nontender, nondistended. No organomegaly, no mass, no suprapub ic tenderness. BACK: Unremarkable, no CVA tenderness. EXTREMITIES: Upper extremity: Passive movement of all joints are normal. Lower extremity: Right k nee is swollen, tender, more tenderness on medial aspect of right knee, warmth, distal pulsation inta ke. NEUROLOGIC: Nonfocal examination. The patient moves all 4 limbs. Plantar bilateral flexor. PSYCHIATRIC: Normal affect. SKIN: No skin rash. HEMATOLOGIC: No lymphadenopathy. SIGNIFICANT LABORATORY AND DIAGNOSTIC DATA: Knee x-ray showed septic arthritis with worsening of fra gmentation of the medial tibial plateau. CBC: WBC 8.5, hemoglobin 11.5, platelets 421. ESR 55. BM P: Sodium 135, potassium 5.6, chloride 95, carbon dioxide 24, anion gap 22, BUN 57, creatinine 9.90, glucose 396, calcium 7.8. Lactic acid 1.7. LFT: AST 16, ALT less than 7, alkaline phosphatase 154 , albumin 4.1. CRP 1.80. IMPRESSION: 1. Septic arthritis, right knee, with effusion. 2. End-stage renal disease on hemodialysis. 3. Diabetes type 2, uncontrolled. 4. Hyperkalemia due to decreased renal excretion. 5. Anemia of renal disease. 6. Secondary hyperparathyroidism of renal origin. PLAN: Admission to the orthopedic floor. Orthopedic consultation. Empiric antibiotic with cefepime and vancomycin. Consultation with Dr. Sahu. Pain control with morphine. Nephrology consultation for hemodialysis, diabetes, hyperglycemia protocol treatment. Deep venous thrombosis prophylaxis, he yimi 5000 units subcu twice daily. Gastrointestinal prophylaxis, Protonix 40 mg p.o. daily. CODE STATUS: The patient is FULL CODE. Patient does not have any surrogate decision maker. Disposition and plan based on clinical course. We are expecting patient's stay in the hospital more than 2 midnights. Plan of care discussed with the patient and family member in detail.
[2017-10-01] MEDS ORDERED: Vancomycin HCl 1.25 GM in Sodium Chloride 0.9% 250 ML 250 ML IVPB PRN (04:08)
[2017-10-01] MEDS ORDERED: Vancomycin HCl 1 GM in Premix Bag 1 BAG IVPB PRN (04:08)
[2017-10-01] MEDS ORDERED: Vancomycin HCl 500 MG in Sodium Chloride 0.9% 100 ML IVPB PRN (04:09)
[2017-10-01] MEDS ORDERED: Vancomycin HCl 750 MG in Sodium Chloride 0.9% 250 ML 250 ML IVPB PRN (04:09)
[2017-10-01] MEDS ORDERED: HOLD VANCOMYCIN FOR LEVEL >20 FS PRN (04:10)
[2017-10-01 06:10] LABS: #Basophils 0.1 thou/uL (0.0-0.2); #Eosinphils 0.4 thou/uL (0.0-0.7); #Lymphocytes 1.7 thou/uL (1.20-3.40); #Monocytes 0.8 thou/uL (0.11-0.59); #Neutrophils 4.4 thou/uL (1.40-6.50); %Basophils 1.2 % (0.0-1.0); %Lymphocytes 23.1 % (21.0-51.0); %Monocytes 11.2 % (0.0-10.0); %Neutrophils 59.5 % (42.0-75.0); Hemoglobin 10.2 g/dL (14.0-18.0); Mean Corpuscular HGB CONC 33.4 g/dL (32.0-36.0); Mean Corpuscular Hemoglobin 31.5 pg (27.0-31.0); Mean Corpuscular Volume 94.3 fl (80.0-94.0); Mean Platelet Volume 6.4 fL (7.4-10.4); Platelet Count 381 thou/uL (130-400); RBC Distribution Width 12.6 % (11.5-14.5); Red Blood Cell (RBC) Count 3.25 mill/uL (4.70-6.10); White Blood Cell (WBC) Count 7.4 thou/uL (4.8-10.8)
[2017-10-01] MEDS: HumaLOG 300 UNITS/3 ML VIAL SC PRN ×2 (06:23→20:32)
[2017-10-01 06:34] LABS: Albumin 3.5 g/dL (3.5-5.0); Anion Gap 20 mmol/L (10-20); BUN (Urea Nitrogen) 66 mg/dL (8.9-20.6); BUN/Creatinine Ratio 6.32; Calc. Creatinine Clearance 8 mL/min (70-130); Calcium 7.3 mg/dL (7.8-10.44); Carbon Dioxide 21 mmol/L (22-29); Chloride 98 mmol/L (98-107); Estimated GFR-MDRD 5; Glucose 155 mg/dL (70-105); Phosphorus 7.3 mg/dL (2.3-4.7); Potassium 5.7 mmol/L (3.5-5.1); Sodium 133 mmol/L (136-145)
--- NOTE | 2017-10-01 06:58 | PDOC.PN ---
- Subjective Encounter Start Date: 10/01/17 Encounter Start Time: 06:56 Mr. Lake was seen today in follow-up. He reports that he completed his antibiotic therapy for his knee about a week ago. Then his knee began to swell, and become painful. No other complaints. - Objective Resuscitation Status: Resuscitation Status FULL:Full Resuscitation MAR Reviewed: Yes Vital Signs & Weight: Vital Signs (12 hours) Temp Pulse Resp BP Pulse Ox 10/01/17 04:30 98.8 F 73 18 121/67 97 10/01/17 02:56 96 10/01/17 02:24 98.9 F 81 20 96 10/01/17 01:30 98.9 F 81 20 135/83 96 Weight Weight 144 lb 3.2 oz I&O: 09/29/17 09/30/17 10/01/17 06:59 06:59 06:59 Intake Total 120 Balance 120 Result Diagrams: 10/01/17 05:48 10/01/17 05:48 Additional Labs: Accuchecks 10/01/17 05:43 POC Glucose 157 H Phys Exam - Physical Examination HEENT: PERRLA Respiratory: no wheezing, no rales, no rhonchi, clear to auscultation bilateral Cardiovascular: RRR, no significant murmur, no rub Gastrointestinal: soft, non-tender, positive bowel sounds + right knee effusion, no warmth no erythema Dx/Plan (1) Chronic osteomyelitis of right femur Code(s): M86.651 - OTHER CHRONIC OSTEOMYELITIS, RIGHT THIGH Status: Acute Comment: (2) Diabetes type 2, controlled Code(s): E11.9 - TYPE 2 DIABETES MELLITUS WITHOUT COMPLICATIONS Status: Chronic (3) ESRD (end stage renal disease) on dialysis Code(s): N18.6 - END STAGE RENAL DISEASE; Z99.2 - DEPENDENCE ON RENAL DIALYSIS Status: Chronic (4) Hypertension Code(s): I10 - ESSENTIAL (PRIMARY) HYPERTENSION Status: Chronic Qualifiers: - Plan * Recrudescence of right knee septic arthritis- Will continue Cefepime and Vancomycin and await further recommendations from both ID and Orthopedics * DM- blood glucose is stable * HTN - blood pressure is stable * ESRD- continue Dialysis as per Nephrology.
[2017-10-01] MEDS: Saccharomyces boulardii 250 MG CAP PO SCH (08:50)
[2017-10-01] MEDS: Folic Acid/Vit B Comp W-C PO SCH (08:50)
[2017-10-01] MEDS: HYDROcodone/Acetaminophen 10/325 mg Tablet PO PRN ×2 (08:50→17:27)
[2017-10-01] MEDS: Heparin 5,000 UNITS/ML VIAL SC SCH ×2 (08:52→20:32)
[2017-10-01 09:28] LABS: Vancomycin, Random 18.9 ug/mL (See Comment)
[2017-10-01] MEDS ORDERED: Heparin 1,000 UNITS/ML VIAL ONE (11:11)
[2017-10-01 15:30] LABS: HBSAg Index 0.31 S/CO (0-0.99); Hep B Surf Ag Non-Reactive S/CO (NonReactive)
--- NOTE | 2017-10-01 17:26 | CON ---
DATE OF CONSULTATION: 10/01/2017 HISTORY OF PRESENT ILLNESS: Patient is a 47-year-old male who has end-stage renal disease a nd is on dialysis. The patient has a history of osteomyelitis affecting the bones in the right knee. He has had 5 surgeries to his right knee, the last two surgeries were performed by Dr. Ríos. T he patient has been on antibiotics per Dr. Sahu and 1 week ago he stopped his antibiotics and over t he next couple of days, the patient had increasing swelling and pain in the right knee, which was get ting worse with any type of ambulation. Patient had x-rays of the right knee which showed significan t bone loss in the medial aspect of the medial tibial plateau and lucencies around the distal femur a nd proximal tibia consistent with osteomyelitis. The patient typically has dialysis on Monday, , and Monday, and he was admitted because of the increased pain and swelling. PAST MEDICAL HISTORY: Allergies none. CURRENT MEDICATION: None. PAST SURGICAL HISTORY: The patient has had a surgery on the right knee at least 5 times. PHYSICAL EXAMINATION: GENERAL: Patient is a very pleasant male, alert and oriented x3. VITAL SIGNS: The patient has been afebrile since he has been in the hospital, pulse 72, respiratory rate 16, O2 saturation 97 on room air, blood pressure 119/76. EXTREMITIES: Examination of the right knee shows a large effusion. Patient is able to fully extend the knee and has 90 degrees of flexion. There is some laxity because of bone loss in the medial tibi al plateau, but has a good endpoint with his MCL and LCL. The right knee has mild warmth. There is no erythema and no open wounds. The right lower extremity is neurovascularly intact. LABORATORY DATA: White count this morning is 7.4, hemoglobin 10.2, hematocrit 30.7. Chemistries: S odium 133, potassium 5.7, carbon dioxide 21, BUN 66, creatinine 10.45, glucose 155. C-reactive prote in 1.8. IMPRESSION: 1. Chronic osteomyelitis involving the right knee. 2. End-stage renal disease requiring dialysis. PLAN: The patient has been started on IV antibiotics. He will be taken to dialysis tomorrow. I peter l let Dr. Ríos know tomorrow that his patient is in the hospital and he can determine any further treatment needed on the right knee.
[2017-10-01] MEDS: Cipro 250 MG TAB PO SCH (20:32)
--- NOTE | 2017-10-01 20:42 | CON ---
DATE OF CONSULTATION: 10/01/2017 HISTORY OF PRESENT ILLNESS: A 47-year-old patient known to us from prior visit when I saw him for osteomyelitis right tibia. The patient has a history of type 2 diabetes, end-stage renal disease on hemodialysis through a tunneled catheter and has a known osteomyelitis tibial plateau right side with septic arthritis secondary to methicillin-susceptible Staphylococcus aureus. He had improved from the most recent treatment, but then the Rocephin infusions were discontinued and he had recrudescence and at this time I recommend restarting the treatment and this was completed at the end of August, but then again he did not show up for the visits, did not get his oral Keflex for first chronic suppressive therapy and now has developed recrudescence of inflammatory process. He came into the hospital on 10/01 because of worsening right knee swelling and pain. Although in the admit note, it is stated that he had a recurrence of fever and chills. The patient himself denied that he had any such symptoms. No headaches, no visual symptoms, sore throat, odynophagia, dysphagia, no dyspnea, no cough, no abdominal pain. He does not have urinary output. No diarrhea. No other joint symptoms. PAST MEDICAL HISTORY: Type 2 diabetes, nephrolithiasis, chronic renal insufficiency, cystoscopy, pancreatitis, chronic osteomyelitis, right tibial plateau due to MSSA with three different treatments. CURRENT MEDICATIONS: [place], Maalox, Tums, cefepime, dextrose, heparin, hydralazine, insulin, vancomycin, sliding scale. PHYSICAL EXAMINATION: VITAL SIGNS: Essentially normal. The patient has a left tunneled hemodialysis catheter in the right swollen knee, but no areas of skin breakdown noted. No petechiae or purpura. No lymphadenopathy. HEENT: Ocular movements are conjugate. Oral cavity not remarkable. NECK: Supple. LUNGS: With symmetric clear breath sounds. HEART: S1, S2, regular rate without murmurs. ABDOMEN: Soft, nondistended or tender. No ascites. No bladder distention. The right knee is swollen, deformed as previously noted, but no erythema, no drainage. EXTREMITIES: Pulses are 1+ in dorsalis pedis. Plantar responses are flexure. NEUROLOGIC: Cognitive function appears to be intact. LABORATORY DATA: White cell count 8.5 and 7.4, hemoglobin 11, MCV 95, platelets 421 and 381, fairly unremarkable differential. Chemistry with expected findings and ESRD situation with sodium 133, potassium 5.7, creatinine 10.45, glucose 396 and 155, AST and ALT normal, alkaline phosphatase 154, CRP 1.8, previous CRP was 8 in 04/2017 and has steadily gone down since. IMAGING STUDIES: A knee x-ray from 09/30 with fragmentation of the medial tibial plateau, persistent joint effusion. ASSESSMENT: Type 2 diabetes, end-stage renal disease and chronic osteomyelitis tibial plateau secondary to methicillin susceptible Staphylococcus aureus, treated already a few times with recrudescence. This time he did not get switched to oral suppressive therapy and this might be part of the reason for failure of treatment. The other possibility would be just progression of the chronic osteomyelitis with necrotic bone. DISCUSSION: At this point, the options for management include orthopedic surgery consultation for repeat I&D or washout, may be fusion of the joint, removal of all the areas of necrotic bone if present, or conservative management with continuation of long-term therapy with either vancomycin given through sliding scale with dialysis until 11/24 or a combination of cefazolin 2 grams after each dialysis plus oral ciprofloxacin until 11/24 and then transition immediately to oral suppressive therapy with Keflex 250 mg twice daily indefinitely. He does have evidence of fragmentation of the bone so he may have some islands of necrotic bone and the need to be removed. It may eventually develop a chronic draining sinus to the skin. He should be transitioned immediately to oral Keflex 500 mg 3 times daily or twice daily 500 mg twice daily indefinitely. MTDD
[2017-10-01] MEDS ORDERED: Cefepime 1 GM in Syringe 10 ML SLOW IVP SCH (21:00)
--- NOTE | 2017-10-02 02:01 | CON ---
DATE OF CONSULTATION: 10/01/2017 CONSULTING PHYSICIAN: Dr. Kaur. REASON FOR CONSULTATION: . REASON FOR ADMISSION: Right knee swelling. HISTORY OF PRESENT ILLNESS: A 47-year-old male who has history of end-stage renal disease, hypertens ion, type 2 diabetes who came to the hospital with right knee swelling and quarter section ironer consult for m aintenance hemodialysis. The patient has dialysis Monday, Monday, Monday, and the potassium was f ound to be 5.7 and is having dialysis today and was seen during dialysis. No nausea, vomiting. No c ramps. No chest pain, palpitation, no fever or chills reported. PAST MEDICAL HISTORY: Positive for end-stage renal disease, hypertension, type 2 diabetes, pancreati tis, septic arthritis. PAST SURGICAL HISTORY: Right knee surgery, appendectomy, history of renal stone removal and hemodial ysis access placement. ALLERGIES: No known drug allergies. HOME MEDICATIONS: Not known at this time. SOCIAL HISTORY: No smoking, alcohol, or illicit drug abuse. FAMILY HISTORY: No history of kidney disease. REVIEW OF SYSTEMS: The following complete review of systems was negative, unless otherwise mentioned in the HPI or below: Constitutional: Weight loss or gain, ability to conduct usual activities. Skin: Rash, itching. Ey es: Double vision, pain. ENT/Mouth: Nose bleeding, neck stiffness, pain, tenderness. Cardiovascul ar: Palpitations, dyspnea on exertion, orthopnea. Respiratory: Shortness of breath, wheezing, coug h, hemoptysis, fever or night sweats. Gastrointestinal: Poor appetite, abdominal pain, heartburn, n ausea, vomiting, constipation, or diarrhea. Genitourinary: Urgency, frequency, dysuria, nocturia. Musculoskeletal: Pain, swelling. Neurologic/Psychiatric: Anxiety, depression. Allergy/Immunologic : Skin rash, bleeding tendency. HOME MEDICATIONS: Include Norvasc, vitamin C, Flomax, and insulin 70/30. PHYSICAL EXAMINATION: GENERAL: This is a thin-built male in no apparent distress. VITAL SIGNS: Temperature 97.5, pulse 71, respiratory rate 16, blood pressure 141/92. HEENT: Atraumatic, normocephalic. Oral mucosa is moist. NECK: Supple, no masses. HEART: S1, S2 heard. Rate and rhythm regular. RESPIRATORY: Clear. GASTROINTESTINAL: Abdomen is soft. MUSCULOSKELETAL: No tenderness, no edema, right knee swelling and mild tenderness. NEUROLOGIC: Alert, awake, moving all the extremities. PSYCHIATRIC: Mood and affect normal. LABORATORY DATA: Hemoglobin is 10.2, potassium is 5.7, BUN is 66, creatinine 7.4. ASSESSMENT AND PLAN: 1. End-stage renal disease. The patient had emergent dialysis today for 2 hours for hyperkalemia. Patient was seen and evaluated during dialysis. 2. Hyperkalemia. Limit potassium in the diet and will have dialysis. 3. Acidosis. 4. Hypernatremia. 5. Edema. 6. Anemia, mild. 7. Hypertension, stable. 8. Continue on dialysis as tolerated with fluid removal if he tolerates. Thank you for the consultation.
[2017-10-02] MEDS: Cipro 250 MG TAB PO SCH ×2 (06:07→20:02)
--- NOTE | 2017-10-02 10:16 | PDOC.PN ---
- Subjective Encounter Start Date: 10/02/17 Encounter Start Time: 10:15 Mr. Lake was seen today in follow-up. He does not have any complaints. - Objective Resuscitation Status: Resuscitation Status FULL:Full Resuscitation MAR Reviewed: Yes Vital Signs & Weight: Vital Signs (12 hours) Temp Pulse Resp BP BP BP Pulse Ox 10/02/17 06:55 96.7 F L 78 16 97 10/02/17 06:50 96.7 F L 78 16 131/77 97 10/02/17 04:00 98.6 F 81 16 123/74 98 10/01/17 23:50 98.4 F 80 16 141/88 H 98 Weight Weight 144 lb 3.2 oz I&O: 10/01/17 10/02/17 10/03/17 06:59 06:59 06:59 Intake Total 120 1230 Balance 120 1230 Result Diagrams: 10/01/17 05:48 10/01/17 05:48 Additional Labs: Accuchecks 10/02/17 10/01/17 10/01/17 05:44 20:32 17:12 POC Glucose 149 H 247 H 147 H 10/01/17 11:39 POC Glucose 167 H Phys Exam - Physical Examination HEENT: PERRLA Respiratory: no wheezing, no rales, no rhonchi, clear to auscultation bilateral Cardiovascular: RRR, no significant murmur Gastrointestinal: soft, non-tender, positive bowel sounds Musculoskeletal: edema present + swelling in the left knee Dx/Plan (1) Chronic osteomyelitis of right femur Code(s): M86.651 - OTHER CHRONIC OSTEOMYELITIS, RIGHT THIGH Status: Acute Comment: (2) Diabetes type 2, controlled Code(s): E11.9 - TYPE 2 DIABETES MELLITUS WITHOUT COMPLICATIONS Status: Chronic (3) ESRD (end stage renal disease) on dialysis Code(s): N18.6 - END STAGE RENAL DISEASE; Z99.2 - DEPENDENCE ON RENAL DIALYSIS Status: Chronic (4) Hypertension Code(s): I10 - ESSENTIAL (PRIMARY) HYPERTENSION Status: Chronic Qualifiers: - Plan * Right septic arthritis- Patient will be evaluated by Dr. Ríos to determine if further debridement is necessary * ID recommendations were noted * Continue Vancomycin in the interim * ESRD- continue Dialysis as per Nephrology * HTN- blood pressure is stable .
--- NOTE | 2017-10-02 10:35 | PRG ---
DATE OF SERVICE: 10/02/2017 SUBJECTIVE: This is a 47-year-old gentleman being seen for end-stage renal disease. Patient denies any nausea, vomiting or chest pain. PHYSICAL EXAMINATION: GENERAL: Patient is awake, alert. VITAL SIGNS: Afebrile, pulse 78, breathing at 16, blood pressure 131/77. HEAD/NECK: Normocephalic. Atraumatic. EYES: EOMI. No deformity. EARS: Clear. No ulcers. NOSE: Intact. No lesions. MOUTH: Clear. No discharge. THROAT: Clear. No exudate. LUNGS: Clear. No crackles. CARDIAC: S1, S2. No rub. ABDOMEN: Benign. BS+. GENITALIA/RECTUM: Nazario absent. BACK/EXTREMITIES: Edema 0+ Ulcer- NEUROLOGICAL: Alert and motor intact. SKIN: Rash- Bruise- LYMPHATICS: Edema- Ulcer- LABORATORY DATA: Show hemoglobin 10.2, creatinine 10.45. ASSESSMENT AND PLAN: 1. [id number] kidney disease, continue hemodialysis. 2. Hyperkalemia. We will plan dialysis. 3. Anemia, stable. 4. Medications based on glomerular filtration rate are appropriate. MTDD
[2017-10-02] MEDS: Saccharomyces boulardii 250 MG CAP PO SCH (12:17)
[2017-10-02] MEDS: Folic Acid/Vit B Comp W-C PO SCH (12:18)
[2017-10-02] MEDS: Heparin 5,000 UNITS/ML VIAL SC SCH ×2 (12:18→20:01)
[2017-10-02] MEDS: HumaLOG 300 UNITS/3 ML VIAL SC PRN (17:06)
[2017-10-02] MEDS: HYDROcodone/Acetaminophen 10/325 mg Tablet PO PRN (20:07)
--- NOTE | 2017-10-02 22:41 | CON ---
DATE OF CONSULTATION: 10/02/2017 CHIEF COMPLAINT: Right knee pain. HISTORY OF PRESENT ILLNESS: Mr. Lake is a 47-year-old male who has a long complicated history regar ding his right knee. He has a longstanding history of infection and osteomyelitis of the proximal ti kavya and distal femur. He has had at least 5 surgeries on the knee with multiple irrigation procedure s. He unfortunately has had a recurrence once more. He has been somewhat noncompliant with his anti biotic course. Dr. Sahu has seen him in the past. He has completed a course of Rocephin, but has n ot maintained his chronic suppressive therapy with Keflex. He began having swelling and pain several days ago and presented back to the emergency department. He was not on antibiotics immediately prio r to this. He denies fevers or chills. He was admitted to the hospital over the weekend. He is als o on end-stage renal disease and is being treated appropriately. He is on hemodialysis. PAST MEDICAL HISTORY: Type 2 diabetes, nephrolithiasis, chronic renal insufficiency, pancreatitis, c hronic osteomyelitis of the right tibia and distal femur with a history of MSSA infection. FAMILY MEDICAL HISTORY: Noncontributory. PAST SURGICAL HISTORY: Multiple right knee surgeries as well as cystoscopy. He also has a fistula f or dialysis. IMAGES: X-rays of the knee as well as CT scan reviewed. The patient has significant fragmentation a nd erosion of the medial tibial plateau. There is a large knee joint effusion. He has erosive and l ytic changes of the distal femur as well. All of these changes are consistent with chronic osteomyel itis of the knee. LABORATORY FINDINGS: White blood cell count is 7.4, hemoglobin 10.2, hematocrit 30.7. ESR was 55. IMPRESSION: Chronic right tibia and distal femur osteomyelitis with recurrence of infection. PLAN: The patient has a very difficult problem. It will likely be nearly impossible to obtain a cur e for his osteomyelitis unless amputation was carried out. This would have to be a high above knee a mputation, however. Our goal of treatment for now will be suppressive treatment. I will take him to the operating room for repeat irrigation and debridement of the knee with debridement of any infecte d or fragmentary bone along the medial-tibial plateau and distal femur. Hopefully, this in combinati on with long-term antibiotics, we will allow chronic suppression. If he has continued recurrence, we may have to have a discussion with him for amputation. If we can clear his infection, he would be a candidate for knee fusion as he does have extensive cartilage and joint damage from his chronic infe ction. I will make him n.p.o. at midnight. We will plan for surgery tomorrow. He will have ongoing medical care and antibiotic treatment.
[2017-10-03] MEDS: Cipro 250 MG TAB PO SCH ×2 (02:31→20:07)
[2017-10-03] MEDS: Heparin 5,000 UNITS/ML VIAL SC SCH ×2 (08:02→20:07)
[2017-10-03] MEDS: Folic Acid/Vit B Comp W-C PO SCH (08:02)
[2017-10-03] MEDS: Saccharomyces boulardii 250 MG CAP PO SCH (08:02)
[2017-10-03] MEDS ORDERED: Fentanyl 100 MCG/2 ML VIAL ONE ×3 (12:11→14:34)
[2017-10-03] MEDS ORDERED: Norepinephrine 4 MG/4 ML VIAL ONE (12:29)
[2017-10-03] MEDS ORDERED: PHENYLEPHRINE-NS 100 MCG/ML 10 ML SYRINGE ONE (14:15)
[2017-10-03] MEDS ORDERED: ePHEDrine/0.9% NaCl/PF SYRINGE 50 mg/10 ml ONE (14:15)
[2017-10-03] MEDS ORDERED: PROPOFOL 200 MG/20 ML VIAL ONE (14:15)
[2017-10-03] MEDS ORDERED: Promethazine HCl 25 MG/ML VIAL SLOW IVP PRN (14:33)
[2017-10-03] MEDS ORDERED: Morphine Sulfate 2 MG/ML SYRINGE SLOW IVP PRN (14:33)
[2017-10-03] MEDS ORDERED: Ondansetron HCl/PF 4 MG/2 ML Vial IVP PRN (14:33)
--- NOTE | 2017-10-03 14:39 | OP ---
PROCEDURES PERFORMED: 1. Irrigation and debridement of right septic knee. 2. Resection of osteomyelitis of the proximal tibia, excisional. 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 POSTOPERATIVE DIAGNOSES: Chronic septic knee arthritis with osteomyelitis of distal femur and proxim al tibia, right knee. COMPLICATIONS: None. ESTIMATED BLOOD LOSS: Minimal. SURGEON: Layton Jansen M.D. ANESTHESIA: General. IMPLANTS: None. INDICATIONS FOR PROCEDURE: Mr. Lake is a 47-year-old male who has a longstanding infection of his r ight knee. He has been diagnosed with underlying osteomyelitis of the tibia and distal femur. He pr esented to the emergency department several days ago with recurrent infection. He had been treated w ith long-term antibiotics in the past, but was not on antibiotics recently. Even indicated now for r epeat irrigation and debridement of the knee joint as well as resection of what appears to be necroti c bone over the medial tibial plateau. He has severe damage to the articular surface of his knee alr brian. He is aware of risks including recurrent infection and severe posttraumatic arthritis, chronic pain, and others. DESCRIPTION OF PROCEDURE: Mr. Lake was identified in the preoperative holding area. His correct ex tremity was marked. He was carried to the operating room. He was positioned supine. General anesth esia was induced. A multidisciplinary timeout was performed. The right lower extremity was prepped and draped in sterile fashion. We began the procedure with an anterior approach to the knee through the patient's previous scar. We dissected down through the subcutaneous tissues. We explored the knee encountered gross purulence. We took cultures of this. We then performed a thorough synovectomy sharply with a knife. We remove d all synovial hypertrophic tissue. We removed necrotic appearing suprapatellar fat pad as well as t he anterior fat pad. We thoroughly irrigated with 5 liters of lavage. At this point, we completed s harp and excisional debridement around the medial and lateral gutters of the knee. Next, we exposed the proximal medial tibial plateau. We encountered a mobile fragment of the medial tibial plateau, w hich was clearly infected. This was removed with a rongeur as well as osteotomes. We left the stabl e base of tibial plateau bone. Again, we thoroughly irrigated with copious lavage. We then made a s mall drill hole in the medial aspect of the medial femoral condyle allowing vent of this osteomyeliti s. There was no gross purulence from this site. We then performed a final debridement and closed wi th 0 PDS suture, 2-0 PDS suture and nylon for the skin. A sterile dressing was applied. The patient was taken to the recovery room in good condition at this point without complication.
[2017-10-03] MEDS: HYDROcodone/Acetaminophen 10/325 mg Tablet PO PRN ×2 (15:31→20:07)
--- NOTE | 2017-10-03 17:49 | PRG ---
DATE OF SERVICE: 10/03/2017 SUBJECTIVE: A 47-year-old gentleman being seen for end-stage renal disease. The patient denies any nausea, vomiting, or chest pain. PHYSICAL EXAMINATION: GENERAL: Patient is awake and alert. VITAL SIGNS: Afebrile, pulse 92, breathing at 16, and blood pressure 139/90. GENERAL APPEARANCE AND MENTAL STATUS: Fair. HEAD/NECK: Normocephalic. Atraumatic. EYES: EOMI. No deformity. EARS: Clear. No ulcers. NOSE: Intact. No lesions. MOUTH: Clear. No discharge. THROAT: Clear. No exudate. LUNGS: Clear. No crackles. CARDIAC: S1, S2. No rub. ABDOMEN: Benign. BS+. GENITALIA/RECTUM: Nzaario absent. BACK/EXTREMITIES: Edema 0+ Ulcer- NEUROLOGICAL: Alert and motor intact. SKIN: Rash- Bruise-. LYMPHATICS: Edema- Ulcer-. LABORATORY DATA: Hemoglobin 10.2. ASSESSMENT AND RECOMMENDATIONS: 1. Stage 6 chronic kidney disease, stable. 2. Hypertension, stable. 3. Anemia, stable. 4. Hyperkalemia, stable. 5. No indication for dialysis today. MTDD
--- NOTE | 2017-10-03 17:58 | PDOC.PN ---
- Subjective Encounter Start Date: 10/03/17 Encounter Start Time: 15:30 Patient seen and examined. No new complaints. No overnight events. s/p I&D. Pain controlled. - Objective Resuscitation Status: Resuscitation Status FULL:Full Resuscitation MAR Reviewed: Yes Vital Signs & Weight: Vital Signs (12 hours) Temp Pulse Resp BP Pulse Ox 10/03/17 16:05 85 16 127/81 10/03/17 15:26 96.2 F L 92 18 139/90 96 10/03/17 15:05 96.2 F L 92 18 96 10/03/17 11:00 98.9 F 75 16 129/71 98 10/03/17 07:55 98.1 F 74 16 98 10/03/17 07:35 98.1 F 74 16 129/76 98 Weight Weight 144 lb 3.2 oz I&O: 10/02/17 10/03/17 10/04/17 06:59 06:59 06:59 Intake Total 1230 580 240 Output Total 1800 Balance 1230 -1220 240 Result Diagrams: 10/01/17 05:48 10/01/17 05:48 Additional Labs: Accuchecks 10/03/17 10/03/17 10/03/17 15:47 11:14 05:42 POC Glucose 170 H 163 H 235 H 10/02/17 20:05 POC Glucose 145 H Phys Exam - Physical Examination Constitutional: NAD Respiratory: no wheezing, no rhonchi Cardiovascular: RRR, no rub Gastrointestinal: soft, non-tender, positive bowel sounds Musculoskeletal: no edema Neurological: moves all 4 limbs Dx/Plan - Plan DVT proph w/heparin, DVT proph w/SCDs IMPRESSION: 1. Rt knee septic arthritis s/p I&D 10/03 2. ESRD on HD 3. HTN 4. DM2 5. Other issues per H&P PLAN: * Atbx per ID * Cont to monitor * AM labs * Dialysis per Nephro * Ortho following * Cont sliding scale Review of Systems - Review of Systems Respiratory: negative: Cough, Dry, Shortness of Breath, Hemoptysis, SOB with Excertion, Pleuritic Pain, Sputum, Wheezing Cardiovascular: negative: chest pain, palpitations, orthopnea, paroxysmal nocturnal dyspnea, edema, light headedness - Medications/Allergies Allergies/Adverse Reactions: Allergies Allergy/AdvReac Type Severity Reaction Status Date / Time No Known Drug Allergies Allergy Verified 03/11/13 14:47 Medications: Current Medications Acetaminophen (Tylenol) 650 mg PO Q4H PRN PRN Reason: Headache/Fever or Pain Hydrocodone Bitart/Acetaminophen ([place] 10/325) 1 tab PO Q4H PRN PRN Reason: Moderate Pain (4-6) Last Admin: 10/03/17 15:31 Dose: 1 tab Al Hydroxide/Mg Hydroxide (Maalox) 30 ml PO Q6H PRN PRN Reason: Heartburn or Indigestion Calcium Carbonate (Tums) 1,000 mg PO Q4H PRN PRN Reason: Heartburn or Indigestion Ciprofloxacin (Cipro) 250 mg PO BID@0600,2000 [facility] Last Admin: 10/03/17 02:31 Dose: Not Given Dextrose/Water (Dextrose 50%) 25 gm SLOW IVP PRN PRN PRN Reason: Hypoglycemia Glucagon (Glucagon) 1 mg IM PRN PRN PRN Reason: Hypoglycemia Heparin Sodium (Porcine) (Heparin) 5,000 units SC BID [facility] Last Admin: 10/03/17 08:02 Dose: Not Given Hydralazine HCl (Apresoline) 10 mg SLOW IVP Q4H PRN PRN Reason: Systolic BP > 180 Dextrose/Water (D5w) 1,000 mls @ 0 mls/hr IV .Q0M PRN; As Directed PRN Reason: Hypoglycemia Vancomycin HCl 1.25 gm/ Sodium (Chloride) 250 mls @ 166.667 mls/hr IVPB .WILLCALL PRN PRN Reason: IF VANC LEVEL <= 5.0 Vancomycin HCl 1 gm/ Device 200 mls @ 200 mls/hr IVPB .WILLCALL PRN PRN Reason: IF VANC LEVEL >5 AND <=10 Vancomycin HCl 750 mg/ Sodium (Chloride) 250 mls @ 250 mls/hr IVPB .WILLCALL PRN PRN Reason: IF VANC LEVEL >10 AND <= 15 Vancomycin HCl 500 mg/ Sodium (Chloride) 100 mls @ 100 mls/hr IVPB .WILLCALL PRN PRN Reason: IF VANC LEVEL >15 AND <=20 Last Admin: 10/01/17 15:41 Dose: 100 mls Insulin Human Lispro (Humalog) 0 units SC .AGGRESSIVE SLIDING PRN PRN Reason: Aggressive Correctional Scale Last Admin: 10/02/17 17:06 Dose: 6 unit Insulin Human Lispro (Humalog) 0 units SC .BEDTIME SLIDING SC PRN PRN Reason: Bedtime Correctional Scale Last Admin: 10/01/17 20:32 Dose: 2 unit Loperamide HCl (Imodium) 2 mg PO PRN PRN PRN Reason: Diarrhea/Loose Stools Magnesium Hydroxide (Milk Of Magnesium) 30 ml PO DAILYPRN PRN PRN Reason: Constipation Miscellaneous Medication (Pharmacy To Dose) 0 each IVPB PRN PRN PRN Reason: VANC Pharmacy to Dose Morphine Sulfate (Morphine) 2 mg SLOW IVP Q4H PRN PRN Reason: Pain Hold Vancomycin For (Level >20) 0 each FS .AT DIALYSIS PRN PRN Reason: IF VANC LEVEL > 20 Ondansetron HCl (Zofran Odt) 4 mg PO Q6H PRN PRN Reason: Nausea/Vomiting Ondansetron HCl (Zofran) 4 mg IVP Q6H PRN PRN Reason: Nausea/Vomiting Saccharomyces Boulardii (Florastor) 250 mg PO DAILY [facility] Last Admin: 10/03/17 08:02 Dose: Not Given Senna (Senokot) 2 tab PO HSPRN PRN PRN Reason: Constipation Last Admin: 10/01/17 08:51 Dose: 2 tab Sodium Chloride (Flush - Normal Saline) 10 ml IVF Q12HR [facility] Last Admin: 10/03/17 08:04 Dose: Not Given Sodium Chloride (Flush - Normal Saline) 10 ml IVF PRN PRN PRN Reason: Saline Flush Vitamin B Complex/Vit C/Folic Acid (Nephro-Gallo Tablet) 1 tab PO DAILY [facility] Last Admin: 10/03/17 08:02 Dose: Not Given Zolpidem Tartrate (Ambien) 5 mg PO HSPRN PRN PRN Reason: Insomnia
[2017-10-03] MEDS ORDERED: traMADol HCl 50 MG TAB PO PRN (18:08)
[2017-10-03] MEDS ORDERED: HYDROcodone/Acetaminophen 10/325 mg Tablet PO PRN (18:09)
[2017-10-03] MEDS: traMADol HCl 50 MG TAB PO PRN (18:32)
[2017-10-03] MEDS: HumaLOG 300 UNITS/3 ML VIAL SC PRN (20:08)
[2017-10-04] MEDS: HYDROcodone/Acetaminophen 10/325 mg Tablet PO PRN ×3 (01:34→20:41)
[2017-10-04] MEDS: Cipro 250 MG TAB PO SCH ×2 (05:33→20:34)
[2017-10-04] MEDS: HumaLOG 300 UNITS/3 ML VIAL SC PRN ×2 (05:35→20:34)
[2017-10-04] MEDS ORDERED: Heparin 10,000 UNITS/ 10 ML VIAL ONE (09:00)
[2017-10-04 09:46] LABS: Vancomycin, Random 8.1 ug/mL (See Comment)
--- NOTE | 2017-10-04 10:30 | PRG ---
DATE OF SERVICE: 10/04/2017 SUBJECTIVE: This is a 47-year-old gentleman being seen for end-stage renal disease. The patient den ies any nausea, vomiting or chest pain. PHYSICAL EXAMINATION: GENERAL: Patient is awake, alert. VITAL SIGNS: Afebrile, pulse 88, breathing at 16, blood pressure 129/78. GENERAL APPEARANCE AND MENTAL STATUS: Fair. HEAD/NECK: Normocephalic, atraumatic. EYES: EOMI. No deformity. EARS: Clear. No ulcers. NOSE: Intact. No lesions. MOUTH: Clear. No discharge. THROAT: Clear. No exudate .LUNGS: Clear. No crackles. CARDIAC: S1, S2. No rub. ABDOMEN: Benign. BS+. GENITALIA/RECTUM: Nazario absent. BACK/EXTREMITIES: Edema 0+ Ulcer-. NEUROLOGICAL: Alert and motor intact. SKIN: Rash- Bruise- LYMPHATICS: Edema- Ulcer-. LABORATORY DATA: None. ASSESSMENT AND RECOMMENDATIONS: 1. Stage 6 chronic kidney disease. We will plan hemodialysis. 2. Hypertension, stable. 3. Anemia, stable. 4. Medications based on GFR are appropriate.
[2017-10-04] MEDS: Heparin 5,000 UNITS/ML VIAL SC SCH ×2 (13:03→20:34)
[2017-10-04] MEDS: Folic Acid/Vit B Comp W-C PO SCH (13:04)
[2017-10-04] MEDS: Saccharomyces boulardii 250 MG CAP PO SCH (13:05)
--- NOTE | 2017-10-04 23:26 | PDOC.PN ---
- Subjective Encounter Start Date: 10/04/17 Encounter Start Time: 18:00 Subjective: nsg notes rev, timbo ovn, pt seen w/ nsg acting as operating room assistant -: no new c/o, pain controlled - Objective Resuscitation Status: Resuscitation Status FULL:Full Resuscitation Vital Signs & Weight: Vital Signs (12 hours) Temp Pulse Resp BP BP Pulse Ox 10/04/17 20:35 98.6 F 88 16 100 10/04/17 19:25 98.6 F 88 16 123/77 100 10/04/17 15:25 98.7 F 89 16 132/78 97 10/04/17 13:14 98.7 F 86 20 100 10/04/17 12:54 98.7 F 86 20 121/74 100 Weight Weight 144 lb 3.2 oz I&O: 10/03/17 10/04/17 10/05/17 06:59 06:59 06:59 Intake Total 580 440 390 Output Total 1800 30 10 Balance -1220 410 380 Result Diagrams: 10/05/17 08:16 10/05/17 08:16 Additional Labs: Accuchecks 10/04/17 10/04/17 10/04/17 19:30 15:37 12:54 POC Glucose 251 H 173 H 123 H 10/04/17 05:30 POC Glucose 303 H Dx/Plan - Plan * DVT proph w/heparin, DVT proph w/SCDs IMPRESSION: 1. Rt knee septic arthritis s/p I&D 10/03 apprec ortho c/s apprec ID C/s cont abx pain controlled 2. ESRD on HD apprec nephro c/s HD as per nephro 3. HTN, stable 4. DM2, stable Review of Systems - Medications/Allergies Allergies/Adverse Reactions: Allergies Allergy/AdvReac Type Severity Reaction Status Date / Time No Known Drug Allergies Allergy Verified 03/11/13 14:47 Medications: Current Medications Acetaminophen (Tylenol) 650 mg PO Q4H PRN PRN Reason: Headache/Fever or Pain Hydrocodone Bitart/Acetaminophen ([place] 10/325) 1 tab PO Q4H PRN PRN Reason: Moderate Pain (4-6) Last Admin: 10/04/17 20:41 Dose: 1 tab Hydrocodone Bitart/Acetaminophen ([place] 10/325) 2 tab PO Q4H PRN PRN Reason: PAIN SCALE 9-10 Last Admin: 10/04/17 05:34 Dose: 2 tab Al Hydroxide/Mg Hydroxide (Maalox) 30 ml PO Q6H PRN PRN Reason: Heartburn or Indigestion Calcium Carbonate (Tums) 1,000 mg PO Q4H PRN PRN Reason: Heartburn or Indigestion Ciprofloxacin (Cipro) 250 mg PO BID@0600,2000 [facility] Last Admin: 10/04/17 20:34 Dose: 250 mg Dextrose/Water (Dextrose 50%) 25 gm SLOW IVP PRN PRN PRN Reason: Hypoglycemia Glucagon (Glucagon) 1 mg IM PRN PRN PRN Reason: Hypoglycemia Heparin Sodium (Porcine) (Heparin) 5,000 units SC BID [facility] Last Admin: 10/04/17 20:34 Dose: 5,000 units Hydralazine HCl (Apresoline) 10 mg SLOW IVP Q4H PRN PRN Reason: Systolic BP > 180 Dextrose/Water (D5w) 1,000 mls @ 0 mls/hr IV .Q0M PRN; As Directed PRN Reason: Hypoglycemia Vancomycin HCl 1.25 gm/ Sodium (Chloride) 250 mls @ 166.667 mls/hr IVPB .WILLCALL PRN PRN Reason: IF VANC LEVEL <= 5.0 Vancomycin HCl 1 gm/ Device 200 mls @ 200 mls/hr IVPB .WILLCALL PRN PRN Reason: IF VANC LEVEL >5 AND <=10 Last Admin: 10/04/17 11:03 Dose: 200 mls Vancomycin HCl 750 mg/ Sodium (Chloride) 250 mls @ 250 mls/hr IVPB .WILLCALL PRN PRN Reason: IF VANC LEVEL >10 AND <= 15 Vancomycin HCl 500 mg/ Sodium (Chloride) 100 mls @ 100 mls/hr IVPB .WILLCALL PRN PRN Reason: IF VANC LEVEL >15 AND <=20 Last Admin: 10/01/17 15:41 Dose: 100 mls Insulin Human Lispro (Humalog) 0 units SC .AGGRESSIVE SLIDING PRN PRN Reason: Aggressive Correctional Scale Last Admin: 10/04/17 05:35 Dose: 9 unit Insulin Human Lispro (Humalog) 0 units SC .BEDTIME SLIDING SC PRN PRN Reason: Bedtime Correctional Scale Last Admin: 02/14/18 20:34 Dose: 3 unit Loperamide HCl (Imodium) 2 mg PO PRN PRN PRN Reason: Diarrhea/Loose Stools Magnesium Hydroxide (Milk Of Magnesium) 30 ml PO DAILYPRN PRN PRN Reason: Constipation Miscellaneous Medication (Pharmacy To Dose) 0 each IVPB PRN PRN PRN Reason: VANC Pharmacy to Dose Morphine Sulfate (Morphine) 2 mg SLOW IVP Q4H PRN PRN Reason: Pain Hold Vancomycin For (Level >20) 0 each FS .AT DIALYSIS PRN PRN Reason: IF VANC LEVEL > 20 Ondansetron HCl (Zofran Odt) 4 mg PO Q6H PRN PRN Reason: Nausea/Vomiting Last Admin: 10/04/17 13:03 Dose: 4 mg Ondansetron HCl (Zofran) 4 mg IVP Q6H PRN PRN Reason: Nausea/Vomiting Saccharomyces Boulardii (Florastor) 250 mg PO DAILY [facility] Last Admin: 10/04/17 13:05 Dose: 250 mg Senna (Senokot) 2 tab PO HSPRN PRN PRN Reason: Constipation Last Admin: 10/01/17 08:51 Dose: 2 tab Sodium Chloride (Flush - Normal Saline) 10 ml IVF Q12HR [facility] Last Admin: 10/04/17 20:29 Dose: Not Given Sodium Chloride (Flush - Normal Saline) 10 ml IVF PRN PRN PRN Reason: Saline Flush Tramadol HCl (Ultram) 50 mg PO Q6H PRN PRN Reason: PAIN SCALE 1-3 Tramadol HCl (Ultram) 100 mg PO Q6H PRN PRN Reason: PAIN SCALE 4-6 Last Admin: 10/03/17 18:32 Dose: 100 mg Vitamin B Complex/Vit C/Folic Acid (Nephro-Gallo Tablet) 1 tab PO DAILY [facility] Last Admin: 10/04/17 13:04 Dose: 1 tab Zolpidem Tartrate (Ambien) 5 mg PO HSPRN PRN PRN Reason: Insomnia
[2017-10-05] MEDS: Cipro 250 MG TAB PO SCH ×2 (06:33→20:02)
[2017-10-05] MEDS: HumaLOG 300 UNITS/3 ML VIAL SC PRN ×3 (06:33→20:01)
[2017-10-05] MEDS: HYDROcodone/Acetaminophen 10/325 mg Tablet PO PRN ×2 (06:53→20:02)
[2017-10-05] MEDS: Folic Acid/Vit B Comp W-C PO SCH (08:44)
[2017-10-05] MEDS: Heparin 5,000 UNITS/ML VIAL SC SCH ×2 (08:44→20:01)
[2017-10-05] MEDS: Saccharomyces boulardii 250 MG CAP PO SCH (08:44)
[2017-10-05 08:50] LABS: Hemoglobin 10.9 g/dL (14.0-18.0)
[2017-10-05 09:06] LABS: Anion Gap 14 mmol/L (10-20); BUN (Urea Nitrogen) 21 mg/dL (8.9-20.6); Calc. Creatinine Clearance 12 mL/min (70-130); Calcium 9.2 mg/dL (7.8-10.44); Carbon Dioxide 28 mmol/L (22-29); Chloride 98 mmol/L (98-107); Estimated GFR-MDRD 8; Glucose 116 mg/dL (70-105); Potassium 4.4 mmol/L (3.5-5.1); Sodium 136 mmol/L (136-145)
--- NOTE | 2017-10-05 16:13 | PRG ---
NEPHROLOGY PROGRESS NOTE DATE OF SERVICE: 10/05/2017 SUBJECTIVE: This is a 47-year-old gentleman being seen for end-stage renal disease. The patient den ies any nausea, vomiting or chest pain. OBJECTIVE: GENERAL: The patient is awake and alert. VITAL SIGNS: Afebrile, pulse 80, breathing at 16 and blood pressure 137/80. HEAD/NECK: Normocephalic. Atraumatic. EYES: EOMI. No deformity. EARS: Clear. No ulcers. NOSE: Intact. No lesions. MOUTH: Clear. No discharge. THROAT: Clear. No exudate. LUNGS: Clear. No crackles. CARDIAC: S1, S2. No rub. ABDOMEN: Benign. BS+. GENITALIA/RECTUM: Nazario absent. BACK/EXTREMITIES: Edema 0+. Ulcer-. NEUROLOGICAL: Alert and motor intact. SKIN: Rash-. Bruise-. LYMPHATICS: Edema-. Ulcer-. LABORATORY DATA: Showed a hemoglobin of 10.9. ASSESSMENT AND RECOMMENDATIONS: 1. Stage 6 chronic kidney disease, continue hemodialysis. 2. Hypertension, stable. 3. Anemia, stable. 4. Medications based on glomerular filtration rate are appropriate.
--- NOTE | 2017-10-05 22:25 | PDOC.PN ---
- Subjective Encounter Start Date: 10/05/17 Encounter Start Time: 10:00 Subjective: nsg notes rev, timbo ovn, no new c/o - Objective Resuscitation Status: Resuscitation Status FULL:Full Resuscitation Vital Signs & Weight: Vital Signs (12 hours) Temp Pulse Resp BP BP Pulse Ox 10/05/17 20:00 99.1 F 83 16 125/76 97 10/05/17 12:05 83 16 145/95 H 10/05/17 11:05 78 16 137/83 Weight Weight 144 lb 3.2 oz I&O: 10/04/17 10/05/17 10/06/17 06:59 06:59 06:59 Intake Total 440 390 60 Output Total 30 10 155 Balance 410 380 -95 Result Diagrams: 10/05/17 08:16 10/05/17 08:16 Additional Labs: Accuchecks 10/05/17 10/05/17 10/05/17 19:59 15:59 11:22 POC Glucose 283 H 96 283 H 10/05/17 05:26 POC Glucose 180 H Phys Exam - Physical Examination Constitutional: NAD HEENT: PERRLA, moist MMs Neck: no nodes, no JVD Respiratory: no wheezing, no rales, no rhonchi, clear to auscultation bilateral Cardiovascular: RRR, no significant murmur, no rub Gastrointestinal: soft, no distention, positive bowel sounds Musculoskeletal: pulses present Neurological: moves all 4 limbs Psychiatric: normal affect, A&O x 3 Dx/Plan - Plan * DVT proph w/heparin, DVT proph w/SCDs IMPRESSION: 1. Rt knee septic arthritis s/p I&D 10/[address] apprec ortho c/s apprec ID c/s re; abx 2. ESRD on HD apprec nephrology c/s 3. HTN stable 4. DM2 SSI Review of Systems - Medications/Allergies Allergies/Adverse Reactions: Allergies Allergy/AdvReac Type Severity Reaction Status Date / Time No Known Drug Allergies Allergy Verified 03/11/13 14:47 Medications: Current Medications Acetaminophen (Tylenol) 650 mg PO Q4H PRN PRN Reason: Headache/Fever or Pain Hydrocodone Bitart/Acetaminophen ([place] 10/325) 1 tab PO Q4H PRN PRN Reason: Moderate Pain (4-6) Last Admin: 10/05/17 20:02 Dose: 1 tab Hydrocodone Bitart/Acetaminophen ([place] 10/325) 2 tab PO Q4H PRN PRN Reason: PAIN SCALE 9-10 Last Admin: 10/04/17 05:34 Dose: 2 tab Al Hydroxide/Mg Hydroxide (Maalox) 30 ml PO Q6H PRN PRN Reason: Heartburn or Indigestion Calcium Carbonate (Tums) 1,000 mg PO Q4H PRN PRN Reason: Heartburn or Indigestion Ciprofloxacin (Cipro) 250 mg PO BID@0600,2000 [facility] Last Admin: 10/05/17 20:02 Dose: 250 mg Dextrose/Water (Dextrose 50%) 25 gm SLOW IVP PRN PRN PRN Reason: Hypoglycemia Glucagon (Glucagon) 1 mg IM PRN PRN PRN Reason: Hypoglycemia Heparin Sodium (Porcine) (Heparin) 5,000 units SC BID [facility] Last Admin: 10/05/17 20:01 Dose: 5,000 units Hydralazine HCl (Apresoline) 10 mg SLOW IVP Q4H PRN PRN Reason: Systolic BP > 180 Dextrose/Water (D5w) 1,000 mls @ 0 mls/hr IV .Q0M PRN; As Directed PRN Reason: Hypoglycemia Vancomycin HCl 1.25 gm/ Sodium (Chloride) 250 mls @ 166.667 mls/hr IVPB .WILLCALL PRN PRN Reason: IF VANC LEVEL <= 5.0 Vancomycin HCl 1 gm/ Device 200 mls @ 200 mls/hr IVPB .WILLCALL PRN PRN Reason: IF VANC LEVEL >5 AND <=10 Last Admin: 10/04/17 11:03 Dose: 200 mls Vancomycin HCl 750 mg/ Sodium (Chloride) 250 mls @ 250 mls/hr IVPB .WILLCALL PRN PRN Reason: IF VANC LEVEL >10 AND <= 15 Vancomycin HCl 500 mg/ Sodium (Chloride) 100 mls @ 100 mls/hr IVPB .WILLCALL PRN PRN Reason: IF VANC LEVEL >15 AND <=20 Last Admin: 10/01/17 15:41 Dose: 100 mls Insulin Human Lispro (Humalog) 0 units SC .AGGRESSIVE SLIDING PRN PRN Reason: Aggressive Correctional Scale Last Admin: 10/05/17 11:31 Dose: 9 unit Insulin Human Lispro (Humalog) 0 units SC .BEDTIME SLIDING SC PRN PRN Reason: Bedtime Correctional Scale Last Admin: 10/05/17 20:01 Dose: 3 unit Loperamide HCl (Imodium) 2 mg PO PRN PRN PRN Reason: Diarrhea/Loose Stools Magnesium Hydroxide (Milk Of Magnesium) 30 ml PO DAILYPRN PRN PRN Reason: Constipation Miscellaneous Medication (Pharmacy To Dose) 0 each IVPB PRN PRN PRN Reason: VANC Pharmacy to Dose Morphine Sulfate (Morphine) 2 mg SLOW IVP Q4H PRN PRN Reason: Pain Hold Vancomycin For (Level >20) 0 each FS .AT DIALYSIS PRN PRN Reason: IF VANC LEVEL > 20 Ondansetron HCl (Zofran Odt) 4 mg PO Q6H PRN PRN Reason: Nausea/Vomiting Last Admin: 10/04/17 13:03 Dose: 4 mg Ondansetron HCl (Zofran) 4 mg IVP Q6H PRN PRN Reason: Nausea/Vomiting Saccharomyces Boulardii (Florastor) 250 mg PO DAILY [facility] Last Admin: 10/05/17 08:44 Dose: 250 mg Senna (Senokot) 2 tab PO HSPRN PRN PRN Reason: Constipation Last Admin: 10/01/17 08:51 Dose: 2 tab Sodium Chloride (Flush - Normal Saline) 10 ml IVF Q12HR [facility] Last Admin: 10/05/17 20:03 Dose: Not Given Sodium Chloride (Flush - Normal Saline) 10 ml IVF PRN PRN PRN Reason: Saline Flush Temazepam (Restoril) 15 mg PO HSPRN PRN PRN Reason: Insomnia Tramadol HCl (Ultram) 50 mg PO Q6H PRN PRN Reason: PAIN SCALE 1-3 Tramadol HCl (Ultram) 100 mg PO Q6H PRN PRN Reason: PAIN SCALE 4-6 Last Admin: 10/03/17 18:32 Dose: 100 mg Vitamin B Complex/Vit C/Folic Acid (Nephro-Gallo Tablet) 1 tab PO DAILY [facility] Last Admin: 10/05/17 08:44 Dose: 1 tab Zolpidem Tartrate (Ambien) 5 mg PO HSPRN PRN PRN Reason: Insomnia Last Admin: 10/04/17 23:43 Dose: 5 mg
[2017-10-05] MEDS: traMADol HCl 50 MG TAB PO PRN (23:36)
[2017-10-05] MEDS: Temazepam 15 MG CAP PO PRN (23:37)
[2017-10-06] MEDS: Cipro 250 MG TAB PO SCH ×2 (06:20→20:10)
[2017-10-06] MEDS: HumaLOG 300 UNITS/3 ML VIAL SC PRN ×2 (06:21→16:24)
--- NOTE | 2017-10-06 09:38 | PRG ---
DATE OF SERVICE: 10/06/2017 SUBJECTIVE: This is a 47-year-old gentleman being seen for end-stage renal disease. The patient den ies any nausea, vomiting or chest pain. PHYSICAL EXAMINATION: GENERAL: Patient is awake, alert. VITAL SIGNS: Afebrile, pulse 75, breathing 16, blood pressure 140/59. OBJECTIVE: See above. Awake, alert, in no acute distress. GENERAL APPEARANCE AND MENTAL STATUS: Fair. HEAD/NECK: Normocephalic. Atraumatic. EYES: EOMI. No deformity. EARS: Clear. No ulcers. NOSE: Intact. No lesions. MOUTH: Clear. No discharge. THROAT: Clear. No exudate. LUNGS: Clear. No crackles. CARDIAC: S1, S2. No rub. ABDOMEN: Benign. BS+. GENITALIA/RECTUM: Nazario absent. BACK/EXTREMITIES: Edema 0+ Ulcer- NEUROLOGICAL: Alert and motor intact. SKIN: Rash- Bruise- LYMPHATICS: Edema- Ulcer- LABORATORY: Hemoglobin 10.9. ASSESSMENT AND RECOMMENDATIONS: 1. Stage 6 chronic kidney disease, continue on hemodialysis. 2. Hypertension, stable. 3. Anemia, stable. 4. Medications based on glomerular filtration rate are appropriate.
[2017-10-06 11:05] LABS: Vancomycin, Random 10.6 ug/mL (See Comment)
[2017-10-06] MEDS: Folic Acid/Vit B Comp W-C PO SCH (13:47)
[2017-10-06] MEDS: Heparin 5,000 UNITS/ML VIAL SC SCH ×2 (13:47→20:10)
[2017-10-06] MEDS: Saccharomyces boulardii 250 MG CAP PO SCH (13:47)
[2017-10-06] MEDS: traMADol HCl 50 MG TAB PO PRN (20:09)
[2017-10-06] MEDS: Temazepam 15 MG CAP PO PRN (22:09)
--- NOTE | 2017-10-06 22:16 | PDOC.PN ---
- Subjective Encounter Start Date: 10/06/17 Encounter Start Time: 22:16 Subjective: nsg notes rev, timbo ovn - Objective Resuscitation Status: Resuscitation Status FULL:Full Resuscitation Vital Signs & Weight: Vital Signs (12 hours) Temp Pulse Resp BP BP BP Pulse Ox 10/06/17 19:25 97.2 F L 76 20 124/78 98 10/06/17 16:00 98.4 F 78 18 127/80 97 10/06/17 13:55 98.2 F 87 20 100 10/06/17 13:54 98.2 F 87 20 111/68 100 10/06/17 13:22 98.2 F 87 18 111/68 100 Weight Weight 144 lb 3.2 oz I&O: 10/05/17 10/06/17 10/07/17 06:59 06:59 06:59 Intake Total 390 540 850 Output Total 10 170 6 Balance 380 370 844 Result Diagrams: 10/05/17 08:16 10/05/17 08:16 Additional Labs: Accuchecks 10/06/17 10/06/17 10/06/17 19:30 16:16 14:06 POC Glucose 108 317 H 276 H 10/06/17 06:20 POC Glucose 252 H Phys Exam - Physical Examination HEENT: PERRLA, moist MMs Respiratory: no wheezing, no rales, no rhonchi, clear to auscultation bilateral Cardiovascular: RRR, no significant murmur, no rub Gastrointestinal: soft, non-tender, positive bowel sounds Musculoskeletal: no edema, pulses present Psychiatric: normal affect Dx/Plan - Plan * IMPRESSION: 1. Rt knee septic arthritis s/p I&D 10/[address] apprec ortho c/s apprec ID c/s re; abx duration 2. ESRD on HD apprec nephrology c/s 3. HTN stable 4. DM2 SSI discharge planning Review of Systems - Medications/Allergies Allergies/Adverse Reactions: Allergies Allergy/AdvReac Type Severity Reaction Status Date / Time No Known Drug Allergies Allergy Verified 03/11/13 14:47 Medications: Current Medications Acetaminophen (Tylenol) 650 mg PO Q4H PRN PRN Reason: Headache/Fever or Pain Hydrocodone Bitart/Acetaminophen ([place] 10/325) 1 tab PO Q4H PRN PRN Reason: Moderate Pain (4-6) Last Admin: 10/05/17 20:02 Dose: 1 tab Hydrocodone Bitart/Acetaminophen ([place] 10/325) 2 tab PO Q4H PRN PRN Reason: PAIN SCALE 9-10 Last Admin: 10/04/17 05:34 Dose: 2 tab Al Hydroxide/Mg Hydroxide (Maalox) 30 ml PO Q6H PRN PRN Reason: Heartburn or Indigestion Calcium Carbonate (Tums) 1,000 mg PO Q4H PRN PRN Reason: Heartburn or Indigestion Ciprofloxacin (Cipro) 250 mg PO BID@0600,2000 [facility] Last Admin: 10/06/17 20:10 Dose: 250 mg Dextrose/Water (Dextrose 50%) 25 gm SLOW IVP PRN PRN PRN Reason: Hypoglycemia Glucagon (Glucagon) 1 mg IM PRN PRN PRN Reason: Hypoglycemia Heparin Sodium (Porcine) (Heparin) 5,000 units SC BID [facility] Last Admin: 10/06/17 20:10 Dose: 5,000 units Hydralazine HCl (Apresoline) 10 mg SLOW IVP Q4H PRN PRN Reason: Systolic BP > 180 Dextrose/Water (D5w) 1,000 mls @ 0 mls/hr IV .Q0M PRN; As Directed PRN Reason: Hypoglycemia Vancomycin HCl 1.25 gm/ Sodium (Chloride) 250 mls @ 166.667 mls/hr IVPB .WILLCALL PRN PRN Reason: IF VANC LEVEL <= 5.0 Vancomycin HCl 1 gm/ Device 200 mls @ 200 mls/hr IVPB .WILLCALL PRN PRN Reason: IF VANC LEVEL >5 AND <=10 Last Admin: 10/04/17 11:03 Dose: 200 mls Vancomycin HCl 750 mg/ Sodium (Chloride) 250 mls @ 250 mls/hr IVPB .WILLCALL PRN PRN Reason: IF VANC LEVEL >10 AND <= 15 Last Admin: 10/06/17 12:04 Dose: 250 mls Vancomycin HCl 500 mg/ Sodium (Chloride) 100 mls @ 100 mls/hr IVPB .WILLCALL PRN PRN Reason: IF VANC LEVEL >15 AND <=20 Last Admin: 10/01/17 15:41 Dose: 100 mls Insulin Human Lispro (Humalog) 0 units SC .AGGRESSIVE SLIDING PRN PRN Reason: Aggressive Correctional Scale Last Admin: 10/06/17 16:24 Dose: 11 unit Insulin Human Lispro (Humalog) 0 units SC .BEDTIME SLIDING SC PRN PRN Reason: Bedtime Correctional Scale Last Admin: 10/05/17 20:01 Dose: 3 unit Loperamide HCl (Imodium) 2 mg PO PRN PRN PRN Reason: Diarrhea/Loose Stools Magnesium Hydroxide (Milk Of Magnesium) 30 ml PO DAILYPRN PRN PRN Reason: Constipation Miscellaneous Medication (Pharmacy To Dose) 0 each IVPB PRN PRN PRN Reason: VANC Pharmacy to Dose Morphine Sulfate (Morphine) 2 mg SLOW IVP Q4H PRN PRN Reason: Pain Hold Vancomycin For (Level >20) 0 each FS .AT DIALYSIS PRN PRN Reason: IF VANC LEVEL > 20 Ondansetron HCl (Zofran Odt) 4 mg PO Q6H PRN PRN Reason: Nausea/Vomiting Last Admin: 10/04/17 13:03 Dose: 4 mg Ondansetron HCl (Zofran) 4 mg IVP Q6H PRN PRN Reason: Nausea/Vomiting Saccharomyces Boulardii (Florastor) 250 mg PO DAILY [facility] Last Admin: 10/06/17 13:47 Dose: 250 mg Senna (Senokot) 2 tab PO HSPRN PRN PRN Reason: Constipation Last Admin: 10/01/17 08:51 Dose: 2 tab Sodium Chloride (Flush - Normal Saline) 10 ml IVF Q12HR [facility] Last Admin: 10/06/17 20:10 Dose: Not Given Sodium Chloride (Flush - Normal Saline) 10 ml IVF PRN PRN PRN Reason: Saline Flush Temazepam (Restoril) 15 mg PO HSPRN PRN PRN Reason: Insomnia Last Admin: 10/06/17 22:09 Dose: 15 mg Tramadol HCl (Ultram) 50 mg PO Q6H PRN PRN Reason: PAIN SCALE 1-3 Tramadol HCl (Ultram) 100 mg PO Q6H PRN PRN Reason: PAIN SCALE 4-6 Last Admin: 10/06/17 20:09 Dose: 100 mg Vitamin B Complex/Vit C/Folic Acid (Nephro-Gallo Tablet) 1 tab PO DAILY [facility] Last Admin: 10/06/17 13:47 Dose: 1 tab Zolpidem Tartrate (Ambien) 5 mg PO HSPRN PRN PRN Reason: Insomnia Last Admin: 10/04/17 23:43 Dose: 5 mg
[2017-10-07] MEDS: Cipro 250 MG TAB PO SCH ×2 (05:43→20:56)
[2017-10-07] MEDS: HumaLOG 300 UNITS/3 ML VIAL SC PRN ×3 (05:47→20:55)
[2017-10-07] MEDS: traMADol HCl 50 MG TAB PO PRN (06:38)
[2017-10-07] MEDS: Saccharomyces boulardii 250 MG CAP PO SCH (08:41)
[2017-10-07] MEDS: Folic Acid/Vit B Comp W-C PO SCH (08:41)
[2017-10-07] MEDS: Heparin 5,000 UNITS/ML VIAL SC SCH ×2 (08:41→20:56)
--- NOTE | 2017-10-07 10:24 | PRG ---
DATE OF SERVICE: 10/07/2017 SUBJECTIVE: This is a 47-year-old gentleman being seen for end-stage renal disease. The patient den ies any nausea, vomiting or chest pain. PHYSICAL EXAMINATION: GENERAL: Patient is awake, alert. VITAL SIGNS: Afebrile, pulse 70, breathing at 16, blood pressure 137/80. HEAD/NECK: Normocephalic. Atraumatic. EYES: EOMI. No deformity. EARS: Clear. No ulcers. NOSE: Intact. No lesions. MOUTH: Clear. No discharge. THROAT: Clear. No exudate. LUNGS: Clear. No crackles. CARDIAC: S1, S2. No rub. ABDOMEN: Benign. BS+. GENITALIA/RECTUM: Nazario absent. BACK/EXTREMITIES: Edema 0+ Ulcer- NEUROLOGICAL: Alert and motor intact. SKIN: Rash- Bruise- LYMPHATICS: Edema- Ulcer- LABORATORY DATA: None. ASSESSMENT AND PLAN: 1. Stage 6 chronic kidney disease. Continue hemodialysis. 2. Hypertension, stable. 3. Anemia, stable. 4. Medications based on glomerular filtration rate are appropriate.
--- NOTE | 2017-10-07 20:33 | PDOC.PN ---
- Subjective Encounter Start Date: 10/07/17 Encounter Start Time: 13:00 Subjective: nsg notes rev, timbo ovn, no new c/o self removed vac ovn, no new c/o -: denies any pain or fevers - Objective Resuscitation Status: Resuscitation Status FULL:Full Resuscitation Vital Signs & Weight: Vital Signs (12 hours) Temp Pulse Resp BP Pulse Ox 10/07/17 16:30 98.1 F 72 20 141/92 H 93 L 10/07/17 11:50 98.3 F 73 20 153/95 H 93 L Weight Weight 144 lb 3.2 oz I&O: 10/06/17 10/07/17 10/08/17 06:59 06:59 06:59 Intake Total 540 1330 910 Output Total 170 6 Balance 370 1324 910 Result Diagrams: 10/05/17 08:16 10/05/17 08:16 Additional Labs: Accuchecks 10/07/17 10/07/17 10/07/17 16:18 11:30 05:45 POC Glucose 198 H 159 H 291 H 10/06/17 19:30 POC Glucose 108 Phys Exam - Physical Examination Constitutional: NAD HEENT: PERRLA, moist MMs, sclera anicteric Neck: no nodes Respiratory: no wheezing, no rales, no rhonchi, clear to auscultation bilateral Cardiovascular: RRR, no significant murmur, no rub Musculoskeletal: no edema, pulses present Neurological: moves all 4 limbs Dx/Plan - Plan * 1. Rt knee septic arthritis s/p I&D 10/03 pending final surgical cx results apprec ortho c/s apprec ID c/s re; abx (vanocmycin) 2. ESRD on HD apprec nephrology c/s - d/w Dr. Echols 3. HTN stable 4. DM2 SSI discharge planning: pending culture results, tailor abx need and if IV abx needed, t/c admin with HD - pt has HD at [facility] Review of Systems - Medications/Allergies Allergies/Adverse Reactions: Allergies Allergy/AdvReac Type Severity Reaction Status Date / Time No Known Drug Allergies Allergy Verified 03/11/13 14:47 Medications: Current Medications Acetaminophen (Tylenol) 650 mg PO Q4H PRN PRN Reason: Headache/Fever or Pain Hydrocodone Bitart/Acetaminophen ([place] 10/325) 1 tab PO Q4H PRN PRN Reason: Moderate Pain (4-6) Last Admin: 10/05/17 20:02 Dose: 1 tab Hydrocodone Bitart/Acetaminophen ([place] 10/325) 2 tab PO Q4H PRN PRN Reason: PAIN SCALE 9-10 Last Admin: 10/04/17 05:34 Dose: 2 tab Al Hydroxide/Mg Hydroxide (Maalox) 30 ml PO Q6H PRN PRN Reason: Heartburn or Indigestion Calcium Carbonate (Tums) 1,000 mg PO Q4H PRN PRN Reason: Heartburn or Indigestion Ciprofloxacin (Cipro) 250 mg PO BID@0600,2000 [facility] Last Admin: 10/07/17 05:43 Dose: 250 mg Dextrose/Water (Dextrose 50%) 25 gm SLOW IVP PRN PRN PRN Reason: Hypoglycemia Glucagon (Glucagon) 1 mg IM PRN PRN PRN Reason: Hypoglycemia Heparin Sodium (Porcine) (Heparin) 5,000 units SC BID [facility] Last Admin: 10/07/17 08:41 Dose: 5,000 units Hydralazine HCl (Apresoline) 10 mg SLOW IVP Q4H PRN PRN Reason: Systolic BP > 180 Dextrose/Water (D5w) 1,000 mls @ 0 mls/hr IV .Q0M PRN; As Directed PRN Reason: Hypoglycemia Vancomycin HCl 1.25 gm/ Sodium (Chloride) 250 mls @ 166.667 mls/hr IVPB .WILLCALL PRN PRN Reason: IF VANC LEVEL <= 5.0 Vancomycin HCl 1 gm/ Device 200 mls @ 200 mls/hr IVPB .WILLCALL PRN PRN Reason: IF VANC LEVEL >5 AND <=10 Last Admin: 10/04/17 11:03 Dose: 200 mls Vancomycin HCl 750 mg/ Sodium (Chloride) 250 mls @ 250 mls/hr IVPB .WILLCALL PRN PRN Reason: IF VANC LEVEL >10 AND <= 15 Last Admin: 10/06/17 12:04 Dose: 250 mls Vancomycin HCl 500 mg/ Sodium (Chloride) 100 mls @ 100 mls/hr IVPB .WILLCALL PRN PRN Reason: IF VANC LEVEL >15 AND <=20 Last Admin: 02/11/18 15:41 Dose: 100 mls Insulin Human Lispro (Humalog) 0 units SC .AGGRESSIVE SLIDING PRN PRN Reason: Aggressive Correctional Scale Last Admin: 10/07/17 17:11 Dose: 3 unit Insulin Human Lispro (Humalog) 0 units SC .BEDTIME SLIDING SC PRN PRN Reason: Bedtime Correctional Scale Last Admin: 10/05/17 20:01 Dose: 3 unit Loperamide HCl (Imodium) 2 mg PO PRN PRN PRN Reason: Diarrhea/Loose Stools Magnesium Hydroxide (Milk Of Magnesium) 30 ml PO DAILYPRN PRN PRN Reason: Constipation Miscellaneous Medication (Pharmacy To Dose) 0 each IVPB PRN PRN PRN Reason: VANC Pharmacy to Dose Morphine Sulfate (Morphine) 2 mg SLOW IVP Q4H PRN PRN Reason: Pain Hold Vancomycin For (Level >20) 0 each FS .AT DIALYSIS PRN PRN Reason: IF VANC LEVEL > 20 Ondansetron HCl (Zofran Odt) 4 mg PO Q6H PRN PRN Reason: Nausea/Vomiting Last Admin: 10/04/17 13:03 Dose: 4 mg Ondansetron HCl (Zofran) 4 mg IVP Q6H PRN PRN Reason: Nausea/Vomiting Saccharomyces Boulardii (Florastor) 250 mg PO DAILY [facility] Last Admin: 10/07/17 08:41 Dose: 250 mg Senna (Senokot) 2 tab PO HSPRN PRN PRN Reason: Constipation Last Admin: 10/01/17 08:51 Dose: 2 tab Sodium Chloride (Flush - Normal Saline) 10 ml IVF Q12HR [facility] Last Admin: 10/07/17 13:17 Dose: Not Given Sodium Chloride (Flush - Normal Saline) 10 ml IVF PRN PRN PRN Reason: Saline Flush Temazepam (Restoril) 15 mg PO HSPRN PRN PRN Reason: Insomnia Last Admin: 10/06/17 22:09 Dose: 15 mg Tramadol HCl (Ultram) 50 mg PO Q6H PRN PRN Reason: PAIN SCALE 1-3 Tramadol HCl (Ultram) 100 mg PO Q6H PRN PRN Reason: PAIN SCALE 4-6 Last Admin: 10/07/17 06:38 Dose: 100 mg Vitamin B Complex/Vit C/Folic Acid (Nephro-Gallo Tablet) 1 tab PO DAILY [facility] Last Admin: 10/07/17 08:41 Dose: 1 tab Zolpidem Tartrate (Ambien) 5 mg PO HSPRN PRN PRN Reason: Insomnia Last Admin: 10/04/17 23:43 Dose: 5 mg
[2017-10-07] MEDS: HYDROcodone/Acetaminophen 10/325 mg Tablet PO PRN (20:56)
[2017-10-07] MEDS: Temazepam 15 MG CAP PO PRN (20:56)
[2017-10-08] MEDS: Cipro 250 MG TAB PO SCH (05:39)
[2017-10-08] MEDS: HumaLOG 300 UNITS/3 ML VIAL SC PRN ×2 (05:40→16:20)
[2017-10-08] MEDS: Saccharomyces boulardii 250 MG CAP PO SCH (08:17)
[2017-10-08] MEDS: Folic Acid/Vit B Comp W-C PO SCH (08:17)
[2017-10-08] MEDS: Heparin 5,000 UNITS/ML VIAL SC SCH ×2 (08:17→21:11)
--- NOTE | 2017-10-08 09:54 | PRG ---
DATE OF SERVICE: 10/08/2017 SUBJECTIVE: This is a 47-year-old gentleman being seen for end-stage renal disease. Patient denies any nausea, vomiting or chest pain. PHYSICAL EXAMINATION: GENERAL: Patient is awake, alert. VITAL SIGNS: Afebrile, pulse 73, breathing at 16, blood pressure 133/86. GENERAL APPEARANCE AND MENTAL STATUS: Fair. HEAD/NECK: Normocephalic, atraumatic. EYES: EOMI. No deformity. EARS: Clear. No ulcers. NOSE: Intact. No lesions. MOUTH: Clear. No discharge. THROAT: Clear. No exudate. LUNGS: Clear. No crackles. CARDIAC: S1, S2. No rub. ABDOMEN: Benign. BS+. GENITALIA/RECTUM: Nazario absent. BACK/EXTREMITIES: Edema 0+ Ulcer-. NEUROLOGICAL: Alert and motor intact. SKIN: Rash- Bruise- LYMPHATICS: Edema- Ulcer-. LABORATORY DATA: Show hemoglobin 10.9. ASSESSMENT AND RECOMMENDATIONS: 1. Stage 6 chronic kidney disease, continue on hemodialysis. 2. Hypertension, stable. 3. Anemia, stable. 4. Septic arthritis. Management per primary team. The patient can get antibiotics as an outpatient .
--- NOTE | 2017-10-08 17:28 | PRG ---
DATE OF SERVICE: 10/08/2017 SUBJECTIVE: The patient was seen and examined at bedside. He has some pain in his right knee, espec ially when he puts pressure on it and he walks. Otherwise, he feels significantly better. OBJECTIVE: VITAL SIGNS: Blood pressure is 154/91, pulse is 66, temperature is 98.1, respiratory rate is 20, and pulse oximetry is 95% on room air. HEENT: Head is atraumatic, normocephalic. Eyes are PERRLA. Sclerae are nonicteric. Oral mucosa is moist. NECK: Supple. LUNGS: Clear. HEART: S1, S2 normal, no S3, no S4, no any murmur. ABDOMEN: Soft, nontender. Bowel sounds are present. No organomegaly. EXTREMITIES: Right knee is wrapped with Tho wrap. There is no swelling below and above the area. NEUROLOGIC: He is alert and oriented x4. There are not any motor or sensory deficits. Cranial nerv es are intact. LABORATORY DATA: None. IMPRESSION: 1. Right knee septic arthritis, status post incision and drainage on 10/03/2017. Final surgical cul ture is also negative. 2. End-stage renal disease, on hemodialysis, managed by Dr. Echols. 3. Hypertension, stable. 4. Diabetes mellitus, relatively well controlled. PLAN: Tomorrow, we are going to have bilingual patient support caseworker to arrange for vancomycin IV therapy at the dialys is unit until 11/24/2017 and then transition to oral Keflex 250 mg twice a day, definitely does per Tanmay Sahu' recommendation and that is the reason why he is still in the hospital. So for now, we will continue current regimen.
[2017-10-08] MEDS: Temazepam 15 MG CAP PO PRN (21:11)
[2017-10-08] MEDS: HYDROcodone/Acetaminophen 10/325 mg Tablet PO PRN (21:12)
[2017-10-09] MEDS: HumaLOG 300 UNITS/3 ML VIAL SC PRN ×3 (05:51→20:57)
[2017-10-09 07:34] LABS: Vancomycin, Random 14.1 ug/mL (See Comment)
[2017-10-09] MEDS: Folic Acid/Vit B Comp W-C PO SCH (08:38)
[2017-10-09] MEDS: Heparin 5,000 UNITS/ML VIAL SC SCH ×2 (08:38→20:56)
[2017-10-09] MEDS: Saccharomyces boulardii 250 MG CAP PO SCH (08:38)
[2017-10-09] MEDS ORDERED: diphenhydrAMINE 12.5 MG/5 ML UDCUP PO SCH (11:30)
--- NOTE | 2017-10-09 13:08 | PDOC.PN ---
- Subjective Encounter Start Date: 10/09/17 Encounter Start Time: 13:07 Subjective: No new complaints. Reports pain is well controlled. -: No acute events overnight. - Objective Resuscitation Status: Resuscitation Status FULL:Full Resuscitation MAR Reviewed: Yes Vital Signs & Weight: Vital Signs (12 hours) Temp Pulse Resp BP BP Pulse Ox 10/09/17 11:45 97.3 F L 82 18 179/97 H 92 L 10/09/17 08:00 97.3 F L 74 14 99 10/09/17 07:30 97.3 F L 74 14 178/106 H 99 10/09/17 04:00 97 F L 81 18 122/86 95 10/09/17 02:03 98 Weight Weight 144 lb 3.2 oz I&O: 10/08/17 10/09/17 10/10/17 06:59 06:59 06:59 Intake Total 970 1070 Balance 970 1070 Result Diagrams: 10/05/17 08:16 10/05/17 08:16 Additional Labs: Accuchecks 10/09/17 10/09/17 10/08/17 12:05 04:45 21:16 POC Glucose 195 H 239 H 139 H 10/08/17 15:47 POC Glucose 202 H Phys Exam - Physical Examination Constitutional: NAD HEENT: PERRLA, sclera anicteric, oral pharynx no lesions Neck: supple, full ROM Respiratory: no wheezing, no rales, no rhonchi, clear to auscultation bilateral Cardiovascular: RRR, no significant murmur, no rub Gastrointestinal: soft, non-tender, no distention, positive bowel sounds Musculoskeletal: no edema, pulses present R knee covered in brace and dressing- clean and dry. Neurological: non-focal, moves all 4 limbs Psychiatric: normal affect, A&O x 3 Skin: no rash, normal turgor Dx/Plan (1) Diabetes type 2, controlled Code(s): E11.9 - TYPE 2 DIABETES MELLITUS WITHOUT COMPLICATIONS Status: Chronic Qualifiers: Diabetes mellitus complication status: with kidney complications Diabetes mellitus complication detail: with chronic kidney disease Diabetes mellitus senior care insulin use: without manager long term care use Chronic kidney disease stage: on chronic dialysis Qualified Code(s): E11.22 - Type 2 diabetes mellitus with diabetic chronic kidney disease; N18.6 - End stage renal disease; N18.6 - End stage renal disease; N18.6 - End stage renal disease; N18.6 - End stage renal disease; Z99.2 - Dependence on renal dialysis; Z99.2 - Dependence on renal dialysis; Z99.2 - Dependence on renal dialysis; Z99.2 - Dependence on renal dialysis (2) Septic arthritis Status: Acute Qualifiers: Septic arthritis location: knee Septic arthritis organism: due to unspecified organism Laterality: right Qualified Code(s): M00.9 - Pyogenic arthritis, unspecified Comment: Cultures negative. For manager long term care IV abx tx- Vanc o end 12/06 an then oral Keflez 250 mg BID (3) Hypertension Code(s): I10 - ESSENTIAL (PRIMARY) HYPERTENSION Status: Chronic Qualifiers: Hypertension type: essential hypertension (4) ESRD (end stage renal disease) on dialysis Code(s): N18.6 - END STAGE RENAL DISEASE; Z99.2 - DEPENDENCE ON RENAL DIALYSIS Status: Chronic - Plan cont current plan of care, continue antibiotics, PT/OT, social science manager Coninue IV vancomycin -: HD per nephrology -: CM to arrange for home IV antibiotics * .
--- NOTE | 2017-10-09 17:47 | PRG ---
DATE OF SERVICE: 10/09/2017 SUBJECTIVE: Patient was seen and examined at bedside and overnight events noted. Patient denies any shortness of breath or chest pain or palpitation. No history of nausea or vomiting or diarrhea or f ever or chills or cramps. OBJECTIVE: GENERAL: This is a well-built male in no apparent distress. VITAL SIGNS: Temperature 97.3, pulse 82, respiratory rate 18 and blood pressure 122/69. HEENT: Atraumatic, normocephalic. Oral mucosa is moist. NECK: Supple. CARDIOVASCULAR: S1, S2 heard. Rate and rhythm regular. RESPIRATORY: Clear to auscultation. GASTROINTESTINAL: Abdomen is soft. MUSCULOSKELETAL: No tenderness. No edema. DERMATOLOGIC: No skin rash. NEUROLOGIC: Alert and awake and oriented x3. No focal neurologic deficits. Moving all the extremiti es. PSYCHIATRIC: Mood and affect normal. LABORATORY DATA: No labs done today. ASSESSMENT AND PLAN: 1. End-stage renal disease. The patient was seen during dialysis. Continue on dialysis Monday, Mon and Monday. 2. Hypertension. 3. Anemia, stable. 4. Edema, controlled. Plan is to continue on dialysis as tolerated. The patient was seen during dialysis today.
[2017-10-09] MEDS: HYDROcodone/Acetaminophen 10/325 mg Tablet PO PRN (18:59)
[2017-10-09] MEDS ORDERED: Fluticasone Propionate Nasal Spray 16 gm Bottle NASAL SCH (19:30)
[2017-10-09] MEDS: Temazepam 15 MG CAP PO PRN (20:57)
[2017-10-09] MEDS: traMADol HCl 50 MG TAB PO PRN (20:58)
[2017-10-10] MEDS: HumaLOG 300 UNITS/3 ML VIAL SC PRN (05:45)
[2017-10-10 06:12] LABS: Mean Corpuscular HGB CONC 32.8 g/dL (32.0-36.0); Mean Corpuscular Hemoglobin 30.4 pg (27.0-31.0); Mean Corpuscular Volume 92.6 fl (80.0-94.0); Mean Platelet Volume 6.3 fL (7.4-10.4); Platelet Count 429 thou/uL (130-400); RBC Distribution Width 12.6 % (11.5-14.5); Red Blood Cell (RBC) Count 3.28 mill/uL (4.70-6.10)
[2017-10-10 06:40] LABS: Anion Gap 14 mmol/L (10-20); BUN (Urea Nitrogen) 28 mg/dL (8.9-20.6); Calc. Creatinine Clearance 12 mL/min (70-130); Calcium 8.2 mg/dL (7.8-10.44); Carbon Dioxide 27 mmol/L (22-29); Chloride 98 mmol/L (98-107); Estimated GFR-MDRD 9; Glucose 284 mg/dL (70-105); Potassium 4.7 mmol/L (3.5-5.1); Sodium 134 mmol/L (136-145)
[2017-10-10] MEDS: Saccharomyces boulardii 250 MG CAP PO SCH (08:51)
[2017-10-10] MEDS: Folic Acid/Vit B Comp W-C PO SCH (08:51)
[2017-10-10] MEDS: Heparin 5,000 UNITS/ML VIAL SC SCH (08:51)
[2017-10-10] MEDS: traMADol HCl 50 MG TAB PO PRN (08:53)
[2017-10-10 12:15] VITALS: BP 169/101; TEMP 97.8
--- NOTE | 2017-10-10 14:37 | PRG ---
DATE OF SERVICE: 10/10/2017 SUBJECTIVE: Patient was seen and examined at bedside and overnight events noted. Patient denies any shortness of breath or chest pain or palpitation. No history of nausea or vomiting or diarrhea or f ever or chills or cramps. OBJECTIVE: GENERAL: This is a well-built male, in no apparent distress. VITAL SIGNS: Temperature 98, pulse 77, respiratory rate 18, blood pressure 111/69. HEENT: Atraumatic, normocephalic. Oral mucosa is moist. NECK: Supple. CARDIOVASCULAR: S1, S2 heard. Rate and rhythm regular. RESPIRATORY: Clear to auscultation. GASTROINTESTINAL: Abdomen is soft. MUSCULOSKELETAL: No tenderness. No edema. DERMATOLOGIC: No skin rash. NEUROLOGIC: Alert and awake and oriented x3. No focal neurologic deficits. Moving all the extremiti es. PSYCHIATRIC: Mood and affect normal. LABORATORY DATA: Potassium 4.7, BUN is 28, creatinine is 6.9. ASSESSMENT AND PLAN: 1. End-stage renal disease, continue dialysis Monday, Monday, Monday. 2. Hypertension. 3. Anemia, stable. Plan is to continue on dialysis as tolerated.
--- NOTE | 2017-10-10 20:22 | DIS ---
DATE OF ADMISSION: 10/01/2017 DATE OF DISCHARGE: 10/10/2017 DISCHARGE DIAGNOSES: Septic arthritis, type 2 diabetes mellitus, hypertension, end-stage renal disease. HISTORY OF PRESENT ILLNESS/HOSPITAL COURSE: A 47-year-old male with end-stage renal disease on hemodialysis and recently finished antibiotic therapy for septic right knee. After stopping antibiotics therapy for about a week, he developed increased swelling over the right knee with pain, worse with ambulation. He had nausea and subjective chills and fevers at home. There was no history of trauma. No nausea, vomiting or diarrhea. He had a history of osteomyelitis of the right knee and he had a 5 washed out surgery and he was following Dr. Sahu on outpatient basis. After stopping antibiotics, he reported all his symptoms came back. He had an x-ray of his knee, which showed septic arthritis of knee with worsening of fragmentation of the medial tibial plateau. CBC was largely unremarkable, BMP as well. He was admitted to the orthopedic floor with Orthopedic Surgery consulted as well as Infectious Diseases. He had a lower extremity CT scan done , which showed a large joint effusion with worsening destructive changes of the medial tibial plateau with changes suspicious for chronic septic arthritis. He was eventually taken to the OR for irrigation and debridement of the right septic knee with a resection of osteomyelitis of the proximal tibia, which was excisional. He tolerated the procedure well and he was continued on IV vancomycin, which he is to take during his hemodialysis sessions until 11/2017 and then he will be placed on oral Keflex 250 mg b.i.d. He is to follow up with Infectious Disease after discharge. DISCHARGE MEDICATIONS: Folic acid with vitamin B complex daily, Saccharomyces boulardii 250 mg daily, vancomycin IV 750 mg during hemodialysis alternating with 1 gram, Humalog sliding scale. IMAGING: As above. CONSULTS: Orthopedic Surgery, Nephrology, Infectious Disease. CONDITION AT DISCHARGE: Stable and improved. PROCEDURES: As stated in HPI/hospital course. DIET: Renal/diabetic. CARE GOALS: To follow up with his primary care physician within 1 week of discharge. Encouraged to attend dialysis sessions 3 times a week during which his IV vancomycin will be administered. ACTIVITY: Resume as tolerated and directed by Orthopedic Surgery. Discharge time including chart review and documentation 65 minutes. YOANA
== END 2017-10-10 14:29 | disposition home or self-care (01) | DRG 488 ==
LOC: ERS 20:08 → ONC 10-01 01:12
PROVIDERS: ADMIT Internal Medicine; ATTEND Internal Medicine
PROC: 5A1D70Z Performance of Urinary Filtration, Intermittent, Less than 6 Hours Per Day (ICD-10-PCS; 2017-10-01)
PROC: 5A1D70Z Performance of Urinary Filtration, Intermittent, Less than 6 Hours Per Day (ICD-10-PCS; 2017-10-02)
PROC: 0SBC0ZZ Excision of Right Knee Joint, Open Approach (ICD-10-PCS; principal; 2017-10-03)
PROC: 0QBG0ZZ Excision of Right Tibia, Open Approach (ICD-10-PCS; 2017-10-03)
PROC: 5A1D70Z Performance of Urinary Filtration, Intermittent, Less than 6 Hours Per Day (ICD-10-PCS; 2017-10-04)
PROC: 5A1D70Z Performance of Urinary Filtration, Intermittent, Less than 6 Hours Per Day (ICD-10-PCS; 2017-10-06)
DX: M00.9 Pyogenic arthritis, unspecified (principal); N18.6 End stage renal disease; E11.22 Type 2 diabetes mellitus with diabetic chronic kidney disease; E11.65 Type 2 diabetes mellitus with hyperglycemia; E87.2 Acidosis; E87.0 Hyperosmolality and hypernatremia; M86.661 Other chronic osteomyelitis, right tibia and fibula; I12.0 Hypertensive chronic kidney disease with stage 5 chronic kidney disease or end stage renal disease; N25.81 Secondary hyperparathyroidism of renal origin; E87.5 Hyperkalemia; M25.461 Effusion, right knee; D63.1 Anemia in chronic kidney disease; Z99.2 Dependence on renal dialysis; Z79.4 Long term (current) use of insulin; Z79.899 Other long term (current) drug therapy
CPT/HCPCS: 36415; 36416; 80048; 80053; 80069; 80202; 83605; 85014; 85018; 85025; 85027; 85652; 86140; 87040; 87070; 87205; 87340; 90471; 90732; 90935; 96365; 96375; A4216; G0009; G0257; J0692; J1644; J2270; J2704; J3010; J3370; J7050; Q0162

== ENCOUNTER 2017-12-11 12:48 | Observation (INO) | payer MEDICAID, SELFPAY ==
[2017-12-11 13:24] LABS: #Basophils 0.1 thou/uL (0.0-0.2); #Eosinphils 0.3 thou/uL (0.0-0.7); #Lymphocytes 1.4 thou/uL (1.20-3.40); #Monocytes 0.4 thou/uL (0.11-0.59); #Neutrophils 6.6 thou/uL (1.40-6.50); %Basophils 0.8 % (0.0-1.0); %Eosinophils 3.3 % (0.0-10.0); %Lymphocytes 15.6 % (21.0-51.0); %Neutrophils 76.4 % (42.0-75.0); Hemoglobin 9.3 g/dL (14.0-18.0); Mean Corpuscular HGB CONC 32.4 g/dL (32.0-36.0); Mean Corpuscular Hemoglobin 29.5 pg (27.0-31.0); Mean Platelet Volume 5.9 fL (7.4-10.4); Platelet Count 472 thou/uL (130-400); RBC Distribution Width 14.8 % (11.5-14.5); Red Blood Cell (RBC) Count 3.15 mill/uL (4.70-6.10); White Blood Cell (WBC) Count 8.7 thou/uL (4.8-10.8)
[2017-12-11 13:49] LABS: ALT (SGPT) 17 U/L (8-55); AST (SGOT) 18 U/L (5-34); Alkaline Phosphatase 138 U/L (40-150); Anion Gap 22 mmol/L (10-20); BUN (Urea Nitrogen) 88 mg/dL (8.9-20.6); Bilirubin, Total 0.5 mg/dL (0.2-1.2); Calc. Creatinine Clearance 0 mL/min (70-130); Calcium 8.4 mg/dL (7.8-10.44); Carbon Dioxide 16 mmol/L (22-29); Chloride 103 mmol/L (98-107); Estimated GFR-MDRD 4; Globulin 4.4 g/dL (2.4-3.5); Glucose 398 mg/dL (70-105); Lipase 60 U/L (8-78); Potassium 5.5 mmol/L (3.5-5.1); Protein, Total 8.4 g/dL (6.0-8.3); Sodium 135 mmol/L (136-145)
[2017-12-11] MEDS ORDERED: ISOVUE-370 76%-LOCM 1 ML ONE (14:39)
[2017-12-11] MEDS ORDERED: Iopamidol 370 76% 50 ML VIAL FS ONE (14:39)
--- NOTE | 2017-12-11 18:43 | CT ---
ABDOMEN CT WITH CONTRAST: PELVIS CT WITH CONTRAST: HISTORY: Abdominal pain. Nausea. COMPARISON: 08/25/2017 TECHNIQUE: An abdomen and pelvis CT is performed with IV and oral contrast. Coronal reformatted images are subm itted for interpretation. FINDINGS: ABDOMEN: The lung bases are clear. Normal heart size. The thoracic and abdominal aorta have a norm al caliber. No periaortic fat stranding. The gallbladder is surgically absent. Limited evaluation of the portal vein. The liver, the spleen, the pancreas, and the adrenal glands have appropriate enhancement. Nonobstruc ting calcifications in the lower pole, left kidney. Nonobstructing calcifications in the lower pole, right kidney. These calcifications appear to be cortical in location. Bilaterally, no obstructive uropathy. There is symmetric enhancement of the kidneys. No gastrohepatic, retrocrural, or periportal lymphadenopathy. Decreased intraabdominal fat limits evaluation for inflammatory change. There appears to be diffuse stranding of the abdominal mesentery, likely due to mesenteric edema. The gastric mucosa is unremarkable. Multiple normal caliber small bowel loops. The ileocecal juncti on is normal. There appears to be a tubular, contrast-filled structure, which may represent the appe ndix. There is extensive mucosal thickening throughout multiple segments of the colon. The greatest degree of mucosal thickening appears to involve the sigmoid colon. There may be pericolonic fat str anding. There is irregularity and mucosal abnormality involving the distal sigmoid colon and rectum. Colonoscopy is recommended. PELVIS: There is mucosal prominence of the urinary bladder, which may be due to inadequate distentio n. Cystitis cannot be excluded. No significant pelvic mass, lymphadenopathy, or free air. A trace amount of free fluid in the pelvis is suggested. IMPRESSION: 1. Mucosal thickening predominantly involving the sigmoid colon and rectum. Correlate for infectiou s, inflammatory process. 2. Probable contrast-filled appendix in the right lower quadrant. Currently, history reports a prev ious appendectomy. Of note, examination from August 2017 does demonstrate a normal appendix. Corre lation with surgical history is essential. 3. No evidence of obstructive uropathy. 4. Mucosal prominence of the urinary bladder may be due to inadequate distention. Correlate clinica lly for cystitis. POS: [facility]
[2017-12-11] MEDS ORDERED: cloNIDine 0.2 MG TAB PO SCH (21:45)
[2017-12-11 23:40] LABS: HBSAB Concentration 1.33 mIU/mL; HBSAg Index 0.17 S/CO (0-0.99); Hep B Surf AB Non-Reactive (NonReactive); Hep B Surf Ag Non-Reactive S/CO (NonReactive)
[2017-12-11] MEDS ORDERED: HumaLOG 300 UNITS/3 ML VIAL SC PRN (23:55)
[2017-12-11] MEDS ORDERED: Dextrose 5% in Water 1,000 ML IV PRN (23:55)
[2017-12-11] MEDS ORDERED: Dextrose 50% Abboject 50 ML SYRINGE SLOW IVP PRN (23:55)
[2017-12-11] MEDS ORDERED: Milk Of Magnesia 30 ML UDCUP PO PRN (23:56)
[2017-12-12 01:12] VITALS: BMI 22.6
[2017-12-12] MEDS ORDERED: Morphine 4 MG/ML VIAL SLOW IVP PRN (05:12)
[2017-12-12] MEDS: Acetaminophen 325 MG TAB PO PRN ×2 (05:31→21:23)
[2017-12-12] MEDS: traMADol HCl 50 MG TAB PO PRN ×2 (05:31→21:24)
[2017-12-12] MEDS: HumaLOG 300 UNITS/3 ML VIAL SC PRN ×3 (05:37→21:17)
[2017-12-12 05:42] LABS: #Basophils 0.1 thou/uL (0.0-0.2); #Eosinphils 0.3 thou/uL (0.0-0.7); #Lymphocytes 1.6 thou/uL (1.20-3.40); #Monocytes 0.4 thou/uL (0.11-0.59); #Neutrophils 6.1 thou/uL (1.40-6.50); %Basophils 0.8 % (0.0-1.0); %Eosinophils 3.6 % (0.0-10.0); %Lymphocytes 18.3 % (21.0-51.0); %Neutrophils 72.3 % (42.0-75.0); Hemoglobin 8.9 g/dL (14.0-18.0); Mean Corpuscular HGB CONC 32.9 g/dL (32.0-36.0); Mean Corpuscular Hemoglobin 29.5 pg (27.0-31.0); Mean Corpuscular Volume 89.9 fl (80.0-94.0); Mean Platelet Volume 5.9 fL (7.4-10.4); Platelet Count 420 thou/uL (130-400); RBC Distribution Width 14.9 % (11.5-14.5); Red Blood Cell (RBC) Count 3.02 mill/uL (4.70-6.10); White Blood Cell (WBC) Count 8.5 thou/uL (4.8-10.8)
[2017-12-12 05:49] LABS: Hemoglobin A1c 9.6 % (4.0-6.0)
[2017-12-12 05:51] LABS: Anion Gap 11 mmol/L (10-20); BUN (Urea Nitrogen) 37 mg/dL (8.9-20.6); Calc. Creatinine Clearance 11 mL/min (70-130); Calcium 8.3 mg/dL (7.8-10.44); Carbon Dioxide 26 mmol/L (22-29); Chloride 99 mmol/L (98-107); Estimated GFR-MDRD 8; Glucose 265 mg/dL (70-105); Potassium 3.5 mmol/L (3.5-5.1); Sodium 132 mmol/L (136-145)
[2017-12-12] MEDS ORDERED: Sodium Chloride 0.65% Nasal 44 ML BOT EA NARE PRN (06:29)
[2017-12-12] MEDS ORDERED: Mag-Al 1200 mg/1200 mg/30 ML UDCUP PO PRN (06:29)
[2017-12-12] MEDS ORDERED: hydrALAZINE 20 MG/ML VIAL SLOW IVP PRN (06:29)
[2017-12-12] MEDS ORDERED: Artificial Tears 18 DROP/0.9 ML EA EYE PRN (06:29)
[2017-12-12] MEDS ORDERED: Temazepam 15 MG CAP PO PRN (06:29)
[2017-12-12] MEDS ORDERED: Diabetic Tussin 200 MG/10 ML UDCUP PO PRN (06:29)
[2017-12-12] MEDS ORDERED: Chloraseptic Spray 180 ml Bottle PO PRN (06:29)
[2017-12-12] MEDS ORDERED: Ondansetron ODT 4 MG TAB PO PRN (06:29)
[2017-12-12] MEDS ORDERED: Eucerin (Mineral Oil/Petrolatum,White) 30 gm Jar TOP PRN (06:29)
[2017-12-12] MEDS ORDERED: Ondansetron HCl/PF 4 MG/2 ML Vial IVP PRN (06:29)
[2017-12-12] MEDS ORDERED: Loperamide HCl 2 MG CAP PO PRN (06:29)
[2017-12-12] MEDS ORDERED: Dicyclomine 10 MG/5 ML UDCUP PO PRN (08:33)
[2017-12-12] MEDS ORDERED: Morphine 4 MG/ML VIAL IV PRN (08:45)
[2017-12-12] MEDS ORDERED: Amlodipine 5 MG TAB PO SCH (08:45)
[2017-12-12] MEDS ORDERED: Heparin 5,000 UNITS/ML VIAL SC SCH (09:00)
--- NOTE | 2017-12-12 09:42 | HP ---
PRIMARY CARE PHYSICIAN: [facility] Doming[facility] Meléndez. REASON FOR ADMISSION: Nausea, vomiting, lower abdominal pain. HISTORY OF PRESENT ILLNESS: A 47-year-old male who has underlying history of end-stage jonn l disease on hemodialysis, diabetes type 2, hypertension as well as history of chronic right knee sep tic arthritis, who came to emergency room with complaint of lower abdominal crampy pain, which is get ting worse after food associated with several times nausea and vomiting followed by generalized weakn ess. He denies any hematochezia. He has loose stool but denies any melena. He denies any hematemes is. Patient was not able to go for dialysis because of this sickness. He denies any fever. He mark anthony es any unusual food ingestion. He denies any sick exposure. He denies any recent travel. Patient reports that intermittently he gets crampy abdominal pain, which is severe and difficult to t olerate and subsides in few minutes. In the emergency room, this patient had CT of the abdomen and pelvis, which showed mucosal thickening of the sigmoid colon and rectum. Patient was suspected for acute colitis. In the emergency room, h e was planned for giving antibiotic therapy, but it was not given and that is why we decided to give him different antibiotic therapy. Patient is already admitted as observation status to observation floor. Patient still has lower abdo kait crampy pain, but his nausea and vomiting has improved. He denies any diarrhea. He denies any fever. He denies any chest pain, palpitation, shortness of breath. He is on room air. His right kn ee is all pretty much stable. PAST MEDICAL HISTORY: End-stage renal disease on hemodialysis, diabetes type 2, hypertension, histor y of chronic pancreatitis, history of nephrolithiasis, chronic right knee septic arthritis. PAST SURGICAL HISTORY: Right knee surgery x5, renal stone removal, hemodialysis access, right leg jensen rgery. PAST PSYCHIATRIC HISTORY: Reviewed and negative. REVIEW OF SYSTEMS: Please see my HPI for pertinent positive and negative. All other review of syste ms reviewed and negative except as mentioned in the HPI. Constitutional: Weight loss or gain, abili ty to conduct usual activities. Skin: Rash, itching. Eyes: Double vision, pain. ENT/Mouth: Nose bleeding, neck stiffness, pain, tenderness. Cardiovascular: Palpitations, dyspnea on exertion, ort hopnea. Respiratory: Shortness of breath, wheezing, cough, hemoptysis, fever, or night sweats. Gas trointestinal: Poor appetite, abdominal pain, heartburn, nausea, vomiting, constipation, or diarrhea . Genitourinary: Urgency, frequency, dysuria, nocturia. Musculoskeletal: Pain, swelling. Neurolo gic/Psychiatric: Anxiety, depression. Allergy/Immunologic: Skin rash, bleeding tendency. ALLERGIES: No known drug allergy. CURRENT HOME MEDICATIONS: Patient did not bring his home medication. He is taking insulin as per [facility] protocol. EMERGENCY ROOM COURSE: Reviewed. SOCIAL HISTORY: Patient lives at home with family. No history of tobacco, alcohol or illicit drug a buse. FAMILY HISTORY: No strong family history of premature coronary artery disease, stroke, or cancer. PHYSICAL EXAMINATION: VITAL SIGNS: On arrival to emergency room, blood pressure 145/83, pulse 83, respiratory rate 18, tem perature 97.9, saturation 97% on room air, weight 66.2 kilograms. GENERAL: Patient is currently alert, awake, no obvious acute distress. HEENT: Normocephalic, atraumatic. Eyes: Pupils round, reactive to light. Extraocular muscle intac t. ENT: Oropharynx within normal limit. Moist mucous membranes. No oral lesion, no pharyngeal erythem a, no exudate. NECK: Supple, no JVD, no thyromegaly, no carotid bruit, no jugular venous distention. LUNGS: Clear to auscultation without any rhonchi or rales. CARDIAC: S1, S2 regular. No murmur, no gallop, no rub. ABDOMEN: Soft, bowel sounds present. Left lower quadrant and lower abdominal discomfort noted on de ep palpation, but no peritoneal sign. No guarding, no rigidity, no rebound, no organomegaly, no mass . BACK: Unremarkable, no CVA tenderness. EXTREMITIES: Upper extremity passive movement of all joints are normal. Lower extremities: No rose a. Good peripheral pulsation. Right knee surgical scar noted. NEUROLOGIC: Nonfocal examination. Patient moves all 4 limbs. Plantar bilateral flexor. No cerebel lar sign. SKIN: No skin rash. HEMATOLOGIC: No lymphadenopathy. PSYCHIATRIC: Normal affect. SIGNIFICANT LABORATORY DATA: CBC: WBC 8.7, hemoglobin 9.3, platelet 472. BMP: Sodium 135, potassi um 5.5, chloride 103, carbon dioxide 16, anion gap 22, BUN 88, creatinine 13.64, glucose 398, calcium 8.4. LFT: AST 18, ALT 17, alkaline phosphatase 138, albumin 4.0, lipase 60. Hemoglobin A1c 9.6. Hepatitis B surface antigen negative. Stool for infection workup, C. diff antigen positive and toxin negative. Campylobacter antigen positive, parasite giardia and cryptosporidium negative. Stool lac toferrin elevated. CT of the abdomen and pelvis consistent with mucosal thickening of sigmoid colon and rectum. ASSESSMENT AND PLAN: 1. Acute colitis, infectious etiology. Patient does have Campylobacter positive as well as Clostrid ium difficile antigen positive. This patient has previous antibiotic exposure. At this point, we wi ll start giving him Cipro 200 mg IV q.12 hourly and Flagyl 250 mg IV q.8 hourly. We will continue Ci pro for 5 days and Flagyl for 10 days. We will also continue probiotic, Florastor 250 mg p.o. daily. We will control his pain with the Bentyl and morphine p.r.n. basis. 2. End-stage renal disease, on hemodialysis. Dr. Singh is consulted and patient will need a maint enance hemodialysis while in hospital. 3. Hypertension. We will start amlodipine 5 mg p.o. b.i.d. 4. Anemia of renal disease. We will start Nephro-Gallo and ferrous sulfate 325 mg p.o. daily. Procr it with dialysis as per Nephro. 5. Anion gap metabolic acidosis due to renal failure, improved after dialysis. 6. Hyperkalemia, improved after dialysis. 7. Diabetes type 2, not well controlled. Continue insulin as per sliding-scale protocol. Diabetic renal diet will be given. 8. History of chronic right knee septic arthritis. Currently, problem is stable and patient is plan abelino for surgery in [place] next month. 9. Deep venous thrombosis prophylaxis, heparin 5000 units subcutaneous twice daily. 10. Gastrointestinal prophylaxis. Pepcid 20 mg p.o. daily. CODE STATUS: Patient is FULL CODE. Patient does not have any surrogate decision maker. Disposition plan based on clinical course, likely within 24 hours. Tomorrow, we will consider muriel ng to Cipro and Flagyl orally and consider discharge home after dialysis.
[2017-12-12] MEDS: Saccharomyces boulardii 250 MG CAP PO SCH (09:46)
[2017-12-12] MEDS: Ciprofloxacin Lactate/D5W 200 MG in Premix Bag 1 BAG IVPB SCH ×2 (09:46→21:05)
[2017-12-12] MEDS: Famotidine 20 MG TAB PO SCH (09:46)
[2017-12-12] MEDS: Folic Acid/Vit B Comp W-C PO SCH (09:46)
[2017-12-12] MEDS: Amlodipine 5 MG TAB PO SCH ×2 (09:46→21:06)
[2017-12-12] MEDS: Heparin 5,000 UNITS/ML VIAL SC SCH ×2 (09:47→21:05)
--- NOTE | 2017-12-12 11:03 | PRG ---
DATE OF SERVICE: 12/12/2017 SUBJECTIVE: This is a 47-year-old gentleman being seen for end-stage renal disease and hyperkalemia. The patient denies any nausea, vomiting or chest pain. OBJECTIVE: GENERAL: Patient is awake, alert. VITAL SIGNS: Afebrile, pulse 65, breathing 16, blood pressure 116/59. GENERAL APPEARANCE AND MENTAL STATUS: Fair. HEAD/NECK: Normocephalic. Atraumatic. EYES: EOMI. No deformity. EARS: Clear. No ulcers. NOSE: Intact. No lesions. MOUTH: Clear. No discharge. THROAT: Clear. No exudate. LUNGS: Clear. No crackles. CARDIAC: S1, S2. No rub. ABDOMEN: Benign. BS+. GENITALIA/RECTUM: Nazario absent. BACK/EXTREMITIES: Edema 0+ Ulcer- NEUROLOGICAL: Alert and motor intact. SKIN: Rash- Bruise- LYMPHATICS: Edema- Ulcer- LABORATORY DATA: Potassium 3.5. ASSESSMENT AND PLAN: 1. Stage 3 chronic kidney disease, stable. 2. Hypertension, stable. 3. Anemia, stable. 4. Hyperkalemia, stable. The patient can be discharged from Nephrology aspect.
--- NOTE | 2017-12-12 11:29 | CON ---
DATE OF CONSULTATION: 12/12/2017 REASON FOR CONSULTATION: Hyperkalemia. HISTORY OF PRESENT ILLNESS: This is a 47-year-old gentleman who presented to the hospital for abdominal pain. The patient had a CAT scan of his abdomen done and was exposed to contrast and also was noted to have a potassium of 5.5 and was scheduled to have dialysis. The patient denies no headache, numbness, tingling or weakness. Denies any chest pain. PAST MEDICAL HISTORY: End-stage renal disease, hypertension, anemia, diabetes mellitus, history of osteomyelitis with multiple complications including septic arthritis, history of knee replacement, appendectomy, tunneled dialysis catheter , fistula placement. HOME MEDICATIONS: List reviewed. SOCIAL HISTORY: No alcohol or drug use. FAMILY HISTORY: Negative for ESRD. REVIEW OF SYSTEMS: A 15 point review of systems was performed and was negative except for positives noted above. GENERAL: Weakness- HEAD: Headache- NECK: No swelling or lumps. NOSE: No epistaxis or discharge. EYES: No diplopia or pain. 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 NEUROPSYCHIATIC SYSTEMS: No suicidal ideation. No ideation. SKIN: Denies any rash or ulcer. CONSTITUTIONAL: No fever or chills. PHYSICAL EXAMINATION: GENERAL: Patient is awake, alert. VITAL SIGNS: Afebrile, pulse 70, breathing 16, blood pressure 172/98. GENERAL APPEARANCE AND MENTAL STATUS: Fair. HEAD/NECK: Normocephalic. Atraumatic. EYES: EOMI. No deformity. EARS: Clear. No ulcers. NOSE: Intact. No lesions. MOUTH: Clear. No discharge. THROAT: Clear. No exudate. LUNGS: Clear. No crackles. CARDIAC: S1, S2. No rub. ABDOMEN: Benign. BS+. GENITALIA/RECTUM: Nazario absent. BACK/EXTREMITIES: Edema 0+ Ulcer- NEUROLOGICAL: Alert and motor intact. SKIN: Rash- Bruise- LYMPHATICS: Edema- Ulcer- LABORATORY DATA: Potassium 5.5. ASSESSMENT AND RECOMMENDATIONS: 1. Stage 6 chronic kidney disease. We will plan dialysis. 2. Metabolic acidosis, plan dialysis. 3. Anemia, stable. 4. Medication based on glomerular filtration rate appropriate. MTDD
[2017-12-12] MEDS: metroNIDAZOLE 250 MG in Admixture Fee 2 EACH IVPB SCH ×2 (14:50→22:25)
[2017-12-13 05:35] LABS: #Basophils 0.1 thou/uL (0.0-0.2); #Eosinphils 0.3 thou/uL (0.0-0.7); #Monocytes 0.5 thou/uL (0.11-0.59); #Neutrophils 6.4 thou/uL (1.40-6.50); %Basophils 0.8 % (0.0-1.0); %Eosinophils 2.8 % (0.0-10.0); %Lymphocytes 21.7 % (21.0-51.0); %Monocytes 5.7 % (0.0-10.0); Hemoglobin 9.2 g/dL (14.0-18.0); Mean Corpuscular HGB CONC 34.7 g/dL (32.0-36.0); Mean Corpuscular Hemoglobin 31.4 pg (27.0-31.0); Mean Corpuscular Volume 90.4 fl (80.0-94.0); Mean Platelet Volume 6.4 fL (7.4-10.4); Platelet Count 433 thou/uL (130-400); Red Blood Cell (RBC) Count 2.94 mill/uL (4.70-6.10); White Blood Cell (WBC) Count 9.2 thou/uL (4.8-10.8)
[2017-12-13] MEDS: metroNIDAZOLE 250 MG in Admixture Fee 2 EACH IVPB SCH (05:35)
[2017-12-13 05:37] LABS: Anion Gap 18 mmol/L (10-20); BUN (Urea Nitrogen) 46 mg/dL (8.9-20.6); Calc. Creatinine Clearance 8 mL/min (70-130); Calcium 7.8 mg/dL (7.8-10.44); Carbon Dioxide 19 mmol/L (22-29); Chloride 98 mmol/L (98-107); Estimated GFR-MDRD 5; Glucose 300 mg/dL (70-105); Sodium 131 mmol/L (136-145)
[2017-12-13] MEDS: HumaLOG 300 UNITS/3 ML VIAL SC PRN (05:38)
[2017-12-13] MEDS ORDERED: Ferrous Sulfate 325 MG TAB PO SCH (08:00)
[2017-12-13 08:35] VITALS: TEMP 97.7
[2017-12-13 08:43] VITALS: BP 112/76
[2017-12-13] MEDS: Folic Acid/Vit B Comp W-C PO SCH (09:09)
[2017-12-13] MEDS: Heparin 5,000 UNITS/ML VIAL SC SCH (09:09)
[2017-12-13] MEDS: traMADol HCl 50 MG TAB PO PRN (09:09)
[2017-12-13] MEDS: Famotidine 20 MG TAB PO SCH (09:09)
[2017-12-13] MEDS: Saccharomyces boulardii 250 MG CAP PO SCH (09:10)
[2017-12-13] MEDS: Ciprofloxacin Lactate/D5W 200 MG in Premix Bag 1 BAG IVPB SCH (09:10)
[2017-12-13] MEDS: Amlodipine 5 MG TAB PO SCH (09:10)
--- NOTE | 2017-12-13 10:20 | PDOC.PN ---
- Subjective Encounter Start Date: 12/13/17 Encounter Start Time: 07:40 -: old records requested/rev has less diarrhoea and less abdominal pain Patient seen and examined. No new complaints. No overnight events - Objective Resuscitation Status: Resuscitation Status FULL:Full Resuscitation MAR Reviewed: Yes Vital Signs & Weight: Vital Signs (12 hours) Temp Pulse Resp BP Pulse Ox 12/13/17 09:10 74 12/13/17 08:05 97.7 F 74 18 112/76 94 L 12/13/17 03:42 98.9 F 78 16 130/74 97 Weight Weight 140 lb 11.2 oz I&O: 12/12/17 12/13/17 12/14/17 06:59 06:59 06:59 Intake Total 130 995 Output Total 1600 2 Balance -1470 993 Result Diagrams: 12/13/17 04:54 12/13/17 04:54 Additional Labs: Accuchecks 12/13/17 12/12/17 12/12/17 05:38 21:05 16:52 POC Glucose 305 H 290 H 194 H 12/12/17 11:18 POC Glucose 207 H Phys Exam - Physical Examination Constitutional: NAD HEENT: PERRLA, moist MMs, sclera anicteric Neck: no JVD, supple Respiratory: no wheezing, no rales, no rhonchi Cardiovascular: RRR, no significant murmur, no rub Gastrointestinal: soft, non-tender, no distention, positive bowel sounds Musculoskeletal: no edema, pulses present Neurological: non-focal, normal sensation, moves all 4 limbs Psychiatric: normal affect, A&O x 3 Skin: no rash, normal turgor Dx/Plan (1) Colitis Code(s): K52.9 - NONINFECTIVE GASTROENTERITIS AND COLITIS, UNSPECIFIED Status : Acute Comment: likely infectious (2) Anemia of renal disease Code(s): D63.1 - ANEMIA IN CHRONIC KIDNEY DISEASE Status: Chronic (3) Chronic osteomyelitis of right femur Code(s): M86.651 - OTHER CHRONIC OSTEOMYELITIS, RIGHT THIGH Status: Chronic Comment: (4) Chronic osteomyelitis of right tibia Code(s): M86.661 - OTHER CHRONIC OSTEOMYELITIS, RIGHT TIBIA AND FIBULA Status : Chronic (5) Diabetes type 2, controlled Code(s): E11.9 - TYPE 2 DIABETES MELLITUS WITHOUT COMPLICATIONS Status: Chronic Qualifiers: (6) ESRD (end stage renal disease) on dialysis Code(s): N18.6 - END STAGE RENAL DISEASE; Z99.2 - DEPENDENCE ON RENAL DIALYSIS Status: Chronic (7) Hypertension Code(s): I10 - ESSENTIAL (PRIMARY) HYPERTENSION Status: Chronic Qualifiers: (8) Vitamin D deficiency Code(s): E55.9 - VITAMIN D DEFICIENCY, UNSPECIFIED Status: Chronic - Plan cont current plan of care, continue antibiotics * will treat campylobactor for 5 days with cipro * will treat c-diff for 15 days with falgyl * medication assistance * medication reviewed as below * symptomatic treatment * discharge today. Review of Systems - Review of Systems Eyes: negative: Pain, Vision Change, Conjunctivae Inflammation, Eyelid Inflammation, Redness, Other ENT: negative: Ear Pain, Ear Discharge, Nose Pain, Nose Discharge, Nose Congestion, Mouth Pain, Mouth Swelling, Throat Pain, Throat Swelling, Other Respiratory: negative: Cough, Dry, Shortness of Breath, Hemoptysis, SOB with Excertion, Pleuritic Pain, Sputum, Wheezing Cardiovascular: negative: chest pain, palpitations, orthopnea, paroxysmal nocturnal dyspnea, edema, light headedness, other Gastrointestinal: Abdominal Pain, Diarrhea. negative: Nausea, Vomiting, Constipation, Melena, Hematochezia, Other Genitourinary: negative: Dysuria, Frequency, Incontinence, Hematuria, Retention , Other Musculoskeletal: negative: Neck Pain, Shoulder Pain, Arm Pain, Back Pain, Hand Pain, Leg Pain, Foot Pain, Other Skin: negative: Rash, Lesions, Rickey, Bruising, Other - Medications/Allergies Allergies/Adverse Reactions: Allergies Allergy/AdvReac Type Severity Reaction Status Date / Time No Known Drug Allergies Allergy Verified 03/11/13 14:47 Medications: Current Medications Acetaminophen (Tylenol) 650 mg PO Q4H PRN PRN Reason: Headache/Fever or Pain Last Admin: 12/12/17 21:23 Dose: 650 mg Al Hydroxide/Mg Hydroxide (Maalox) 15 ml PO Q4H PRN PRN Reason: Heartburn or Indigestion Amlodipine Besylate (Norvasc) 5 mg PO BID KYLEE Last Admin: 12/13/17 09:10 Dose: 5 mg Artificial Tears (Tears Naturale) 0 drop EA EYE PRN PRN PRN Reason: Dry Eyes Dextrose/Water (Dextrose 50%) 25 gm SLOW IVP PRN PRN PRN Reason: Hypoglycemia Dicyclomine HCl (Bentyl) 10 mg PO QIDPRN PRN PRN Reason: GI Cramping Famotidine (Pepcid) 20 mg PO DAILY [facility] Last Admin: 12/13/17 09:09 Dose: 20 mg Ferrous Sulfate (Feosol) 325 mg PO QAM-WM [facility] Last Admin: 12/13/17 09:10 Dose: 325 mg Glucagon (Glucagon) 1 mg IM PRN PRN PRN Reason: Hypoglycemia Guaifenesin (Robitussin Sf) 200 mg PO Q4H PRN PRN Reason: Cough Heparin Sodium (Porcine) (Heparin) 5,000 units SC BID [facility] Last Admin: 12/13/17 09:09 Dose: 5,000 units Hydralazine HCl (Apresoline) 10 mg SLOW IVP Q4H PRN PRN Reason: Systolic BP > 180 Dextrose/Water (D5w) 1,000 mls @ 0 mls/hr IV .Q0M PRN; As Directed PRN Reason: Hypoglycemia Ciprofloxacin/Dextrose 200 mg/ (Device) 100 mls @ 100 mls/hr IVPB Q12HR [facility] Last Admin: 12/13/17 09:10 Dose: 100 mls Metronidazole 250 mg/ (Miscellaneous Medication) 50 mls @ 100 mls/hr IVPB Q8HR [facility] Last Admin: 12/13/17 05:35 Dose: 50 mls Insulin Human Lispro (Humalog) 0 units SC .MODERATE SLIDING SC PRN PRN Reason: Moderate Correctional Scale Last Admin: 12/13/17 05:38 Dose: 8 unit Insulin Human Lispro (Humalog) 0 units SC .BEDTIME SLIDING SC PRN PRN Reason: Bedtime Correctional Scale Loperamide HCl (Imodium) 2 mg PO PRN PRN PRN Reason: Diarrhea/Loose Stools Magnesium Hydroxide (Milk Of Magnesium) 30 ml PO DAILYPRN PRN PRN Reason: Constipation Mineral Oil/White Petrolatum (Eucerin Cream) 0 gm TOP BIDPRN PRN PRN Reason: Dry Skin Morphine Sulfate (Morphine) 2 mg SLOW IVP Q4H PRN PRN Reason: PAIN- 2nd line Morphine Sulfate (Morphine) 2 mg IV Q4H PRN PRN Reason: Pain Ondansetron HCl (Zofran Odt) 4 mg PO Q6H PRN PRN Reason: Nausea/Vomiting Last Admin: 12/12/17 12:03 Dose: 4 mg Ondansetron HCl (Zofran) 4 mg IVP Q6H PRN PRN Reason: Nausea/Vomiting Phenol (Chloraseptic [place] 180 Ml Bot) 0 ml PO PRN PRN PRN Reason: Sore Throat Saccharomyces Boulardii (Florastor) 250 mg PO DAILY [facility] Last Admin: 12/13/17 09:10 Dose: 250 mg Sodium Chloride ([place] Nasal [place] 0.65%) 0 ml EA NARE QIDPRN PRN PRN Reason: Nasal Congestion Sodium Chloride (Flush - Normal Saline) 10 ml IVF Q12HR [facility] Last Admin: 12/13/17 09:11 Dose: 10 ml Sodium Chloride (Flush - Normal Saline) 10 ml IVF PRN PRN PRN Reason: Saline Flush Temazepam (Restoril) 15 mg PO HSPRN PRN PRN Reason: Insomnia Tramadol HCl (Ultram) 50 mg PO Q8H PRN PRN Reason: pain- 1st line Last Admin: 12/13/17 09:09 Dose: 50 mg Vitamin B Complex/Vit C/Folic Acid (Nephro-Gallo Tablet) 1 tab PO DAILY [facility] Last Admin: 12/13/17 09:09 Dose: 1 tab
--- NOTE | 2017-12-13 11:31 | PRG ---
DATE OF SERVICE: 12/13/2017 SUBJECTIVE: A 47-year-old gentleman being seen for end-stage renal disease. The patient denies any nausea, vomiting or chest pain. PHYSICAL EXAMINATION: GENERAL APPEARANCE: The patient awake, alert. VITAL SIGNS: Afebrile, pulse 74, breathing 16, blood pressure 112/76. HEAD/NECK: Normocephalic. Atraumatic. EYES: EOMI. No deformity. EARS: Clear. No ulcers. NOSE: Intact. No lesions. MOUTH: Clear. No discharge. THROAT: Clear. No exudate. LUNGS: Clear. No crackles. CARDIAC: S1, S2. No rub. ABDOMEN: Benign. BS+. GENITALIA/RECTUM: Nazario absent. BACK/EXTREMITIES: Edema 0+ Ulcer- NEUROLOGICAL: Alert and motor intact. SKIN: Rash- Bruise- LYMPHATICS: Edema- Ulcer- LABORATORY DATA: Show hemoglobin 9.2. ASSESSMENT AND RECOMMENDATIONS: 1. Stage 6 chronic kidney disease, continue hemodialysis. 2. Hypertension, stable. 3. Anemia, stable. 4. Medications based on glomerular filtration rate are appropriate.
--- NOTE | 2017-12-13 12:49 | DIS ---
DATE OF ADMISSION: 12/11/2017 DATE OF DISCHARGE: 12/13/2017 PRIMARY CARE PHYSICIAN: Troy Mix. DISCHARGE DISPOSITION: Home. PRIMARY DISCHARGE DIAGNOSIS: Acute colitis due to infection (Campylobacter positive and C. diff anti gen positive). SECONDARY DISCHARGE DIAGNOSES: Vitamin D deficiency, hypertension, end-stage renal disease on hemodi alysis, diabetes type 2, chronic osteomyelitis of right tibia and fibula, anemia of renal disease, se condary hyperparathyroidism of renal origin. PRIMARY PROCEDURE/OPERATION: Maintenance hemodialysis. RADIOLOGICAL INVESTIGATION: CT of the abdomen and pelvis showed findings suggestive of acute colitis . SIGNIFICANT LABORATORY DATA: WBC 9.3, hemoglobin 9.2, platelet 433. Sodium 131, potassium 4.0, BUN 46, creatinine 10.41, and calcium 7.8. Hepatitis B surface antigen negative. Campylobacter antigen positive. C. diff antigen positive and toxin positive. DISCHARGE MEDICATIONS: Levaquin 500 mg p.o. t.i.d. for 15 days, Florastor 250 mg p.o. daily for 15 d ays, Cipro 250 mg p.o. b.i.d. for 5 days, amlodipine 5 mg p.o. b.i.d., Tylenol No. 3 one or two table ts q.6 hourly p.r.n., ferrous sulfate 325 mg p.o. daily, Nephro-Gallo 1 tablet p.o. daily, Humalog ins ulin as per sliding scale, Pepcid 20 mg p.o. daily. CONTRAINDICATIONS: None. CODE STATUS: FULL CODE. 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 Echols was following for maintenance hemodialysis. TEST RESULTS PENDING ON DISCHARGE: None. ALLERGIES: No known drug allergy. DISCHARGE PLAN: Post hospital, patient is instructed to follow up with primary care physician [place] HOSPITAL COURSE: A 47-year-old male who presented to emergency room with nausea, vomiting, lower abd ominal crampy pain and diarrhea. The patient was found with Campylobacter antigen positive as well a s stool for C. difficile was positive. This patient has a history of chronic osteomyelitis of right femur, tibia, and he was exposed with antibiotic therapy and that is why we suspected predominantly C . difficile infection. While in hospital, he was given Cipro and Flagyl. On discharge, we prescribe d Cipro for 5 days and Flagyl for 15 days. Probiotic was prescribed for his pain. We prescribed Tyl enol #3 for 30 tablets. Patient ran out his blood pressure medication and that is why we started aml odipine 5 mg p.o. b.i.d. and prescription given. The patient is also given prescription for Pepcid, ferrous sulfate, Nephro-Gallo. Overall, this patient is medically stable. The patient is seen and examined at bedside today. Samantha raymond see my progress note from today for further detail. The patient's diarrhea and abdominal cramps ar e significantly better. Initially in the emergency room, patient had hyperkalemia because he was not able to get dialysis and that is why patient required immediate dialysis while in hospital and after that his potassium improved. During this admission, I provided counseling to be compliant with medical therapy. Overall, patient is medically stable for discharge. Please see my progress note from today for furth er detail.
== END 2017-12-13 12:02 | disposition home or self-care (01) ==
LOC: ERS 12:48 → 2SW 20:10
PROVIDERS: ADMIT Family Medicine; ATTEND Family Medicine
DX: A04.5 Campylobacter enteritis (principal); A04.72 Enterocolitis due to Clostridium difficile, not specified as recurrent; I12.0 Hypertensive chronic kidney disease with stage 5 chronic kidney disease or end stage renal disease; E11.22 Type 2 diabetes mellitus with diabetic chronic kidney disease; N18.6 End stage renal disease; D63.1 Anemia in chronic kidney disease; E55.9 Vitamin D deficiency, unspecified; N25.81 Secondary hyperparathyroidism of renal origin; M86.661 Other chronic osteomyelitis, right tibia and fibula; E87.5 Hyperkalemia; K86.1 Other chronic pancreatitis; M00.9 Pyogenic arthritis, unspecified; E87.2 Acidosis; Z79.4 Long term (current) use of insulin; Z99.2 Dependence on renal dialysis
CPT/HCPCS: 36415; 36416; 74177; 80048; 80053; 83036; 83630; 83690; 85025; 86706; 87045; 87046; 87324; 87328; 87329; 87340; 87449; 87493; 87899; 90935; 96365; 96366; 96367; A4216; G0257; G0378; J0744; J1644; Q0162

== ENCOUNTER 2018-04-11 23:14 | Emergency (ER) | payer SELFPAY ==
[2018-04-12 00:37] LABS: #Basophils 0.1 thou/uL (0.0-0.2); #Eosinphils 0.4 thou/uL (0.0-0.7); #Lymphocytes 1.4 thou/uL (1.20-3.40); #Monocytes 0.6 thou/uL (0.11-0.59); #Neutrophils 5.2 thou/uL (1.40-6.50); %Basophils 0.7 % (0.0-1.0); %Lymphocytes 17.8 % (21.0-51.0); %Monocytes 8.3 % (0.0-10.0); %Neutrophils 68.2 % (42.0-75.0); Hemoglobin 8.8 g/dL (14.0-18.0); Mean Corpuscular Hemoglobin 30.1 pg (27.0-31.0); Mean Corpuscular Volume 88.5 fL (78.0-98.0); Mean Platelet Volume 5.7 fL (7.4-10.4); Platelet Count 578 thou/uL (130-400); RBC Distribution Width 14.5 % (11.5-14.5); Red Blood Cell (RBC) Count 2.93 mill/uL (4.70-6.10); White Blood Cell (WBC) Count 7.6 thou/uL (4.8-10.8)
[2018-04-12 00:51] LABS: ALT (SGPT) 9 U/L (8-55); AST (SGOT) 13 U/L (5-34); Albumin 3.7 g/dL (3.5-5.0); Alkaline Phosphatase 123 U/L (40-150); Anion Gap 17 mmol/L (10-20); BUN (Urea Nitrogen) 12 mg/dL (8.9-20.6); Bilirubin, Total 0.4 mg/dL (0.2-1.2); Calc. Creatinine Clearance 0 mL/min (70-130); Carbon Dioxide 28 mmol/L (22-29); Chloride 99 mmol/L (98-107); Estimated GFR-MDRD 12; Globulin 4.9 g/dL (2.4-3.5); Glucose 224 mg/dL (70-105); Potassium 3.5 mmol/L (3.5-5.1); Protein, Total 8.6 g/dL (6.0-8.3); Sodium 140 mmol/L (136-145)
== END 2018-04-12 02:31 | disposition home or self-care (01) ==
LOC: ERS 23:14
DX: K52.9 Noninfective gastroenteritis and colitis, unspecified (principal); E10.9 Type 1 diabetes mellitus without complications; N18.6 End stage renal disease; Z99.2 Dependence on renal dialysis
CPT/HCPCS: 36415; 80053; 85025; 99284

== ENCOUNTER 2018-09-10 20:37 | Emergency (ER) | payer MEDICAID, SELFPAY ==
[2018-09-10 21:48] LABS: #Eosinphils 0.3 thou/uL (0.0-0.7); #Lymphocytes 1.2 thou/uL (1.20-3.40); #Monocytes 0.5 thou/uL (0.11-0.59); #Neutrophils 4.5 thou/uL (1.40-6.50); %Basophils 0.7 % (0.0-1.0); %Lymphocytes 17.9 % (21.0-51.0); %Monocytes 7.2 % (0.0-10.0); %Neutrophils 69.3 % (42.0-75.0); Mean Corpuscular HGB CONC 31.6 g/dL (32.0-36.0); Mean Corpuscular Hemoglobin 27.3 pg (27.0-31.0); Mean Corpuscular Volume 86.6 fL (78.0-98.0); Mean Platelet Volume 7.1 fL (7.4-10.4); Platelet Count 406 thou/uL (130-400); RBC Distribution Width 18.2 % (11.5-14.5); Red Blood Cell (RBC) Count 4.03 mill/uL (4.70-6.10); White Blood Cell (WBC) Count 6.5 thou/uL (4.8-10.8)
[2018-09-10 22:11] LABS: ALT (SGPT) 14 U/L (8-55); AST (SGOT) 18 U/L (5-34); Albumin 4.3 g/dL (3.5-5.0); Alkaline Phosphatase 184 U/L (40-150); Anion Gap 20 mmol/L (10-20); BUN (Urea Nitrogen) 42 mg/dL (8.9-20.6); Bilirubin, Total 0.4 mg/dL (0.2-1.2); CK (CPK) 235 U/L (30-200); Calc. Creatinine Clearance 0 mL/min (70-130); Calcium 8.7 mg/dL (7.8-10.44); Carbon Dioxide 18 mmol/L (22-29); Chloride 100 mmol/L (98-107); Estimated GFR-MDRD 8; Globulin 4.6 g/dL (2.4-3.5); Glucose 444 mg/dL (70-105); Lipase 138 U/L (8-78); Protein, Total 8.9 g/dL (6.0-8.3); Sodium 134 mmol/L (136-145)
--- NOTE | 2018-09-10 22:33 | CT ---
CT ABDOMEN AND PELVIS: 09/10/2018 HISTORY: Abdominal and pelvis pain. Left lower quadrant pain with diarrhea. Rectal pain and burning. COMPARISON: 12/11/2017 TECHNIQUE: Axial CT imaging at 5 mm intervals, from the lung bases through the pubic symphysis, with IV contrast . Coronal reformatted imaging obtained. FINDINGS: The imaged lung bases appear unremarkable. The distal tip of a vascular catheter is seen in the mayela on of the SVC. The imaged lung bases are grossly unremarkable. No free intraperitoneal air. Cholec ystectomy clips are present. The liver, spleen, and pancreas demonstrate no acute findings. The adrenal glands are unremarkable. The kidneys demonstrate no evidence for obstruction. The kidneys are relatively small and demonstra te cortical thinning. There are subcentimeter, nonobstructing stones noted within the renal lower po les, measuring up to 5 mm on the right and 3-4 mm on the left. The lack of oral contrast media limits assessment of the bowel. There is suggestion of possible distal colonic thickening in the region of the rectum, on axial image 74. Colon proximal to this is moderately distended and contains fluid. There is questionable wall thickening versus under-distention of the colon in the region of the sigmoid and distal descending co fabricio. The colon proximal to this is decompressed, and wall thickening of the colon, from the level of the cecum through the mid transverse colon, cannot be excluded. There is questionable mild diffuse wall thickening versus under-distention of small bowel throughout the abdomen/pelvis as well. There is bulky lymphadenopathy along the right hemipelvis and in the right inguinal region, including pelvic sidewall adenopathy on the right, measuring up to 1.4 cm in short axis dimension. There is a lso lymphadenopathy along the external iliac chain on the right, measuring up to 2.1 cm. Multiple en larged right inguinal lymph nodes are present, measuring up to 1.7 cm in short axis dimension. No ad enopathy is seen in the left hemipelvis. There are a few mildly prominent retroperitoneal nodes, primarily in the left paraaortic region, john uring up to 1.2 cm. The osseous structures demonstrate no acute findings. IMPRESSION: There is rectal wall thickening, as well as scattered areas of additional colonic wall thickening. F indings may be on the basis of colitis. However, given the bulky adenopathy in the right inguinal re gion/right hemipelvis and the appearance at the level of the rectum, these findings are significantly concerning for possible underlying colonic malignancy with metastatic adenopathy. A gastroenterolog y consultation and direct consultation, via colonoscopy, is advised. Results were called to JACKIE Lafleur at 10:05 p.m. on 09/10/2018. CODE CR POS: SJ
[2018-09-10] MEDS ORDERED: Morphine 4 MG/ML VIAL ONE (22:40)
== END 2018-09-10 22:55 | disposition home or self-care (01) ==
LOC: ERS 20:37
DX: K52.9 Noninfective gastroenteritis and colitis, unspecified (principal); E10.22 Type 1 diabetes mellitus with diabetic chronic kidney disease; N18.6 End stage renal disease
CPT/HCPCS: 74177; 80053; 82550; 83690; 85025; 96372; J2270

== ENCOUNTER 2018-09-11 09:44 | Emergency (ER) | payer SELFPAY ==
--- NOTE | 2018-09-11 11:38 | RAD ---
RIGHT KNEE FOUR VIEWS: Comparison: 09-30-17 History: Pain. FINDINGS: There appears to be loosening of the femoral compartment of the right knee arthroplasty. There is loo sening and likely fracture involving the tibial component of the right knee arthroplasty as well as t he proximal tibia. There is associated soft tissue swelling, deformity, joint effusion and heterotopi c bone formation/possible fragment of cement. IMPRESSION: Complicated right knee arthroplasty. POS: ALEJANDRO
== END 2018-09-11 11:43 | disposition home or self-care (01) ==
LOC: ERS 09:44
DX: M17.11 Unilateral primary osteoarthritis, right knee (principal); E10.22 Type 1 diabetes mellitus with diabetic chronic kidney disease; Z87.442 Personal history of urinary calculi; Z79.899 Other long term (current) drug therapy